=== PATIENT | female | born 1965 | race Caucasian/White ===

== ENCOUNTER 2022-07-17 13:31 | Emergency (ER) | payer MEDICARE, SELFPAY ==
[2022-07-17 13:37] VITALS: BP 158/65; PULSE 98; RESP 16; TEMP 37.2; O2SAT 93
--- NOTE | 2022-07-17 13:48 | ED_ITS ---
HPI - Allergic Reaction General: Chief complaint: Allergic Reaction Stated complaint: pain/reaction to infusion Time Seen by Provider: 07/17/22 13:34 History of Present Illness: HPI narrative: 56-year-old female presents emergency department chief complaint of pain all over located in her lower back her thighs and legs and arms patient reports she just received Reclast for osteoporosis yesterday reports is the first time she has received it she reports that she was on Fosamax before patient reports approximate 3 to 4 hours after she developed significant bone related bone achy pain patient does not report any recent falls or trauma. Patient reports no hives. She reports no difficulty breathing chest pain or palpitations patient presents to the ER for further assessment and management. Associated symptoms: Deny abdominal pain, facial swelling, nausea or vomiting Review of Systems General: Reports: 10 or more systems reviewed and unremarkable except in HPI and below Narrative: Patient reports fatigue and generalized bone aches although nonspecific in nature Const: Denies: fever(s), chills, fatigue or malaise Eyes: Denies: change in vision or blurry vision Card: Denies: chest pain or palpitations Resp: Denies: dyspnea or productive cough GI: Denies: abdominal pain, nausea or vomiting : Denies: flank pain Musc: Denies: extremity pain or extremity swelling Skin/Breast: Denies: rash or pruritus Neuro: Denies: headache(s) Psych: Denies: anxiety or depression Jf/Lymph: Denies: easy bleeding All/Imm: Denies: urticaria, throat swelling or facial swelling Physical Exam Narrative: EXAM NARRATIVE: On exam patient complains of generalized malaise and fatigue no focal neurodeficits or dizziness or developmental delay on her extremities chronic for her. Const: COMMON NORMALS: no acute distress, patient oriented x3 and healthy appearing HENMT: COMMON NORMALS: normocephalic and atraumatic HEAD & SCALP: normocephalic and atraumatic Eye: COMMON NORMALS: Equal, round and reactive pupils present and EOMs intact bilaterally PUPIL: Yes Equal, round and reactive pupils present Neck/C-Spine: COMMON NORMALS: full ROM, supple and no JVD Lymph: LYMPHATIC: no lymphadenopathy noted Chest: COMMONS NORMALS: normal inspection of the chest and normal palpation of entire chest wall Resp: COMMON NORMALS: normal respiratory effort, No retractions and clear to auscultation bilaterally EFFORT & INSPECTION: Yes able to speak in complete sentences and Yes symmetric chest movement AUSCULTATION: clear to auscultation bilaterally Cardio: COMMON NORMALS: no JVD, regular rate and regular rhythm RATE: regular rate RHYTHM: regular rhythm GI: COMMON NORMALS: Normal to inspection, nondistended, normoactive bowel sounds present, Soft to palpation and non-tender INSPECTION: Yes normal to inspection PALPATION: Yes Soft to palpation : COMMON NORMALS: Yes no CVA tenderness BLADDER/KIDNEY EXAM: Yes no CVA tenderness Back/Pelvis: COMMON NORMALS: no CVA tenderness Extremity: COMMON NORMALS: normal to inspection and full ROM Neuro: COMMON NORMALS: patient oriented x3, CN's II-XII intact bilaterally, moves all extremities and no focal motor deficits Psych: COMMON NORMALS: mental status grossly normal, Normal thought process present, cooperative and normal affect THOUGHT PROCESS: Normal thought process present Skin: COMMON NORMALS: no rashes or lesions noted GENERAL SKIN EXAM: no rashes or lesions noted Course Vital Signs: Vital signs: Vital Signs Temperature 98.9 F 07/17/22 13:37 Pulse Rate 93 07/17/22 15:41 Respiratory Rate 18 07/17/22 14:12 Blood Pressure 116/57 07/17/22 15:41 Pulse Oximetry 96 07/17/22 15:41 Oxygen Delivery Me thod Room Air 07/17/22 13:37 MDM - Allergic Reaction Medical Decision Making Due to the patient's symptoms and condition IV established basic lab work and imaging will be obtained medication provided for the patient associated discomfort and symptoms will continue to follow lab work and imaging came back reassuring patient appears to have adverse reaction to the medication provided prior to arrival will be started on additional medication for her bone aches and pains advised further follow-up outpatient primary care in 3 to 5 days which patient was advised return the interim if any of her symptoms persist or worse. Lab Data 07/17/22 14:02 07/17/22 14:02 Laboratory Results WBC 9.7 10^3/uL (4.0-10.0) 07/17/22 14:02 RBC 4.95 10^6/uL (4.1-5.3) 07/17/22 14:02 Hgb 12.3 g/dL (11.5-15.3) 07/17/22 14:02 Hct 40.3 % (37.0-47.0) 07/17/22 14:02 MCV 81.4 fl (81-99) 07/17/22 14:02 MCH 24.8 pg (28.0-34.0) L 07/17/22 14:02 MCHC 30.5 g/dL (30.0-36.0) 07/17/22 14:02 RDW 14.4 % (12.1-15.1) 07/17/22 14:02 Plt Count 219 10^3/cmm (130-400) 07/17/22 14:02 MPV 10.8 fL (7.4-10.4) H 07/17/22 14:02 Neut % (Auto) 92.2 % 07/17/22 14:02 Lymph % (Auto) 3.5 % 07/17/22 14:02 [place] % (Auto) 3.1 % 07/17/22 14:02 Eos % (Auto) 0.2 % 07/17/22 14:02 Baso % (Auto) 0.4 % 07/17/22 14:02 Neut # (Auto) 8.91 10^3/uL (1.8-7.7) H 07/17/22 14:02 Lymph # (Auto) 0.3 10^3/uL (0.8-4.8) L 07/17/22 14:02 [place] # (Auto) 0.3 10^3/uL (0.2-0.9) 07/17/22 14:02 Eos # (Auto) 0.0 10^3/uL (0.0-0.8) 07/17/22 14:02 Baso # (Auto) 0.0 10^3/uL (0.0-0.1) 07/17/22 14:02 Nucleated RBC % (auto) 0 % 07/17/22 14:02 Nucleated RBCs # 0.0 /100WBC 07/17/22 14:02 Sodium 141 mmol/L (136-145) 07/17/22 14:02 Potassium 4.1 mmol/L (3.5-5.1) 07/17/22 14:02 Chloride 102 mmol/L (98-107) 07/17/22 14:02 Carbon Dioxide 27 mmol/L (22-29) 07/17/22 14:02 Anion Gap 16.1 (5-19) 07/17/22 14:02 BUN 19 mg/dL (6-20) 07/17/22 14:02 Creatinine 0.7 mg/dL (0.5-0.9) 07/17/22 14:02 GFR Calculation 86.2 mL/min (90-130) L 07/17/22 14:02 Glucose 66 mg/dL (65-115) 07/17/22 14:02 Calculated Osmolality 292 mOsm/kg (285-295) 07/17/22 14:02 Calcium 8.9 mg/dL (8.5-10.5) 07/17/22 14:02 Phosphorus 3.6 mg/dL (2.5-4.5) 07/17/22 14:02 Magnesium 1.7 mg/dL (1.7-2.3) 07/17/22 14:02 Total Bilirubin 0.7 mg/dL (0.15-1.2) 07/17/22 14:02 AST 13 U/L (0-32) 07/17/22 14:02 ALT 14 U/L (0-33) 07/17/22 14:02 Alkaline Phosphatase 100 U/L (35-105) 07/17/22 14:02 C-Reactive Protein 41.0 mg/L (0.0-4.9) H 07/17/22 14:02 Total Protein 6.9 g/dL (6.6-8.7) 07/17/22 14:02 Albumin 4.0 g/dL (3.5-5.2) 07/17/22 14:02 Globulin 2.9 g/dL (1.3-4.6) 07/17/22 14:02 Urine Color Yellow (Yellow) 07/17/22 15:20 Urine Appearance Clear (CLEAR) 07/17/22 15:20 Urine pH 7 (5-7) 07/17/22 15:20 Ur Specific [place] 1.005 (1.005-1.030) 07/17/22 15:20 Urine Protein Neg (Negative) 07/17/22 15:20 Urine Glucose (UA) Norm (Normal) 07/17/22 15:20 Urine Ketones Negative (Negative) 07/17/22 15:20 Urine Blood Neg (Negative) 07/17/22 15:20 Urine Nitrate Negative (Negative) 07/17/22 15:20 Urine Bilirubin Neg (Negative) 07/17/22 15:20 Urine Urobilinogen 4 mg/dL (Negative) H 07/17/22 15:20 Ur Leukocyte Esterase Trace (Negative) H 07/17/22 15:20 Urine RBC 0-4 /hpf (0-2) H 07/17/22 15:20 Urine WBC 5-10 /hpf (0-5) H 07/17/22 15:20 Ur Squamous Epith Cells 0-4 /hpf (0-5) H 07/17/22 15:20 Amorphous Sediment Not Reportable 07/17/22 15:20 Urine Bacteria Trace /hpf (NONE) 07/17/22 15:20 Discharge Plan Discharge Patient Disposition: Home Clinical Impression: Adverse reaction to drug, Urinary tract infection Condition: Stable Prescriptions: New hydrocodone-acetaminophen 5-325 mg tablet 1 tab PO Q6H PRN (Reason: pain) Qty: 20 0RF doxycycline hyclate 100 mg capsule 100 mg PO BID 14 Days Qty: 28 0RF No Action celecoxib 200 mg capsule 200 mg PO QAM furosemide 40 mg tablet See Rx Instructions .ROUTE .COMPLEX Rx Instructions: 40mg po qam and may take one extra tab if needed [place] 5-325 mg Tablet 0.5 tab PO DAILY PRN (Reason: Pain) potassium chloride 10 mEq tablet extended release 20 meq PO BID Aspir-81 81 mg Tablet,Delayed Release (Dr/Ec) 81 mg PO QAM pravastatin 80 mg tablet 80 mg PO BEDTIME prednisolone acetate 1 % drops,suspension 1 drp ophthalmic (eye) BID Rx Instructions: in right eye pantoprazole 40 mg tablet,delayed release (DR/EC) 40 mg PO BID Nitrostat 0.4 mg Tablet, Sublingual 0.4 mg SUBLINGUAL Q5M PRN (Reason: Chest Pain) Rx Instructions: do not exceed 3 doses per episode Singulair 10 mg Tablet 10 mg PO DAILY PRN (Reason: Allergy Symptoms) metoprolol succinate 25 mg tablet extended release 24 hr 12.5 mg PO BID Humalog KwikPen Insulin 100 unit/mL insulin pen See Rx Instructions .ROUTE .COMPLEX Rx Instructions: 18 units in the am,6 units at lunch and 10 units at supper as needed depending on blood sugar plus sliding scale 90-130=no change 131-180=2 units 181-220=3 units 221-260=4 units 261-300=5 units > 301=6 units Lantus Solostar U-100 Insulin 100 unit/mL (3 mL) insulin pen See Rx Instructions .ROUTE .COMPLEX Rx Instructions: 58 units subcutaneously in the morning and 60 units at bedtime multivitamin Tablet 2 tab PO QAM zinc acetate 50 mg (zinc) Capsule 50 mg PO .ON MON,WED,AND FRI Zyrtec 10 mg Tablet 10 mg PO DAILY PRN (Reason: Allergy Symptoms) Vitamin B-12 1,000 mcg Tablet 1,000 mcg PO QAM Super B Complex Tablet 1 tab PO QAM Calcium 600 + D(3) 600 mg-10 mcg (400 unit) Tablet 1 tab PO QAM Reclast 5 mg/100 mL Piggyback See Rx Instructions .ROUTE .COMPLEX Rx Instructions: intravenously as directed Vitamin D3 125 mcg (5,000 unit) Tablet 125 mcg PO QAM Discharge Orders: Discharge ED (Routine); Ordered 07/17/22 Ordered By: Cornelio Hicks Referrals: Scott Kaur DO [Primary Care Provider] - 4-7 days Discharge Diet: Advance as tolerated Discharge Activity: Increase activity as tolerated Patient Instructions: Adverse Drug Reaction (ED), Opioid Safety, Pain Management, Urinary Tract Infection - Women Activity Restrictions/Additional Instructions: Please further follow-up with primary care doctor in 2 to 3 days, please take medications as prescribed and please return the interim if any of your symptoms persist or worse please drink lots of fluid 1 neck several days this will help improve your arthralgias and bone aches. Coding Level of Care Code ED Principal Network Engineer for Preet Moon
[2022-07-17 14:12] VITALS: RESP 18; O2SAT 96
[2022-07-17] MEDS: sodium chloride 0.9% 1,000 ML 999 ML IV (14:12)
[2022-07-17] MEDS: fentaNYL 50 mcg/mL INJ 2mL IVP (14:12)
[2022-07-17] MEDS: ketorolac 30 mg/mL INJ IVP (14:13)
[2022-07-17 14:16] LABS: Basophils % 0.4 %; Eosinophils % 0.2 %; Hematocrit 40.3 % (37.0-47.0); Hemoglobin 12.3 g/dL (11.5-15.3); Lymphocytes # 0.3 10^3/uL (0.8-4.8); Lymphocytes % 3.5 %; Mean Corpuscular HGB Conc 30.5 g/dL (30.0-36.0); Mean Corpuscular Hemoglobin 24.8 pg (28.0-34.0); Mean Corpuscular Volume 81.4 fl (81-99); Mean Platelet Volume 10.8 fL (7.4-10.4); Monocytes # 0.3 10^3/uL (0.2-0.9); Monocytes % 3.1 %; Neutrophils # 8.91 10^3/uL (1.8-7.7); Neutrophils % 92.2 %; Nucleated Red Blood Cells % 0 %; Platelet Count 219 10^3/cmm (130-400); Red Blood Count 4.95 10^6/uL (4.1-5.3); Red Cell Distribution Width 14.4 % (12.1-15.1); White Blood Count 9.7 10^3/uL (4.0-10.0)
[2022-07-17 14:42] LABS: Alanine Aminotransferase 14 U/L (0-33); Alkaline Phosphatase 100 U/L (35-105); Anion Gap 16.1 (5-19); Aspartate Amino Transferase 13 U/L (0-32); Blood Urea Nitrogen 19 mg/dL (6-20); Calcium 8.9 mg/dL (8.5-10.5); Carbon Dioxide 27 mmol/L (22-29); Chloride 102 mmol/L (98-107); Globulin 2.9 g/dL (1.3-4.6); Glomerular Filtration Rate 86.2 mL/min (90-130); Glucose 66 mg/dL (65-115); Magnesium 1.7 mg/dL (1.7-2.3); Osmolality Calculated 292 mOsm/kg (285-295); Phosphorus 3.6 mg/dL (2.5-4.5); Potassium 4.1 mmol/L (3.5-5.1); Sodium 141 mmol/L (136-145); Total Bilirubin 0.7 mg/dL (0.15-1.2); Total Protein 6.9 g/dL (6.6-8.7)
[2022-07-17 15:39] LABS: Add Urine Microscopic? YES; Bilirubin Urine Neg (Negative); Blood Urine Neg (Negative); Glucose Urine UA Norm (Normal); Ketones Urine Negative (Negative); Leukocyte Esterase Urine Trace (Negative); Nitrate Urine Negative (Negative); Protein Urine Neg (Negative); Specific Gravity, Urine 1.005 (1.005-1.030); Urine Appearance Clear (CLEAR); Urine Color Yellow (Yellow); Urobilinogen Urine 4 mg/dL (Negative); pH Urine 7 (5-7)
[2022-07-17 15:41] VITALS: BP 116/57; PULSE 93; O2SAT 96
[2022-07-17 15:43] LABS: Add Urine Culture? No; Bacteria Urine TRACE /hpf; RBC Urine 0-4 /hpf (0-2); Squamous Epithelial Cell Urine 0-4 /hpf (0-5)
== END 2022-07-17 18:31 | disposition home or self-care (01) ==
PROVIDERS: Emergency Provider Emergency Medicine; PCP Family Medicine
DX: M89.8X0 Other specified disorders of bone, multiple sites (principal); T50.995A Adverse effect of other drugs, medicaments and biological substances, initial encounter; N39.0 Urinary tract infection, site not specified; Z79.82 Long term (current) use of aspirin; Z79.4 Long term (current) use of insulin
CPT/HCPCS: 80053; 81001; 83735; 84100; 85025; 86140; 96374; 96375; 99284; J1885; J3010; J7030

== ENCOUNTER 2024-01-05 00:20 | Emergency (ER) | payer MEDICARE, SELFPAY ==
[2024-01-05 00:21] VITALS: BP 129/70; PULSE 89; RESP 16; TEMP 34.7; O2SAT 99; BMI 45.4
[2024-01-05 00:28] VITALS: BP 119/76; PULSE 88; O2SAT 100
--- NOTE | 2024-01-05 00:28 | ED_ITS ---
HPI - Recheck/Abnormal Lab/Rx 2 General: Chief Complaint: Recheck/Abnormal Lab/Rx Stated Complaint: hypoglycemia Time Seen by Provider: 01/05/24 00:21 History of Present Illness: Patient presented to the ER by EMS with complaints of hypoglycemia and fall. Patient was found unresponsive with hypoglycemia with her sugar in the 50s. She denies sickness overdose of insulin, she was given Dr. [place] pain about crackers and sugar still dropping per EMS. However she is feeling much better. Patient declined IV access on route so there is no IV glucose given blood sugar was 66 in triage. Patient says his blood sugar normally runs in the 120s. Patient lives at home with her father. Patient does take fast acting and long- acting insulin. Related Data Home Medications Medication Instructions Recorded Confirmed aspirin 81 mg tablet,delayed 81 mg PO QAM 07/17/22 07/17/22 release calcium 600 mg (as 1 tab PO QAM 07/17/22 07/17/22 carbonate)-vitamin D3 10 mcg (400 unit) tablet (Calcium 600 + D(3)) celecoxib 200 mg capsule 200 mg PO QAM 07/17/22 07/17/22 cetirizine 10 mg tablet (Zyrtec) 10 mg PO DAILY PRN Allergy Symptoms 07/17/22 07/17/22 cholecalciferol (vitamin D3) 125 125 mcg PO QAM 07/17/22 07/17/22 mcg (5,000 unit) tablet (Vitamin D3) cyanocobalamin (vitamin B-12) 1,000 mcg PO QAM 07/17/22 07/17/22 1,000 mcg tablet (Vitamin B-12) furosemide 40 mg tablet See Rx Instructions .Route .COMPLEX 07/17/22 07/17/22 hydrocodone 5 mg-acetaminophen 325 0.5 tab PO DAILY PRN Pain 07/17/22 07/17/22 mg tablet insulin glargine 100 unit/mL (3 See Rx Instructions .Route .COMPLEX 07/17/22 07/17/22 mL) subcutaneous pen (Lantus Solostar U-100 Insulin) insulin lispro 100 unit/mL See Rx Instructions .Route .COMPLEX 07/17/22 07/17/22 subcutaneous pen (Humalog KwikPen (U-100) Insulin) metoprolol succinate 25 mg 12.5 mg PO BID 07/17/22 07/17/22 tablet,extended release 24 hr montelukast 10 mg tablet 10 mg PO DAILY PRN Allergy Symptoms 07/17/22 07/17/22 (Singulair) multivitamin 2 tab PO QAM 07/17/22 07/17/22 nitroglycerin 0.4 mg sublingual 0.4 mg sublingual Q5M PRN Chest 07/17/22 07/17/22 tablet (Nitrostat) Pain pantoprazole 40 mg tablet,delayed 40 mg PO BID 07/17/22 07/17/22 release potassium chloride 10 mEq 20 meq PO BID 07/17/22 07/17/22 tablet,extended release pravastatin 80 mg tablet 80 mg PO BEDTIME 07/17/22 07/17/22 prednisolone acetate 1 % eye 1 drp ophthalmic (eye) BID 07/17/22 07/17/22 drops,suspension vitamin B complex 1 tab PO QAM 07/17/22 07/17/22 zinc acetate 50 mg (zinc) capsule 50 mg PO .ON MON,WED,AND Wed07/17/22 07/17/22 zoledronic acid 5 mg/100 mL in See Rx Instructions .Route .COMPLEX 07/17/22 07/17/22 mannitol 5 %-water intravenous piggybck (Reclast) Previous Rx's Medication Instructions Recorded hydrocodone 5 mg-acetaminophen 325 1 tab PO Q6H PRN pain #20 tabs 07/17/22 mg tablet Allergies Allergy/AdvReac Type Severity Reaction Status Date / Time LILLIAN Inhibitors Allergy ADR-Cough Verified 01/05/24 00:25 amitriptyline [From Elavil] Allergy ALGY-Anaphy Verified 07/17/22 15:29 laxis candesartan [From Atacand] Allergy ALGY-Anaphy Verified 07/17/22 15:29 laxis carvedilol Allergy ALGY-Anaphy Verified 07/17/22 15:29 laxis cefaclor [From Ceclor] Allergy ALGY-Anaphy Verified 07/17/22 15:29 laxis ciprofloxacin [From Cipro] Allergy ALGY-Anaphy Verified 07/17/22 15:29 laxis Sulfa (Sulfonamide Allergy ALGY-Anaphy Verified 07/17/22 15:29 Antibiotics) laxis Review of Systems 2 General: Reports: 10 or more systems reviewed and unremarkable except in HPI and below Physical Exam 2 Const: COMMON NORMALS: no acute distress, average body habitus, patient oriented x3, no limitations, healthy appearing, alert and well nourished HENMT: COMMON NORMALS: normocephalic, atraumatic, hearing grossly normal bilaterally, external ears normal, Normal external nose present and moist oral mucous membranes HEAD & SCALP: normocephalic and atraumatic NOSE: Normal external nose present EXTERNAL EAR: Yes external ears normal Neck/C-Spine: COMMON NORMALS: no JVD Chest: COMMONS NORMALS: normal inspection of the chest and normal palpation of entire chest wall Resp: COMMON NORMALS: normal respiratory effort, No retractions, No use of accessory muscles and clear to auscultation bilaterally AUSCULTATION: clear to auscultation bilaterally Cardio: COMMON NORMALS: no JVD, regular rate, regular rhythm, S1 normal heart sound present, S2 normal heart sound present, No gallops present (Cardio), No clicks present (Cardio), No murmurs present (Cardio) and No rub (Cardio) R ATE: regular rate RHYTHM: regular rhythm HEART SOUNDS: S1 normal heart sound present and S2 normal heart sound present GI: COMMON NORMALS: Normal to inspection, nondistended, normoactive bowel sounds present, Soft to palpation, non-tender, No hepatosplenomegaly present and no masses PALPATION: Yes Soft to palpation and Yes No hepatosplenomegaly present Neuro: COMMON NORMALS: patient oriented x3 SENSORIUM/ORIENTATION: Yes alert Course 2 Vital Signs: Vital signs: Vital Signs Temperature 94.4 F L 01/05/24 00:21 Pulse Rate 89 01/05/24 00:21 Respiratory Rate 16 01/05/24 00:21 Blood Pressure 129/70 01/05/24 00:21 Pulse Oximetry 99 01/05/24 00:21 Oxygen Delivery Me thod Room Air 01/05/24 00:21 MDM - Recheck/Abnormal Lab/Rx Medical Decision Making Lab work was obtained which showed a sugar 145, patient is given food to eat later sugar was less than 198. Patient was still feeling good. Patient be discharged home. Medical Records I reviewed the patient's medical records. Lab Data I reviewed the patient's lab results. 01/05/24 00:50 01/05/24 00:50 Laboratory Results WBC 9.22 10^3/uL (3.29-11.43) 01/05/24 00:50 RBC 4.52 10^6/uL (3.85-5.65) 01/05/24 00:50 Hgb 11.50 g/dL (11.27-16.99) 01/05/24 00:50 Hct 37.6 % (36-47) 01/05/24 00:50 MCV 83.2 fl (85-98) L 01/05/24 00:50 MCH 25.4 pg (27-33) L 01/05/24 00:50 MCHC 30.6 g/dL (30-55) 01/05/24 00:50 RDW 15.0 % (12.1-15.1) 01/05/24 00:50 Plt Count 241 10^3/cmm (157-399) 01/05/24 00:50 MPV 10.3 fL (7.4-10.4) 01/05/24 00:50 Neut % (Auto) 77.6 % 01/05/24 00:50 Lymph % (Auto) 12.0 % 01/05/24 00:50 [place] % (Auto) 7.7 % 01/05/24 00:50 Eos % (Auto) 1.1 % 01/05/24 00:50 Baso % (Auto) 0.7 % 01/05/24 00:50 Neut # (Auto) 7.16 10^3/uL (1.8-7.7) 01/05/24 00:50 Lymph # (Auto) 1.1 10^3/uL (0.8-4.8) 01/05/24 00:50 [place] # (Auto) 0.7 10^3/uL (0.2-0.9) 01/05/24 00:50 Eos # (Auto) 0.1 10^3/uL (0.0-0.8) 01/05/24 00:50 Baso # (Auto) 0.1 10^3/uL (0.0-0.1) 01/05/24 00:50 Nucleated RBC % (auto) 0 % 01/05/24 00:50 Nucleated RBCs # 0.0 /100WBC 01/05/24 00:50 Sodium 139 mmol/L (136-145) 01/05/24 00:50 Potassium 4.1 mmol/L (3.5-5.1) 01/05/24 00:50 Chloride 104 mmol/L (98-107) 01/05/24 00:50 Carbon Dioxide 24 mmol/L (22-29) 01/05/24 00:50 Anion Gap 15.1 (5-19) 01/05/24 00:50 BUN 18 mg/dL (6-20) 01/05/24 00:50 Creatinine 0.8 mg/dL (0.5-0.9) 01/05/24 00:50 GFR Calculation 73.4 mL/min (90-130) L 01/05/24 00:50 Glucose 145 mg/dL (65-115) H 01/05/24 00:50 POC Glucose 198 mg/dL (70-110) H 01/05/24 01:27 Calculated Osmolality 292 mOsm/kg (285-295) 01/05/24 00:50 Calcium 8.4 mg/dL (8.5-10.5) L 01/05/24 00:50 Total Bilirubin 0.3 mg/dL (0.15-1.2) 01/05/24 00:50 AST 13 U/L (0-32) 01/05/24 00:50 ALT 14 U/L (0-33) 01/05/24 00:50 Alkaline Phosphatase 95 U/L (35-105) 01/05/24 00:50 Total Protein 6.6 g/dL (6.6-8.7) 01/05/24 00:50 Albumin 4.0 g/dL (3.5-5.2) 01/05/24 00:50 Globulin 2.6 g/dL (1.3-4.6) 01/05/24 00:50 No radiology studies performed this visit Discharge Plan Discharge Patient Disposition: Home Clinical Impression: Diabetic hypoglycemia Condition: Stable Prescriptions: No Action celecoxib 200 mg capsule 200 mg PO QAM furosemide 40 mg tablet See Rx Instructions .ROUTE .COMPLEX Rx Instructions: 40mg po qam and may take one extra tab if needed [place] 5-325 mg Tablet 0.5 tab PO DAILY PRN (Reason: Pain) potassium chloride 10 mEq tablet extended release 20 meq PO BID Aspir-81 81 mg Tablet,Delayed Release (Dr/Ec) 81 mg PO QAM pravastatin 80 mg tablet 80 mg PO BEDTIME prednisolone acetate 1 % drops,suspension 1 drp ophthalmic (eye) BID Rx Instructions: in right eye pantoprazole 40 mg tablet,delayed release (DR/EC) 40 mg PO BID Nitrostat 0.4 mg Tablet, Sublingual 0.4 mg SUBLINGUAL Q5M PRN (Reason: Chest Pain) Rx Instructions: do not exceed 3 doses per episode Singulair 10 mg Tablet 10 mg PO DAILY PRN (Reason: Allergy Symptoms) metoprolol succinate 25 mg tablet extended release 24 hr 12.5 mg PO BID Humalog KwikPen Insulin 100 unit/mL insulin pen See Rx Instructions .ROUTE .COMPLEX Rx Instructions: 18 units in the am,6 units at lunch and 10 units at supper as needed depending on blood sugar plus sliding scale 90-130=no change 131-180=2 units 181-220=3 units 221-260=4 units 261-300=5 units > 301=6 units Lantus Solostar U-100 Insulin 100 unit/mL (3 mL) insulin pen See Rx Instructions .ROUTE .COMPLEX Rx Instructions: 58 units subcutaneously in the morning and 60 units at bedtime multivitamin Tablet 2 tab PO QAM zinc acetate 50 mg (zinc) Capsule 50 mg PO .ON MON,WED,AND FRI Zyrtec 10 mg Tablet 10 mg PO DAILY PRN (Reason: Allergy Symptoms) Vitamin B-12 1,000 mcg Tablet 1,000 mcg PO QAM Super B Complex Tablet 1 tab PO QAM Calcium 600 + D(3) 600 mg-10 mcg (400 unit) Tablet 1 tab PO QAM Reclast 5 mg/100 mL Piggyback See Rx Instructions .ROUTE .COMPLEX Rx Instructions: intravenously as directed Vitamin D3 125 mcg (5,000 unit) Tablet 125 mcg PO QAM hydrocodone-acetaminophen 5-325 mg tablet 1 tab PO Q6H PRN (Reason: pain) Qty: 20 0RF Discharge Orders: Discharge ED (Routine); Ordered 01/05/24 Ordered By: Yunior Storey Referrals: Scott Kaur DO [Primary Care Provider] - 1 week Patient Instructions: Hypoglycemia, What to Do if Your Blood Sugar is Low (ED) Activity Restrictions/Additional Instructions: Your blood glucose was up to 198 in the ER. Please remember to eat small frequent meals and have snacks available in between. Please keep an eye on your blood sugar as you are on a short acting and long-acting insulin and may need frequent checks and snacks. Coding Level of Care Code ED Screen Printing Stencil Preparer for Preet Moon
[2024-01-05 00:58] VITALS: BP 120/78; PULSE 86; O2SAT 99
[2024-01-05 01:03] LABS: Basophils # 0.1 10^3/uL (0.0-0.1); Basophils % 0.7 %; Eosinophils # 0.1 10^3/uL (0.0-0.8); Eosinophils % 1.1 %; Hematocrit 37.6 % (36-47); Lymphocytes # 1.1 10^3/uL (0.8-4.8); Mean Corpuscular HGB Conc 30.6 g/dL (30-55); Mean Corpuscular Hemoglobin 25.4 pg (27-33); Mean Corpuscular Volume 83.2 fl (85-98); Mean Platelet Volume 10.3 fL (7.4-10.4); Monocytes # 0.7 10^3/uL (0.2-0.9); Monocytes % 7.7 %; Neutrophils # 7.16 10^3/uL (1.8-7.7); Neutrophils % 77.6 %; Nucleated Red Blood Cells % 0 %; Platelet Count 241 10^3/cmm (157-399); Red Blood Count 4.52 10^6/uL (3.85-5.65); White Blood Count 9.22 10^3/uL (3.29-11.43)
[2024-01-05 01:19] LABS: Alanine Aminotransferase 14 U/L (0-33); Alkaline Phosphatase 95 U/L (35-105); Anion Gap 15.1 (5-19); Aspartate Amino Transferase 13 U/L (0-32); Blood Urea Nitrogen 18 mg/dL (6-20); Calcium 8.4 mg/dL (8.5-10.5); Carbon Dioxide 24 mmol/L (22-29); Chloride 104 mmol/L (98-107); Creatinine Clr Calc Pharmacy 96.7017; Globulin 2.6 g/dL (1.3-4.6); Glomerular Filtration Rate 73.4 mL/min (90-130); Glucose 145 mg/dL (65-115); Osmolality Calculated 292 mOsm/kg (285-295); Potassium 4.1 mmol/L (3.5-5.1); Sodium 139 mmol/L (136-145); Total Bilirubin 0.3 mg/dL (0.15-1.2); Total Protein 6.6 g/dL (6.6-8.7)
[2024-01-05 01:28] VITALS: BP 124/60; PULSE 86; O2SAT 100
[2024-01-05 01:30] VITALS: BP 134/73; PULSE 85; O2SAT 97
[2024-01-05 01:31] LABS: Glucose Point of Care 198 mg/dL (70-110)
[2024-01-05 02:39] VITALS: BP 116/73; PULSE 87; O2SAT 97
== END 2024-01-05 02:23 | disposition home or self-care (01) ==
PROVIDERS: Emergency Provider Emergency Medicine; PCP Family Medicine
DX: E11.649 Type 2 diabetes mellitus with hypoglycemia without coma (principal); Z79.4 Long term (current) use of insulin
CPT/HCPCS: 36416; 80053; 82962; 85025; 96374; 99284; J1642

== ENCOUNTER 2025-02-07 18:45 | Emergency (ER) | payer MEDICARE, SELFPAY ==
--- OUTSIDE RECORDS SUMMARY | 2025-02-06 10:30 | XMS_ITS | Encounter Summary ---
Author Organization [facility] Address [address] [place] [address] Care Team Providers Care Pickling Operator Name Role Phone Gorge Luciano DO Primary Care Provider [phone] Reason for Visit * EMG (Routine) - Closed Specialty Diagnoses / Procedures Referred By Contact Referred To Contact Physical Medicine and Rehabilitation Diagnoses Chronic right shoulder pain Numbness and tingling of right arm Procedures EMG WITH NERVE CONDUCTION MN NERVE CONDUCTION STUDIES 1-2 STUDIES MN NERVE CONDUCTION STUDIES 3-4 STUDIES MN NERVE CONDUCTION STUDIES 5-6 STUDIES MN NERVE CONDUCTION STUDIES 7-8 STUDIES MN NERVE CONDUCTION STUDIES 9-10 STUDIES MN NERVE CONDUCTION STUDIES 11-12 STUDIES MN NERVE CONDUCTION STUDIES 13/> STUDIES MN NEEDLE EMG EA EXTREMTY W/PARASPINL AREA COMPLETE MN NDL EMG 1 XTR W/WO RELATED PARASPINAL AREAS Casie [address], REBEL [address] [place] [address] Phone: tel: fax: [facility] [address] [place] [address] Phone: tel: fax: Referral ID Status Reason Start Date Expiration Date Visits Re quested Visits Authorized [id number] Closed 01/09/2025 02/09/2026 1 1 Encounter Details Date Type Department Care Team (Late st Contact Info) Description 02/06/2025 10:30 AM FARROWING MANAGER Procedure visit [facility] [address] [place] [address] Yosef Hoffman MD [address] [place] [address] Chronic right shoulder pain; Numbness and tingling of right arm Social History Tobacco Use Types Packs/Day Years Used Date Smoking Tobacco: Never Smokeless Tobacco: Never Alcohol Use Standard Drinks/Week Comments No 0 (1 standard drink = 0.6 oz pur e alcohol) Financial Resource Strain Answer Date R ecorded How hard is it for you to pa y for the very basics like food, housing, medical care, and heating? Not hard at all 08/05/2021 Food Insecurity Answer Date Recorded In the past 12 months, have you worried that your food would run out before you had money to buy more? Never true 08/05/2021 In the past 12 months, did y ou run out of food and didn't have money to buy more? Never true 08/05/2021 Transportation Needs Answer Date Record ed In the past 12 months, has l ack of transportation kept you from medical appointments or from getting medications? No 08/05/2021 Lack of Transportation (Non-Medical) Not on file 08/05/2021 Comments No Sex and Gender Information Value Date Recorded Sex Assigned at Female 12/21/2023 9:49 AM CDT Legal Sex Female 12:41 PM FARROWING MANAGER Gender Identity Female 12/21/2023 9:49 AM CDT Sexual Orientation Not on file documented as of this encounter Procedure Notes * Yosef Hoffman MD - 02/06/2025 10:40 AM CSTAssociated Order(s): EMG WITH NERVE CONDUCTION Procedure(s): MN NERVE CONDUCTION STUDIES 3-4 STUDIES; MN NEEDLE EMG EA EXTREMITY W/PARASPINL AREA LIMITED Pre-Procedure Diagnose(s): Chronic right shoulder pain; Numbness and tingling of right arm NCS/EMG performed today in the clinic ( 1 extremity). 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 No evidence of radiculopathy, plexopathy or other mononeuropathy. Results of this test to be uploaded to the media section by medical editor by early next week. Please see media section from this date to review report once uploaded. OWING MANAGER documented in this encounter Miscellaneous Notes * Patient Instructions - Yosef Hoffman MD - 01/26/2025 3:44 PM CST Post-EMG/NCS Instructions for Patients Thank you for completing your Electromyography (EMG) and Nerve Conduction Studies (NCS). These tests help evaluate the health of your nerves and muscles. Below are some instructions and tips to help you recover comfortably after the procedure. What to Expect: Mild soreness or bruising at the electrode or needle sites is normal. You may feel a tingling sensation or muscle twitching for a short time after the test. Most people are able to return to their normal activities right away. Aftercare Instructions: Activity: You may resume all normal activities, including driving, work, and exercise, unless your doctor advises otherwise. Discomfort or Bruising: If you experience soreness or bruising at the needle insertion sites: Apply a cold pack for 10-15 minutes every few hours for the first 24 hours. Owph-ugj-kyktptu pain relievers like acetaminophen (Tylenol) or ibuprofen (Advil) can help with discomfort. Skin Care: If you notice any redness, swelling, or drainage at a needle site that worsens or does not improve within 2-3 days, contact your healthcare provider. Showering/Bathing: You may shower or bathe as normal. No special skin care is needed unless otherwise instructed. When to Call Your Doctor: Signs of infection (increased redness, warmth, swelling, pain, or discharge) Fever over 100.4??F (38??C) Severe or persistent pain Numbness or weakness that worsens after the test Follow-Up: A follow up in this office is not needed. Your test results will be reviewed by your referring physician. Be sure to follow up with the referring provider to discuss the results and next steps in your care. If you have any questions or concerns, don't hesitate to contact our office. OWING MANAGER documented in this encounter Plan of Treatment Upcoming Encounters Date Type Department Care Team (Late st Contact Info) Description 02/14/2025 9:15 AM FARROWING MANAGER Appointment [facility] [place] [address] [place] [phone] PA [address] [place] [address] 02/15/2025 11:40 AM FARROWING MANAGER Office Visit [facility]opedic [facility] [address] [place] [address] Conrado Barraza PA-C [address] [place] [address] 02/28/2025 11:20 AM FARROWING MANAGER Office Visit [facility] Edu[place] [address] [place] [address] Gorge Luciano DO [address] [place] [address] 04/09/2025 12:35 PM FARROWING MANAGER Appointment [facility] [address] [place] [phone] 04/12/2025 8:00 AM FARROWING MANAGER Video Visit [facility] Endocrinology [facility] [address] [place] [address] Lorna Page MD [address] [place] [address] 04/16/2025 1:20 PM FARROWING MANAGER Office Visit [facility] Cancer and Hematology [place] [address] [facility] [address] [place] [phone] Levy Page MD [address] [facility] [address] [place] [address] 06/12/2025 12:40 PM CDT Office Visit [facility] Eduardo [place] [address] [place] [address] Enrrique Scanlon MD [address] [place] [address] 09/03/2025 11:20 AM CDT Office Visit [facility] Eduardo [place] [place] [address] Gorge Luciano DO [address] [place] [address] documented as of this encounter Procedures Procedure Name Priority Date/Time Associated Diagnosis Comments MN NEEDLE EMG EA EXTREMITY W/PARASPINL AREA LIMITED Routine 02/06/2025 10:40 AM FARROWING MANAGER Chronic right shoulder pain Numbness and tingling of right arm MN NERVE CONDUCTION STUDIES 3-4 STUDIES Routine 02/06/2025 10:40 AM FARROWING MANAGER Chronic right shoulder pain Numbness and tingling of right arm documented in this encounter Results * (ABNORMAL) MN NERVE CONDUCTION STUDIES 3-4 STUDIES, MN NEEDLE EMG EA EXTREMITY W/PARASPINL AREA LIMITED (02/06/2025 10:40 AM FARROWING MANAGER) Fabio Delgado - 02/06/2025 10:40 AM FARROWING MANAGER Yosef Hoffman MD 02/06/2025 10:41 AM NCS/EMG performed today in the clinic ( 1 extremity). 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 No evidence of radiculopathy, plexopathy or other mononeuropathy. Results of this test to be uploaded to the media section by medical editor by early next week. Please see media section from this date to review report once uploaded. Procedure Note Yosef Hoffman MD - 02/06/2025 10:40 AM CST NCS/EMG performed today in the clinic ( 1 extremity). Findings of ulnarnerve mononeuropathy of the right upper extremity. No evidence ofradiculopathy, plexopathy or other mononeuropathy. Results of this test to be uploaded to the media section by medicalassistant by early next week. Please see media section from this date toreview report once uploaded. us [facility] ORDERABLES Edited Resu lt - Final documented in this encounter Visit Diagnoses Diagnosis Chronic right shoulder pain Pain in joint, shoulder region Numbness and tingling of right arm Disturbance of skin sensation documented in this encounter Care Teams Pickling Operator Relationship Specialty Start Date End Date Gorge Luciano DO [address] [facility] [address] [place] [address] PCP - General Internal Medicine 07/17/09 documented as of this encounter
--- OUTSIDE RECORDS SUMMARY | 2025-02-07 18:50 | XMS_ITS | Encounter Summary ---
Author Organization [facility] Address [address] [place] [address] Care Team Providers Care Technician Support Engineer Name Role Phone Gorge Luciano DO Primary Care Provider [phone] Encounter Details Date Type Department Care Team (Latest Contact Info) Description 11/04/2006 Outpatient Historical [facility] Gorge Luciano DO [address] [place] [address] DM w/o Complication Type II (CMS/HCC) (Primary Dx) Social History Tobacco Use Types Packs/Day Years Used Date Smoking Tobacco: Never Assessed Comments Unknown Sex and Gender Information Value Date Recorded Sex Assigned at Not on file Legal Sex Female 5:31 AM TIPPLE BOSS Gender Identity Not on file Sexual Orientation Not on file documented as of this encounter Plan of Treatment Not on file documented as of this encounter Visit Diagnoses Diagnosis Type II or unspecified type diabetes mellitus without mention of complication, not stated as uncontrolled- Primary documented in this encounter Care Teams Technician Support Engineer Relationship Specialty Start Date End Date Gorge Luciano DO [address] [place] [address] PCP - General Internal Medicine 07/17/09 documented as of this encounter
--- OUTSIDE RECORDS SUMMARY | 2025-02-07 18:50 | XMS_ITS | Encounter Summary ---
Author Organization [facility] Address [address] [place] [address] Care Team Providers Care Emission Technician Name Role Phone Gorge Luciano DO Primary Care Provider [phone] Encounter Details Date Type Department Care Team (Late st Contact Info) Description 08/27/2006 Outpatient Historical [facility] Social History Tobacco Use Types Packs/Day Years Used Date Smoking Tobacco: Never Assessed Comments Unknown Sex and Gender Information Value Date Recorded Sex Assigned at Not on file Legal Sex Female 5:31 AM EXTENDER Gender Identity Not on file Sexual Orientation Not on file documented as of this encounter Plan of Treatment Not on file documented as of this encounter Visit Diagnoses Not on filedocumented in this encounter Care Teams Emission Technician Relationship Specialty Start Date End Date Gorge Luciano DO [address] [facility] [address] [place] [address] PCP - General Internal Medicine 07/17/09 documented as of this encounter
--- OUTSIDE RECORDS SUMMARY | 2025-02-07 18:50 | XMS_ITS | Encounter Summary ---
Author Organization [facility] Address [address] [place] [address] Care Team Providers Care Refinery Pipeline Operator Name Role Phone Gorge Luciano DO Primary Care Provider [phone] Encounter Details Date Type Department Care Team (Latest Contact Info) Description 01/22/[address] [facility] Imaging Services-More Eduardo Norris [address] [place] [address] Gorge Luciano DO [address] [place] [address] Calcaneal Spur (Primary Dx); Pain in Limb Social History Tobacco Use Types Packs/Day Years Used Date Smoking Tobacco: Never Assessed Comments Unknown Sex and Gender Information Value Date Recorded Sex Assigned at Not on file Legal Sex Female 5:31 AM CITY JAILER Gender Identity Not on file Sexual Orientation Not on file documented as of this encounter Plan of Treatment Not on file documented as of this encounter Visit Diagnoses Diagnosis Calcaneal spur- Primary Pain in limb Pain in soft tissues of limb documented in this encounter Care Teams Refinery Pipeline Operator Relationship Specialty Start Date End Date Gorge Luciano DO [address] [place] [address] PCP - General Internal Medicine 07/17/09 documented as of this encounter
--- OUTSIDE RECORDS SUMMARY | 2025-02-07 18:50 | XMS_ITS | Encounter Summary ---
Author Organization [facility] Address [address] [place] [address] Care Team Providers Care Rail Car Welder Name Role Phone Gorge Luciano DO Primary Care Provider [phone] Encounter Details Date Type Department Care Team (Latest Contact Info) Description 01/22/2006 Outpatient Historical [facility] [address] [place] [address] Gorge Luciano DO [address] [place] [address] Pain in Limb (Primary Dx) Social History Tobacco Use Types Packs/Day Years Used Date Smoking Tobacco: Never Assessed Comments Unknown Sex and Gender Information Value Date Recorded Sex Assigned at Not on file Legal Sex Female 5:31 AM REED MAN Gender Identity Not on file Sexual Orientation Not on file documented as of this encounter Plan of Treatment Not on file documented as of this encounter Visit Diagnoses Diagnosis Pain in limb- Primary Pain in soft tissues of limb documented in this encounter Care Teams Rail Car Welder Relationship Specialty Start Date End Date Gorge Luciano DO [address] [place] [address] PCP - General Internal Medicine 07/17/09 documented as of this encounter
--- OUTSIDE RECORDS SUMMARY | 2025-02-07 18:50 | XMS_ITS | Encounter Summary ---
Author Organization [facility] Address [address] [place] [address] Care Team Providers Care Home Service Director Name Role Phone Gorge Luciano DO Primary Care Provider Encounter Details Date Type Department Care Team (Latest Contact Info) Description 02/11/2006 Outpatient Historical [facility] Cardiovascular Services [address] [place] [address] Too Brandon MD NO ADDRESS ON FILE Palpitations (Primary Dx) Social History Tobacco Use Types Packs/Day Years Used Date Smoking Tobacco: Never Assessed Comments Unknown Sex and Gender Information Value Date Recorded Sex Assigned at Not on file Legal Sex Female 5:31 AM KEEPER HELPER Gender Identity Not on file Sexual Orientation Not on file documented as of this encounter Plan of Treatment Not on file documented as of this encounter Visit Diagnoses Diagnosis Palpitations- Primary documented in this encounter Care Teams Home Service Director Relationship Specialty Start Date End Date Gorge Luciano DO [address] [place] [address] PCP - General Internal Medicine 07/17/09 documented as of this encounter
--- OUTSIDE RECORDS SUMMARY | 2025-02-07 18:50 | XMS_ITS | Encounter Summary ---
Author Organization [facility] Address [address] [place] [address] Care Team Providers Care Promotions Assistant Name Role Phone Gorge Luciano Joelle CALDWELL Primary Care Provider [phone] Encounter Details Date Type Department Care Team (Latest Contact Info) Description 02/24/2006 Outpatient Historical [facility] Nuclear Medicine[address] [address] Too Brandon MD NO ADDRESS ON FILE Coronary Atherosclerosis of [place] Coronary Artery (Primary Dx) Social History Tobacco Use Types Packs/Day Years Used Date Smoking Tobacco: Never Assessed Comments Unknown Sex and Gender Information Value Date Recorded Sex Assigned at Not on file Legal Sex Female 5:31 AM OPERATIONS ADVISOR Gender Identity Not on file Sexual Orientation Not on file documented as of this encounter Plan of Treatment Not on file documented as of this encounter Procedures Procedure Name Priority Date/Time Associated Diagnosis Comments STRESS TEST EXERCISE NUCLEAR MED Routine 02/24/2006 12:01 AM OPERATIONS ADVISOR NM MYOCARD PERF IMAG SPECT MULT Routine 02/24/2006 12:01 AM OPERATIONS ADVISOR documented in this encounter Results * NM MYOCARD PERF IMAG SPECT MULT (02/24/2006 12:01 AM OPERATIONS ADVISOR) 02/24/2006 12:0 1 AM OPERATIONS ADVISOR Narrative INTERFACE SYSTEM - 02/24/2006 12:01 AM OPERATIONS ADVISOR Radionuclide Myocardial Perfusion SPECT Rest/Adenosine Stress Wall Motion and Ejection FractionEvaluation: Radiopharmaceutical: Tc-99m (technetium-99m) tetrofosminDose: 12.7 mCi (rest) / 38.7 mCi (stress)Reason for Consultation: Chest discomfort, atherosclerotic heart disease status post in the high andstent placement. Rotating planar and tomographic slices demonstrate the left ventricular chamber to be within normallimits in size without transient dilation, pulmonary accumulation, or important motion. Tomographic slices demonstrate mild reversible changes in both anterior and lateral rasmussen. Gated tomographic imaging at rest following stress injection of tracer demonstrates physiologicthickening and excursion of all segments. Left ventricular end diastolic volume is 81 mL. Leftventricular ejection fraction is 71 %. Transient ischemic dilation index is normal at 1.06. Impression: 1. Reversible/ischemic changes are present in the anterior and lateral rasmussen of concern for criticallyobstructed coronary disease in both LAD and left circumflex distributions. 2. Normal regional and global left ventricular systolic function with viable myocardium throughout theleft ventricle. 3. Negative electrocardiographic response to pharmacologic intervention. - Dictated By: Sky Robles M.D. Electronically Signed By: Sky Robles M.D. Date Signed: 02/24/06 Procedure Note Provider, Historical - 01/31/2009 Radionuclide Myocardial Perfusion SPECT Rest/Adenosine Stress Wall Motionand Ejection FractionEvaluation: Radiopharmaceutical: Tc-99m (technetium-99m) tetrofosminDose: 12.7 mCi (rest) / 38.7 mCi (stress)Reason for Consultation: Chest discomfort, atherosclerotic heart disease status post in the highandstent placement. Rotating planar and tomographic slices demonstrate the left ventricularchamber to be within normallimits in size without transient dilation, pulmonary accumulation, or importantmotion. Tomographic slices demonstrate mild reversible changes in both anteriorand lateral rasmussen. Gated tomographic imaging at rest following stress injection of tracerdemonstrates physiologicthickening and excursion of all segments. Left ventricular end diastolic volume is81 mL. Leftventricular ejection fraction is 71 %. Transient ischemic dilation index is normalat 1.06. Impression: 1. Reversible/ischemic changes are present in the anterior and lateralwalls of concern for criticallyobstructed coronary disease in both LAD and left circumflexdistributions. 2. Normal regional and global left ventricular systolic function withviable myocardium throughout theleft ventricle. 3. Negative electrocardiographic response to pharmacologic intervention. - Dictated By: Sky Robles M.D. Electronically Signed By: Sky Robles M.D. Date Signed: 02/24/06 us Historical Provider NM ORDERABLES Final Result INTERFACE SYSTEM Refer to clinic/hospital department * STRESS TEST,EXERCISE, NUCLEAR MED (02/24/2006 12:01 AM OPERATIONS ADVISOR) 02/24/2006 12:0 1 AM OPERATIONS ADVISOR Narrative INTERFACE SYSTEM - 02/24/2006 12:01 AM OPERATIONS ADVISOR Cardiac Stress Test with Adenosine Provocation, Monitoring, and Interpretation: Reason for Consultation: Chest discomfort, atherosclerotic heart disease status post stent. Dr. Robles monitored the intervention and administered the pharmacologic agents. Pharmacologicintervention was ordered due to the patient's inability to perform treadmill exercise. Following the intravenous infusion of 60 mg of adenosine over four minutes, the radiopharmaceuticalagent was injected at maximum effect at two minutes. Resting heart rate of 92 increased to 112,and blood pressure of 104 over palpable was measured at 92 over palpable at maximum effect. Thepatient experienced transient chest fullness flushing and dyspnea. Electrocardiographic monitoringdemonstrated no changes diagnostic of ischemia nor dysrhythmia. The patient was asymptomatic andstable when discharged from the stress area. IMPRESSION: Satisfactory pharmacologic stress in preparation for myocardial perfusion imaging. There was noelectrocardiographic evidence of ischemia. Myocardial perfusion imaging report to follow. - Dictated By: Sky Robles M.D. Electronically Signed By: Sky Robles M.D. Date Signed: 02/24/06 Procedure Note Provider, Historical - 01/31/2009 Cardiac Stress Test with Adenosine Provocation, Monitoring, andInterpretation: Reason for Consultation: Chest discomfort, atherosclerotic heart disease status post stent. Dr. Robles monitored the intervention and administered thepharmacologic agents. Pharmacologicintervention was ordered due to the patient's inability toperform treadmill exercise. Following the intravenous infusion of 60 mg of adenosine over fourminutes, the radiopharmaceuticalagent was injected at maximum effect at two minutes. Resting heart rate of 92increased to 112,and blood pressure of 104 over palpable was measured at 92 over palpable at maximumeffect. Thepatient experienced transient chest fullness flushing and dyspnea. Electrocardiographicmonitoringdemonstrated no changes diagnostic of ischemia nor dysrhythmia. The patient was asymptomaticandstable when discharged from the stress area. IMPRESSION: Satisfactory pharmacologic stress in preparation for myocardial perfusionimaging. There was noelectrocardiographic evidence of ischemia. Myocardial perfusion imaging report to follow. - Dictated By: Sky Robles M.D. Electronically Signed By: Sky Robles M.D. Date Signed: 02/24/06 us Historical Provider NM ORDERABLES Final Result INTERFACE SYSTEM Refer to clinic/hospital department documented in this encounter Visit Diagnoses Diagnosis Coronary atherosclerosis of [place] coronary artery- Primary documented in this encounter Care Teams Promotions Assistant Relationship Specialty Start Date End Date Gorge Luciano DO [address] [facility] [address] [place] [address] PCP - General Internal Medicine 07/17/09 documented as of this encounter
--- OUTSIDE RECORDS SUMMARY | 2025-02-07 18:50 | XMS_ITS | Encounter Summary ---
Author Organization [facility] Address [address] [place] [address] Care Team Providers Care Lathing Supervisor Name Role Phone Gorge Luciano DO Primary Care Provider Encounter Details Date Type Department Care Team (Latest Contact Info) Description 04/16/2006 Outpatient Historical [facility] Eduardo Madison [address] [place] [address] Gorge Luciano DO [address] [place] [id number] Other Screening Mammogram (Primary Dx) Social History Tobacco Use Types Packs/Day Years Used Date Smoking Tobacco: Never Assessed Comments Unknown Sex and Gender Information Value Date Recorded Sex Assigned at Not on file Legal Sex Female 5:[address] Gender Identity Not on file Sexual Orientation Not on file documented as of this encounter Plan of Treatment Not on file documented as of this encounter Visit Diagnoses Diagnosis Other screening mammogram- Primary documented in this encounter Care Teams Lathing Supervisor Relationship Specialty Start Date End Date Gorge Luciano DO [address] [place] [address] PCP - General Internal Medicine 07/17/09 documented as of this encounter
--- OUTSIDE RECORDS SUMMARY | 2025-02-07 18:50 | XMS_ITS | Encounter Summary ---
Author Organization [facility] Address [address] [place] [address] Care Team Providers Care Inside Solar Sales Consultant Name Role Phone Gorge Luciano DO Primary Care Provider [phone] Encounter Details Date Type Department Care Team (Latest Contact Info) Description 08/27/2006 Outpatient Historical [facility] Gorge Luciano DO [address] [place] [address] DM w/o Complication Type II (CMS/HCC) (Primary Dx) Social History Tobacco Use Types Packs/Day Years Used Date Smoking Tobacco: Never Assessed Comments Unknown Sex and Gender Information Value Date Recorded Sex Assigned at Not on file Legal Sex Female 5:31 AM NAIL MAKER Gender Identity Not on file Sexual Orientation Not on file documented as of this encounter Plan of Treatment Not on file documented as of this encounter Visit Diagnoses Diagnosis Type II or unspecified type diabetes mellitus without mention of complication, not stated as uncontrolled- Primary documented in this encounter Care Teams Inside Solar Sales Consultant Relationship Specialty Start Date End Date Gorge Luciano DO [address] [place] [phone] PCP - General Internal Medicine 07/17/09 documented as of this encounter
--- OUTSIDE RECORDS SUMMARY | 2025-02-07 18:50 | XMS_ITS | Encounter Summary ---
Author Organization [facility] Address [address] [place] [address] Care Team Providers Care Consulting Project Director Name Role Phone Gorge Luciano DO Primary Care Provider Encounter Details Date Type Department Care Team (Late st Contact Info) Description 11/04/2006 Outpatient Historical [facility] Social History Tobacco Use Types Packs/Day Years Used Date Smoking Tobacco: Never Assessed Comments Unknown Sex and Gender Information Value Date Recorded Sex Assigned at Not on file Legal Sex Female 5:31 AM CREDIT COLLECTIONS MANAGER Gender Identity Not on file Sexual Orientation Not on file documented as of this encounter Plan of Treatment Not on file documented as of this encounter Visit Diagnoses Not on filedocumented in this encounter Care Teams Consulting Project Director Relationship Specialty Start Date End Date Gorge Luciano DO [address] [facility] [address] [place] [address] PCP - General Internal Medicine 07/17/09 documented as of this encounter
--- OUTSIDE RECORDS SUMMARY | 2025-02-07 18:50 | XMS_ITS | Encounter Summary ---
Author Organization [facility] Address [address] [place] [address] Care Team Providers Care Aix Administrator Name Role Phone Gorge Luciano DO Primary Care Provider [phone] Encounter Details Date Type Department Care Team (Latest Contact Info) Description 07/02/2006 Outpatient Historical [facility] Gorge Luciano DO [address] [place] [address] DM w/o Complication Type II (CMS/HCC) (Primary Dx) Social History Tobacco Use Types Packs/Day Years Used Date Smoking Tobacco: Never Assessed Comments Unknown Sex and Gender Information Value Date Recorded Sex Assigned at Not on file Legal Sex Female 5:31 AM CRM COORDINATOR Gender Identity Not on file Sexual Orientation Not on file documented as of this encounter Plan of Treatment Not on file documented as of this encounter Visit Diagnoses Diagnosis Type II or unspecified type diabetes mellitus without mention of complication, not stated as uncontrolled- Primary documented in this encounter Care Teams Aix Administrator Relationship Specialty Start Date End Date Gorge Luciano DO [address] [place] [phone] PCP - General Internal Medicine 07/17/09 documented as of this encounter
--- OUTSIDE RECORDS SUMMARY | 2025-02-07 18:50 | XMS_ITS | Encounter Summary ---
Author Organization [facility] Address [address] [place] [address] Care Team Providers Care Rivet Tapping Machine Operator Name Role Phone Gorge Luciano DO Primary Care Provider [phone] Encounter Details Date Type Department Care Team (Latest Contact Info) Description 06/21/2006 Outpatient Historical [facility] [place] [address] [place] [address] Enrrique Avila, FREDDY [address] [place] [address] Allergic Rhinitis, Cause Unspecified (Primary Dx); DM w/o Complication Type I (CMS/HCC); Cough; Acute Bronchitis Social History Tobacco Use Types Packs/Day Years Used Date Smoking Tobacco: Never Assessed Comments Unknown Sex and Gender Information Value Date Recorded Sex Assigned at Not on file Legal Sex Female 5:31 AM PRODUCTION SCHEDULER Gender Identity Not on file Sexual Orientation Not on file documented as of this encounter Plan of Treatment Not on file documented as of this encounter Visit Diagnoses Diagnosis Allergic rhinitis, cause unspecified- Primary Type I (juvenile type) diabetes mellitus without mention of complication, not stated as uncontrolled Cough Acute bronchitis documented in this encounter Care Teams Rivet Tapping Machine Operator Relationship Specialty Start Date End Date Gorge Luciano DO [address] [place] [address] PCP - General Internal Medicine 07/17/09 documented as of this encounter
--- OUTSIDE RECORDS SUMMARY | 2025-02-07 18:50 | XMS_ITS | Encounter Summary ---
Author Organization [facility] Address [address] [place] [address] Care Team Providers Care Regional Account Manager Name Role Phone Gorge Luciano DO Primary Care Provider [phone] Encounter Details Date Type Department Care Team (Late st Contact Info) Description 12/31/2006 Outpatient Historical [facility] [address] [place] [phone] Social History Tobacco Use Types Packs/Day Years Used Date Smoking Tobacco: Never Assessed Comments No Sex and Gender Information Value Date Recorded Sex Assigned at Not on file Legal Sex Female 5:31 AM DIRECT MAIL MANAGER Gender Identity Not on file Sexual Orientation Not on file documented as of this encounter Plan of Treatment Not on file documented as of this encounter Visit Diagnoses Not on filedocumented in this encounter Care Teams Regional Account Manager Relationship Specialty Start Date End Date Gorge Luciano DO [address] [place] [address] PCP - General Internal Medicine 07/17/09 documented as of this encounter
--- OUTSIDE RECORDS SUMMARY | 2025-02-07 18:50 | XMS_ITS | Encounter Summary ---
Author Organization [facility] Address [address] [place] [address] Care Team Providers Care Licensed Investment Sales Assistant Name Role Phone Gorge Luciano DO Primary Care Provider [phone] Encounter Details Date Type Department Care Team (Latest Contact Info) Description 07/02/2006 Outpatient Historical [facility] Int [facility] [address] [place] [address] Gorge Luciano DO [address] [place] [address] DM w/o Complication Type I (CMS/HCC) (Primary Dx); Allergic Rhinitis, Cause Unspecified Social History Tobacco Use Types Packs/Day Years Used Date Smoking Tobacco: Never Assessed Comments Unknown Sex and Gender Information Value Date Recorded Sex Assigned at Not on file Legal Sex Female 5:31 AM PSYCHIATRIC SECURITY NURSE Gender Identity Not on file Sexual Orientation Not on file documented as of this encounter Plan of Treatment Not on file documented as of this encounter Visit Diagnoses Diagnosis Type I (juvenile type) diabetes mellitus without mention of complication, not stated as uncontrolled- Primary Allergic rhinitis, cause unspecified documented in this encounter Care Teams Licensed Investment Sales Assistant Relationship Specialty Start Date End Date Gorge Luciano DO [address] [place] [address] PCP - General Internal Medicine 07/17/09 documented as of this encounter
--- OUTSIDE RECORDS SUMMARY | 2025-02-07 18:50 | XMS_ITS | Encounter Summary ---
Author Organization [facility] Address [address] [place] [address] Care Team Providers Care Metallurgical Engineering Technician Name Role Phone Gorge Luciano DO Primary Care Provider [phone] Encounter Details Date Type Department Care Team (Latest Contact Info) Description 03/01/2006 Outpatient Historical [facility] [address] [place] [address] Gorge Luciano DO [address] [place] [address] Cor Athrscl-Uns Vessel (Primary Dx); Other and Unspecified Hyperlipidemia; Reflux Esophagitis; DM w/o Complication Type I (CMS/HCC) Social History Tobacco Use Types Packs/Day Years Used Date Smoking Tobacco: Never Assessed Comments Unknown Sex and Gender Information Value Date Recorded Sex Assigned at Not on file Legal Sex Female 5:31 AM GASTROENTEROLOGY NURSE Gender Identity Not on file Sexual Orientation Not on file documented as of this encounter Plan of Treatment Not on file documented as of this encounter Visit Diagnoses Diagnosis Coronary atherosclerosis of unspecified type of vessel, lovelock or graft- Primary Other and unspecified hyperlipidemia Reflux esophagitis Type I (juvenile type) diabetes mellitus without mention of complication, not stated as uncontrolled documented in this encounter Care Teams Metallurgical Engineering Technician Relationship Specialty Start Date End Date Gorge Luciano DO [address] [place] [address] PCP - General Internal Medicine 07/17/09 documented as of this encounter
--- OUTSIDE RECORDS SUMMARY | 2025-02-07 18:50 | XMS_ITS | Encounter Summary ---
Author Organization [facility] Address [address] [place] [address] Care Team Providers Care Mountain Bike Guide Name Role Phone Gorge Luciano DO Primary Care Provider [phone] Encounter Details Date Type Department Care Team (Late st Contact Info) Description 02/18/2006 Outpatient Historical [facility] Too Brandon MD NO ADDRESS ON FILE Social History Tobacco Use Types Packs/Day Years Used Date Smoking Tobacco: Never Assessed Comments Unknown Sex and Gender Information Value Date Recorded Sex Assigned at Not on file Legal Sex Female 5:31 AM CRYOGENICS ENGINEER Gender Identity Not on file Sexual Orientation Not on file documented as of this encounter Plan of Treatment Not on file documented as of this encounter Visit Diagnoses Not on filedocumented in this encounter Care Teams Mountain Bike Guide Relationship Specialty Start Date End Date Gorge Luciano DO [address] [place] [phone] PCP - General Internal Medicine 07/17/09 documented as of this encounter
--- OUTSIDE RECORDS SUMMARY | 2025-02-07 18:50 | XMS_ITS | Encounter Summary ---
Author Organization [facility] Address [address] [place] [address] Care Team Providers Care Rn Diabetes Educator Name Role Phone Gorge Luciano DO Primary Care Provider [phone] Encounter Details Date Type Department Care Team (Late st Contact Info) Description 12/18/2005 Outpatient Historical [facility] Occupational [facility] [place] [address] [place] [address] Tunde Hamilton MD [address] [place] [address] Sprain and Strain of Unspecified Site of Knee and Leg (Primary Dx) Social History Tobacco Use Types Packs/Day Years Used Date Smoking Tobacco: Never Assessed Comments Unknown Sex and Gender Information Value Date Recorded Sex Assigned at Not on file Legal Sex Female 5:31 AM MEDICAL MASSAGE THERAPIST Gender Identity Not on file Sexual Orientation Not on file documented as of this encounter Plan of Treatment Not on file documented as of this encounter Visit Diagnoses Diagnosis Sprain and strain of unspecified site of knee and leg- Primary documented in this encounter Care Teams Rn Diabetes Educator Relationship Specialty Start Date End Date Gorge Luciano DO [address] [place] [address] PCP - General Internal Medicine 07/17/09 documented as of this encounter
--- OUTSIDE RECORDS SUMMARY | 2025-02-07 18:50 | XMS_ITS | Encounter Summary ---
Author Organization [facility] Address [address] [place] [address] Care Team Providers Care Biomedical Engineering Professor Name Role Phone Gorge Luciano DO Primary Care Provider [phone] Encounter Details Date Type Department Care Team (Late st Contact Info) Description 02/25/2007 Outpatient Historical [facility] Social History Tobacco Use Types Packs/Day Years Used Date Smoking Tobacco: Never Assessed Comments No Sex and Gender Information Value Date Recorded Sex Assigned at Not on file Legal Sex Female 5:31 AM DEVELOPMENTAL MATHEMATICS INSTRUCTOR Gender Identity Not on file Sexual Orientation Not on file documented as of this encounter Plan of Treatment Not on file documented as of this encounter Visit Diagnoses Not on filedocumented in this encounter Care Teams Biomedical Engineering Professor Relationship Specialty Start Date End Date Gorge Luciano DO [address] [facility] [address] [place] [address] PCP - General Internal Medicine 07/17/09 documented as of this encounter
--- OUTSIDE RECORDS SUMMARY | 2025-02-07 18:50 | XMS_ITS | Encounter Summary ---
Author Organization [facility] Address [address] [place] [address] Care Team Providers Care Credit Rating Inspector Name Role Phone Gorge Luciano DO Primary Care Provider [phone] Encounter Details Date Type Department Care Team (Late st Contact Info) Description 06/21/[address] [facility] Imaging Services-[facility] [place] [address] [place] [address] Enrrique Avila, DIE CLEANER [address] [place] [address] Cough (Primary Dx) Social History Tobacco Use Types Packs/Day Years Used Date Smoking Tobacco: Never Assessed Comments Unknown Sex and Gender Information Value Date Recorded Sex Assigned at Not on file Legal Sex Female 5:31 AM V GROOVE CUTTER Gender Identity Not on file Sexual Orientation Not on file documented as of this encounter Plan of Treatment Not on file documented as of this encounter Visit Diagnoses Diagnosis Cough- Primary documented in this encounter Care Teams Credit Rating Inspector Relationship Specialty Start Date End Date Gorge Luciano DO [address] [place] [address] PCP - General Internal Medicine 07/17/09 documented as of this encounter
--- OUTSIDE RECORDS SUMMARY | 2025-02-07 18:50 | XMS_ITS | Encounter Summary ---
Author Organization [facility] Address [address] [place] [address] Care Team Providers Care Chemist Steroids Name Role Phone Gorge Luciano DO Primary Care Provider [phone] Encounter Details Date Type Department Care Team (Latest Contact Info) Description 02/01/2006 Outpatient Historical [facility] Podiatry-[facility] [place] [address] [place] [address] Adán Melendrez, DPM NO ADDRESS ON FILE Calcaneal Spur (Primary Dx); Edema; Enthesopathy of Unspecified Site; Pain in Limb Social History Tobacco Use Types Packs/Day Years Used Date Smoking Tobacco: Never Assessed Comments Unknown Sex and Gender Information Value Date Recorded Sex Assigned at Not on file Legal Sex Female 5:31 AM HELPER COORDINATOR Gender Identity Not on file Sexual Orientation Not on file documented as of this encounter Plan of Treatment Not on file documented as of this encounter Visit Diagnoses Diagnosis Calcaneal spur- Primary Edema Enthesopathy of unspecified site Pain in limb Pain in soft tissues of limb documented in this encounter Care Teams Chemist Steroids Relationship Specialty Start Date End Date Gorge Luciano DO [address] [place] [address] PCP - General Internal Medicine 07/17/09 documented as of this encounter
--- OUTSIDE RECORDS SUMMARY | 2025-02-07 18:50 | XMS_ITS | Encounter Summary ---
Author Organization [facility] Address [address] [place] [address] Care Team Providers Care Parts Administrator Name Role Phone Gorge Luciano DO Primary Care Provider [phone] Encounter Details Date Type Department Care Team (Latest Contact Info) Description 05/11/2006 Outpatient Historical [facility] Cardiology- [place] [address] [place] [address] Omayra Cooper, AIR BRAKE RIGGER NO ADDRESS ON FILE Cor Athrscl-Uns Vessel (Primary Dx); Other and Unspecified Angina Pectoris; DM w/o Complication Type II (CMS/HCC); Pure Hypercholesterolem Social History Tobacco Use Types Packs/Day Years Used Date Smoking Tobacco: Never Assessed Comments Unknown Sex and Gender Information Value Date Recorded Sex Assigned at Not on file Legal Sex Female 5:31 AM RENAL TECHNICIAN Gender Identity Not on file Sexual Orientation Not on file documented as of this encounter Plan of Treatment Not on file documented as of this encounter Visit Diagnoses Diagnosis Coronary atherosclerosis of unspecified type of vessel, [place] or graft- Primary Other and unspecified angina pectoris Type II or unspecified type diabetes mellitus without mention of complication, not stated as uncontrolled Pure hypercholesterolem Pure hypercholesterolemia documented in this encounter Care Teams Parts Administrator Relationship Specialty Start Date End Date Gorge Luciano DO [address] [place] [address] PCP - General Internal Medicine 07/17/09 documented as of this encounter
--- OUTSIDE RECORDS SUMMARY | 2025-02-07 18:50 | XMS_ITS | Encounter Summary ---
Author Organization [facility] Address [address] [place] [address] Care Team Providers Care Lean Coach Name Role Phone Gorge Luciano DO Primary Care Provider [phone] Encounter Details Date Type Department Care Team (Late st Contact Info) Description 02/23/2006 Outpatient Historical [facility] Occupational Medicine-[facility] [place] [address] [place] [address] Tunde Hamilton MD [address] [place] [address] Sprain and Strain of Unspecified Site of Knee and Leg (Primary Dx) Social History Tobacco Use Types Packs/Day Years Used Date Smoking Tobacco: Never Assessed Comments Unknown Sex and Gender Information Value Date Recorded Sex Assigned at Not on file Legal Sex Female 5:31 AM ASSISTANT BUYER Gender Identity Not on file Sexual Orientation Not on file documented as of this encounter Plan of Treatment Not on file documented as of this encounter Visit Diagnoses Diagnosis Sprain and strain of unspecified site of knee and leg- Primary documented in this encounter Care Teams Lean Coach Relationship Specialty Start Date End Date Gorge Luciano DO [address] [place] [address] PCP - General Internal Medicine 07/17/09 documented as of this encounter
--- OUTSIDE RECORDS SUMMARY | 2025-02-07 18:50 | XMS_ITS | Encounter Summary ---
Author Organization [facility] Address [address] [place] [address] Care Team Providers Care Machine Icer Name Role Phone Gorge Luciano DO Primary Care Provider [phone] Encounter Details Date Type Department Care Team (Latest Contact Info) Description 03/12/2006 Outpatient Historical [facility] Gorge Luciano DO [address] [place] [address] DM w/o Complication Type II (CMS/HCC) (Primary Dx) Social History Tobacco Use Types Packs/Day Years Used Date Smoking Tobacco: Never Assessed Comments Unknown Sex and Gender Information Value Date Recorded Sex Assigned at Not on file Legal Sex Female 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
--- OUTSIDE RECORDS SUMMARY | 2025-02-07 18:50 | XMS_ITS | Encounter Summary ---
Author Organization [facility] Address [address] [place] [address] Care Team Providers Care Plating Technician Name Role Phone Gorge Luciano DO Primary Care Provider [phone] Encounter Details Date Type Department Care Team (Late st Contact Info) Description 05/11/2006 Outpatient Historical [facility] Social History Tobacco Use Types Packs/Day Years Used Date Smoking Tobacco: Never Assessed Comments Unknown Sex and Gender Information Value Date Recorded Sex Assigned at Not on file Legal Sex Female 5:31 AM PHARMACY INTAKE TECHNICIAN Gender Identity Not on file Sexual Orientation Not on file documented as of this encounter Plan of Treatment Not on file documented as of this encounter Visit Diagnoses Not on filedocumented in this encounter Care Teams Plating Technician Relationship Specialty Start Date End Date Gorge Luciano DO [address] [facility] [address] [place] [address] PCP - General Internal Medicine 07/17/09 documented as of this encounter
--- OUTSIDE RECORDS SUMMARY | 2025-02-07 18:50 | XMS_ITS | Encounter Summary ---
Author Organization [facility] Address [address] [place] [address] Care Team Providers Care Manager Of Procurement Name Role Phone Gorge Luciano DO Primary Care Provider [phone] Encounter Details Date Type Department Care Team (Latest Contact Info) Description 02/18/2006 Outpatient Historical [facility] Podiatry-[facility] [place] [address] [place] [address] Adán Melendrez, DPM NO ADDRESS ON FILE Pain in Limb (Primary Dx); Unspecified Local Infection of Skin and Subcutaneous Tissue; Enthesopathy of Unspecified Site; Calcaneal Spur Social History Tobacco Use Types Packs/Day Years Used Date Smoking Tobacco: Never Assessed Comments Unknown Sex and Gender Information Value Date Recorded Sex Assigned at Not on file Legal Sex Female 5:31 AM PRINTING ASSISTANT Gender Identity Not on file Sexual Orientation Not on file documented as of this encounter Plan of Treatment Not on file documented as of this encounter Visit Diagnoses Diagnosis Pain in limb- Primary Pain in soft tissues of limb Unspecified local infection of skin and subcutaneous tissue Enthesopathy of unspecified site Calcaneal spur documented in this encounter Care Teams Manager Of Procurement Relationship Specialty Start Date End Date Gorge Luciano DO [address] [place] [address] PCP - General Internal Medicine 07/17/09 documented as of this encounter
--- OUTSIDE RECORDS SUMMARY | 2025-02-07 18:50 | XMS_ITS | Encounter Summary ---
Author Organization [facility] Address [address] [place] [address] Care Team Providers Care Account Support Manager Name Role Phone Gorge Luciano DO Primary Care Provider [phone] Encounter Details Date Type Department Care Team (Latest Contact Info) Description 01/22/2006 Outpatient Historical [facility] [place] [address] [place] [address] Gorge Luciano DO [address] [place] [address] Swelling of Limb (Primary Dx); Pain in Limb Social History Tobacco Use Types Packs/Day Years Used Date Smoking Tobacco: Never Assessed Comments Unknown Sex and Gender Information Value Date Recorded Sex Assigned at Not on file Legal Sex Female 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
--- OUTSIDE RECORDS SUMMARY | 2025-02-07 18:50 | XMS_ITS | Encounter Summary ---
Author Organization [facility] Address [address] [place] [address] Care Team Providers Care Patent Leather Sorter Name Role Phone Gorge Luciano DO Primary Care Provider [phone] Encounter Details Date Type Department Care Team (Late st Contact Info) Description 02/17/2007 Inpatient Historical [facility] Gorge Luciano DO [address] [place] [address] Social History Tobacco Use Types Packs/Day Years Used Date Smoking Tobacco: Never Assessed Comments No Sex and Gender Information Value Date Recorded Sex Assigned at Not on file Legal Sex Female 5:31 AM SPEECH WRITER Gender Identity Not on file Sexual Orientation Not on file documented as of this encounter Plan of Treatment Not on file documented as of this encounter Visit Diagnoses Not on filedocumented in this encounter Care Teams Patent Leather Sorter Relationship Specialty Start Date End Date Gorge Luciano DO [address] [place] [address] PCP - General Internal Medicine 07/17/09 documented as of this encounter
--- OUTSIDE RECORDS SUMMARY | 2025-02-07 18:50 | XMS_ITS | Encounter Summary ---
Author Organization [facility] Address [address] [place] [address] Care Team Providers Care Chief Investigator Name Role Phone Gorge Luciano DO Primary Care Provider [phone] Encounter Details Date Type Department Care Team (Late st Contact Info) Description 03/04/2006 Inpatient Historical [facility] Too Brandon MD NO ADDRESS ON FILE Other Complications due to Other Cardiac Device, Implant, and Graft (Primary Dx) Social History Tobacco Use Types Packs/Day Years Used Date Smoking Tobacco: Never Assessed Comments Unknown Sex and Gender Information Value Date Recorded Sex Assigned at Not on file Legal Sex Female 5:31 AM INDIVIDUAL PENSION CONSULTANT Gender Identity Not on file Sexual Orientation Not on file documented as of this encounter Plan of Treatment Not on file documented as of this encounter Procedures Procedure Name Priority Date/Time Associated Diagnosis Comments POC GLUCOSE Routine 03/05/2006 5:29 AM INDIVIDUAL PENSION CONSULTANT POC GLUCOSE Routine 03/04/2006 8:57 PM INDIVIDUAL PENSION CONSULTANT POC GLUCOSE Routine 03/04/2006 5:26 PM INDIVIDUAL PENSION CONSULTANT POC GLUCOSE Routine 03/04/2006 9:29 AM INDIVIDUAL PENSION CONSULTANT PT AND APTT Routine 03/04/2006 7:26 AM INDIVIDUAL PENSION CONSULTANT CBC WITHOUT DIFFERENTIAL Routine 03/04/2006 7:26 AM INDIVIDUAL PENSION CONSULTANT C-REACTIVE PROTEIN Routine 03/04/2006 7: 26 AM INDIVIDUAL PENSION CONSULTANT BASIC METABOLIC PANEL Routine 03/04/2006 7:26 AM INDIVIDUAL PENSION CONSULTANT documented in this encounter Results * (ABNORMAL) POC GLUCOSE (03/05/2006 5:29 AM INDIVIDUAL PENSION CONSULTANT) GLUCOSE POC 222(H) 60 - 100 mg/dL INTERFACE SYSTEM 03/05/2006 5:29 AM INDIVIDUAL PENSION CONSULTANT Result Abdulaziz Brandon MD POINT OF CARE TESTING Final Result Performing Organization Address [facility] Phone Number INTERFACE SYSTEM Refer to clinic/hospital department * (ABNORMAL) POC GLUCOSE (03/04/2006 8:57 PM INDIVIDUAL PENSION CONSULTANT) GLUCOSE POC 149(H) 60 - 100 mg/dL INTERFACE SYSTEM 03/04/2006 8:57 PM INDIVIDUAL PENSION CONSULTANT Result Abdulaziz Brandon MD POINT OF CARE TESTING Final Result Performing Organization Address [facility] Phone Number INTERFACE SYSTEM Refer to clinic/hospital department * (ABNORMAL) POC GLUCOSE (03/04/2006 5:26 PM INDIVIDUAL PENSION CONSULTANT) GLUCOSE POC 256(H) 60 - 100 mg/dL INTERFACE SYSTEM 03/04/2006 5:26 PM INDIVIDUAL PENSION CONSULTANT Result Abdulaziz Brandon MD POINT OF CARE TESTING Final Result Performing Organization Address [facility] Phone Number INTERFACE SYSTEM Refer to clinic/hospital department * (ABNORMAL) POC GLUCOSE (03/04/2006 9:29 AM INDIVIDUAL PENSION CONSULTANT) GLUCOSE POC 145(H) 60 - 100 mg/dL INTERFACE SYSTEM 03/04/2006 9:29 AM INDIVIDUAL PENSION CONSULTANT Result Abdulaziz Brandon MD POINT OF CARE TESTING Final Result Performing Organization Address [facility] Phone Number INTERFACE SYSTEM Refer to clinic/hospital department * (ABNORMAL) CBC WITHOUT DIFFERENTIAL (03/04/2006 7:26 AM INDIVIDUAL PENSION CONSULTANT) WBC 6.4 4.5 - 11.0 K/ul INTERFACE SYSTEM RBC 5.52(H) 4.20 - 5.40 Mil/ul INTERFACE SYSTEM HEMOGLOBIN 12.7 12.0 - 16.0 g/dL INTERFACE SYSTEM HEMATOCRIT 40.0 36.0 - 46.0 % INTERFACE SYSTEM MCV 72.5(L) 84.0 - 103.0 Fl INTERFACE SYSTEM MCH 23.0(L) 27.0 - 34.0 pg INTERFACE SYSTEM MCHC 31.8 30.0 - 35.0 g/dL INTERFACE SYSTEM RDW 15.6(H) 11.0 - 14.5 % INTERFACE SYSTEM PLATELETS 286 140 - 440 K/ul INTERFACE SYSTEM MPV 10.8 8.9 - 12.8 Fl INTERFACE SYSTEM NEUTROPHILS 69.6 42.2 - 75.2 % INTERFACE SYSTEM LYMPHOCYTES 19.8(L) 24.0 - 44.0 % INTERFACE SYSTEM MONOCYTES 8.8 2.0 - 10.0 % INTERFACE SYSTEM EOSINOPHILS 1.3 0.0 - 7.0 % INTERFACE SYSTEM BASOPHILS 0.5 0.0 - 1.0 % INTERFACE SYSTEM NEUTROPHIL ABSOLUTE 4.5 2.0 - 8.0 K/uL INTERFACE SYSTEM LYMPHOCYTE ABSOLUTE 1.3 1.2 - 4.0 K/ul INTERFACE SYSTEM MONOCYTE ABSOLUTE 0.6 0.1 - 0.6 K/ul INTERFACE SYSTEM EOSINOPHIL ABSOLUTE 0.1 0.0 - 0.7 K/ul INTERFACE SYSTEM BASOPHILS ABSOLUTE 0.0 0.0 - 0.2 K/ul INTERFACE SYSTEM 03/04/2006 7:26 AM INDIVIDUAL PENSION CONSULTANT Too Brandon MD HEMATOLOGY ORDERABLES Final Result INTERFACE SYSTEM Refer to clinic/hospital department * PT AND APTT (03/04/2006 7:26 AM INDIVIDUAL PENSION CONSULTANT) Pathologist [facility] PROTIME 14.7 13.0 - 15.7 Secs INTERFACE SYSTEM Comment: As of 06 note change in normal range. INR 1.0 INTERFACE SYSTEM Comment: Expected Values for INR: DVT/PE Goal INR 2.5; range 2.0 - 3.0 Valve Replacement Tissue Goal INR 2.5; range 2.0 - 3.0 Mechanical Goal INR 3.0; range 2.5 - 3.5 POST-OH Goal INR 2.5; range 2.0 - 3.0 or Goal 3.0; range 2.5 - 3.5 Atrial Fibrillation Goal INR 2.5; range 2.0 - 3.0 Ischemic Stroke Goal INR 2.5; range 2.0 - 3.0 For additional information see Guidelines for Anticoagulation available from the pharmacy Roberto Noe PTT 29.8 21.6 - 35.6 Secs INTERFACE SYSTEM Comment: Therapeutic Range: Hi-level PE/DVT heparin protocol 80.1 -95.0 sec Lo-level PE/DVT heparin protocol 67.1 - 80.0 sec Cardiac Heparin Protocol 67.1 - 85.0 sec Neuro Heparin Protocol 67.1 - 80.0 sec As of 02/18/2006 note change in APTT Normal Range. 03/04/2006 7:26 AM INDIVIDUAL PENSION CONSULTANT Too Brandon MD HEMATOLOGY ORDERABLES Final Result Performing Organization Address [facility] Phone Number INTERFACE SYSTEM Refer to clinic/hospital department * (ABNORMAL) C-REACTIVE PROTEIN (03/04/2006 7:26 AM INDIVIDUAL PENSION CONSULTANT) CRP 2.45(H) 0.00 - 1.00 mg/dL INTERFACE SYSTEM 03/04/2006 7:26 AM INDIVIDUAL PENSION CONSULTANT us Too Brandon MD CHEMISTRY ORDERABLES Final Result Performing Organization Address [facility] Phone Number INTERFACE SYSTEM Refer to clinic/hospital department * (ABNORMAL) BASIC METABOLIC PANEL (03/04/2006 7:26 AM INDIVIDUAL PENSION CONSULTANT) GLUCOSE 202(H) 70 - 110 mg/dL INTERFACE SYSTEM BUN 10 7 - 17 mg/dL INTERFACE SYSTEM CREATININE 0.7 0.7 - 1.2 mg/dL INTERFACE SYSTEM SODIUM 139 136 - 145 mEq/L INTERFACE SYSTEM POTASSIUM 4.2 3.5 - 5.0 mEq/L INTERFACE SYSTEM CHLORIDE 105 95 - 110 mEq/L INTERFACE SYSTEM CO2 22 22 - 32 mmol/l INTERFACE SYSTEM CALCIUM 9.1 8.4 - 10.5 mg/dL INTERFACE SYSTEM ANION GAP 16 9 - 20 mEq/L INTERFACE SYSTEM OSMOLALITY, CALCULATED 291 275 - 295 mOsm/Kg INTERFACE SYSTEM 03/04/2006 7:26 AM INDIVIDUAL PENSION CONSULTANT us Too Brandon MD CHEMISTRY ORDERABLES Final Result INTERFACE SYSTEM Refer to clinic/hospital department documented in this encounter Visit Diagnoses Diagnosis Other complications due to other cardiac device, implant, and graft- Primary documented in this encounter Care Teams Chief Investigator Relationship Specialty Start Date End Date Gorge Luciano DO [address] [address] PCP - General Internal Medicine 07/17/09 documented as of this encounter
--- OUTSIDE RECORDS SUMMARY | 2025-02-07 18:50 | XMS_ITS | Encounter Summary ---
Author Organization [facility] Address [address] [place] [address] Care Team Providers Care Gas Systems Worker Name Role Phone Gorge Luciano DO Primary Care Provider [phone] Encounter Details Date Type Department Care Team (Late st Contact Info) Description 03/12/2006 Outpatient Historical [facility] Social History Tobacco Use Types Packs/Day Years Used Date Smoking Tobacco: Never Assessed Comments Unknown Sex and Gender Information Value Date Recorded Sex Assigned at Not on file Legal Sex Female 5:31 AM CAREER CENTER ADVISOR Gender Identity Not on file Sexual Orientation Not on file documented as of this encounter Plan of Treatment Not on file documented as of this encounter Visit Diagnoses Not on filedocumented in this encounter Care Teams Gas Systems Worker Relationship Specialty Start Date End Date Gorge Luciano DO [address] [facility] [address] [place] [address] PCP - General Internal Medicine 07/17/09 documented as of this encounter
--- OUTSIDE RECORDS SUMMARY | 2025-02-07 18:50 | XMS_ITS | Encounter Summary ---
Author Organization [facility] Address [address] [place] [address] Care Team Providers Care Printer Small Print Shop Name Role Phone Gorge Luciano DO Primary Care Provider [phone] Encounter Details Date Type Department Care Team (Late st Contact Info) Description 02/17/2006 Outpatient Historical [facility] Cardiology Anc[facility] [address] [place] [address] Social History Tobacco Use Types Packs/Day Years Used Date Smoking Tobacco: Never Assessed Comments Unknown Sex and Gender Information Value Date Recorded Sex Assigned at Not on file Legal Sex Female 5:31 AM DIATHERMY EQUIPMENT REPAIRER Gender Identity Not on file Sexual Orientation Not on file documented as of this encounter Plan of Treatment Not on file documented as of this encounter Visit Diagnoses Not on filedocumented in this encounter Care Teams Printer Small Print Shop Relationship Specialty Start Date End Date Gorge Luciano DO [address] [place] [address] PCP - General Internal Medicine 07/17/09 documented as of this encounter
--- OUTSIDE RECORDS SUMMARY | 2025-02-07 18:50 | XMS_ITS | Encounter Summary ---
Author Organization [facility] Address [address] [place] [address] Care Team Providers Care Home Health Rn Name Role Phone Gorge Luciano DO Primary Care Provider [phone] Encounter Details Date Type Department Care Team (Latest Contact Info) Description 10/01/2006 Outpatient Historical [facility] [address] [place] [address] Gorge Luciano DO [address] [place] [address] DM w/o Complication Type I (CMS/HCC) (Primary Dx) Social History Tobacco Use Types Packs/Day Years Used Date Smoking Tobacco: Never Assessed Comments Unknown Sex and Gender Information Value Date Recorded Sex Assigned at Not on file Legal Sex Female 5:31 AM MINISTER OF RELIGION Gender Identity Not on file Sexual Orientation Not on file documented as of this encounter Plan of Treatment Not on file documented as of this encounter Visit Diagnoses Diagnosis 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
--- OUTSIDE RECORDS SUMMARY | 2025-02-07 18:50 | XMS_ITS | Encounter Summary ---
Author Organization [facility] Address [address] [place] [address] Care Team Providers Care Public Relations Studies Director Name Role Phone Gorge Luciano DO Primary Care Provider [phone] Encounter Details Date Type Department Care Team (Late st Contact Info) Description 07/02/2006 Outpatient Historical [facility] Social History Tobacco Use Types Packs/Day Years Used Date Smoking Tobacco: Never Assessed Comments Unknown Sex and Gender Information Value Date Recorded Sex Assigned at Not on file Legal Sex Female 5:31 AM CHIPPER Gender Identity Not on file Sexual Orientation Not on file documented as of this encounter Plan of Treatment Not on file documented as of this encounter Visit Diagnoses Not on filedocumented in this encounter Care Teams Public Relations Studies Director Relationship Specialty Start Date End Date Gorge Luciano DO [address] [facility] [address] [place] [address] PCP - General Internal Medicine 07/17/09 documented as of this encounter
--- OUTSIDE RECORDS SUMMARY | 2025-02-07 18:50 | XMS_ITS | Encounter Summary ---
Author Organization [facility] Address [address] [place] [address] Care Team Providers Care Bias Cutting Machine Operator Vertical Name Role Phone Gorge Luciano DO Primary Care Provider [phone] Encounter Details Date Type Department Care Team (Latest Contact Info) Description 11/04/2006 Outpatient Historical [facility] Optometry [address] [place] [address] Sawyer Tang, OD [address] [place] [address] DM w/o Complication Type I (CMS/HCC) (Primary Dx); Unspecified Lagophthalmos Social History Tobacco Use Types Packs/Day Years Used Date Smoking Tobacco: Never Assessed Comments Unknown Sex and Gender Information Value Date Recorded Sex Assigned at Not on file Legal Sex Female 5:31 AM E COMMERCE MARKETING ANALYST Gender Identity Not on file Sexual Orientation Not on file documented as of this encounter Plan of Treatment Not on file documented as of this encounter Visit Diagnoses Diagnosis Type I (juvenile type) diabetes mellitus without mention of complication, not stated as uncontrolled- Primary Lagophthalmos, unspecified documented in this encounter Care Teams Bias Cutting Machine Operator Vertical Relationship Specialty Start Date End Date Gorge Luciano DO [address] [place] [phone] PCP - General Internal Medicine 07/17/09 documented as of this encounter
--- OUTSIDE RECORDS SUMMARY | 2025-02-07 18:50 | XMS_ITS | Encounter Summary ---
Author Organization [facility] Address [address] [place] [address] Care Team Providers Care Global Marketing Operations Manager Name Role Phone Gorge Luciano DO Primary Care Provider [phone] Encounter Details Date Type Department Care Team (Late st Contact Info) Description 04/16/2006 Outpatient Historical [facility] Eduardo Samira [address] [place] [address] Kathy Cuellar MD NO ADDRESS ON FILE Other Screening Mammogram (Primary Dx) Social History Tobacco Use Types Packs/Day Years Used Date Smoking Tobacco: Never Assessed Comments Unknown Sex and Gender Information Value Date Recorded Sex Assigned at Not on file Legal Sex Female 5:31 AM EMERGENCY MANAGEMENT SYSTEM DIRECTOR Gender Identity Not on file Sexual Orientation Not on file documented as of this encounter Plan of Treatment Not on file documented as of this encounter Visit Diagnoses Diagnosis Other screening mammogram- Primary documented in this encounter Care Teams Global Marketing Operations Manager Relationship Specialty Start Date End Date Gorge Luciano DO [address] [phone] PCP - General Internal Medicine 07/17/09 documented as of this encounter
--- OUTSIDE RECORDS SUMMARY | 2025-02-07 18:50 | XMS_ITS | Encounter Summary ---
Author Organization [facility] Address [address] [place] [address] Care Team Providers Care Manager Web Name Role Phone Gorge Luciano DO Primary Care Provider [phone] Encounter Details Date Type Department Care Team (Latest Contact Info) Description 05/11/2006 Outpatient Historical [facility] Gorge Luciano DO [address] [place] [address] DM w/o Complication Type II (CMS/HCC) (Primary Dx) Social History Tobacco Use Types Packs/Day Years Used Date Smoking Tobacco: Never Assessed Comments Unknown Sex and Gender Information Value Date Recorded Sex Assigned at Not on file Legal Sex Female 5:31 AM EXTRUSION DIE CORRECTOR Gender Identity Not on file Sexual Orientation Not on file documented as of this encounter Plan of Treatment Not on file documented as of this encounter Visit Diagnoses Diagnosis Type II or unspecified type diabetes mellitus without mention of complication, not stated as uncontrolled- Primary documented in this encounter Care Teams Manager Web Relationship Specialty Start Date End Date Gorge Luciano DO [address] [place] [phone] PCP - General Internal Medicine 07/17/09 documented as of this encounter
--- OUTSIDE RECORDS SUMMARY | 2025-02-07 18:50 | XMS_ITS | Encounter Summary ---
Author Organization [facility] Address [address] [place] [address] Care Team Providers Care Sales Professional Name Role Phone Gorge Luciano DO Primary Care Provider [phone] Encounter Details Date Type Department Care Team (Late st Contact Info) Description 01/08/2006 Outpatient Historical [facility] Samira [address] [place] [address] Tunde Hamilton MD 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
--- OUTSIDE RECORDS SUMMARY | 2025-02-07 18:50 | XMS_ITS | Encounter Summary ---
Author Organization [facility] Address [address] [place] [address] Care Team Providers Care Massage Operator Name Role Phone Gorge Luciano DO Primary Care Provider [phone] Encounter Details Date Type Department Care Team (Latest Contact Info) Description 02/11/2006 Outpatient Historical [facility] Cardiology- [place] [address] [place] [address] Omayra Cooper, PRODUCT MERCHANDISER NO ADDRESS ON FILE Cor Athrscl-Uns Vessel (Primary Dx); Other and Unspecified Angina Pectoris; Palpitations; Shortness of Breath Social History Tobacco Use Types Packs/Day Years Used Date Smoking Tobacco: Never Assessed Comments Unknown Sex and Gender Information Value Date Recorded Sex Assigned at Not on file 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
--- OUTSIDE RECORDS SUMMARY | 2025-02-07 18:50 | XMS_ITS | Encounter Summary ---
Author Organization [facility] Address [address] [place] [address] Care Team Providers Care School Bus Driver/Custodian Name Role Phone Gorge Luciano DO Primary Care Provider Encounter Details Date Type Department Care Team (Latest Contact Info) Description 11/08/2006 Outpatient Historical [facility] Orthopedics- 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
--- OUTSIDE RECORDS SUMMARY | 2025-02-07 18:51 | XMS_ITS | Encounter Summary ---
Author Organization [facility] Address [address] [place] [address] Care Team Providers Care Jackspooler Name Role Phone Gorge Luciano DO Primary Care Provider [phone] Encounter Details Date Type Department Care Team (Late st Contact Info) Description 05/18/2005 Outpatient Historical [facility] Orthopedics- 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
--- OUTSIDE RECORDS SUMMARY | 2025-02-07 18:51 | XMS_ITS | Encounter Summary ---
Author Organization [facility] Address [address] [place] [address] Care Team Providers Care Jewelry Sales Name Role Phone Gorge Luciano DO Primary Care Provider [phone] Encounter Details Date Type Department Care Team (Latest Contact Info) Description 06/26/2003 Outpatient Historical [facility] Eduardo Samira [address] [place] [address] Too Brandon MD NO ADDRESS ON FILE CHEST PAIN NEC (Primary Dx); SHORTNESS OF BREATH Social History Tobacco Use Types Packs/Day Years Used Date Smoking Tobacco: Never Assessed Comments Unknown Sex and Gender Information Value Date Recorded Sex Assigned at Not on file 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
--- OUTSIDE RECORDS SUMMARY | 2025-02-07 18:51 | XMS_ITS | Encounter Summary ---
Author Organization [facility] Address [address] [place] [address] Care Team Providers Care Full Stack Web Developer Name Role Phone Gorge Luciano DO Primary Care Provider [phone] Encounter Details Date Type Department Care Team (Late st Contact Info) Description 02/12/2004 Emergency [facility] Emergency Department [address] 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
--- OUTSIDE RECORDS SUMMARY | 2025-02-07 18:51 | XMS_ITS | Clinical Summary ---
Author Organization [facility] Address [address] [place] [address] Care Team Providers Care Evaporator Helper Name Role Phone MustaphaGorge Joelle CALDWELL Primary Care Provider [phone] Allergies Active Allergy Reactions Criticality Noted Date Comments Andrea Inhibitors Cough,Unknown Low 10/17/2024 Adhesive Rash Low 01/26/2012 Adhesive Tape-Silicones Rash Medium 04/24/2021 Alendronate Diarrhea Low 08/27/2022 Arb-Angiotensin Receptor Antagonist Unknown 06/23/2007 Bacitracin Zinc-Polymyxin B Other (See Comments) 10/17/2024 Oozy and redness Candesartan Cough,Unknown Low 07/17/2009 Carvedilol Hypotension,Unknown Medium 07/12/2009 Cefaclor Other (See Comments),Unknown 10/17/2024 Mouth breaks out. Mouth breaks out.Mouth breaks out. Ciprofloxacin Unknown 10/17/2024 Mouth sores Mouth soresMouth sores Elavil Unknown 07/17/2009 Excessive drowsiness Sulfa (Sulfonamide Antibiotics) Other (See Comments),Unknown 10/17/2024 Mouth sores Mouth soresMouth sores Sulfur Unknown 10/17/2024 Topiramate Unknown 11/12/2014 Made too many side effects Made too many side effectsMade too many side effects Triple Antibiotic (Colistimth) Rash Medium 04/24/2021 Zoledronic Yqzi-Nffxjgyp-Zicyb Muscle Pain Low 08/27/2022 Medications zinc 50 mg Tablet Take 50 mg by mouth daily. Active oxygen home delivery Administer 2 L in each nostril daily at bedtime. Active insulin glargine (Lantus Solostar U-100 Insulin) 100 unit/mL pen syringeIndicatio ns:Uncontrolled type 1 diabetes mellitus with hyperglycemia (CMS/HCC) 54 units BID 45 mL 3 03/18/19 24 Active furosemide (LASIX) 40 mg tablet take one tablet by mouth twice daily 200 Tablet 3 03/29/19 24 Active potassium chloride (KLOR-CON M10) 10 mEq Extended Release tablet TAKE 2 TABLETS BY MOUTH 3 TIMES DAILY 270 Tablet 3 05/03/19 24 Active Insulin Soso, Disposable, (Adelaida Pen Needle) 32 gauge x 5/32 Needle USE 1 NEEDLE TO INJECT INSULIN SUBCUTANEOUSLY 5 TIMES DAILY 450 Each 11 05/24/19 24 Active metoprolol succinate (TOPROL XL) 25 mg Extended Release 24 hour tablet Take 0.5 Tablets (12.5 mg) by mouth 2 times daily. Take 1/2 (one-half) tablet by mouth twice daily Strength: 25 mg 100 Tablet 1 06/28/19 24 Active celecoxib (CeleBREX) 200 mg capsuleIndicatio ns:Chronic pain of right knee,Right hip pain,Generalized osteoarthrosis, involving multiple sites Take 1 Capsule (200 mg) by mouth 2 times daily. 60 Capsule 6 09/01/19 24 Active pantoprazole (PROTONIX) 40 mg Tablet, Delayed Release (E.C.) TAKE ONE TABLET BY MOUTH TWICE DAILY before meals 180 Tablet 2 12/15/19 24 Active Blood-Glucose Transmitter (Dexcom G6 Transmitter) DeviceIndication s:Uncontrolled type 1 diabetes mellitus with hyperglycemia (CMS/HCC) Fasten on top of the sensor to wirelessly send data to the concrete laborer. Must be changed every 3 months. 1 Each 3 03/28/19 25 Active pravastatin (PRAVACHOL) 80 mg tablet TAKE 1 TABLET BY MOUTH EVERY DAY 100 Tablet 03/28/19 25 Active nitroglycerin (Nitrostat) 0.4 mg Tablet, Sublingual Place 1 Tablet (0.4 mg) under tongue every 5 minutes as needed for Chest Pain. 25 Tablet 6 09/02/19 25 Active Blood-Glucose Sensor (Dexcom G6 Sensor) DeviceIndication s:Uncontrolled type 1 diabetes mellitus with hyperglycemia (CMS/HCC) DISCREETLY WORN UNDER CLOTHING TO MEASURE GLUCOSE LEVELS JUST UNDERNEATH THE SKIN. MUST CHANGE SENSOR EVERY 10 DAYS 9 Each 3 09/08/19 25 Active tirzepatide (Mounjaro) 10 mg/0.5 mL Pen Injector Inject 0.5 mL (10 mg) by subcutaneous injection every 7 days. 2 mL 6 10/07/19 25 Active wheelchairIndica tions:Chronic diastolic congestive heart failure (CMS/HCC),Debili ty Wheelchair type: power Face to Face completed within 6 months: yes Date face to face process complete: 12/18/24 Length of Need: 99 months Weight: 111.6 kg (246 lb) (12/18/24 0752) General use cushion: Elevating foot rests Details: Needs new power wheel chair, Peromobile, power steering must be on the right side. Needs reclining back and elevating foot rests. General substitution permitted 1 Each 12/19/19 Active aspirin (ECOTRIN EC) 81 mg Tablet, Delayed Release (E.C.) Take 81 mg by mouth daily. Active calcium carbonate-vitami n D3 600 mg-12.5 mcg (500 unit) Capsule 2 times daily. Activ e cholecalciferol, vitamin D3, 5,000 unit Take 5,000 Units by mouth daily. Active clobetasoL (TEMOVATE) 0.05 % Cream apply TO SKIN TWICE DAILY TO affected areas of lower leg NEEDED. no more THAN TWO weeks of THE MONTH. DO not USE ON face, groin or SKIN folds 12/15/19 25 Active zinc GLUCONATE 50 mg Tablet Take 50 mg by mouth daily. Active insulin lispro (HumaLOG,ADMELOG ) 100 unit/mL pen syringe INJECT 24 UNITS THREE TIMES A DAY AND SSI. MAX DAILY DOSE OF 80 UNITS for BG > 120 60 mL 4 01/31/20 25 Active traMADol (ULTRAM) 50 mg tabletIndication s:Primary osteoarthritis, unspecified site Take 1 Tablet (50 mg) by mouth 2 times daily as needed for Pain. 60 Tablet 3 02/06/20 25 Active insulin lispro (HumaLOG) 100 unit/mL pen syringe INJECT 24 UNITS THREE TIMES A DAY AND SSI. MAX DAILY DOSE OF 80 UNITS for BG > 120 60 mL 4 03/18/19 24 025 Discontin ued(Reord er) traMADol (ULTRAM) 50 mg tabletIndication s:Primary osteoarthritis, unspecified site TAKE 1 TABLET BY MOUTH TWICE DAILY NEEDED FOR PAIN 60 Tablet 1 11/29/19 25 025 Discontin ued(Reord er) Active Problems Problem Noted Date Diagnosed Date Encounter for care related to vascular access po rt 08/28/2024 Refused influenza vaccine 08/11/2024 Diabetic gastroparesis 08/31/2023 Overview (08/31/2023): noted on gastric emptying 2009; not on Reglan Chronic pain of right knee 08/05/2021 Overview (08/05/2021): repeat xray and refer back to ortho 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 08/04/2021 Mild nonproliferative diabet ic retinopathy of both eyes without macular edema associated with type 1 diabetes mellitus 08/04/2021 Overview (08/04/2021): mgmt per specialists Venous insufficiency of both lower extremities 0 08/02/2020 Overview (02/21/2021): [place] and told these needed fixing by Dr Velasquez at [facility]; may have to do this up here [place] and told these needed fixing by Dr Velasquez at [facility]; may have to do this up here Hypovitaminosis D 07/31/2020 Chronic allergic rhinitis 07/31/2020 Chronic GERD 07/24/2019 Central line complication 06/24/2018 Debility 12/29/2016 Arthritis of shoulder region, right 07/17/2016 Localized osteoporosis witho ut current pathological fracture 07/06/2016 Chronic midline low back pain without sciatica 0 07/06/2016 Family history of breast cancer in first degree relative 05/21/2016 History of iron deficiency 10/01/2015 Arthritis of knee, right 09/02/2015 Hyperlipidemia LDL goal <100 06/26/2015 Overview (07/11/2020): continue with pravachol and to goal Generalized edema 06/26/2015 Essential hypertension 06/26/2015 Overview (07/11/2020): failed acei, arb; continue toprol xl and controlled Chronic diastolic congestive heart failure 04/12 Morbid obesity with BMI of 40.0-44.9, adult 09/2014 DUARTE (obstructive sleep apnea) 06/15/2014 Overview (07/11/2020): compliant with cpap machine and uses oxygen at night for this 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 Overview (02/21/2021): creates upper extremitiy problems but has compensated well with walker at home and power wheelchair for ambulation creates upper extremitiy problems but has compensated well with walker at home and power wheelchair for ambulation Goiter, nontoxic, multinodular 04/25/2013 Routine general medical exam ination at a health care facility 05/15/2011 Palpitations 05/27/2010 Restrictive lung disease 03/19/2008 ASHD (arteriosclerotic heart disease) 01/20/2008 Resolved Problems Problem Noted Date Diagnosed Date Resolved Date Atherosclerosis of coronary artery bypass graft(s), unspecified, with other forms of angina pectoris 06/19/2019 07/24/2019 Acute diarrhea 03/14/2018 07/14/2018 Dehydration, moderate 03/09/20182018 Viral gastroenteritis 03/09/20182018 Uncontrolled type 1 diabetes mellitus with hyperglycemia 07/23/2017 08/04/2021 Type 1 diabetes mellitus with retinopathy 07/23/2017 08/04/2021 Gastroesophageal reflux dise ase without esophagitis 07/06/2016 07/24/2019 Iron deficiency anemia secon brenda to inadequate dietary iron intake 07/06/2016 8 Cervical high risk HPV (apurva n papillomavirus) test positive 06/01/2016 07/06/2016 LGSIL of cervix of undetermined significance 7 07/06/2016 S/P decompression of ulnar nerve at elbow 03/11/2016 07/06/2016 Right carpal tunnel syndrome 03/11/2016 07/06/2016 Cubital tunnel syndrome 11/13/201506/14 Encounter for long-term (cur rent) use of high-risk medication 10/29/2015 07/06/2016 Chest pain 09/23/2015 06/01/2016 LGSIL Pap smear of vagina 07/01/2015 Gastroesophageal reflux disease 06/26/2015 07/06/2016 Need for prophylactic vaccin ation against Streptococcus pneumoniae (pneumococcus) 06/26/2015 07/06/2016 Overview (07/10/2020): prevnair done today Encounter for long-term (cur rent) use of medications 04/15/2015 07/06/2016 Diabetes mellitus with perip heral autonomic neuropathy 02/21/2015 06/26/2015 Knee pain, acute 02/13/2015 06/26/2015 Protruded lumbar disc 12/19/20142015 Lumbar radicular pain 12/19/20142015 Chronic low back pain 12/19/20142016 Stenosis of lateral recess of lumbar spine 12/19/2014 06/26/2015 Shoulder pain, left 12/18/2014 06/26/19 16 Chronic blood loss anemia 08/17/2014 Diabetes mellitus type 1, co ntrolled, with complications 06/15/2014 07/14/2018 Anemia 12/18/2013 06/15/2014 DM retinopathy 11/22/2012 06/09/2013 Crescendo angina 09/17/2012 10/10/2012 Ankle sprain and strain 02/28/201205/14 Overview (07/10/2020): Left Osteoporosis 02/28/2012 07/06/2016 Foot sprain 02/28/2012 06/09/2013 Overview (07/10/2020): Left CAD (coronary artery disease) 09/10/2010 11/11/2010 Diabetes mellitus 09/10/2010 11/11/2010 Iron deficiency anemia, unspecified 07/25/2010 06/09/2013 Overview (07/10/2020): Anemia with decreased MCV and Ferritin 10 Liver lesion 07/18/2010 11/11/2010 LBP (low back pain) 01/21/2010 11/12/19 11 Disorders of sacrum 01/21/2010 11/12/19 11 Facet syndrome 01/21/2010 11/11/2010 Lumbosacral spondylosis without myelopathy 01/21/2010 06/26/2015 Loose stools 08/15/2009 08/21/2009 Encounter for long-term (cur rent) use of other medications 08/15/2009 06/15/2014 Angina 07/12/2009 08/21/2009 Other chest pain 07/08/2009 08/21/2009 Peripheral neuropathy 01/20/20082012 Hyperlipidemia 01/20/2008 06/26/2015 Hypertension 01/20/2008 06/26/2015 Type I (juvenile type) diabe luís mellitus without mention of complication, not stated as uncontrolled 06/23/2007 06/09/2013 Obesity 06/23/2007 06/26/2015 CHF (congestive heart failure) 06/23/2007 04/12/2015 Esophageal reflux 06/26/2015 Gastroparesis 06/09/2013 Essential hypertension, benign 01/20/2008 Other and unspecified hyperlipidemia 01/20/2008 Type I (juvenile type) diabe luís mellitus without mention of complication, not stated as uncontrolled 06/23/2007 Coronary atherosclerosis of [place] coronary artery 01/20/2008 Unspecified hereditary and i diopathic peripheral neuropathy 01/20/2008 Encounters Date Type Department Care Team Description 02/06/2025 10:30 AM RN NEUROSURGICAL Procedure visit [facility] Physical Med and Rehab [facility] [address] [place] [address] Yosef Hoffman MD Chronic right shoulder pain; Numbness and tingling of right arm 02/04/2025 Refill [facility] Rheumatology- [place] [address] [place] [address] Enrrique Scanlon MD Primary osteoarthritis, unspecified site 02/01/2025 Telephone [facility] Int Med-[facility] [place] [place] [address] Gorge Luciano DO Patient Communication 01/30/2025 Refill [facility] Endocrinology [facility] [address] [place] [address] Lorna Page MD 01/28/2025 Refill [facility] Endocrinology [facility] [address] [place] [phone] Lorna Page MD 01/09/2025 9:45 AM CDT Office Visit [facility] Orthopedics - Orthopedic [facility] [address] [place] [phone] PA Chronic right shoulder pain (Primary Dx); Numbness and tingling of right arm 01/01/2025 Results Follow-Up [facility] Int Med-[facility] [place] [place] [phone] Priyanka Fong PA MAMMO 3D ALEYDA SCREEN BILAT W OR WO CAD 12/29/2024 9:38 AM CDT - 12/29/2024 11:59 PM CDT Hospital Encounter [facility] Mammography [facility] [address] [place] [phone] Priyanka Fong PA Discharge Disposition: Home or Self Care 12/26/2024 External Device Data STL ABSTRACTION Provider, Abstract 12/18/2024 8:30 AM CDT Office Visit [facility] Int Med-[facility] [place] [place] [phone] Priyanka Fong PA Chronic diastolic congestive heart failure (CMS/HCC) (Primary Dx); Morbid obesity with BMI of 40.0-44.9, adult; 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 (CMS/HCC); Arthralgia of right temporomandibular joint; Debility; Essential hypertension; Generalized edema; Screening mammogram, encounter for 12/12/2024 12:20 PM CDT Office Visit [facility] Rheumatology- [place] [address] [place] [address] nErrique Scanlon MD Primary osteoarthritis, unspecified site (Primary Dx); NSAID long-term use; Polyarthralgia 12/11/2024 Telephone [facility] Int Med-[facility] [place] [place] [phone] Gorge Luciano DO Order for a wheelchair 12/07/2024 10:09 AM CDT - 12/07/2024 11:59 PM CDT Hospital Encounter [facility] Outpatient Laboratory Services [facility] [address] [place] [phone] Edward Avila NP Discharge Disposition: Home or Self Care 12/07/2024 10:07 AM CDT - 12/07/2024 11:59 PM CDT Hospital Encounter [facility] Outpatient Services [facility] [address] [place] [phone] Levy Page MD Discharge Disposition: Home or Self Care 11/28/2024 Refill [facility] [address] [place] [phone] Enrrique Scanlon MD Primary osteoarthritis, unspecified site 11/23/2024 Orders Only [facility] Cancer and Hematology [place] [address] [facility] [address] [place] [phone] Edward Avila NP Iron deficiency anemia due to dietary causes (Primary Dx); Family history of breast cancer in first degree relative 11/21/2024 External Device Data STL ABSTRACTION Provider, Abstract from Last 3 Months Immunizations Immunization Administration Dates Next Due (PNEUMOVAX 23)(50 YRS UP) PN EUMOCOCCAL POLYSACCHARIDE (PPV23) 0.5 ML, IM 03/23/2006,03/05/2006,02/26/2005 (PREVNAR 13)(6 WKS UP) PNEUM OCOCCAL CONJUGATE (PCV13) 0.5 ML, IM 06/26/2015 INFLUENZA VACCINE QUADRIVALE NT 6 MOS UP PF IM 12/22/2019,12/21/2018,12/14/2016 Influenza A (H1N1) Vaccine PF IM 03/24/2008 Influenza Seasonal Unspecifi ed Formulation IM 12/19/2021,01/21/2021,12/17/2017,12/14,02/18/2015,12/27/2013,02/13/2013 ,03/23/2006 Influenza, Unspecified Formulation 12/14/2011 Family History Medical History Relation Name Comments Anemia Father Shahid العلي Redanette Arthritis Father Shahid العلي [place] Cancer Father Shahid Sotomayor Cancer lip area. Cancer - Other Father Shahid العلي [place] Gout Father Shahid Sotomayor Heart Disease Father Shahid العلي Redan[place] Hemophilia Father Shahid Sotomayor High Cholesterol Father Shahid Sotomayor Hypertension Father Shahid العلي [place] Kidney Disease Father Shahid العلي Redanette Other Father Shahid العلي Redanette Breast Cancer Maternal Cousin 1 under 50 Ovarian Cancer Maternal Cousin 1 under ag e 50 Brain Cancer Maternal Cousin 2 Heart Disease Maternal Grandfather Manish Richarde r Hypertension Maternal Grandfather Manish Hernández Lung Cancer Maternal Uncle Anemia Mother Graciela Gaona [place] Anesthesia Problems Mother Graciela Gaona [place] Arthritis-osteo Mother Graciela Gaona [place] Breast Cancer Mother Graciela Gaona [place] posit zhnae responses - see media tab Cancer Mother Graciela Gaona [place] Cataract Mother Graciela Gaona [place] Depression Mother Graciela Gaona [place] Detachment/Tears Mother Graciela Gaona [place] Goiter Mother Graciela Gaona [place] High Cholesterol Mother Graciela Gaona [place]burn Hypertension Mother Graciela Gaona [place] Osteoporosis Mother Graciela Gaona Redanette Other Mother Graciela Gaona [place] Thyroid Disease Mother Graciela Gaona [place] Diabetes Other Elevated Lipids Other Heart Disease Other Hypertension Other Cataract Paternal Grandmother Jessica Lock [place] Hypertension Paternal Grandmother Jessica Lock [place] Amblyopia Neg Hx Blindness Neg Hx Colon Cancer Neg Hx Glaucoma Neg Hx Macular Degen Neg Hx Strabismus Neg Hx Relation Name Status Comments Father Shahid Sotomayor Alive Maternal Cousin 1 Maternal Cousin 2 Maternal Grandfather Manish Hernández Maternal Uncle Mother Graciela Gaona [place] Other Paternal Grandmother Jessica Lock [place] Social History Tobacco Use Types Packs/Day Years Used Date Smoking Tobacco: Never Smokeless Tobacco: Never Tobacco Cessation:Counseling Given: Not Answered Alcohol Use Standard Drinks/Week Comments No 0 [...] AM CDT Legal Sex Female 12:41 PM RN NEUROSURGICAL Gender Identity Female 12/21/2023 9:49 AM CDT Sexual Orientation Not on file Last Filed Vital Signs Vital Sign Reading Time Taken Comments Blood Pressure 122/76 01/09/2025 9:39 AM CDT Pulse 85 12/18/2024 7:52 AM CDT Temperature 36.4 C (97.6 F) 12/07/2024 10:16 AM CDT Respiratory Rate 18 12/07/2024 10:16 AM CDT Oxygen Saturation 98% 12/18/2024 7:52 AM CDT Inhaled Oxygen Concentration - - Weight 110.2 kg (243 lb) 01/09/2025 9:39 AM CDT Height 162.6 cm (5' 4 ) 01/09/2025 9:39 AM CDT Body Mass Index 41.71 01/09/2025 9:39 AM CDT Plan of Treatment Upcoming Encounters Date Type Department Care Team (Late st Contact Info) Description 02/14/2025 9:15 AM RN NEUROSURGICAL Appointment [facility] [address] [place] [address] PA [address] [address] 02/15/2025 11:40 AM RN NEUROSURGICAL Office Visit [facility] Orthopedics - Orthopedic [facility] [address] [address] Conrado Barraza PA-C [address] [place] [address] 02/28/2025 11:20 AM RN NEUROSURGICAL Office Visit [facility] Int Med-[facility] [place] [place] [address] Gorge Luciano DO [address] [place] [address] 04/09/2025 12:35 PM RN NEUROSURGICAL Appointment [facility] Laboratory Services [address] [facility] [address] [place] [address] 04/12/2025 8:00 AM RN NEUROSURGICAL Video Visit [facility] Endocrinology [facility] [address] [place] [address] Lorna Page MD [address] [facility] [address] [place] [address] 04/16/2025 1:20 PM RN NEUROSURGICAL Office Visit [facility] Cancer and Hematology [place] [address] [facility] [address] [facility] [address] [place] [address] Levy Page MD [address] [place] [address] 06/12/2025 12:40 PM CDT Office Visit [facility] Rheumatology- [place] [address] [place] [address] Enrrique Scanlon MD [address] [place] [address] 09/03/2025 11:20 AM CDT Office Visit [facility] Int Med-[facility] [place] [place] [address] Cira Lucianoh DO [place] [address] [place] [phone] Health Maintenance Due Date Last Done Comments DTAP/TDAP/TD VACCINES (1 - Tdap) 09/23/1983 FIT/FOBT Q 1 year 2009 Flex Sig/CT Colonography Q 5 years 2009 RSV VACCINE (60+ or ) (1 - Risk 50-74 years 1-dose series) 2014 ZOSTER VACCINE (1 of 2) 2014 COLORECTAL SCREENING 12/27/2019 12/26/2009 PAP SMEAR 09/11/2022 09/12/2019, 08/15, 09/12/2019, Additional history exists DIABETES ANNUAL RETINAL EXAM 11/11/2022 11/11/2021, 04/14/2021, 04/14/2021, Additional history exists CERVICAL CANCER SCREENING 09/11/2024 HPV/Cotest (21-29) 09/11/2024 09/12/2019, 0 09/12/2019, 06/07/2018, Additional history exists HPV/Cotest (30-65) 09/11/2024 09/12/2019, 0 09/12/2019, 06/07/2018, Additional history exists INFLUENZA VACCINE (#1) 2024 , 11/04/2022, 08/27/2022, Additional history exists COVID-19 Vaccine (2 - 2024- season) 2024 10/09/2020 DIABETES HBA1C Q 6 MONTHS 04/01/20252024, 08/29/2024, 06/01/2024, Additional history exists DIABETES MICROALBUMIN ANNUAL SCREEN 08/29/2025 08/29/2024, 08/24/2023, 08/03/2022, Additional history exists DIABETES ANNUAL FOOT EXAM 09/01/20252024, 09/01/2023, 08/27/2022, Additional history exists Colorectal Cancer Screening 09/11/2025 FIT-DNA Q 3 years 09/11/2025 09/11/2022, 08/01/2019 DIABETES: A1C (Auto Order) 09/29/202509/29, 08/29/2024, 06/01/2024, Additional history exists LDL CHOLESTEROL ANNUAL 09/29/2025 , 08/29/2024, 08/24/2023, Additional history exists BREAST CANCER SCREENING 12/29/2025 12/30/19, 01/12/2023, 01/12/2023, Additional history exists KHE uACR (Auto Order) Completed 08/29/2024 , 08/24/2023, 08/03/2022, Additional history exists Medicare Advantage ([place]) Preventative Visit/Annual Wellness Visit Completed 09/01/2024, 09/01/2024, 09/01/2023, Additional history exists KHE eGFR (Auto Order) Completed 12/07/2024 , 09/29/2024, 08/29/2024, Additional history exists HEPATITIS B VACCINES Aged Out No long er eligible based on patient's age to complete this topic Medical Devices Implanted Type Area Commercial Door Installer Device Identifier Shelf Expiration Date Model / Serial / Lot Log [id number] - [employer] Patches, Pledgets, [employer], [employer] - 1 - [place] Ptfe Thck 1.6mmx2.5x2.5c m [id number] Implanted:Qty: 1 on 09/09/2010 Graft N/A: Heart CR BARD- [employer] 05/14/2015 [id number] / / [id number] Port Smart 8.0fr [id number] Implanted:05/13 by Mialn Malik MD (Quantity not on file) Port Left: Chest Wall [employer] 03/13/2017 / / [id number] Procedures Procedure Name Priority Date/Time Associated Diagnosis Comments MI NEEDLE EMG EA EXTREMITY W/PARASPINL AREA LIMITED Routine 02/06/2025 10:40 AM RN NEUROSURGICAL Chronic right shoulder pain Numbness and tingling of right arm MI NERVE CONDUCTION STUDIES 3-4 STUDIES Routine 02/06/2025 10:40 AM RN NEUROSURGICAL Chronic right shoulder pain Numbness and tingling of right arm MAMMO 3D ALEYDA SCREEN BILAT W OR WO CAD Routine 12/29/2024 10:02 AM CDT Screening mammogram, encounter for VITAMIN B12 AND FOLATE Routine 12/07/2024 10:28 AM CDT Iron deficiency anemia due to dietary causes Family history of breast cancer in first degree relative IRON, TIBC, AND PERCENT SATURATION Routine 12/07/2024 10:28 AM CDT Iron deficiency anemia due to dietary causes Family history of breast cancer in first degree relative FERRITIN Routine 12/07/2024 10:28 AM CDT Iron deficiency anemia due to dietary causes Family history of breast cancer in first degree relative COMPREHENSIVE METABOLIC PANEL Routine 12/07/2024 10:28 AM CDT Iron deficiency anemia due to dietary causes Family history of breast cancer in first degree relative CBC WITH DIFFERENTIAL Routine 12/07/2024 10:28 AM CDT Iron deficiency anemia due to dietary causes Family history of breast cancer in first degree relative REFERENCE LAB PROCESSING FEE Routine 12/07/2024 10:28 AM CDT Iron deficiency anemia secondary to inadequate dietary iron intake LIPID PANEL Routine 09/29/2024 11:15 AM CDT Uncontrolled type 1 diabetes mellitus with hyperglycemia (CMS/HCC) Hyperlipidemia LDL goal <100 Goiter, nontoxic, multinodular Primary osteoarthritis of both knees Localized osteoporosis without current pathological fracture Type 1 DM with polyneuropathy (CMS/HCC) Type 1 diabetes mellitus with hyperglycemia (CMS/HCC) HEMOGLOBIN A1C Routine 09/29/2024 11:15 AM CDT Uncontrolled type 1 diabetes mellitus with hyperglycemia (CMS/HCC) Hyperlipidemia LDL goal <100 Goiter, nontoxic, multinodular Primary osteoarthritis of both knees Localized osteoporosis without current pathological fracture Type 1 DM with polyneuropathy (CMS/HCC) Type 1 diabetes mellitus with hyperglycemia (CMS/HCC) MICROALBUMIN/CREATIN INE RATIO, RANDOM UR Routine 08/29/2024 8:15 AM CDT 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 (CMS/HCC) Morbid obesity with BMI of 40.0-44.9, adult (CMS/HCC) Diabetic gastroparesis (CMS/HCC) Hyperlipidemia LDL goal <100 Routine general medical examination at a health care facility COLON CANCER SCREEN, STOOL DNA Routine 09/11/2022 6:15 PM CDT Screening for colon cancer CERV/VAG CYTO SCREEN PAP W/HPV Routine 09/12/2019 3:45 PM CDT HM DIABETES FOOT EXAM 04/26/2018 12:00 AM RN NEUROSURGICAL from Last 3 Months or Most Recently Relevant to Health Maintenance Results * (ABNORMAL) MI NERVE CONDUCTION STUDIES 3-4 STUDIES, MI NEEDLE EMG EA EXTREMITY W/PARASPINL AREA LIMITED (02/06/2025 10:40 AM RN NEUROSURGICAL) Narrative Fabio Boyer - 02/06/2025 10:40 AM RN NEUROSURGICAL Yosef Hoffman MD 02/06/2025 10:41 AM NCS/EMG performed today in the clinic ( 1 extremity). 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 No evidence of radiculopathy, plexopathy or other mononeuropathy. Results of this test to be uploaded to the media section by chief medical physicist by early next week. Please see media [...] from this date toreview report once uploaded. Casie LUQUE NEUROLOGY ORDERABLES Edited Resu lt - Final * MAMMO 3D ALEYDA SCREEN BILAT W OR WO CAD (12/29/2024 10:02 AM CDT) Anatomical Region Laterality Modality Breast Bilateral Mammography, Dig ital Radiography Impressions 12/31/2024 9:50 AM CDT : No mammographic evidence of malignancy. BI-RADS ASSESSMENT: 1 - Negative RECOMMENDATION: Routine annual screening mammography. Narrative 12/31/2024 9:50 AM CDT EXAM: MAMMO SCRN BILAT 3D ALEYDA W OR WO CAD INDICATION: Screening COMPARISON: 01/12/2023 MAMMO SCRN BILAT 3D ALEYDA W OR WO CAD, 10/23/2021 MAMMO SCRN BILAT 3D ALEYDA W OR WO CAD, 01/17/2020 MAMMO SCREEN BILAT W OR WO CAD, 01/19/2019 MAMMO SCREEN BILAT W OR WO CAD, and 06/26/2016 MAMMO SCREEN BILAT W OR WO CAD BREAST COMPOSITION: There are scattered areas of fibroglandular density. FINDINGS: RIGHT BREAST: There are no suspicious masses, calcifications, or areas of architectural distortion. LEFT BREAST: There are no suspicious masses, calcifications, or areas of architectural distortion. Priyanka LUQUE MAMMO ORDERABLES Final Result * REFERENCE LAB PROCESSING FEE (12/07/2024 10:28 AM CDT) Pathologist [facility] REFERENCE LAB SENDOUT Sent to Ref Lab 12/10/2024 7:48 AM CDT [facility] Other, specify BLOOD SPECIMEN / Unknown Collection / Unknown 12/07/2024 10:28 AM CDT 12/10/2024 7:47 AM CDT Edward Avila NP CHEMISTRY ORDERABLES Final R esult [facility] CLIA # [id number] [address] [place] [address] * VITAMIN B12 AND FOLATE (12/07/2024 10:28 AM CDT) VITAMIN B12 550 200 - 1100 pg/mL [facility] FOLATE, SERUM 7.6 ng/mL [facility] Comment: Reference Range Low: <3.4 Borderline: 3.4-5.4 Normal: >5.4 Test Performed at: [facility] [address] [place] [phone] Toro Merchant MD Blood 12/07/2024 10:2 8 AM CDT 12/08/2024 4:13 AM CDT Edward Avila LOCKET MAKER CHEMISTRY ORDERABLES Final R critical access hospital Performing Organization Address [facility] Co de Phone Number [facility] [phone] [facility] [address] [place] [phone] * IRON, TIBC, AND PERCENT SATURATION (12/07/2024 10:28 AM CDT) Pathologist [facility] IRON 51 45 - 160 mcg/dL [facility] TIBC 266 250 - 450 mcg/dL (calc) [facility] IRON % SATURATION 19 16 - 45 % (calc) [facility] Comment: Test Performed at: [facility] [address] Toro Merchant MD Blood 12/07/2024 10:2 8 AM CDT 12/08/2024 4:13 AM CDT Edward Avila NP CHEMISTRY ORDERABLES Final R critical access hospital Performing Organization Address [facility] Co de Phone Number [facility] [phone] [facility] [address] [place] [phone] * (ABNORMAL) CBC WITH DIFFERENTIAL (12/07/2024 10:28 AM CDT) Pathologist [facility] WBC 6.6 3.8 - 10.8 Thousand/u L [facility] RBC 4.36 3.80 - 5.10 Million/uL [facility] HEMOGLOBIN 11.4(L) 11.7 - 15.5 g/dL [facility] HEMATOCRIT 36.7 35.0 - 45.0 % [facility] MCV 84.2 80.0 - 100.0 fL [facility] MCH 26.1(L) 27.0 - 33.0 pg [facility] MCHC 31.1(L) 32.0 - 36.0 g/dL [facility] Comment: For adults, a slight decrease in the calculated MCHC value (in the range of 30 to 32 g/dL) is most likely not clinically significant; however, it should be interpreted with caution in correlation with other red cell parameters and the patient's clinical condition. RDW 13.9 11.0 - 15.0 % [facility] PLATELETS 263 140 - 400 Thousand/u L [facility] MPV 11.2 7.5 - 12.5 fL [facility] NEUTROPHIL ABSOLUTE 4,970 1,500 - 7,800 cells/uL [facility] LYMPHOCYTE ABSOLUTE 1,030 850 - 3,900 cells/uL [facility] MONOCYTE ABSOLUTE 449 200 - 950 cells/uL [facility] EOSINOPHIL ABSOLUTE 92 15 - 500 cells/uL [facility] BASOPHILS ABSOLUTE 59 0 - 200 cells/uL [facility] NEUTROPHIL 75.3 % [facility] LYMPHOCYTES 15.6 % [facility] MONOCYTE 6.8 % [facility] EOSINOPHILS 1.4 % [facility] BASOPHILS 0.9 % [facility] Comment: Test Performed at: [facility] [address] [address] Toro Merchant MD Blood 12/07/2024 10:2 8 AM CDT 12/08/2024 4:13 AM CDT us Edward Avila NP HEMATOLOGY ORDERABLES Final Result [facility] [phone] [facility] [address] [phone] * FERRITIN (12/07/2024 10:28 AM CDT) FERRITIN 199 16 - 232 ng/mL [facility] Comment: Test Performed at: [facility] [address] [phone] Toro Merchant MD Blood 12/07/2024 10:2 8 AM CDT 12/08/2024 4:13 AM CDT Edwrad Avila NP CHEMISTRY ORDERABLES Final R esult [facility] [phone] [facility] [address] [phone] * (ABNORMAL) COMPREHENSIVE METABOLIC PANEL (12/07/2024 10:28 AM CDT) Pathologist [facility] GLUCOSE 161(H) 65 - 99 mg/dL [facility] Comment: Fasting reference interval For someone without known diabetes, a glucose value >125 mg/dL indicates that they may have diabetes and this should be confirmed with a follow-up test. BUN 17 7 - 25 mg/dL [facility] CREATININE 0.52 0.50 - 1.05 mg/dL [facility] GFR 106 > OR = 60 mL/min/1. 73m2 [facility] BUN/CREAT RATIO SEE NOTE: 6 - 22 (calc) [facility] Comment: Not Reported: BUN and Creatinine are within reference range. SODIUM 141 135 - 146 mmol/L [facility] POTASSIUM 4.6 3.5 - 5.3 mmol/L [facility] CHLORIDE 104 98 - 110 mmol/L [facility] CO2 26 20 - 32 mmol/L [facility] CALCIUM 8.6 8.6 - 10.4 mg/dL [facility] TOTAL PROTEIN 6.2 6.1 - 8.1 g/dL [facility] ALBUMIN 3.9 3.6 - 5.1 g/dL [facility] GLOBULIN 2.3 1.9 - 3.7 g/dL (calc) [facility] ALBUMIN/GLOBULIN RATIO 1.7 1.0 - 2.5 (calc) [facility] BILIRUBIN TOTAL 0.4 0.2 - 1.2 mg/dL [facility] ALKALINE PHOSPHATASE 80 37 - 153 U/L [facility] AST 15 10 - 35 U/L [facility] ALT 14 6 - 29 U/L [facility] Comment: Test Performed at: [facility] [address] [place] [address] Toro Merchant MD Blood 12/07/2024 10:2 8 AM CDT 12/08/2024 4:13 AM CDT us Edward Avila LOCKET MAKER CHEMISTRY ORDERABLES Final R esult [facility] [phone] [facility] [address] [place] [phone] * (ABNORMAL) HEMOGLOBIN A1C (09/29/2024 11:15 AM CDT) HEMOGLOBIN A1C 6.1(H) <5.7 % [facility] Comment: For someone without known diabetes, a hemoglobin A1c value between 5.7% and 6.4% is consistent with prediabetes and should be confirmed with a follow-up test. For someone with known diabetes, a value <7% indicates that their diabetes is well controlled. A1c targets should be individualized based on duration of diabetes, age, comorbid conditions, and other considerations. This assay result is consistent with an increased risk of diabetes. Currently, no consensus exists regarding use of hemoglobin A1c for diagnosis of diabetes for children. ESTIMATED AVERAGE GLUCOSE (MG/DL) 128 mg/dL [facility] ESTIMATED AVERAGE GLUCOSE (MMOL/L) 7.1 mmol/L [facility] Comment: Test Performed at: [facility] [address] [facility] [address] Toro Merchant MD Blood 09/29/2024 11:1 5 AM CDT 09/30/2024 3:07 AM CDT us Lorna Page MD CHEMISTRY ORDERABLES Final Resul t Performing Organization Address City/[facility]/ZIP Co de Phone Number [facility] [phone] [facility] [address] [phone] * LIPID PANEL (09/29/2024 11:15 AM CDT) CHOLESTEROL 122 <200 mg/dL [facility] HDL 54 > OR = 50 mg/dL [facility] TRIGLYCERIDE 118 <150 mg/dL [facility] LDL CALCULATED 48 mg/dL (calc) [facility] Comment: Reference range: <100 Desirable range <100 mg/dL for primary prevention; <70 mg/dL for patients with CHD or diabetic patients with > or = 2 CHD risk factors. LDL-C is now calculated using the Nick-Jerrell calculation, which is a validated novel method providing better accuracy than the Friedewald equation in the estimation of LDL-C. Nick SS et al. ARCHIE. 2013;310(19): 7709-2650 (http://education.Curiyo/faq/KSQ994) CHOL/HDL RATIO 2.3 <5.0 (calc) [facility] NON-HDL CHOLESTEROL 68 <130 mg/dL (calc) [facility] Comment: For patients with diabetes plus 1 major ASCVD risk factor, treating to a non-HDL-C goal of <100 mg/dL (LDL-C of <70 mg/dL) is considered a therapeutic option. Test Performed at: [facility] [address] [facility] [place] [address] Toro Merchant MD Blood 09/29/2024 11:1 5 AM CDT 09/30/2024 3:07 AM CDT us Lorna Page MD CHEMISTRY ORDERABLES Final Resul t [facility] [phone] [address] * MICROALBUMIN/CREATININE RATIO, RANDOM UR (08/29/2024 8:15 AM CDT) Pathologist [facility] CREATININE, URINE 88 20 - 275 mg/dL [facility] ALBUMIN, URINE 0.5 See Note: mg/dL [facility] Comment: Reference Range: Reference Range Not established ALB/CREAT RATIO, URINE 6 <30 mg/g creat [facility] Comment: The ADA defines abnormalities in albumin excretion as follows: Albuminuria Category Result (mg/g creatinine) Normal to Mildly increased <30 Moderately increased 30-299 Severely increased > OR = 300 The ADA recommends that at least two of three specimens collected within a 3-6 month period be abnormal before considering a patient to be within a diagnostic category. Test Performed at: [facility] [address] Toro Merchant MD Urine URINE SPECIMEN OBTAINED BY CLEAN CATCH PROCEDURE / Unknown 08/29/2024 8:15 AM CDT 08/30/2024 4:51 AM CDT Gorge Luciano DO URINE ORDERABLES Final Result [facility] [phone] [facility] [employer] [address] * COLON CANCER SCREEN, STOOL DNA (09/11/2022 6:15 PM CDT) [facility] COLOGUARD RESULT Negative Negative [facility] Comment: NEGATIVE TEST RESULT. A negative Cologuard result indicates a low likelihood that a colorectal cancer (CRC) or advanced adenoma (adenomatous polyps with more advanced pre-malignant features) is present. The chance that a person with a negative Cologuard test has a colorectal cancer is less than 1 in 1500 (negative predictive value >99.9%) or has an advanced adenoma is less than 5.3% (negative predictive value 94.7%). These data are based on a prospective cross-sectional study of 10,000 individuals at average risk for colorectal cancer who were screened with both Cologuard and colonoscopy. (Joselin Forte al, N Engl J Med 2014;370(14):6847-4270) The normal value (reference range) for this assay is negative. COLOGUARD RE-SCREENING RECOMMENDATION: Periodic colorectal cancer screening is an important part of preventive healthcare for asymptomatic individuals at average risk for colorectal cancer. Following a negative Cologuard result, the [place] Cancer Society and U.S. Multi-Society Task Force screening guidelines recommend a Cologuard re-screening interval of 3 years. References: [place] [employer] Guideline for Colorectal Cancer Screening: https://www.cancer.org/cancer/kqlew-atzose-dtwjge/tidgxbhxf-szijvtlau-pfupnit/ac s-rec ommendations.html.; Ashu DK, Jessica GOMEZ, Mildred PRIETO, Colorectal Cancer Screening: Recommendations for Physicians and Patients from the U.S. Multi-Society Task Force on Colorectal Cancer Screening , Am J Gastroenterology 2017; 112:6628-3230. TEST DESCRIPTION: Composite algorithmic analysis of stool DNA-biomarkers with hemoglobin immunoassay. Quantitative values of individual biomarkers are not reportable and are not associated with individual biomarker result reference ranges. Cologuard is intended for colorectal cancer screening of adults of either sex, 45 years or older, who are at average-risk for colorectal cancer (CRC). Cologuard has been approved for use by the U.S. FDA. The performance of Cologuard was established in a cross sectional study of average-risk adults aged 50-84. Cologuard performance in patients ages 45 to 49 years was estimated by sub-group analysis of near-age groups. Colonoscopies performed for a positive result may find as the most clinically significant lesion: colorectal cancer [4.0%], advanced adenoma (including sessile serrated polyps greater than or equal to 1cm diameter) [20%] or non- advanced adenoma [31%]; or no colorectal neoplasia [45%]. These estimates are derived from a prospective cross-sectional screening study of 10,000 individuals at average risk for colorectal cancer who were screened with both Cologuard and colonoscopy. (Joselin Forte al, N Engl J Med 2014;370(14):3595-5668.) Cologuard may produce a false negative or false positive result (no colorectal cancer or precancerous polyp present at colonoscopy follow up). A negative Cologuard test result does not guarantee the absence of CRC or advanced adenoma (pre-cancer). The current Cologuard screening interval is every 3 years. ([place] Cancer Society and U.S. Multi-Society Task Force). Cologuard performance data in a 10,000 patient pivotal study using colonoscopy as the reference method can be accessed at the following location: www.Cancer Genetics/results. Additional description of the Cologuard test process, warnings and precautions can be found at www.cologuard.com. Stool STOOL SPECIMEN / Unknown 09/11/2022 6:15 PM CDT 09/13/2022 12:31 AM CDT us Gorge Luciano DO BODY FLUIDS AND STOOLS Final R esult Performing Organization Address City/[facility]/ZIP Co de Phone Number [facility] [employer] CLIA # [id number] [address] , [address] [place] [address] * CERV/VAG CYTO SCREEN PAP W/HPV (09/12/2019 3:45 PM CDT) PAP INTERP See Separate Results 09/19/2019 1:47 PM CDT [facility] [employer] [facility] Genital SWAB OF ENDOCERVIX / Unknown Collection / Unknown 09/12/2019 3:45 PM CDT 09/13/2019 12:13 PM CDT Yesenia Ortega MD PATHOLOGY/CYTOLOGY ORDERABLES F inal Result Performing Organization Address [facility] Co de Phone Number [facility] [address] [place] [address] [facility] [employer] [facility] CLIA# [id number] [address] [place] [address] * HM DIABETES FOOT EXAM (04/26/2018 12:00 AM RN NEUROSURGICAL) [facility] HEALTH MAINTENANCE Final Result from Last 3 Months or Most Recently Relevant to Health Maintenance Insurance [facility] [id number] * Guarantor: ELAYNEBERYL L Account Type Relation to Patient Date of Phone Billing Address Personal/Family [address] [place] [phone] RX MEDIM[employer] Member Subscriber Plan / Payer (Ef fective 2014-Present) Name:Beryl Sotomayor Relation to Subscriber:Self Name:Beryl Sotomayor Payer ID:Not on file Group ID:[id number] Type:RX Medicare Part D Address: [address] Care Teams Evaporator Helper Relationship Specialty Start Date End Date Gorge Luciano DO [address] [place] [address] PCP - General Internal Medicine 07/17/09
--- OUTSIDE RECORDS SUMMARY | 2025-02-07 18:51 | XMS_ITS | Encounter Summary ---
Author Organization [facility] Address [address] [place] [address] Care Team Providers Care Manager Chemical Name Role Phone Gorge Luciano DO Primary Care Provider [phone] Encounter Details Date Type Department Care Team (Latest Contact Info) Description 01/01/2005 Outpatient Historical [facility]- [place] [address] [place] [address] Omayra Cooper, HOP WEIGHER NO ADDRESS ON FILE CORON ATHEROSCL [place] CORON VESSEL (Primary Dx); Pure hypercholesterolem; DIABETES MELLITUS TYPE II-UNCOMPL (CMS/[facility]) Social History Tobacco Use Types Packs/Day Years Used Date Smoking Tobacco: Never Assessed Comments Unknown Sex and Gender Information Value Date Recorded Sex Assigned at Not on file Legal Sex Female 5:31 AM CREATIVE DESIGNER Gender Identity Not on file Sexual Orientation Not on file documented as of this encounter Plan of Treatment Not on file documented as of this encounter Visit Diagnoses Diagnosis Coronary atherosclerosis of [place] coronary artery- Primary Pure hypercholesterolem Pure hypercholesterolemia Type II or unspecified type diabetes mellitus without mention of complication, not stated as uncontrolled documented in this encounter Care Teams Manager Chemical Relationship Specialty Start Date End Date Gorge Luciano DO [address] [place] [address] PCP - General Internal Medicine 07/17/09 documented as of this encounter
--- OUTSIDE RECORDS SUMMARY | 2025-02-07 18:51 | XMS_ITS | Encounter Summary ---
Author Organization [facility] Address [address] [place] [address] Care Team Providers Care Security Operations Engineer Name Role Phone Gorge Luciano Joelle CALDWELL Primary Care Provider [phone] Encounter Details Date Type Department Care Team (Latest Contact Info) Description 04/17/[address] Outpatient Historical [facility] [address] [place] [address] Oren Mckinnon MD [address] [place] [address] PREOP EXAM OTHER SPECIFIED (Primary Dx) Social History Tobacco Use Types Packs/Day Years Used Date Smoking Tobacco: Never Assessed Comments Unknown Sex and Gender Information Value Date Recorded Sex Assigned at Not on file Legal Sex Female 5:31 AM PRIMER INSERTING MACHINE ADJUSTER Gender Identity Not on file Sexual Orientation Not on file documented as of this encounter Plan of Treatment Not on file documented as of this encounter Procedures Procedure Name Priority Date/Time Associated Diagnosis Comments HCG QUANTITATIVE, BLOOD Routine 04/17/2005 11:55 AM PRIMER INSERTING MACHINE ADJUSTER BASIC METABOLIC PANEL Routine 04/17/2005 11:55 AM PRIMER INSERTING MACHINE ADJUSTER documented in this encounter Results * HCG QUANTITATIVE, BLOOD (04/17/2005 11:55 AM PRIMER INSERTING MACHINE ADJUSTER) CHORIONIC GONADOTROPIN, TOTAL <2.0 0.0 - 10.0 mlU/ML INTERFACE SYSTEM Comment: As of 04 at 12:00 p.m. [facility] has changed the methodology for ThCG, and with this change the reference range has changed from 0-5.0 mIU/ml to 0-10.0 mIU/ml. ----- ----- Total HCG levels between 10 mIU/mL and 25 mIU/mL may be indicative of early but need to be correlated with other clinical findings. HCG ranges during normal , as reported by the tool keeper, are summarized as follows: Gestational Age Expected hCG Values(mIU/ml) 0.2-1 Weeks 5 - 50 1-2 Weeks 50 - 500 2-3 Weeks 100 - 5,000 3-4 Weeks 1,000 - 50,000 5-6 Weeks 10,000 - 100,000 6-8 Weeks 15,000 - 200,000 2-3 Months 10,000 - 100,000 04/17/2005 11:5 5 AM PRIMER INSERTING MACHINE ADJUSTER us Historical Provider CHEMISTRY ORDERABLES Final R esult INTERFACE SYSTEM Refer to clinic/hospital department * (ABNORMAL) BASIC METABOLIC PANEL (04/17/2005 11:55 AM PRIMER INSERTING MACHINE ADJUSTER) GLUCOSE 142(H) 70 - 110 mg/dL INTERFACE SYSTEM BUN 12 7 - 17 mg/dL INTERFACE SYSTEM CREATININE 0.6(L) 0.7 - 1.2 mg/dL INTERFACE SYSTEM SODIUM 142 136 - 145 mEq/L INTERFACE SYSTEM POTASSIUM 4.3 3.5 - 5.0 mEq/L INTERFACE SYSTEM CHLORIDE 109 95 - 110 mEq/L INTERFACE SYSTEM CO2 24 22 - 32 mmol/l INTERFACE SYSTEM ANION GAP 13 9 - 20 mEq/L INTERFACE SYSTEM OSMOLALITY, CALCULATED 294 275 - 295 mOsm/Kg INTERFACE SYSTEM CALCIUM 9.3 8.4 - 10.5 mg/dL INTERFACE SYSTEM 04/17/2005 11:5 5 AM PRIMER INSERTING MACHINE ADJUSTER us Historical Provider CHEMISTRY ORDERABLES Final R esult INTERFACE SYSTEM Refer to clinic/hospital department documented in this encounter Visit Diagnoses Diagnosis Other specified pre-operative examination- Primary documented in this encounter Care Teams Security Operations Engineer Relationship Specialty Start Date End Date Gorge Luciano DO [address] [facility] [address] [place] [address] PCP - General Internal Medicine 07/17/09 documented as of this encounter
--- OUTSIDE RECORDS SUMMARY | 2025-02-07 18:51 | XMS_ITS | Encounter Summary ---
Author Organization [facility] Address [address] [place] [address] Care Team Providers Care Intelligence Senior Sergeant Name Role Phone Gorge Luciano DO Primary Care Provider [phone] Encounter Details Date Type Department Care Team (Late st Contact Info) Description 11/24/2005 Outpatient Historical [facility] Occupational Medicine-[facility] [address] [place] [address] Tunde Hamilton MD [address] [place] [address] Sprain and Strain of Unspecified Site of Knee and Leg (Primary Dx) Social History Tobacco Use Types Packs/Day Years Used Date Smoking Tobacco: Never Assessed Comments Unknown Sex and Gender Information Value Date Recorded Sex Assigned at Not on file Legal Sex Female 5:31 AM PATROL SERGEANT SHERIFF'S OFFICE Gender Identity Not on file Sexual Orientation Not on file documented as of this encounter Plan of Treatment Not on file documented as of this encounter Visit Diagnoses Diagnosis Sprain and strain of unspecified site of knee and leg- Primary documented in this encounter Care Teams Intelligence Senior Sergeant Relationship Specialty Start Date End Date Gorge Luciano DO [address] [place] [address] PCP - General Internal Medicine 07/17/09 documented as of this encounter
--- OUTSIDE RECORDS SUMMARY | 2025-02-07 18:51 | XMS_ITS | Encounter Summary ---
Author Organization [facility] Address [address] [place] [address] Care Team Providers Care Egyptologist Name Role Phone Gorge Luciano DO Primary Care Provider [phone] Encounter Details Date Type Department Care Team (Latest Contact Info) Description 10/30/2005 Outpatient Historical [facility] [place] [address] [facility] [address] [place] [address] Catracho Dueñas MD [address] [place] [id number] Lumbago (Primary Dx) Social History Tobacco Use Types Packs/Day Years Used Date Smoking Tobacco: Never Assessed Comments Unknown Sex and Gender Information Value Date Recorded Sex Assigned at Not on file Legal Sex Female 5:31 AM FUR COAT SEWER Gender Identity Not on file Sexual Orientation Not on file documented as of this encounter Plan of Treatment Not on file documented as of this encounter Visit Diagnoses Diagnosis Lumbago- Primary documented in this encounter Care Teams Egyptologist Relationship Specialty Start Date End Date Gorge Luciano DO [address] [place] [address] PCP - General Internal Medicine 07/17/09 documented as of this encounter
--- OUTSIDE RECORDS SUMMARY | 2025-02-07 18:51 | XMS_ITS | Encounter Summary ---
Author Organization [facility] Address [address] [place] [address] Care Team Providers Care Ballistic Expert Name Role Phone Gorge Luciano DO Primary Care Provider [phone] Encounter Details Date Type Department Care Team (Latest Contact Info) Description 11/20/2005 Outpatient Historical [facility] [address] [place] [address] Catracho Dueñas MD [address] [facility] [address] [place] [address] Lumbago (Primary Dx); DM w/o Complication Type II (CMS/HCC); Other, Multiple and Ill-Defined Closed Fractures of Lower Limb Social History Tobacco Use Types Packs/Day Years Used Date Smoking Tobacco: Never Assessed Comments Unknown Sex and Gender Information Value Date Recorded Sex Assigned at Not on file Legal Sex Female 5:31 AM APRICOT WASHER Gender Identity Not on file Sexual Orientation Not on file documented as of this encounter Plan of Treatment Not on file documented as of this encounter Visit Diagnoses Diagnosis Lumbago- Primary Type II or unspecified type diabetes mellitus without mention of complication, not stated as uncontrolled Other, multiple and ill-defined closed fractures of lower limb documented in this encounter Care Teams Ballistic Expert Relationship Specialty Start Date End Date Gorge Luciano DO [address] [place] [address] PCP - General Internal Medicine 07/17/09 documented as of this encounter
--- OUTSIDE RECORDS SUMMARY | 2025-02-07 18:51 | XMS_ITS | Encounter Summary ---
Author Organization [facility] Address [address] [place] [address] Care Team Providers Care Torch Brazer Name Role Phone Gorge Luciano DO Primary Care Provider [phone] Encounter Details Date Type Department Care Team (Latest Contact Info) Description 02/15/2004 Outpatient Historical [facility] [address] [place] [address] Gorge Luciano DO [address] [place] [address] UNSPEC CONSTIPATION (Primary Dx); GASTROPARESIS; REFLUX ESOPHAGITIS Social History Tobacco Use Types Packs/Day Years Used Date Smoking Tobacco: Never Assessed Comments Unknown Sex and Gender Information Value Date Recorded Sex Assigned at Not on file Legal Sex Female 5:31 AM HSE MANAGER Gender Identity Not on file Sexual Orientation Not on file documented as of this encounter Plan of Treatment Not on file documented as of this encounter Visit Diagnoses Diagnosis Unspecified constipation- Primary Gastroparesis Reflux esophagitis documented in this encounter Care Teams Torch Brazer Relationship Specialty Start Date End Date Gorge Luciano DO [address] [place] [address] PCP - General Internal Medicine 07/17/09 documented as of this encounter
--- OUTSIDE RECORDS SUMMARY | 2025-02-07 18:51 | XMS_ITS | Encounter Summary ---
Author Organization [facility] Address [address] [place] [address] Care Team Providers Care Exhaust Emissions Automotive Technician Name Role Phone Gorge Luciano DO Primary Care Provider Encounter Details Date Type Department Care Team (Late st Contact Info) Description 08/29/2010 Ancillary Orders [facility] Cardiac Hand Gluer And Slicer [address] [place] [address] Salinas Cutler MD [address] [address] Chest pain; Cor athrscl-uns vessel Social History Tobacco Use Types Packs/Day Years Used Date Smoking Tobacco: Never Smokeless Tobacco: Never Alcohol Use Standard Drinks/Week Comments No 0 (1 standard drink = 0.6 oz pur e alcohol) Comments No Sex and Gender Information Value Date Recorded Sex Assigned at Not on file Legal Sex Female 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 09/03/2010 Primary care physician: Gorge Luciano DO Indication: angina Procedure: Procedures performed: Selective coronary angiography, retrograde left heart catheterization, left ventriculogram angioseal to right common femoral artery Access site(s): Right femoral artery Complications: none Findings: LM: Minor plaquing LAD: Proximal applecore 80% stenosis LCX: OM1 100% in stent restenosis. OM2 100% instent restenosis RCA: Minor plaquing LVEF; 55% LV: 120/20, 22 AO: 120/70 Procedure Note After the patient was brought into the cardiac catherization laboratory, right groin was prepped and draped in a usual sterile manner. 5 F sheath was inserted into the right common femoral artery via modified seldinger technique. JL-4 catheter was used to engage the left main artery disclosing 100% instent restenosis of the OM1 and OM2 along with severe LAD disease. JL-4 was exchanged for a JR-4 diagnostic catheter. JR-4 was used to engage the right coronary artery disclosing minor plaquing. JR-4 was exchanged for a pigtail which was used to cross the aortic valve without problems. LV angiogram was performed with 36 cc contrast disclosing EF 55%. Pull back into the ascending aorta did not reveal a significant gradient. Right common femoral artery insertion site was confirmed by angiogram and the arterial puncture site was sealed with an angioseal. Diagnosis: 1. 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 Severe proximal left anterior descending coronary artery disease 3. Severe gastroparesis 4. diabetes mellitus 5. dyslipidemia. Plan: 1. She will be referred to CT surgery for surgical revascularization. She has a severe form of gastroparesis. She has been observing intact pills including aspirin that is passed with bowel movement. She is at very high risk for subacute thrombosis as well as recurrent restenosis due to lack of/poor absorption of her medications. She has already demonstrated recurrent restenosis of the OM stents. 2. Switch over zocor 80 mg nightly to lipitor 80 mg nightly 3. Hold effient. Will have the CT surgeon evaluate the patient today and hopefully have the patient return next week for CABG. Salinas Cutler MD, [facility] Cardiovascular Medicine [phone] (office) 09/03/2010 10:25 AM Procedure Note Salinas Cutelr MD - 09/03/2010 Cardiac Catheterization Report Beryl Sotomayor [id number] 44 y.o. 09/03/2010 Primary care physician: Gorge Luciano DO Indication: angina Procedure: Procedures performed: Selective coronary angiography, retrograde left heart catheterization,left ventriculogram angioseal to right common femoral artery Access site(s): Right femoral artery Complications: none Findings: LM: Minor plaquing LAD: Proximal applecore 80% stenosis LCX: OM1 100% in stent restenosis. OM2 100% instent restenosis RCA: Minor plaquing LVEF; 55% LV: 120/20, 22 AO: 120/70 Procedure Note After the patient was brought into the cardiac catherization laboratory,right groin was prepped and draped in a usual sterile manner. 5 F sheathwas inserted into the right common femoral artery via modified seldingertechnique. JL-4 catheter was used to engage the left main arterydisclosing 100% instent restenosis of the OM1 and OM2 along with severeLAD disease. JL-4 was exchanged for a JR-4 diagnostic catheter. JR-4was used to engage the right coronary artery disclosing minor plaquing.JR-4 was exchanged for a pigtail which was used to cross the aortic valvewithout problems. LV angiogram was performed with 36 cc contrastdisclosing EF 55%. Pull back into the ascending aorta did not reveal asignificant gradient. Right common femoral artery insertion site was confirmed by angiogram andthe arterial puncture site was sealed with an angioseal. Diagnosis: 1. 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 Severe proximal left anterior descending coronary artery disease 3. Severe gastroparesis 4. diabetes mellitus 5. dyslipidemia. Plan: 1. She will be referred to CT surgery for surgical revascularization.She has a severe form of gastroparesis. She has been observing intactpills including aspirin that is passed with bowel movement. She is atvery high risk for subacute thrombosis as well as recurrent restenosis dueto lack of/poor absorption of her medications. She has alreadydemonstrated recurrent restenosis of the OM stents. 2. Switch over zocor 80 mg nightly to lipitor 80 mg nightly 3. Hold effient. Will have the CT surgeon evaluate the patient today andhopefully have the patient return next week for CABG. Salinas Cutler MD, [facility] Cardiovascular Medicine [phone] (office) 09/03/2010 10:25 AM us Salinas Cutler MD FLUOROSCOPY ORDERABLES Final Res ult [facility] documented in this encounter Visit Diagnoses Diagnosis Chest pain Chest pain, unspecified Coronary atherosclerosis of unspecified type of vessel, [place] or graft Chest pain Chest pain, unspecified Coronary atherosclerosis of unspecified type of vessel, [place] creek or graft Chest pain, unspecified documented in this encounter Care Teams Exhaust Emissions Automotive Technician Relationship Specialty Start Date End Date Gorge Luciano DO [address] [id number] PCP - General Internal Medicine 07/17/09 documented as of this encounter
--- OUTSIDE RECORDS SUMMARY | 2025-02-07 18:51 | XMS_ITS | Encounter Summary ---
Author Organization [facility] Address [address] [place] [address] Care Team Providers Care General Maintenance Mechanic Name Role Phone Gorge Luciano DO Primary Care Provider [phone] Encounter Details Date Type Department Care Team (Latest Contact Info) Description 02/13/2005 Outpatient [facility] Breast Center [facility] [address] [place] [address] Zachery Barroso MD NO ADDRESS ON FILE SCREENING MAMM-MAILG NEOPL NEC (Primary Dx) Social History Tobacco Use Types Packs/Day Years Used Date Smoking Tobacco: Never Assessed Comments Unknown Sex and Gender Information Value Date Recorded Sex Assigned at Not on file Legal 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
--- OUTSIDE RECORDS SUMMARY | 2025-02-07 18:51 | XMS_ITS | Encounter Summary ---
Author Organization [facility] Address [address] [place] [address] Care Team Providers Care Harness Mender Name Role Phone Gorge Luciano DO Primary Care Provider [phone] Encounter Details Date Type Department Care Team (Latest Contact Info) Description 11/09/2005 Outpatient Historical [facility] Imaging Services-[facility] [place] [address] [place] [address] Catracho Dueñas MD [address] [place] [address] Intervertebral Lumbar Disc Disorder with Myelopathy, Lumbar Region (Primary Dx) Social History Tobacco Use Types Packs/Day Years Used Date Smoking Tobacco: Never Assessed Comments Unknown Sex and Gender Information Value Date Recorded Sex Assigned at Not on file Legal Sex Female 5:31 AM COD CLERK Gender Identity Not on file Sexual Orientation Not on file documented as of this encounter Plan of Treatment Not on file documented as of this encounter Visit Diagnoses Diagnosis Intervertebral lumbar disc disorder with myelopathy, lumbar region- Primary documented in this encounter Care Teams Harness Mender Relationship Specialty Start Date End Date Gorge Luciano DO [address] [place] [address] PCP - General Internal Medicine 07/17/09 documented as of this encounter
--- OUTSIDE RECORDS SUMMARY | 2025-02-07 18:51 | XMS_ITS | Encounter Summary ---
Author Organization [facility] Address [address] [place] [address] Care Team Providers Care Biology Faculty Member Name Role Phone Gorge Luciano DO Primary Care Provider [phone] Encounter Details Date Type Department Care Team (Latest Contact Info) Description 02/26/2005 Outpatient Historical [facility] [place] [place] [address] Gorge Luciano DO [address] [place] [address] DIABETES MELLITUS TYPE I UNCONTR UNCOMPL (Primary Dx); CORONARY ATHEROSCLER UNSPEC VESSEL; CONGESTIVE HEART FAILURE NOS (CMS/HCC); VACCINE FOR STREP PNEUMONIAE Social History Tobacco Use Types Packs/Day Years Used Date Smoking Tobacco: Never Assessed Comments Unknown Sex and Gender Information Value Date Recorded Sex Assigned at Not on file Legal Sex Female 5:31 AM DEPENDENCY COUNSELOR Gender Identity Not on file Sexual Orientation Not on file documented as of this encounter Plan of Treatment Not on file documented as of this encounter Visit Diagnoses Diagnosis Type I (juvenile type) diabetes mellitus without mention of complication, uncontrolled- Primary Coronary atherosclerosis of unspecified type of vessel, chinik or graft Congestive heart failure, unspecified Need for prophylactic vaccination against Streptococcus pneumoniae (pneumococcus) Need for prophylactic vaccination against streptococcus pneumoniae (pneumococcus) documented in this encounter Care Teams Biology Faculty Member Relationship Specialty Start Date End Date Gorge Luciano DO [address] [place] [address] PCP - General Internal Medicine 07/17/09 documented as of this encounter
--- OUTSIDE RECORDS SUMMARY | 2025-02-07 18:51 | XMS_ITS | Encounter Summary ---
Author Organization [facility] Address [address] [place] [address] Care Team Providers Care Dry Chain Worker Name Role Phone MustaphaGorge Joelle CALDWELL Primary Care Provider [phone] Encounter Details Date Type Department Care Team (Late st Contact Info) Description 07/17/2004 Inpatient Historical [facility] In[facility], Oren Chavez MD [address] 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 Gender Identity Not on file Sexual Orientation Not on file documented as of this encounter Plan of Treatment Not on file documented as of this encounter Procedures Procedure Name Priority Date/Time Associated Diagnosis Comments POC GLUCOSE Routine 07/18/2004 6:31 AM CDT POC GLUCOSE Routine 07/18/2004 1:39 AM CDT GLUCOSE URINALYSIS, QUALITATIVE Routine 07/17/2004 4:16 PM CDT KETONE, QUALITATIVE, URINE Routine 07/17/2004 4:16 PM CDT URINALYSIS W/REFLEX MICROSCOPIC Routine 07/17/2004 4:16 PM CDT PT AND APTT Routine 07/17/2004 10:12 AM CDT CBC WITH DIFFERENTIAL Routine 07/17/2004 10:12 AM CDT COMPREHENSIVE METABOLIC PANEL Routine 07/17/2004 10:12 AM CDT POC GLUCOSE Routine 07/17/2004 6:24 AM CDT POC GLUCOSE Routine 07/17/2004 3:00 AM CDT POC GLUCOSE Routine 07/16/2004 11:15 PM CDT documented in this encounter Results * (ABNORMAL) POC GLUCOSE (07/18/2004 6:31 AM CDT) GLUCOSE POC 232(H) 60 - 100 mg/dL INTERFACE SYSTEM 07/18/2004 6:31 AM CDT Oren Mckinnon MD POINT OF CARE TESTING F inal Result Performing Organization Address [facility] de Phone Number INTERFACE SYSTEM Refer to clinic/hospital department * (ABNORMAL) POC GLUCOSE (07/18/2004 1:39 AM CDT) GLUCOSE POC 299(H) 60 - 100 mg/dL INTERFACE SYSTEM 07/18/2004 1:39 AM CDT Oren Mckinnon MD POINT OF CARE TESTING F inal Result Performing Organization Address [facility] de Phone Number INTERFACE SYSTEM Refer to clinic/hospital department * URINALYSIS (07/17/2004 4:16 PM CDT) COLOR UA Yellow Straw INTERFACE SYSTEM CLARITY UA Clear Clear INTERFACE SYSTEM LEUKOCYTE ESTERASE UA NEGATIVE NEGATIVE INTERFACE SYSTEM NITRITE UA NEGATIVE NEGATIVE INTERFACE SYSTEM PH UA 5.5 5.0 - 9.0 INTERFACE SYSTEM PROTEIN UA NEGATIVE NEGATIVE INTERFACE SYSTEM UROBILINOGEN UA 0.2 INTE RFACE SYSTEM BILIRUBIN UA NEGATIVE NEGATIVE INTERFA CE SYSTEM BLOOD UA NEGATIVE NEGATIVE INTERFACE SYSTEM SPECIFIC GRAVITY UA 1.020 1.005 - 1.030 INTERFACE SYSTEM MICRO EXAM No No INTERFACE SYSTEM 07/17/2004 4:16 PM CDT Oren Mckinnon MD URINE ORDERABLES Final Result Performing Organization Address [facility] Phone Number INTERFACE SYSTEM Refer to clinic/hospital department * (ABNORMAL) ACETONE QUALITATIVE, URINE (07/17/2004 4:16 PM CDT) KETONES UA Large(A) Negative INTERFACE SYSTEM 07/17/2004 4:16 PM CDT Oren Mckinnon MD URINE ORDERABLES Final Result Performing Organization Address [facility] Phone Number INTERFACE SYSTEM Refer to clinic/hospital department * (ABNORMAL) GLUCOSE URINALYSIS, QUALITATIVE (07/17/2004 4:16 PM CDT) GLUCOSE, URINE 5000(AA) Negative INTER FACE SYSTEM Comment: Potentially critical/toxic URINE GLUCOSE called by DG to ERIKA ORELLANA, with verbal repeat, at 07/17/2004 7:31 PM. 07/17/2004 4:16 PM CDT Result [facility] Oren Mckinnon MD URINE ORDERABLES Final Result Performing Organization Address [facility] Phone Number INTERFACE SYSTEM Refer to clinic/hospital department * PT AND APTT (07/17/2004 10:12 AM CDT) PROTIME 14.7 12.4 - 14.9 Secs INTERFACE SYSTEM Comment: As of 03 note change in normal range. INR 1.1 INTERFACE SYSTEM Comment: Expected Values for INR: DVT/PE Goal INR 2.5; range 2.0 - 3.0 Valve Replacement Tissue Goal INR 2.5; range 2.0 - 3.0 Mechanical Goal INR 3.0; range 2.5 - 3.5 POST-FL Goal INR 2.5; range 2.0 - 3.0 or Goal 3.0; range 2.5 - 3.5 Atrial Fibrillation Goal INR 2.5; range 2.0 - 3.0 Ischemic Stroke Goal INR 2.5; range 2.0 - 3.0 For additional information see Guidelines for Anticoagulation available from the pharmacy Roberto Noe PTT 33.5 24.3 - 37.5 Secs INTERFACE SYSTEM Comment:Therapeutic Range: 07/17/2004 10:1 2 AM CDT Oren Mckinnon MD HEMATOLOGY ORDERABLES F inal Result Performing Organization Address [facility] Phone Number INTERFACE SYSTEM Refer to clinic/hospital department * (ABNORMAL) COMPREHENSIVE METABOLIC PANEL (07/17/2004 10:12 AM CDT) GLUCOSE 382(H) 70 - 110 mg/dL INTERFACE SYSTEM BUN 16 7 - 17 mg/dL INTERFACE SYSTEM CREATININE 0.8 0.7 - 1.2 mg/dL INTERFACE SYSTEM SODIUM 137 136 - 145 mEq/L INTERFACE SYSTEM POTASSIUM 4.8 3.5 - 5.0 mEq/L INTERFACE SYSTEM CO2 18(L) 22 - 32 mmol/l INTERFACE SYSTEM CHLORIDE 103 95 - 110 mEq/L INTERFACE SYSTEM CALCIUM 8.7 8.4 - 10.5 mg/dL INTERFACE SYSTEM ALKALINE PHOSPHATASE 123 38 - 126 IU/L INTERFACE SYSTEM TOTAL PROTEIN 7.2 6.3 - 8.2 g/dL INTERFACE SYSTEM ALBUMIN 4.0 3.5 - 5.0 g/dL INTERFACE SYSTEM AST 18 14 - 36 IU/L INTERFACE SYSTEM ALT 7(L) 9 - 52 IU/L INTERFACE SYSTEM BILIRUBIN TOTAL 0.6 0.2 - 1.4 mg/dL INTERFACE SYSTEM GLOBULIN (CALC) 3.2 2.4 - 3.9 g/dL INTERFACE SYSTEM ANION GAP 21(H) 9 - 20 mEq/L INTERFACE SYSTEM ALBUMIN/GLOBULIN RATIO 1.3 1.0 - 2.3 INTERFACE SYSTEM OSMOLALITY, CALCULATED 301(H) 275 - 295 mOsm/Kg INTERFACE SYSTEM 07/17/2004 10:1 2 AM CDT Oren Mckinnon MD CHEMISTRY ORDERABLES Fi nal Result Performing Organization Address [facility] Phone Number INTERFACE SYSTEM Refer to clinic/hospital department * (ABNORMAL) CBC WITH DIFFERENTIAL (07/17/2004 10:12 AM CDT) WBC 10.1 4.5 - 11.0 K/ul INTERFACE SYSTEM RBC 4.96 4.20 - 5.40 Mil/ul INTERFACE SYSTEM HEMOGLOBIN 12.7 12.0 - 16.0 g/dL INTERFACE SYSTEM HEMATOCRIT 40.4 36.0 - 46.0 % INTERFACE SYSTEM MCV 81.5(L) 84.0 - 103.0 Fl INTERFACE SYSTEM MCH 25.6(L) 27.0 - 34.0 pg INTERFACE SYSTEM MCHC 31.4 30.0 - 35.0 g/dL INTERFACE SYSTEM RDW 14.5 11.0 - 14.5 percent(in active) INTERFACE SYSTEM PLATELETS 270 140 - 440 K/ul INTERFACE SYSTEM MPV 11.0 8.9 - 12.8 Fl INTERFACE SYSTEM NEUTROPHILS 82.8(H) 42.2 - 75.2 percent(in active) INTERFACE SYSTEM LYMPHOCYTES 10.3(L) 24.0 - 44.0 percent(in active) INTERFACE SYSTEM MONOCYTES 6.3 2.0 - 10.0 percent(in active) INTERFACE SYSTEM EOSINOPHILS 0.1 0.0 - 7.0 % INTERFACE SYSTEM BASOPHILS 0.5 0.0 - 1.0 percent(in active) INTERFACE SYSTEM NEUTROPHIL ABSOLUTE 8.3(H) 2.0 - 8.0 K/uL INTERFACE SYSTEM LYMPHOCYTE ABSOLUTE 1.0(L) 1.2 - 4.0 K/ul INTERFACE SYSTEM MONOCYTE ABSOLUTE 0.6 0.1 - 0.6 K/ul INTERFACE SYSTEM EOSINOPHIL ABSOLUTE 0.0 0.0 - 0.7 K/ul INTERFACE SYSTEM BASOPHILS ABSOLUTE 0.1 0.0 - 0.2 K/ul INTERFACE SYSTEM 07/17/2004 10:1 2 AM CDT us Oren Mckinnon MD HEMATOLOGY ORDERABLES F inal Result INTERFACE SYSTEM Refer to clinic/hospital department * (ABNORMAL) POC GLUCOSE (07/17/2004 6:24 AM CDT) GLUCOSE POC 426(H) 60 - 100 mg/dL INTERFACE SYSTEM 07/17/2004 6:24 AM CDT us Oren Mckinnon MD POINT OF CARE TESTING F inal Result INTERFACE SYSTEM Refer to clinic/hospital department * (ABNORMAL) POC GLUCOSE (07/17/2004 3:00 AM CDT) GLUCOSE POC 371(H) 60 - 100 mg/dL INTERFACE SYSTEM 07/17/2004 3:00 AM CDT Oren Mckinnon MD POINT OF CARE TESTING F inal Result Performing Organization Address [facility] Co de Phone Number INTERFACE SYSTEM Refer to clinic/hospital department * (ABNORMAL) POC GLUCOSE (07/16/2004 11:15 PM CDT) GLUCOSE POC 329(H) 60 - 100 mg/dL INTERFACE SYSTEM 07/16/2004 11:1 5 PM CDT Brijesh Amado MD POINT OF CARE TESTING Final Result Performing Organization Address [facility] Co de Phone Number INTERFACE SYSTEM Refer to clinic/hospital department documented in this encounter Visit Diagnoses Diagnosis Closed fracture of upper end of tibia- Primary documented in this encounter Care Teams Dry Chain Worker Relationship Specialty Start Date End Date Gorge Luciano DO [address] [facility] [address] [place] [address] PCP - General Internal Medicine 07/17/09 documented as of this encounter
--- OUTSIDE RECORDS SUMMARY | 2025-02-07 18:51 | XMS_ITS | Encounter Summary ---
Author Organization [facility] Address [address] [place] [address] Care Team Providers Care Network Architect Name Role Phone Gorge Luciano DO Primary Care Provider [phone] Reason for Visit * Reason Comments Patient Communication Encounter Details Date Type Department Care Team (Late st Contact Info) Description 02/01/2025 Telephone [facility] Chad [address] [place] [place] [address] Gorge Luciano DO [address] [place] [address] Patient Communication Social History Tobacco Use Types Packs/Day Years [...] AM CDT Legal Sex Female 12:41 PM SPEECH THERAPIST Gender Identity Female 12/21/2023 9:49 AM CDT Sexual Orientation Not on file documented as of this encounter Miscellaneous Notes * Telephone Encounter - Josh Corrales RN - 02/05/2025 11:56 AM SPEECH THERAPIST Noted. CH THERAPIST * Telephone Encounter - Josh Corrales RN - 02/01/2025 2:29 PM SPEECH THERAPIST 02/01/2025 2:29 PM Radha brady [facility] Medical: stating they received an WOPD from Dr Luciano, but does not have the necessarydocumentation. .Stating page one was the example needed for documentation.Radha stressed the importance of following the example in order for insurance to cover. Reports they received only one page of the packet that is needed for patient to receive her powered wheelchair. States they have refaxed the packet that will need completed /singed and faxed back. CH THERAPIST * Telephone Encounter - Beth Torres PCA - 02/01/2025 8:37 AM SPEECH THERAPIST Copied from [facility] #[id number]. Topic: CPA Information Request >> Feb 01, 2025 8:36 AM Beth Hernandez wrote: Caller is returning phone call from clinic. [facility] Callback Number: [phone] Patient Has Additional Questions Are the credentials of the caregiver who talked to the patient head of science? No Call Notes: Asking to speak with nurse about the WOPD form? It was filled out incorrect CH THERAPIST documented in this encounter Plan of Treatment Upcoming Encounters Date Type Department Care Team (Late st Contact Info) Description 02/14/2025 9:15 AM SPEECH THERAPIST Appointment [facility] MRI [place] [address] [place] [id number] PA [address] [place] [address] 02/15/2025 11:40 AM SPEECH THERAPIST Office Visit [facility] Orthopedics - Orthopedic [facility] [address] [place] [address] Conrado Barraza PA-C [address] [place] [address] 02/28/2025 11:20 AM SPEECH THERAPIST Office Visit [facility] Int [place]-Derik [address] [place] [place] [address] Gorge Luciano DO [address] [place] [address] 04/09/2025 12:35 PM SPEECH THERAPIST Appointment [facility] [address] [place] [address] 04/12/2025 8:00 AM SPEECH THERAPIST Video Visit [facility] Endocrinology [place] [address] [place] [address] Lorna Page MD [address] [place] [address] 04/16/2025 1:20 PM SPEECH THERAPIST Office Visit [facility] Cancer and Hematology [facility] [address] [place] [address] Levy Page MD [address] [facility] [address] [place] [address] 06/12/2025 12:40 PM CDT Office Visit [facility] Rheumatology- More Eduardo Hogan [address] [place] [address] Enrrique Scanlon MD [address] [place] [address] 09/03/2025 11:20 AM CDT Office Visit [facility] Int Med-Derik [address] [place] [address] Gorge Luciano DO [address] [place] [address] documented as of this encounter Visit Diagnoses Not on filedocumented in this encounter Care Teams Network Architect Relationship Specialty Start Date End Date Gorge Luciano DO [address] [place] [address] PCP - General Internal Medicine 07/17/09 documented as of this encounter
--- OUTSIDE RECORDS SUMMARY | 2025-02-07 18:51 | XMS_ITS | Encounter Summary ---
Author Organization [facility] Address [address] [place] [address] Care Team Providers Care Cmo & President Name Role Phone Gorge Luciano DO Primary Care Provider [phone] Encounter Details Date Type Department Care Team (Late st Contact Info) Description 06/04/2004 Outpatient Historical [facility] Social History Tobacco Use Types Packs/Day Years Used Date Smoking Tobacco: Never Assessed Comments Unknown Sex and Gender Information Value Date Recorded Sex Assigned at Not on file Legal Sex Female 5:31 AM SUPERVISOR RECORDS CHANGE Gender Identity Not on file Sexual Orientation Not on file documented as of this encounter Plan of Treatment Not on file documented as of this encounter Visit Diagnoses Not on filedocumented in this encounter Care Teams Cmo & President Relationship Specialty Start Date End Date Gorge Luciano DO [address] [facility] [address] [place] [address] PCP - General Internal Medicine 07/17/09 documented as of this encounter
--- OUTSIDE RECORDS SUMMARY | 2025-02-07 18:51 | XMS_ITS | Encounter Summary ---
Author Organization [facility] Address [address] [place] [address] Care Team Providers Care Placement Interviewer Name Role Phone Gorge Luciano DO Primary Care Provider [phone] Encounter Details Date Type Department Care Team (Late st Contact Info) Description 06/24/2005 Outpatient Historical [facility] Orthopedics- 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
--- OUTSIDE RECORDS SUMMARY | 2025-02-07 18:51 | XMS_ITS | Encounter Summary ---
Author Organization [facility] Address [address] [place] [address] Care Team Providers Care Child Care Specialist Name Role Phone Gorge Luciano DO Primary Care Provider [phone] Encounter Details Date Type Department Care Team (Late st Contact Info) Description 08/14/2004 Outpatient Historical [facility]oped[facility]- [address] [place] [address] Oren Mckinnon MD [address] [place] [address] FX UPPER END TIBIA-CLOSE (Primary Dx); FX SHAFT FIBULA-CLOSED Social History Tobacco Use Types Packs/Day Years Used Date Smoking Tobacco: Never Assessed Comments Unknown Sex and Gender Information Value Date Recorded Sex Assigned at Not on file Legal Sex Female 5:31 AM PRE CERTIFICATION SPECIALIST Gender Identity Not on file Sexual Orientation Not on file documented as of this encounter Plan of Treatment Not on file documented as of this encounter Visit Diagnoses Diagnosis Closed fracture of upper end of tibia- Primary Closed fracture of shaft of fibula documented in this encounter Care Teams Child Care Specialist Relationship Specialty Start Date End Date Gorge Luciano DO [address] [place] [address] PCP - General Internal Medicine 07/17/09 documented as of this encounter
--- OUTSIDE RECORDS SUMMARY | 2025-02-07 18:51 | XMS_ITS | Encounter Summary ---
Author Organization [facility] Address [address] [place] [address] Care Team Providers Care Chest Painting Leader Name Role Phone Gorge Luciano DO Primary Care Provider [phone] Encounter Details Date Type Department Care Team (Latest Contact Info) Description 04/17/2002 Outpatient Historical [facility] Sky Torres MD [address] [place] [address] SHOULDER REGION DIS NEC (Primary Dx); Trigger finger Social History Tobacco Use Types Packs/Day Years Used Date Smoking Tobacco: Never Assessed Comments Unknown Sex and Gender Information Value Date Recorded Sex Assigned at Not on file Legal Sex Female 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
--- OUTSIDE RECORDS SUMMARY | 2025-02-07 18:51 | XMS_ITS | Encounter Summary ---
Author Organization [facility] Address [address] [place] [address] Care Team Providers Care Vp Treasurer Name Role Phone Gorge Luciano DO Primary Care Provider [phone] Encounter Details Date Type Department Care Team (Latest Contact Info) Description 12/08/2004 Outpatient Historical [facility] Cardiovascular Services [address] 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
--- OUTSIDE RECORDS SUMMARY | 2025-02-07 18:51 | XMS_ITS | Encounter Summary ---
Author Organization [facility] Address [address] [place] [address] Care Team Providers Care Teacher Education Instructor Name Role Phone Gorge Luciano DO Primary Care Provider [phone] Encounter Details Date Type Department Care Team (Late st Contact Info) Description 07/21/2004 Outpatient Historical [facility] Orthopedics- [address] 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
--- OUTSIDE RECORDS SUMMARY | 2025-02-07 18:51 | XMS_ITS | Encounter Summary ---
Author Organization [facility] Address [address] [place] [address] Care Team Providers Care Zinc Furnace Charger Name Role Phone Gorge Luciano DO Primary Care Provider [phone] Encounter Details Date Type Department Care Team (Latest Contact Info) Description 11/04/2005 Outpatient Historical [facility] Optometry 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
--- OUTSIDE RECORDS SUMMARY | 2025-02-07 18:51 | XMS_ITS | Encounter Summary ---
Author Organization [facility] Address [address] [place] [address] Care Team Providers Care Leave Coordinator Name Role Phone Gorge Luciano DO Primary Care Provider [phone] Encounter Details Date Type Department Care Team (Latest Contact Info) Description 11/20/2005 Outpatient Historical [facility] [address] [facility] [address] [place] [address] Catracho Dueñas MD [address] [place] [address] Unspecified Backache (Primary Dx) Social History Tobacco Use Types Packs/Day Years Used Date Smoking Tobacco: Never Assessed Comments Unknown Sex and Gender Information Value Date Recorded Sex Assigned at Not on file Legal Sex Female 5:31 AM 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
--- OUTSIDE RECORDS SUMMARY | 2025-02-07 18:51 | XMS_ITS | Encounter Summary ---
Author Organization [facility] Address [address] [place] [address] Care Team Providers Care Photography Professor Name Role Phone Gorge Luciano DO Primary Care Provider [phone] Encounter Details Date Type Department Care Team (Latest Contact Info) Description 08/21/2003 Outpatient Historical [facility] Cardiology- [place] [address] [place] [address] Too Brandon MD NO ADDRESS ON FILE ANGINA PECTORIS NEC/NOS (Primary Dx); CORON ATHEROSCL [place] CORON VESSEL Social History Tobacco Use Types Packs/Day Years Used Date Smoking Tobacco: Never Assessed Comments Unknown Sex and Gender Information Value Date Recorded Sex Assigned at Not on file Legal Sex Female 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
--- OUTSIDE RECORDS SUMMARY | 2025-02-07 18:51 | XMS_ITS | Encounter Summary ---
Author Organization [facility] Address [address] [place] [address] Care Team Providers Care Machine Welder Name Role Phone Gorge Luciano DO Primary Care Provider [phone] Encounter Details Date Type Department Care Team (Late st Contact Info) Description 06/04/2004 Outpatient Historical [facility] Social History Tobacco Use Types Packs/Day Years Used Date Smoking Tobacco: Never Assessed Comments Unknown Sex and Gender Information Value Date Recorded Sex Assigned at Not on file Legal Sex Female 5:31 AM GAS FLOW REGULATOR Gender Identity Not on file Sexual Orientation Not on file documented as of this encounter Plan of Treatment Not on file documented as of this encounter Visit Diagnoses Not on filedocumented in this encounter Care Teams Machine Welder Relationship Specialty Start Date End Date Gorge Luciano DO [address] [facility] [address] [place] [address] PCP - General Internal Medicine 07/17/09 documented as of this encounter
--- OUTSIDE RECORDS SUMMARY | 2025-02-07 18:51 | XMS_ITS | Encounter Summary ---
Author Organization [facility] Address [address] [place] [address] Care Team Providers Care Railway Signal Technician Name Role Phone Gorge Luciano DO Primary Care Provider [phone] Encounter Details Date Type Department Care Team (Latest Contact Info) Description 03/22/2003 Outpatient Historical [facility] Imaging Services-[place] [address] [place] [address] Ling Snow MD [address] [id number] HEADACHE (Primary Dx) Social History Tobacco Use Types Packs/Day Years Used Date Smoking Tobacco: Never Assessed Comments Unknown Sex and Gender Information Value Date Recorded Sex Assigned at Not on file Legal Sex Female 5:31 AM SKEIN 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
--- OUTSIDE RECORDS SUMMARY | 2025-02-07 18:51 | XMS_ITS | Encounter Summary ---
Author Organization [facility] Address [address] [place] [address] Care Team Providers Care Produce Buyer Name Role Phone Gorge Luciano DO Primary Care Provider [phone] Reason for Referral * Outpatient Services (Routine) - Closed Specialty Diagnoses / Procedures Referred By Contac t Referred To Contact Diagnoses Chest pain SOB (shortness of breath) Coronary atherosclerosis of unspecified type of vessel, skagway or graft Procedures CL LT HEART CATHETERIZATION Salinas Cutler MD [address] [facility] [address] [place] [address] Phone: tel: fax: Referral ID Status Reason Start Date Expiration Date Visits Re quested Visits Authorized [id number] Closed 09/27/2012 10/28/2013 1 1 Encounter Details Date Type Department Care Team (Latest Contact Info) Description 09/27/2012 Ancillary Orders [facility] Cardiac Axle Inspector [address] [place] [address] Salinas Cutler MD [address] [facility] [address] [place] [address] Chest pain (Primary Dx); SOB (shortness of breath); Coronary atherosclerosis of unspecified type of vessel, skagway or graft Social History Tobacco Use Types Packs/Day Years Used Date Smoking Tobacco: Never Smokeless Tobacco: Never Alcohol Use Standard Drinks/Week Comments No 0 (1 standard drink = 0.6 oz pur e alcohol) Comments No Sex and Gender Information Value Date Recorded Sex Assigned at Not on file Legal Sex Female 5:31 AM POLICE INSPECTOR Gender Identity Not on file Sexual Orientation Not on file Occupation Industry Job Start Date Job End Date Not on file Not on file Not on file Not on file documented as of this encounter Plan of Treatment Not on file documented as of this encounter Goals Goal Patient Goal Type Associated Problems Recent Progress Patient-Stated? Author HEMOGLOBIN A1C < 7.0 Result Component 6.8(07/29/2020 11:23 AM CDT) No Lorna Page MD HEMOGLOBIN A1C < 7.0 Result Component 6.8(07/29/2020 11:23 AM CDT) No Lorna Page MD documented as of this encounter Results * CL LT HEART CATHETERIZATION (10/05/2012 9:10 AM CDT) Narrative [facility] - 10/05/2012 9:24 AM CDT Cardiac Catheterization Report Beryl Sotomayor [id number] 47 y.o. 10/05/2012 Primary care physician: Gorge Luciano DO Procedure: Procedures performed: Selective coronary angiography, bypass graft angiography including the left internal mammary graft, retrograde left heart catheterization, left ventriculogram Mynx to right common femoral artery Access site(s): Right femoral artery Complications: none Findings: Left Main: Minor plaquing Left anterior descending coronary artery: Proximal applecore 80% stenosis, distal Left circumflex coronary artery: OM1 100% in stent restenosis. OM2 100% instent restenosis with distal filling via faint collaterals to OM1 and OM2 Right coronary artery : Minor plaquing DAWSON to LAD: Patent without significant stenosis Left ventricular function: LVEF: 55 % Wall motion: normal Other findings: Left Ventricular Pressure: 120/6, 22 Ascending aortic Pressure: 120/60 Procedure Note After the patient was brought into the cardiac catherization laboratory, right groin was prepped and draped in a usual sterile manner. 5 F sheath was inserted into the right common femoral artery via modified seldinger technique. JL-4 catheter was used to engage the left main artery disclosing 100% instent restenosis of the OM1 and OM2. JL-4 was exchanged for a JR-4 diagnostic catheter. JR-4 was used to engage the right coronary artery disclosing minor plaques. JR-4 was used to engage the DAWSON which was patent. JR-4 was exchanged for a pigtail which was used to cross the aortic valve without problems. LV angiogram was performed with 36 cc contrast disclosing EF 55%. Pull back into the ascending aorta did not reveal a significant gradient. Right common femoral artery hemostasis was achieved with Mynx. Diagnosis: 1. Widely patent Left internal mammary artery graft to the left anterior descendin. Chronically occluded OM1 and OM2 3. Normal LV systolic function Plan: 1. Medical therapy Salinas Cutler MD, [facility], [facility] Cardiovascular Medicine [phone] (office) 10/05/2012 9:17 AM Procedure Note Slainas Cutler MD - 10/05/2012 Cardiac Catheterization Report Beryl Sotomayor [id number] 47 y.o. 10/05/2012 Primary care physician: Gorge Luciano DO Procedure: Procedures performed: Selective coronary angiography, bypass graft angiography including theleft internal mammary graft, retrograde left heart catheterization, leftventriculogram Mynx to right common femoral artery Access site(s): Right femoral artery Complications: none Findings: Left Main: Minor plaquing Left anterior descending coronary artery: Proximal applecore 80% stenosis,distal Left circumflex coronary artery: OM1 100% in stent restenosis. OM2 100%instent restenosis with distal filling via faint collaterals to OM1 andOM2 Right coronary artery : Minor plaquing DAWSON to LAD: Patent without significant stenosis Left ventricular function: LVEF: 55 % Wall motion: normal Other findings: Left Ventricular Pressure: 120/6, 22 Ascending aortic Pressure: 120/60 Procedure Note After the patient was brought into the cardiac catherization laboratory,right groin was prepped and draped in a usual sterile manner. 5 F sheathwas inserted into the right common femoral artery via modified seldingertechnique. JL-4 catheter was used to engage the left main arterydisclosing 100% instent restenosis of the OM1 and OM2. JL-4 was exchangedfor a JR-4 diagnostic catheter. JR-4 was used to engage the rightcoronary artery disclosing minor plaques. JR-4 was used to engage the LIMAwhich was patent. JR-4 was exchanged for a pigtail which was used to crossthe aortic valve without problems. LV angiogram was performed with 36 cccontrast disclosing EF 55%. Pull back into the ascending aorta did notreveal a significant gradient. Right common femoral artery hemostasis was achieved with Mynx. Diagnosis: 1. Widely patent Left internal mammary artery graft to the left anteriordescendin. Chronically occluded OM1 and OM2 3. Normal LV systolic function Plan: 1. Medical therapy Salinas Cutler MD, [facility], [facility] Cardiovascular Medicine [phone] (office) 10/05/2012 9:17 AM us Salinas Cutler MD FLUOROSCOPY ORDERABLES Final Res ult [facility] documented in this encounter Visit Diagnoses Diagnosis Chest pain- Primary Chest pain, unspecified SOB (shortness of breath) Shortness of breath Coronary atherosclerosis of unspecified type of vessel, skagway or graft Chest pain, unspecified- Primary Chest pain Chest pain, unspecified SOB (shortness of breath) Shortness of breath Coronary atherosclerosis of unspecified type of vessel, skagway or graft documented in this encounter Care Teams Produce Buyer Relationship Specialty Start Date End Date Gorge Luciano DO [address] [phone] PCP - General Internal Medicine 07/17/09 documented as of this encounter
--- OUTSIDE RECORDS SUMMARY | 2025-02-07 18:51 | XMS_ITS | Encounter Summary ---
Author Organization [facility] Address [address] [place] [address] Care Team Providers Care Concrete Vault Maker Name Role Phone Gorge Luciano DO Primary Care Provider [phone] Encounter Details Date Type Department Care Team (Late st Contact Info) Description 08/26/2005 Outpatient Historical [facility] Orthopedics- 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
--- OUTSIDE RECORDS SUMMARY | 2025-02-07 18:51 | XMS_ITS | Encounter Summary ---
Author Organization [facility] Address [address] [place] [address] Care Team Providers Care Needle Loom Weaver Name Role Phone Gorge Luciano DO Primary Care Provider [phone] Encounter Details Date Type Department Care Team (Latest Contact Info) Description 07/05/2004 Outpatient Historical [facility] [address] [place] [address] Brijesh Ybarra MD NO ADDRESS ON FILE DIABETES MELLITUS TYPE II UNCONTR UNCOMPL (Primary Dx) Social History Tobacco Use Types Packs/Day Years Used Date Smoking Tobacco: Never Assessed Comments Unknown Sex and Gender Information Value Date Recorded Sex Assigned at Not on file Legal Sex Female 5:31 AM CRISIS WORKER Gender Identity Not on file Sexual Orientation Not on file documented as of this encounter Plan of Treatment Not on file documented as of this encounter Visit Diagnoses Diagnosis Type II or unspecified type diabetes mellitus without mention of complication, uncontrolled- Primary documented in this encounter Care Teams Needle Loom Weaver Relationship Specialty Start Date End Date Gorge Luciano DO [address] [place] [phone] PCP - General Internal Medicine 07/17/09 documented as of this encounter
--- OUTSIDE RECORDS SUMMARY | 2025-02-07 18:51 | XMS_ITS | Encounter Summary ---
Author Organization [facility] Address [address] [place] [address] Care Team Providers Care Database Administration Associate Name Role Phone Gorge Luciano DO Primary Care Provider [phone] Encounter Details Date Type Department Care Team (Latest Contact Info) Description 06/26/2003 Outpatient Historical [facility] Int [facility] [place] [address] [place] [address] Fernando Meng MD [address] [place] [address] PRECORDIAL PAIN (Primary Dx) Social History Tobacco Use Types Packs/Day Years Used Date Smoking Tobacco: Never Assessed Comments Unknown Sex and Gender Information Value Date Recorded Sex Assigned at Not on file Legal Sex Female 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
--- OUTSIDE RECORDS SUMMARY | 2025-02-07 18:51 | XMS_ITS | Encounter Summary ---
Author Organization [facility] Address [address] [place] [address] Care Team Providers Care Sand Miller Name Role Phone Gorge Luciano DO Primary Care Provider [phone] Encounter Details Date Type Department Care Team (Latest Contact Info) Description 08/07/2003 Outpatient Historical [facility] Endocrinology-[place] [address] [place] [address] Brijesh Ybarra MD NO ADDRESS ON FILE DIABETES UNCOMPL LEIDY-TYPE I (CMS/[facility]) (Primary Dx); HYPERLIPIDEMIA NEC/NOS; CORONARY ATHEROSCLER UNSPEC VESSEL Social History Tobacco Use Types Packs/Day Years Used Date Smoking Tobacco: Never Assessed Comments Unknown Sex and Gender Information Value Date Recorded Sex Assigned at Not on file Legal Sex Female 5:31 AM AIRLINE DISPATCHER Gender Identity Not on file Sexual Orientation Not on file documented as of this encounter Plan of Treatment Not on file documented as of this encounter Visit Diagnoses Diagnosis Type I (juvenile type) diabetes mellitus without mention of complication, not stated as uncontrolled- Primary Other and unspecified hyperlipidemia Coronary atherosclerosis of unspecified type of vessel, southern ute or graft documented in this encounter Care Teams Sand Miller Relationship Specialty Start Date End Date Gorge Luciano DO [address] [place] [address] PCP - General Internal Medicine 07/17/09 documented as of this encounter
--- OUTSIDE RECORDS SUMMARY | 2025-02-07 18:51 | XMS_ITS | Encounter Summary ---
Author Organization [facility] Address [address] [place] [address] Care Team Providers Care Inspector Crystal Name Role Phone Gorge Luciano DO Primary Care Provider [phone] Encounter Details Date Type Department Care Team (Late st Contact Info) Description 12/31/2004 Outpatient Historical [facility] Orthopedics- 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
--- OUTSIDE RECORDS SUMMARY | 2025-02-07 18:51 | XMS_ITS | Encounter Summary ---
Author Organization [facility] Address [address] [place] [address] Care Team Providers Care Modeling Teacher Name Role Phone Gorge Luciano DO Primary Care Provider [phone] Encounter Details Date Type Department Care Team (Latest Contact Info) Description 05/29/2005 Outpatient Historical [facility] [address] [place] [address] Gorge Luciano DO [address] [place] [address] DM w/o Complication Type I (CMS/HCC) (Primary Dx) Social History Tobacco Use Types Packs/Day Years Used Date Smoking Tobacco: Never Assessed Comments Unknown Sex and Gender Information Value Date Recorded Sex Assigned at Not on file Legal Sex Female 5:31 AM WARP TENSION TESTER Gender Identity Not on file Sexual Orientation Not on file documented as of this encounter Plan of Treatment Not on file documented as of this encounter Visit Diagnoses Diagnosis Type I (juvenile type) diabetes mellitus without mention of complication, not stated as uncontrolled- Primary documented in this encounter Care Teams Modeling Teacher Relationship Specialty Start Date End Date Gorge Luciano DO [address] [place] [address] PCP - General Internal Medicine 07/17/09 documented as of this encounter
--- OUTSIDE RECORDS SUMMARY | 2025-02-07 18:51 | XMS_ITS | Encounter Summary ---
Author Organization [facility] Address [address] [place] [address] Care Team Providers Care Biology Laboratory Assistant Name Role Phone Mustapha Gorge Joelle CALDWELL Primary Care Provider [phone] Encounter Details Date Type Department Care Team (Late st Contact Info) Description 05/07/2005 Inpatient Historical [facility] Ino, Oren Chavez MD [address] [place] [address] JOINT STIFFNESS NEC-OTHER JOINT (Primary Dx) Social History Tobacco Use Types Packs/Day Years Used Date Smoking Tobacco: Never Assessed Comments Unknown Sex and Gender Information Value Date Recorded Sex Assigned at Not on file Legal Sex Female 5:31 AM MOTION STUDY ENGINEER Gender Identity Not on file Sexual Orientation Not on file documented as of this encounter Plan of Treatment Not on file documented as of this encounter Procedures Procedure Name Priority Date/Time Associated Diagnosis Comments POC GLUCOSE Routine 05/08/2005 11:47 AM MOTION STUDY ENGINEER POC GLUCOSE Routine 05/08/2005 6:11 AM MOTION STUDY ENGINEER POC GLUCOSE Routine 05/08/2005 4:07 AM MOTION STUDY ENGINEER POC GLUCOSE Routine 05/08/2005 12:39 AM MOTION STUDY ENGINEER POC GLUCOSE Routine 05/07/2005 9:44 PM MOTION STUDY ENGINEER POC GLUCOSE Routine 05/07/2005 4:00 PM MOTION STUDY ENGINEER POC GLUCOSE Routine 05/07/2005 12:38 PM MOTION STUDY ENGINEER POC GLUCOSE Routine 05/07/2005 9:29 AM MOTION STUDY ENGINEER documented in this encounter Results * (ABNORMAL) POC GLUCOSE (05/08/2005 11:47 AM MOTION STUDY ENGINEER) GLUCOSE POC 307(H) 60 - 100 mg/dL INTERFACE SYSTEM 05/08/2005 11:4 7 AM MOTION STUDY ENGINEER Historical Provider POINT OF CARE TESTING Final Result Performing Organization Address [facility] de Phone Number INTERFACE SYSTEM Refer to clinic/hospital department * (ABNORMAL) POC GLUCOSE (05/08/2005 6:11 AM MOTION STUDY ENGINEER) GLUCOSE POC 157(H) 60 - 100 mg/dL INTERFACE SYSTEM 05/08/2005 6:11 AM MOTION STUDY ENGINEER Historical Provider POINT OF CARE TESTING Final Result Performing Organization Address [facility] Phone Number INTERFACE SYSTEM Refer to clinic/hospital department * (ABNORMAL) POC GLUCOSE (05/08/2005 4:07 AM MOTION STUDY ENGINEER) GLUCOSE POC 187(H) 60 - 100 mg/dL INTERFACE SYSTEM 05/08/2005 4:07 AM MOTION STUDY ENGINEER Historical Provider POINT OF CARE TESTING Final Result Performing Organization Address [facility] Phone Number INTERFACE SYSTEM Refer to clinic/hospital department * (ABNORMAL) POC GLUCOSE (05/08/2005 12:39 AM MOTION STUDY ENGINEER) GLUCOSE POC 330(H) 60 - 100 mg/dL INTERFACE SYSTEM 05/08/2005 12:3 9 AM MOTION STUDY ENGINEER Historical Provider POINT OF CARE TESTING Final Result Performing Organization Address [facility] de Phone Number INTERFACE SYSTEM Refer to clinic/hospital department * (ABNORMAL) POC GLUCOSE (05/07/2005 9:44 PM MOTION STUDY ENGINEER) GLUCOSE POC 295(H) 60 - 100 mg/dL INTERFACE SYSTEM 05/07/2005 9:44 PM MOTION STUDY ENGINEER Historical Provider POINT OF CARE TESTING Final Result Performing Organization Address [facility] de Phone Number INTERFACE SYSTEM Refer to clinic/hospital department * (ABNORMAL) POC GLUCOSE (05/07/2005 4:00 PM MOTION STUDY ENGINEER) GLUCOSE POC 224(H) 60 - 100 mg/dL INTERFACE SYSTEM 05/07/2005 4:00 PM MOTION STUDY ENGINEER [facility] Provider POINT OF CARE TESTING Final Result Performing Organization Address [facility] de Phone Number INTERFACE SYSTEM Refer to clinic/hospital department * (ABNORMAL) POC GLUCOSE (05/07/2005 12:38 PM MOTION STUDY ENGINEER) GLUCOSE POC 198(H) 60 - 100 mg/dL INTERFACE SYSTEM 05/07/2005 12:3 8 PM MOTION STUDY ENGINEER Historical Provider POINT OF CARE TESTING Final Result Performing Organization Address [facility] Phone Number INTERFACE SYSTEM Refer to clinic/hospital department * (ABNORMAL) POC GLUCOSE (05/07/2005 9:29 AM MOTION STUDY ENGINEER) GLUCOSE POC 199(H) 60 - 100 mg/dL INTERFACE SYSTEM 05/07/2005 9:29 AM MOTION STUDY ENGINEER Historical Provider POINT OF CARE TESTING Final Result Performing Organization Address [facility] de Phone Number INTERFACE SYSTEM Refer to clinic/hospital department documented in this encounter Visit Diagnoses Diagnosis Stiffness of joint, not elsewhere classified, other specified site- Primary documented in this encounter Care Teams Biology Laboratory Assistant Relationship Specialty Start Date End Date Gorge Luciano DO [address] [place] [address] PCP - General Internal Medicine 07/17/09 documented as of this encounter
--- OUTSIDE RECORDS SUMMARY | 2025-02-07 18:51 | XMS_ITS | Encounter Summary ---
Author Organization [facility] Address [address] [place] [address] Care Team Providers Care Personal Lines Agent Name Role Phone Gorge Luciano DO Primary Care Provider [phone] Encounter Details Date Type Department Care Team (Late st Contact Info) Description 07/27/2005 Outpatient Historical [facility] Orthopedics- 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
--- OUTSIDE RECORDS SUMMARY | 2025-02-07 18:51 | XMS_ITS | Encounter Summary ---
Author Organization [facility] Address [address] [place] [address] Care Team Providers Care Steam Room Attendant Name Role Phone Gorge Luciano DO Primary Care Provider [phone] Encounter Details Date Type Department Care Team (Latest Contact Info) Description 02/13/2005 Outpatient Historical [facility] [address] [place] [address] Nicolt Katarzyna Padilla, SEO ANALYST [address] [place] [address] ACUTE SINUSITIS NOS (Primary Dx); OTITIS MEDIA NOS Social History Tobacco Use Types Packs/Day Years Used Date Smoking Tobacco: Never Assessed Comments Unknown Sex and Gender Information Value Date Recorded Sex Assigned at Not on file Legal Sex Female 5:31 AM GROUP DIRECTOR Gender Identity Not on file Sexual Orientation Not on file documented as of this encounter Plan of Treatment Not on file documented as of this encounter Visit Diagnoses Diagnosis Acute sinusitis, unspecified- Primary Unspecified otitis media documented in this encounter Care Teams Steam Room Attendant Relationship Specialty Start Date End Date Gorge Luciano DO [address] [place] [address] PCP - General Internal Medicine 07/17/09 documented as of this encounter
--- OUTSIDE RECORDS SUMMARY | 2025-02-07 18:51 | XMS_ITS | Encounter Summary ---
Author Organization [facility] Address [address] [place] [address] Care Team Providers Care Quality Compliance Consultant Name Role Phone Gorge Luciano DO Primary Care Provider [phone] Encounter Details Date Type Department Care Team (Late st Contact Info) Description 12/08/2004 Outpatient Historical [facility] Orthopedics- [address] [place] [address] Oren Mckinnon MD [address] [place] [address] JOINT PAIN-ANKLE (Primary Dx); FX UPPER END TIBIA-CLOSE; FX SHAFT FIBULA-CLOSED Social History Tobacco Use Types Packs/Day Years Used Date Smoking Tobacco: Never Assessed Comments Unknown Sex and Gender Information Value Date Recorded Sex Assigned at Not on file Legal Sex Female 5:31 AM TICKET ATTENDANT Gender Identity Not on file Sexual Orientation Not on file documented as of this encounter Plan of Treatment Not on file documented as of this encounter Visit Diagnoses Diagnosis Pain in joint, ankle and foot- Primary Closed fracture of upper end of tibia Closed fracture of shaft of fibula documented in this encounter Care Teams Quality Compliance Consultant Relationship Specialty Start Date End Date Gorge Luciano DO [address] [place] [address] PCP - General Internal Medicine 07/17/09 documented as of this encounter
--- OUTSIDE RECORDS SUMMARY | 2025-02-07 18:51 | XMS_ITS | Encounter Summary ---
Author Organization [facility] Address [address] [place] [address] Care Team Providers Care Test Carrier Name Role Phone Gorge Luciano DO Primary Care Provider [phone] Reason for Referral * Outpatient Services (Routine) - Closed Specialty Diagnoses / Procedures Referred By Cami chavez Referred To Contact Diagnoses Liver lesion Procedures MRI ABDOMEN WO CONTRAST Prateek Weaver MD [address] [place] [address] Phone: tel: Referral ID Status Reason Start Date Expiration Date Visits Re quested Visits Authorized [id number] Closed 06/12/2010 12/09/2010 1 1 Encounter Details Date Type Department Care Team (Late st Contact Info) Description 06/12/2010 [facility]illary [facility] [address] [place] [address] Prateek Weaver MD [address] [place] [address] Liver lesion Social History Tobacco Use Types Packs/Day Years Used Date Smoking Tobacco: Never Alcohol Use Standard Drinks/Week Comments No 0 (1 standard drink = 0.6 oz pur e alcohol) Comments No Sex and Gender Information Value Date Recorded Sex Assigned at Not on file Legal Sex Female 5:31 AM PLUMBER SUPERVISOR Gender Identity Not on file Sexual Orientation Not on file documented as of this encounter Plan of Treatment Not on file documented as of this encounter Results * MRI ABDOMEN WO CONTRAST (06/12/2010 8:51 AM CDT) Anatomical Region Laterality Modality Abdomen Magnetic Resonan ce 06/12/2010 8:32 AM CDT Impressions 06/12/2010 12:06 PM CDT Impression: Diagnostically limited exam given limitation of absent IV contrast and motion artifact. Stable size of small indeterminate right hepatic lesion. No apparent new discrete hepatic lesion. Fatty infiltration of liver and hepatomegaly. rli - uploaded from [employer] 06/12/2010 12:06 PM CDT Exam: MRI ABDOMEN WO CONTRAST Date/Time of Exam: Jun 12, 2010 08:51:00 AM History: LIVER LESION. Abdomen imaged with sequences obtained in several planes without intravenous contrast. Comparison to prior abdominal MRI of 11/25/2009 and comparison to prior abdominal pelvic CT of 10/29/2009. Examination is limited by absence of IV contrast as IV access was unsuccessful. Examination also diagnostically limited by degradation of images by motion artifact. Unchanged in size is an indeterminate 6 mm lesion within right hepatic lobe. Fatty infiltration of liver. Hepatomegaly. Remainder of solid upper intra-abdominal organs unremarkable. Surgical absence of gallbladder. Biliary tree not abnormally dilated. No gross evidence for lymphadenopathy or free fluid. Procedure Note Suly Lo MD - 06/12/2010 Exam: MRI ABDOMEN WO CONTRAST Date/Time of Exam: Jun 12, 2010 08:51:00 AM History: LIVER LESION. Abdomen imaged with sequences obtained in several planes without intravenous contrast. Comparison to prior abdominal MRI of 11/25/2009 and comparison to prior abdominal pelvic CT of 10/29/2009. Examination is limited by absence of IV contrast as IV access was unsuccessful. Examination also diagnostically limited by degradation of images by motion artifact. Unchanged in size is an indeterminate 6 mm lesion within right hepatic lobe. Fatty infiltration of liver. Hepatomegaly. Remainder of solid upper intra-abdominal organs unremarkable. Surgical absence of gallbladder. Biliary tree not abnormally dilated. No gross evidence for lymphadenopathy or free fluid. IMPRESSION Impression: Diagnostically limited exam given limitation of absent IV contrast and motion artifact. Stable size of small indeterminate right hepatic lesion. No apparent new discrete hepatic lesion. Fatty infiltration of liver and hepatomegaly. rli - uploaded from [employer] - Prateek Weaver MD MR ORDERABLES Final Result documented in this encounter Visit Diagnoses Diagnosis Liver lesion Other specified disorders of liver Liver lesion Other specified disorders of liver documented in this encounter Care Teams Test Carrier Relationship Specialty Start Date End Date Gorge Luciano DO [address] [phone] PCP - General Internal Medicine 07/17/09 documented as of this encounter
--- OUTSIDE RECORDS SUMMARY | 2025-02-07 18:51 | XMS_ITS | Encounter Summary ---
Author Organization [facility] Address [address] [place] [address] Care Team Providers Care Tobacco Prizer Name Role Phone Gorge Luciano DO Primary Care Provider [phone] Encounter Details Date Type Department Care Team (Latest Contact Info) Description 06/23/2017 Ancillary Orders [facility] Pre-Registration [place] CALL TO MAKE APPOINTMENT ONLY [address] [place] [address] Gorge Luciano DO [address] [facility] [address] [place] [address] Visit for screening mammogram Social History Tobacco Use Types Packs/Day Years Used Date Smoking Tobacco: Never Smokeless Tobacco: Never Alcohol Use Standard Drinks/Week Comments No 0 (1 standard drink = 0.6 oz pur e alcohol) Comments No Sex and Gender Information Value Date Recorded Sex Assigned at Not on file Legal Sex Female 5:31 AM MANAGER PHOTO Gender Identity Not on file Sexual Orientation [...] Page MD documented as of this encounter Visit Diagnoses Diagnosis Visit for screening mammogram Other screening mammogram documented in this encounter Care Teams Tobacco Prizer Relationship Specialty Start Date End Date Gorge Luciano DO [address] [address] PCP - General Internal Medicine 07/17/09 documented as of this encounter
--- OUTSIDE RECORDS SUMMARY | 2025-02-07 18:51 | XMS_ITS | Encounter Summary ---
Author Organization [facility] Address [address] [place] [address] Care Team Providers Care Hot Wort Settler Name Role Phone Gorge Luciano DO Primary Care Provider [phone] Encounter Details Date Type Department Care Team (Latest Contact Info) Description 08/28/2005 Outpatient Historical [facility] [address] [place] [address] Gorge Luciano DO [address] [place] [address] DM w/o Complication Type II (CMS/HCC) (Primary Dx); Allergic Rhinitis, Cause Unspecified Social History Tobacco Use Types Packs/Day Years Used Date Smoking Tobacco: Never Assessed Comments Unknown Sex and Gender Information Value Date Recorded Sex Assigned at Not on file Legal Sex Female 5:31 AM DONOR SERVICES TEAM 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
--- OUTSIDE RECORDS SUMMARY | 2025-02-07 18:51 | XMS_ITS | Encounter Summary ---
Author Organization [facility] Address [address] [place] [address] Care Team Providers Care Inpatient Auditor Name Role Phone Gorge Luciano DO Primary Care Provider Encounter Details Date Type Department Care Team (Late st Contact Info) Description 10/27/[address] [facility] Orthopedics- [address] [place] [address] Oren Mckinnon MD [address] [place] [address] FX UPPER END TIBIA-CLOSE (Primary Dx); FX SHAFT FIBULA-CLOSED Social History Tobacco Use Types Packs/Day Years Used Date Smoking Tobacco: Never Assessed Comments Unknown Sex and Gender Information Value Date Recorded Sex Assigned at Not on file Legal Sex Female 5:31 AM DIRECTOR EXPERIMENTAL MEDICINE Gender Identity Not on file Sexual Orientation Not on file documented as of this encounter Plan of Treatment Not on file documented as of this encounter Visit Diagnoses Diagnosis Closed fracture of upper end of tibia- Primary Closed fracture of shaft of fibula documented in this encounter Care Teams Inpatient Auditor Relationship Specialty Start Date End Date Gorge Luciano DO [address] [place] [address] PCP - General Internal Medicine 07/17/09 documented as of this encounter
--- OUTSIDE RECORDS SUMMARY | 2025-02-07 18:51 | XMS_ITS | Encounter Summary ---
Author Organization [facility] Address [address] [place] [address] Care Team Providers Care Date Puller Name Role Phone Gorge Luciano DO Primary Care Provider [phone] Encounter Details Date Type Department Care Team (Latest Contact Info) Description 11/27/2005 Outpatient Historical [facility] [address] [place] [address] Gorge Luciano DO [address] [place] [address] DM w/o Complication Type I (CMS/HCC) (Primary Dx) Social History Tobacco Use Types Packs/Day Years Used Date Smoking Tobacco: Never Assessed Comments Unknown Sex and Gender Information Value Date Recorded Sex Assigned at Not on file Legal Sex Female 5:31 AM DOOR LINER HELPER Gender Identity Not on file Sexual Orientation Not on file documented as of this encounter Plan of Treatment Not on file documented as of this encounter Visit Diagnoses Diagnosis Type I (juvenile type) diabetes mellitus without mention of complication, not stated as uncontrolled- Primary documented in this encounter Care Teams Date Puller Relationship Specialty Start Date End Date Gorge Luciano DO [address] [place] [address] PCP - General Internal Medicine 07/17/09 documented as of this encounter
--- OUTSIDE RECORDS SUMMARY | 2025-02-07 18:51 | XMS_ITS | Encounter Summary ---
Author Organization [facility] Address [address] [place] [address] Care Team Providers Care Trapeze Artist Name Role Phone Gorge Luciano Joelle CALDWELL Primary Care Provider [phone] Reason for Visit * Reason Comments Medication Refill Encounter Details Date Type Department Care Team (Late st Contact Info) Description 07/24/2013 Refill [facility] 4H Cardiac Admit [address] [place] [address] Salinas Cutler MD [address] [address] Social History Tobacco Use Types Packs/Day Years Used Date Smoking Tobacco: Never Smokeless Tobacco: Never Alcohol Use Standard Drinks/Week Comments No 0 (1 standard drink = 0.6 oz pur e alcohol) Comments No Sex and Gender Information Value Date Recorded Sex Assigned at Not on file Legal Sex Female 5:31 AM PIN MAKER Gender Identity Not on file Sexual [...] on filedocumented in this encounter Care Teams Trapeze Artist Relationship Specialty Start Date End Date Gorge Luciano DO [address] [address] PCP - General Internal Medicine 07/17/09 documented as of this encounter
--- OUTSIDE RECORDS SUMMARY | 2025-02-07 18:51 | XMS_ITS | Encounter Summary ---
Author Organization [facility] Address [address] [place] [address] Care Team Providers Care Transitional Care Liaison Name Role Phone MustaphaGorge Joelle CALDWELL Primary Care Provider [phone] Reason for Referral * Outpatient Services (Routine) - Closed Specialty Diagnoses / Procedures Referred By Contjagdeep t Referred To Contact Radiology Diagnoses Chronic diastolic congestive heart failure (CMS/HCC) Procedures ECHOCARDIOGRAM W/ CONTRAST AGENT ECHO COMPLETE Ching Lua FNP [facility] Echo [place] [address] [place] [address] Phone: tel: fax: Referral ID Status Reason Start Date Expiration Date V isits Requested Visits Authorized [id number] Closed SGF [facility] TO SCHEDULE (SGF) 08/19/2017 09/19/2018 1 1 Encounter Details Date Type Department Care Team (Late st Contact Info) Description 11/19/2017 Ancillary Orders [facility] Cardiology- [place] [address] [place] [address] Ching Lua FNP NO ADDRESS ON FILE Chronic diastolic congestive heart failure (CMS/HCC) Social History Tobacco Use Types Packs/Day Years Used Date Smoking Tobacco: Never Smokeless Tobacco: Never Alcohol Use Standard Drinks/Week Comments No 0 (1 standard drink = 0.6 oz pur e alcohol) Comments No Sex and Gender Information Value Date Recorded Sex Assigned at Not on file 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 Gender Identity Not on file Sexual Orientation [...] documented as of this encounter Results * ECHOCARDIOGRAM W/ CONTRAST AGENT (11/19/2017 3:55 PM CDT) EJECTION FRACTION INTERFACE SYSTEM 11/19/2017 2:55 PM CDT Narrative INTERFACE SYSTEM - 11/19/2017 4:26 PM CDT [facility] Echocardiography-[address] [address] Transthoracic Echocardiography Patient: Светлана Study ECHO COMPLETE Beryl Garrison ID: Gender: F : 1965 Age: 52 Room: Study 11/19/2017 Pt Outpatient Date: Status: Study 02:55:03 PM CSN #: [id number] Time: Ordering:Ching Lua Interpreting:Leonle Briones Lining Feller: oRmero Moy [facility] Indications and History: Chronic diastolic congestive heart failure [I50.32 (ICD-10-CM)]. Labs, prior tests, procedures, and surgery: Echocardiography (12/01/2016). Coronary artery bypass grafting. Summary and Conclusion: - Left ventricle: The cavity size was normal. Wall thickness was at the upper limits of normal. Systolic function was at the lower limits of normal. The visually estimated ejection fraction was in the range of 50% to 55%. Regional wall motion difficult to determine despite echo contrast. Interventricular septum shows dyssynergy, consistent with previous thoracotomy, conduction delay or RV pacing. Moderate diastolic dysfunction (grade II, pseudonormal filling pattern), suggestive of elevated LV filling pressures. - Right ventricle: The cavity size was normal. Systolic function was difficult to assess and probably normal. Systolic pressure was within the normal range. Procedure information: Comparison was made to the study of 12/01/2016. Study status: Routine. Procedure: Transthoracic echocardiography. Image quality was adequate. The study was technically difficult due to poor acoustic window availability. Scanning was performed from the parasternal, apical, subcostal, and suprasternal notch acoustic windows. Intravenous contrast (Definity) was administered to opacify the LV. There were no complications. There were no contrast reactions. Study components: M-mode, 2D, complete spectral Doppler, and color Doppler. Height: 162.6cm. Height: 64in. Weight: 111.1kg. Weight: 244.5lb. BMI: 42.1kg/m\S\2. BSA: 2.3m\S\2. Blood pressure: 135/70 Study date: 11/19/2017. Study time: 02:55 PM. Location: Echo laboratory. Cardiac Anatomy: LEFT VENTRICLE: The cavity size was normal. Wall thickness was at the upper limits of normal. Systolic function was at the lower limits of normal. The visually estimated ejection fraction was in the range of 50% to 55%. Regional wall motion difficult to determine despite echo contrast. No diagnostic regional wall motion abnormality identified. Interventricular septum shows dyssynergy, consistent with previous thoracotomy, conduction delay or RV pacing. Moderate diastolic dysfunction (grade II, pseudonormal filling pattern), suggestive of elevated LV filling pressures. RIGHT VENTRICLE: The cavity size was normal. Systolic function was difficult to assess and probably normal. Systolic pressure was within the normal range. LEFT ATRIUM: The atrium was at the upper limits of normal in size. RIGHT ATRIUM: The atrium was normal in size. ATRIAL SEPTUM: Not well visualized. No obvious PFO or ASD identified by 2D imaging and color Doppler. AORTIC VALVE: Not well visualized. Normal thickness leaflets. Doppler: There was no stenosis. No significant regurgitation. VTI ratio of LVOT to aortic valve: 0.77. Valve area (VTI): 2.45cm\S\2. Indexed valve area (VTI): 1.07cm\S\2/m\S\2. Peak velocity ratio of LVOT to aortic valve: 0.66. Valve area (Vmax): 2.1cm\S\2. Indexed valve area (Vmax): 0.91cm\S\2/m\S\2. Mean velocity ratio of LVOT to aortic valve: 0.71. Valve area (Vmean): 2.25cm\S\2. Indexed valve area (Vmean): 0.98cm\S\2/m\S\2. Mean gradient (S): 4mm Hg. Peak gradient (S): 8mm Hg. MITRAL VALVE: Structurally normal valve. ; Mobility was not restricted. No echocardiographic evidence for prolapse. Doppler: There was no evidence for stenosis. Trivial regurgitation. Valve area: 2.14cm\S\2. Indexed valve area: 0.93cm\S\2/m\S\2. Valve area by pressure half-time: 3.96cm\S\2. Indexed valve area by pressure half-time: 1.72cm\S\2/m\S\2. Valve area by continuity equation (using LVOT flow): 2.1cm\S\2. Indexed valve area by continuity equation (using LVOT flow): 0.93cm\S\2/m\S\2. Mean gradient (D): 3mm Hg. Peak gradient (D): 7mm Hg. TRICUSPID VALVE: Structurally normal valve. Mobility was not restricted. Doppler: There was no evidence for stenosis. No significant regurgitation. Peak gradient (D): 28mm Hg. PULMONIC VALVE: Not well visualized. Doppler: There was no evidence for stenosis. No significant regurgitation. Peak gradient (S): 5mm Hg. PERICARDIUM: A minimal pericardial effusion and/or fat pad was identified. AORTA: Aortic root: The aortic root was normal in size. Aortic arch: The aortic arch was normal in size. SYSTEMIC VEINS: Inferior vena cava: The vessel was normal in size. INTRACARDIAC MASS THROMBUS: No apparent intracavitary masses or thrombi detected. 2D measurements Doppler measurements Left ventricle Left ventricle LVID ED, PLAX 5.3 cm IVRT 65 ms LVID ES, PLAX 3.6 cm E', lat ksenia, 7 cm/sec FS, endocardial, 32 % TDI PLAX E/e', lat 18 Major axis ES, A4C 6.7 cm ksenia, TDI Minor axis ED, A4C 6.7 cm E', med ksenia, 7 cm/sec Major axis ED, A2C 8.7 cm TDI Major axis ES, A2C 7.9 cm E/e', med 18 LVID, ES 3.6 cm ksenia, TDI LVPW, ED 1.1 cm E', avg, TDI 7 cm/sec IVS/LVPW ratio, ED 0.96 E/e', avg, 18 Vol, ED, 1-p A2C 102 ml TDI Vol, ES, 1-p A2C 48 ml LVOT EF, 1-p A2C 48 % Peak gabriella, S 92.78 cm/sec Vol ED, 1-p A4C 120 ml Mean gabriella, S 64.71 cm/sec Vol ES, 1-p A4C 63 ml VTI, S 22.4 cm EF, 1-p A4C 47 % Peak 3 mm Hg SV, 1-p A4C 57 ml gradient, S EDV/bsa, 1-p A4C 52 ml/m\S\2 Mean 2 mm Hg ESV/bsa, 1-p A4C 27 ml/m\S\2 gradient, S SV/bsa, 1-p A4C 25 ml/m\S\2 HR 78 bpm Vol ED, 2-p 115 ml Stroke vol 71 ml Vol ES, 2-p 63 ml Cardiac 5.5 L/min EF, 2-p 46 % output (Qs) SV, 2-p 53 ml Cardiac index 2.4 L/(min-m\S\2) Vol/bsa, ED, 2-p 50 ml/m\S\2 (Qs/bsa) Vol/bsa, ES, 2-p 27 ml/m\S\2 Stroke index 31 ml/m\S\2 SV/bsa, 2-p 23.2 ml/m\S\2 (SV/bsa) Ventricular septum Aortic valve IVS, ED 1.0 cm Peak gabriella, S 139.61 cm/sec LVOT Mean gabriella, S 90.83 cm/sec Diam, S 2.0 cm VTI, S 28.9 cm Area 3 cm\S\2 Mean 4 mm Hg Aorta gradient, S Root diam 2.0 cm Peak 8 mm Hg AAo AP diam, S 2.7 cm gradient, S Left atrium VTI ratio 0.77 AP dim 4.1 cm LVOT/AV AP dim index 1.8 cm/m\S\2 Area, VTI 2.45 cm\S\2 SI dim, A4C 6.0 cm Area/bsa, VTI 1.07 cm\S\2/m\S\2 Area ES, A4C 20 cm\S\2 Peak gabriella 0.66 Vol, S 57 ml ratio, Vol/bsa, S 25 ml/m\S\2 LVOT/AV Vol, ES, 1-p A4C 53 ml Area, Vmax 2.1 cm\S\2 Vol/bsa, ES, 1-p A4C 23 ml/m\S\2 Area/bsa, 0.91 cm\S\2/m\S\2 Vol, ES, 1-p A2C 55 ml Vmax Vol/bsa, ES, 1-p A2C 24 ml/m\S\2 Vmean ratio 0.71 Vol, ES, A/L 55 ml LVOT/AV Vol/bsa, ES, A/L 24 ml/m\S\2 Area, Vmean 2.25 cm\S\2 Right ventricle Area/bsa, 0.98 cm\S\2/m\S\2 RVID ED, PLAX 2.3 cm Vmean RVID ED 2.3 cm Mitral valve Peak E gabriella 123.89 cm/sec Peak A gabriella 116.99 cm/sec Mean gabriella, D 82.25 cm/sec VTI leaflet 33.0 cm coapt Deceleration 193 ms time Pressure 56 ms half-time Mean 3 mm Hg gradient, D Peak 7 mm Hg gradient, D Peak E/A 1.06 ratio Area 2.14 cm\S\2 Area/bsa 0.93 cm\S\2/m\S\2 Area (PHT) 3.96 cm\S\2 Area/bsa 1.72 cm\S\2/m\S\2 (PHT) Area (LVOT) 2.1 cm\S\2 continuity Area/bsa 0.93 cm\S\2/m\S\2 (LVOT cont) Regurg vena 2.3 cm contracta Pulmonary arteries Pressure, S 26 mm Hg Pressure ED 5 mm Hg Tricuspid valve Peak 28 mm Hg gradient, D Regurg peak 265.06 cm/sec gabriella Peak RV-RA 28 mm Hg gradient, S Systemic veins Estimated CVP 3 mm Hg Right ventricle Pressure, S 31 mm Hg Pulmonic valve Peak gabriella, S 112.75 cm/sec Peak 5 mm Hg gradient, S Regurg gabriella, 77.87 cm/sec ED [facility] Echo Labs are accredited with the Intersocietal Accreditation Commission - Echocardiography. Prepared and Electronically Authenticated Leonel Briones Confirmed 11/19/2017 16:26 Procedure Note Leonel Briones MD - 11/19/2017 [facility] Echocardiography-[place] [address] [place] [address] Transthoracic Echocardiography Patient: Светлана Study ECHO COMPLETE Beryl Garrison ID: Gender: Lillie : 1965 Age: 52 Room: Study 11/19/2017 Pt Outpatient Date: Status: Study 02:55:03 PM CSN #: [id number] Time: Ordering:Ching Lua Interpreting:Leonel Briones Lining Feller: Romero Moy [facility] Indications and History: Chronic diastolic congestive heart failure [I50.32 (ICD-10-CM)]. Labs, prior tests, procedures, and surgery: Echocardiography (12/01/2016). Coronary artery bypass grafting. Summary and Conclusion: - Left ventricle: The cavity size was normal. Wall thickness was at the upper limits of normal. Systolic function was at the lower limits of normal. The visually estimated ejection fraction was in the range of 50% to 55%. Regional wall motion difficult to determine despite echo contrast. Interventricular septum shows dyssynergy, consistent with previous thoracotomy, conduction delay or RV pacing. Moderate diastolic dysfunction (grade II, pseudonormal filling pattern), suggestive of elevated LV filling pressures. - Right ventricle: The cavity size was normal. Systolic function was difficult to assess and probably normal. Systolic pressure was within the normal range. Procedure information: Comparison was made to the study of 12/01/2016. Study status: Routine. Procedure: Transthoracic echocardiography. Image quality was adequate. The study was technically difficult due to poor acoustic window availability. Scanning was performed from the parasternal, apical, subcostal, and suprasternal notch acoustic windows. Intravenous contrast (Definity) was administered to opacify the LV. There were no complications. There were no contrast reactions. Study components: M-mode, 2D, complete spectral Doppler, and color Doppler. Height: 162.6cm. Height: 64in. Weight: 111.1kg. Weight: 244.5lb. BMI: 42.1kg/m\S\2. BSA: 2.3m\S\2. Blood pressure: 135/70 Study date: 11/19/2017. Study time: 02:55 PM. Location: Echo laboratory. Cardiac Anatomy: LEFT VENTRICLE: The cavity size was normal. Wall thickness was at the upper limits of normal. Systolic function was at the lower limits of normal. The visually estimated ejection fraction was in the range of 50% to 55%. Regional wall motion difficult to determine despite echo contrast. No diagnostic regional wall motion abnormality identified. Interventricular septum shows dyssynergy, consistent with previous thoracotomy, conduction delay or RV pacing. Moderate diastolic dysfunction (grade II, pseudonormal filling pattern), suggestive of elevated LV filling pressures. RIGHT VENTRICLE: The cavity size was normal. Systolic function was difficult to assess and probably normal. Systolic pressure was within the normal range. LEFT ATRIUM: The atrium was at the upper limits of normal in size. RIGHT ATRIUM: The atrium was normal in size. ATRIAL SEPTUM: Not well visualized. No obvious PFO or ASD identified by 2D imaging and color Doppler. AORTIC VALVE: Not well visualized. Normal thickness leaflets. Doppler: There was no stenosis. No significant regurgitation. VTI ratio of LVOT to aortic valve: 0.77. Valve area (VTI): 2.45cm\S\2. Indexed valve area (VTI): 1.07cm\S\2/m\S\2. Peak velocity ratio of LVOT to aortic valve: 0.66. Valve area (Vmax): 2.1cm\S\2. Indexed valve area (Vmax): 0.91cm\S\2/m\S\2. Mean velocity ratio of LVOT to aortic valve: 0.71. Valve area (Vmean): 2.25cm\S\2. Indexed valve area (Vmean): 0.98cm\S\2/m\S\2. Mean gradient (S): 4mm Hg. Peak gradient (S): 8mm Hg. MITRAL VALVE: Structurally normal valve. ; Mobility was not restricted. No echocardiographic evidence for prolapse. Doppler: There was no evidence for stenosis. Trivial regurgitation. Valve area: 2.14cm\S\2. Indexed valve area: 0.93cm\S\2/m\S\2. Valve area by pressure half-time: 3.96cm\S\2. Indexed valve area by pressure half-time: 1.72cm\S\2/m\S\2. Valve area by continuity equation (using LVOT flow): 2.1cm\S\2. Indexed valve area by continuity equation (using LVOT flow): 0.93cm\S\2/m\S\2. Mean gradient (D): 3mm Hg. Peak gradient (D): 7mm Hg. TRICUSPID VALVE: Structurally normal valve. Mobility was not restricted. Doppler: There was no evidence for stenosis. No significant regurgitation. Peak gradient (D): 28mm Hg. PULMONIC VALVE: Not well visualized. Doppler: There was no evidence for stenosis. No significant regurgitation. Peak gradient (S): 5mm Hg. PERICARDIUM: A minimal pericardial effusion and/or fat pad was identified. AORTA: Aortic root: The aortic root was normal in size. Aortic arch: The aortic arch was normal in size. SYSTEMIC VEINS: Inferior vena cava: The vessel was normal in size. INTRACARDIAC MASS THROMBUS: No apparent intracavitary masses or thrombi detected. 2D measurements Doppler measurements Left ventricle Left ventricle LVID ED, PLAX 5.3 cm IVRT 65 ms LVID ES, PLAX 3.6 cm E', lat ksenia, 7 cm/sec FS, endocardial, 32 % TDI PLAX E/e', lat 18 Major axis ES, A4C 6.7 cm ksenia, TDI Minor axis ED, A4C 6.7 cm E', med ksenia, 7 cm/sec Major axis ED, A2C 8.7 cm TDI Major axis ES, A2C 7.9 cm E/e', med 18 LVID, ES 3.6 cm ksenia, TDI LVPW, ED 1.1 cm E', avg, TDI 7 cm/sec IVS/LVPW ratio, ED 0.96 E/e', avg, 18 Vol, ED, 1-p A2C 102 ml TDI Vol, ES, 1-p A2C 48 ml LVOT EF, 1-p A2C 48 % Peak gabriella, S 92.78 cm/sec Vol ED, 1-p A4C 120 ml Mean gabriella, S 64.71 cm/sec Vol ES, 1-p A4C 63 ml VTI, S 22.4 cm EF, 1-p A4C 47 % Peak 3 mm Hg SV, 1-p A4C 57 ml gradient, S EDV/bsa, 1-p A4C 52 ml/m\S\2 Mean 2 mm Hg ESV/bsa, 1-p A4C 27 ml/m\S\2 gradient, S SV/bsa, 1-p A4C 25 ml/m\S\2 HR 78 bpm Vol ED, 2-p 115 ml Stroke vol 71 ml Vol ES, 2-p 63 ml Cardiac 5.5 L/min EF, 2-p 46 % output (Qs) SV, 2-p 53 ml Cardiac index 2.4 L/(min-m\S\2) Vol/bsa, ED, 2-p 50 ml/m\S\2 (Qs/bsa) Vol/bsa, ES, 2-p 27 ml/m\S\2 Stroke index 31 ml/m\S\2 SV/bsa, 2-p 23.2 ml/m\S\2 (SV/bsa) Ventricular septum Aortic valve IVS, ED 1.0 cm Peak gabriella, S 139.61 cm/sec LVOT Mean gabriella, S 90.83 cm/sec Diam, S 2.0 cm VTI, S 28.9 cm Area 3 cm\S\2 Mean 4 mm Hg Aorta gradient, S Root diam 2.0 cm Peak 8 mm Hg AAo AP diam, S 2.7 cm gradient, S Left atrium VTI ratio 0.77 AP dim 4.1 cm LVOT/AV AP dim index 1.8 cm/m\S\2 Area, VTI 2.45 cm\S\2 SI dim, A4C 6.0 cm Area/bsa, VTI 1.07 cm\S\2/m\S\2 Area ES, A4C 20 cm\S\2 Peak gabriella 0.66 Vol, S 57 ml ratio, Vol/bsa, S 25 ml/m\S\2 LVOT/AV Vol, ES, 1-p A4C 53 ml Area, Vmax 2.1 cm\S\2 Vol/bsa, ES, 1-p A4C 23 ml/m\S\2 Area/bsa, 0.91 cm\S\2/m\S\2 Vol, ES, 1-p A2C 55 ml Vmax Vol/bsa, ES, 1-p A2C 24 ml/m\S\2 Vmean ratio 0.71 Vol, ES, A/L 55 ml LVOT/AV Vol/bsa, ES, A/L 24 ml/m\S\2 Area, Vmean 2.25 cm\S\2 Right ventricle Area/bsa, 0.98 cm\S\2/m\S\2 RVID ED, PLAX 2.3 cm Vmean RVID ED 2.3 cm Mitral valve Peak E gabriella 123.89 cm/sec Peak A gabriella 116.99 cm/sec Mean gabriella, D 82.25 cm/sec VTI leaflet 33.0 cm coapt Deceleration 193 ms time Pressure 56 ms half-time Mean 3 mm Hg gradient, D Peak 7 mm Hg gradient, D Peak E/A 1.06 ratio Area 2.14 cm\S\2 Area/bsa 0.93 cm\S\2/m\S\2 Area (PHT) 3.96 cm\S\2 Area/bsa 1.72 cm\S\2/m\S\2 (PHT) Area (LVOT) 2.1 cm\S\2 continuity Area/bsa 0.93 cm\S\2/m\S\2 (LVOT cont) Regurg vena 2.3 cm contracta Pulmonary arteries Pressure, S 26 mm Hg Pressure ED 5 mm Hg Tricuspid valve Peak 28 mm Hg gradient, D Regurg peak 265.06 cm/sec gabriella Peak RV-RA 28 mm Hg gradient, S Systemic veins Estimated CVP 3 mm Hg Right ventricle Pressure, S 31 mm Hg Pulmonic valve Peak gabriella, S 112.75 cm/sec Peak 5 mm Hg gradient, S Regurg gabriella, 77.87 cm/sec ED [facility] Echo Labs are accredited with the Intersphysicians care surgical hospitaletal Accreditation Commission - Echocardiography. Prepared and Electronically Authenticated Leonel Briones Confirmed 11/19/2017 16:26 us Ching Lua SORORITY SUPERVISOR US ORDERABLES Final Result INTERFACE SYSTEM Refer to clinic/hospital department documented in this encounter Visit Diagnoses Diagnosis Chronic diastolic congestive heart failure (CMS/HCC) Chronic diastolic heart failure Chronic diastolic congestive heart failure (CMS/HCC) Chronic diastolic heart failure documented in this encounter Care Teams Transitional Care Liaison Relationship Specialty Start Date End Date Gorge Luciano DO [address] [address] PCP - General Internal Medicine 07/17/09 documented as of this encounter
--- OUTSIDE RECORDS SUMMARY | 2025-02-07 18:51 | XMS_ITS | Encounter Summary ---
Author Organization [facility] Address [address] [place] [address] Care Team Providers Care Manufacturing Storeperson Name Role Phone Gorge Luciano DO Primary Care Provider Reason for Referral * Outpatient Services (Routine) - Closed Specialty Diagnoses / Procedures Referred By Cami chavez Referred To Contact Diagnoses Liver cyst Procedures MRI ABDOMEN WO CONTRAST Prateek Weaver MD [address] [place] [address] Phone: tel: Referral ID Status Reason Start Date Expiration Date Visits Re quested Visits Authorized [id number] Closed 11/25/2009 05/24/2010 1 1 Encounter Details Date Type Department Care Team (Late st Contact Info) Description 11/25/2009 Ancillary Orders [facility] Gastroenterology- [place] [address] [place] [address] Prateek Weaver MD [address] [place] [address] Liver Cyst Social History Tobacco Use Types Packs/Day Years Used Date Smoking Tobacco: Never Alcohol Use Standard Drinks/Week Comments No 0 (1 standard drink = 0.6 oz pur e alcohol) Comments No Sex and Gender Information Value Date Recorded Sex Assigned at Not on file 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 Hepatomegaly with fatty infiltration. 1 cm focal lesion seen on prior CT is only equivocally visualized and indeterminate. Prior cholecystectomy. carlotta - uploaded from [employer]- [place] 11/25/2009 1:28 PM CDT Exam: MRI ABDOMEN WO CONTRAST Date/Time of Exam: Nov 25, 2009 11:27:00 AM History: Liver cyst. Technique: MRI of the abdomen was performed without the administration of intravenous contrast. Noncontrast technique. No IV access. Findings: Study is limited by respiratory degradation. The liver is enlarged with features of fatty infiltration. Areas of more marked fatty infiltration noted in the lateral segment of the left hepatic lobe corresponding to findings from prior CT of 10/29/2009. A 1 cm focal lesion of the dome of the right lobe seen on the prior CT is equivocally visualized on T2-weighted images (series 5 image 12). Prior cholecystectomy. No evidence of biliary dilatation. Unremarkable spleen, pancreas, adrenal glands, and kidneys. No ascites or adenopathy. Procedure Note Rg Brumfield MD - 11/25/2009 Exam: MRI ABDOMEN WO CONTRAST Date/Time of Exam: Nov 25, 2009 11:27:00 AM History: Liver cyst. Technique: MRI of the abdomen was performed without the administration of intravenous contrast. Noncontrast technique. No IV access. Findings: Study is limited by respiratory degradation. The liver is enlarged with features of fatty infiltration. Areas of more marked fatty infiltration noted in the lateral segment of the left hepatic lobe corresponding to findings from prior CT of 10/29/2009. A 1 cm focal lesion of the dome of the right lobe seen on the prior CT is equivocally visualized on T2-weighted images (series 5 image 12). Prior cholecystectomy. No evidence of biliary dilatation. Unremarkable spleen, pancreas, adrenal glands, and kidneys. No ascites or adenopathy. IMPRESSION Impression: Exam limited by non-IV contrast technique and respiratory degradation. Hepatomegaly with fatty infiltration. 1 cm focal lesion seen on prior CT is only equivocally visualized and indeterminate. Prior cholecystectomy. carlotta - uploaded from [employer]- Prateek Weaver MD MR ORDERABLES Final Result documented in this encounter Visit Diagnoses Diagnosis Liver cyst Other specified disorders of liver Liver cyst Other specified disorders of liver documented in this encounter Care Teams Manufacturing Storeperson Relationship Specialty Start Date End Date Gorge Luciano DO [address] [id number] PCP - General Internal Medicine 07/17/09 documented as of this encounter
--- OUTSIDE RECORDS SUMMARY | 2025-02-07 18:51 | XMS_ITS | Encounter Summary ---
Author Organization [facility] Address [address] [place] [address] Care Team Providers Care Police Officer Name Role Phone Gorge Luciano DO Primary Care Provider [phone] Encounter Details Date Type Department Care Team (Latest Contact Info) Description 06/04/2004 Outpatient Historical [facility] [address] [place] [address] Brijesh Ybarra MD NO ADDRESS ON FILE DIABETES MELLITUS TYPE II UNCONTR UNCOMPL (Primary Dx) Social History Tobacco Use Types Packs/Day Years Used Date Smoking Tobacco: Never Assessed Comments Unknown Sex and Gender Information Value Date Recorded Sex Assigned at Not on file 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
--- OUTSIDE RECORDS SUMMARY | 2025-02-07 18:51 | XMS_ITS | Encounter Summary ---
Author Organization [facility] Address [address] [place] [address] Care Team Providers Care Customs Officer Name Role Phone Gorge Luciano DO Primary Care Provider [phone] Encounter Details Date Type Department Care Team (Late st Contact Info) Description 12/22/2004 Outpatient Historical [facility] [address] [place] [address] Oren Mckinnon MD [address] [place] [address] PAIN IN LIMB (Primary Dx) Social History Tobacco Use Types Packs/Day Years Used Date Smoking Tobacco: Never Assessed Comments Unknown Sex and Gender Information Value Date Recorded Sex Assigned at Not on file 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
--- OUTSIDE RECORDS SUMMARY | 2025-02-07 18:51 | XMS_ITS | Encounter Summary ---
Author Organization [facility] Address [address] [place] [address] Care Team Providers Care Beauty Consultant Name Role Phone Gorge Luciano DO Primary Care Provider Encounter Details Date Type Department Care Team (Latest Contact Info) Description 04/11/2004 Outpatient Historical [facility] Endocrinology[facility] [place] [address] [place] [address] Brijesh Ybarra MD NO ADDRESS ON FILE DIABETES MELLITUS TYPE II UNCONTR UNCOMPL (Primary Dx); HYPERLIPIDEMIA NEC/NOS; HYPERTENSION NOS Social History Tobacco Use Types Packs/Day Years Used Date Smoking Tobacco: Never Assessed Comments Unknown Sex and Gender Information Value Date Recorded Sex Assigned at Not on file Legal Sex 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
--- OUTSIDE RECORDS SUMMARY | 2025-02-07 18:51 | XMS_ITS | Encounter Summary ---
Author Organization [facility] Address [address] [place] [address] Care Team Providers Care Sensor Specialist Name Role Phone Gorge Luciano Joelle CALDWELL Primary Care Provider [phone] Encounter Details Date Type Department Care Team (Late st Contact Info) Description 11/09/2005 Outpatient Historical [facility] Occupational Medicine-[facility] [place] [address] [place] [address] Tunde Hamilton MD 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 History: Low back pain, status post fall, and numbness in the right lower extremity and left foot. Comparison: None. No significant focal bony lesion or acute fracture is identified. Alignment is normal. Conus isintact. L1-L2: No significant abnormality. L2-L3: No significant abnormality. L3-L4: No significant abnormality. L4-L5: No significant abnormality. L5-S1: A small right paracentral/subarticular disc protrusion is present which appears to touch butnot compress the traversing right S1 nerve root. Impression: A small right-sided protrusion at L5-S1 appears to touch the right S1 nerve root. - Dictated By: Andre Veliz M.D. Electronically Signed By: Andre Veliz M.D. Date Signed: 11/09/05 SDM Procedure Note Provider, Historical - 01/31/2009 Multiplanar images of the lumbar spine were obtained without IVgadolinium. History: Low back pain, status post fall, and numbness in the right lower extremityand left foot. Comparison: None. No significant focal bony lesion or acute fracture is identified.Alignment is normal. Conus isintact. L1-L2: No significant abnormality. L2-L3: No significant abnormality. L3-L4: No significant abnormality. L4-L5: No significant abnormality. L5-S1: A small right paracentral/subarticular disc protrusion is present whichappears to touch butnot compress the traversing right S1 nerve root. Impression: A small right-sided protrusion at L5-S1 appears to touch the right A3eprxr root. - Dictated By: Andre Veliz M.D. Electronically Signed By: Andre Veliz M.D. Date Signed: 11/09/05 SDM Catracho Dueñas MD MR ORDERABLES Final Result documented in this encounter Visit Diagnoses Diagnosis Sprain and strain of unspecified site of knee and leg- Primary documented in this encounter Care Teams Sensor Specialist Relationship Specialty Start Date End Date Gorge Luciano DO [address] [address] PCP - General Internal Medicine 07/17/09 documented as of this encounter
--- OUTSIDE RECORDS SUMMARY | 2025-02-07 18:51 | XMS_ITS | Encounter Summary ---
Author Organization [facility] Address [address] [place] [address] Care Team Providers Care Auto Leasing Manager Name Role Phone Gorge Luciano DO Primary Care Provider [phone] Encounter Details Date Type Department Care Team (Late st Contact Info) Description 10/26/2005 Outpatient Historical [facility] Orthopedics- 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
--- OUTSIDE RECORDS SUMMARY | 2025-02-07 18:51 | XMS_ITS | Encounter Summary ---
Author Organization [facility] Address [address] [place] [address] Care Team Providers Care Chief Enterprise Architect Name Role Phone Gorge Luciano DO Primary Care Provider [phone] Reason for Referral * Outpatient Services (Routine) - Closed Specialty Diagnoses / Procedures Referred By Cami chavez Referred To Contact Diagnoses Visit for screening mammogram Procedures MAMMO DIGITAL SCREEN BILAT Yesenia Ortega MD [address] [address] Phone: tel: fax: [facility] Pre-Registration [place] CALL TO MAKE APPOINTMENT ONLY [address] [place] [address] Phone: tel: fax: Referral ID Status Reason Start Date Expiration Date Visits Re quested Visits Authorized [id number] Closed 05/29/2015 06/28/2016 1 2 Encounter Details Date Type Department Care Team (Late st Contact Info) Description 05/29/[address] 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 Reason for Exam: Screening Comparison: Compared to: 01/20/2013 MAMMO DIGITAL SCREEN BILAT, 01/15/2012 MAMMO DIGITAL SCREEN BILAT Findings: Bilateral CC and MLO views were obtained. This examination was reviewed with the aid of a computer-aided detection system(CAD). The breast tissue is dense. No significant new findings since the prior mammogram(s). Yesenia Ortega MD MAMMO ORDERABLES Final Result documented in this encounter Visit Diagnoses Diagnosis Visit for screening mammogram- Primary Other screening mammogram Visit for screening mammogram Other screening mammogram documented in this encounter Care Teams Chief Enterprise Architect Relationship Specialty Start Date End Date Gorge Luciano DO [address] [place] [address] PCP - General Internal Medicine 07/17/09 documented as of this encounter
--- OUTSIDE RECORDS SUMMARY | 2025-02-07 18:51 | XMS_ITS | Encounter Summary ---
Author Organization [facility] Address [address] [place] [address] Care Team Providers Care Melon Packer Name Role Phone Gorge Luciano DO Primary Care Provider [phone] Encounter Details Date Type Department Care Team (Late st Contact Info) Description 02/11/2005 Outpatient Historical [facility] Orthopedics- 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
--- OUTSIDE RECORDS SUMMARY | 2025-02-07 18:51 | XMS_ITS | Encounter Summary ---
Author Organization [facility] Address [address] [place] [address] Care Team Providers Care Biology Professor Name Role Phone Gorge Luciano DO Primary Care Provider [phone] Reason for Referral * Outpatient Services (Routine) - Closed Specialty Diagnoses / Procedures Referred By Cami chavez Referred To Contact Diagnoses Other screening mammogram Procedures MAMMO DIGITAL SCREEN BILAT Gorge Luciano DO [address] [address] Phone: tel: fax: Referral ID Status Reason Start Date Expiration Date Visits Re quested Visits Authorized [id number] Closed 12/26/2012 01/26/2014 1 1 Encounter Details Date Type Department Care Team (Latest Contact Info) Description 12/26/2012 Ancillary Orders [facility] Pre-Registration [place] CALL TO MAKE APPOINTMENT ONLY [address] [place] [address] Gorge Luciano DO [address] [address] Other screening mammogram (Primary Dx) Social History Tobacco Use Types Packs/Day Years Used Date Smoking Tobacco: Never Smokeless Tobacco: Never Alcohol Use Standard Drinks/Week Comments No 0 (1 standard drink = 0.6 oz pur e alcohol) Comments No Sex and Gender Information Value Date Recorded Sex Assigned at Not on file Legal 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 Findings: Bilateral CC and MLO views were obtained. This examination was reviewed with the aid of a computer-aided detection system(CAD). The breast tissue is dense. No significant new findings since the prior mammogram(s). Procedure Note Mahad Rosas MD - 01/23/2013 Bilateral Mammogram Reason for Exam: Screening Comparison: Compared to: 01/15/2012 MAMMO DIGITAL SCREEN BILAT, . Findings: Bilateral CC and MLO views were obtained. This examination was reviewed with the aid of a computer-aided detectionsystem(CAD). The breast tissue is dense. No significant new findings since the prior mammogram(s). Gorge Luciano DO MAMMO ORDERABLES Final Result documented in this encounter Visit Diagnoses Diagnosis Other screening mammogram- Primary Other screening mammogram documented in this encounter Care Teams Biology Professor Relationship Specialty Start Date End Date Gorge Luciano DO [address] [place] [address] PCP - General Internal Medicine 07/17/09 documented as of this encounter
--- OUTSIDE RECORDS SUMMARY | 2025-02-07 18:51 | XMS_ITS | Encounter Summary ---
Author Organization [facility] Address [address] [place] [address] Care Team Providers Care Extrusion Die Repairer Name Role Phone Gorge Luciano DO Primary Care Provider [phone] Encounter Details Date Type Department Care Team (Latest Contact Info) Description 12/05/2003 Outpatient Historical [facility] End[facility]inology[facility] [place] [address] [place] [address] Brijesh Ybarra MD NO ADDRESS ON FILE DIABETES MELLITUS TYPE II UNCONTR UNCOMPL (Primary Dx); HYPERLIPIDEMIA NEC/NOS; HYPERTENSION NOS Social History Tobacco Use Types Packs/Day Years Used Date Smoking Tobacco: Never Assessed Comments Unknown Sex and Gender Information Value Date Recorded Sex Assigned at Not on file Legal 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
--- OUTSIDE RECORDS SUMMARY | 2025-02-07 18:51 | XMS_ITS | Encounter Summary ---
Author Organization [facility] Address [address] [place] [address] Care Team Providers Care Career Law Clerk Name Role Phone Gorge Luciano DO Primary Care Provider [phone] Encounter Details Date Type Department Care Team (Latest Contact Info) Description 03/12/2005 Outpatient Historical [facility] [address] [place] [address] Gorge Luciano DO [address] [place] [address] INGROWING NAIL (Primary Dx) Social History Tobacco Use Types Packs/Day Years Used Date Smoking Tobacco: Never Assessed Comments Unknown Sex and Gender Information Value Date Recorded Sex Assigned at Not on file Legal Sex Female 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
--- OUTSIDE RECORDS SUMMARY | 2025-02-07 18:51 | XMS_ITS | Encounter Summary ---
Author Organization [facility] Address [address] [place] [address] Care Team Providers Care Aix Administrator Name Role Phone Gorge Luciano DO Primary Care Provider Encounter Details Date Type Department Care Team (Latest Contact Info) Description 05/14/2004 Outpatient Historical [facility] Int [facility] [place] [address] [place] [address] Gorge Luciano DO [address] [place] [address] HEADACHE (Primary Dx) Social History Tobacco Use Types Packs/Day Years Used Date Smoking Tobacco: Never Assessed Comments Unknown Sex and Gender Information Value Date Recorded Sex Assigned at Not on file Legal Sex Female 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
--- OUTSIDE RECORDS SUMMARY | 2025-02-07 18:51 | XMS_ITS | Encounter Summary ---
Author Organization [facility] Address [address] [place] [address] Care Team Providers Care Glue Line Operator Name Role Phone Gorge Luciano DO Primary Care Provider [phone] Encounter Details Date Type Department Care Team (Latest Contact Info) Description 11/26/2005 Outpatient Historical [address] [phone] Danae Scanlon MD [address] [place] [address] Abnormal Weight Gain (Primary Dx); Dietary Surveil/Ton Container Shipper Social History Tobacco Use Types Packs/Day Years Used Date Smoking Tobacco: Never Assessed Comments Unknown Sex and Gender Information Value Date Recorded Sex Assigned at Not on file Legal Sex Female 5:31 AM LUGGAGE LINER Gender Identity Not on file Sexual Orientation Not on file documented as of this encounter Plan of Treatment Not on file documented as of this encounter Visit Diagnoses Diagnosis Abnormal weight gain- Primary Dietary surveil/memorial counselor Dietary surveillance and counseling documented in this encounter Care Teams Glue Line Operator Relationship Specialty Start Date End Date Gorge Luciano DO [address] [place] [address] PCP - General Internal Medicine 07/17/09 documented as of this encounter
--- OUTSIDE RECORDS SUMMARY | 2025-02-07 18:51 | XMS_ITS | Encounter Summary ---
Author Organization [facility] Address [address] [place] [address] Care Team Providers Care Nursing Home Manager Name Role Phone Gorge Luciano DO Primary Care Provider [phone] Encounter Details Date Type Department Care Team (Late st Contact Info) Description 02/13/2005 Outpatient Historical [facility] [address] [facility] [address] [place] [address] Kathy Cuellar MD NO ADDRESS ON FILE SCREENING MAMM-MAILG NEOPL NEC (Primary Dx) Social History Tobacco Use Types Packs/Day Years Used Date Smoking Tobacco: Never Assessed Comments Unknown Sex and Gender Information Value Date Recorded Sex Assigned at Not on file Legal 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
--- OUTSIDE RECORDS SUMMARY | 2025-02-07 18:51 | XMS_ITS | Encounter Summary ---
Author Organization [facility] Address [address] [place] [address] Care Team Providers Care Turf Keeper Name Role Phone Gorge Luciano DO Primary Care Provider [phone] Encounter Details Date Type Department Care Team (Latest Contact Info) Description 07/02/2003 Inpatient Historical 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
--- OUTSIDE RECORDS SUMMARY | 2025-02-07 18:51 | XMS_ITS | Encounter Summary ---
Author Organization [facility] Address [address] [place] [address] Care Team Providers Care Paper Products Printer Name Role Phone Gorge Luciano DO Primary Care Provider [phone] Encounter Details Date Type Department Care Team (Latest Contact Info) Description 06/25/2003 Outpatient Historical [facility] Cardiology Ancillary Services-[place] [address] [place] [address] Fernando Selby MD [address] [address] [place] [address] CONGESTIVE HEART FAILURE, UNSPEC (CMS/HCC) (Primary Dx); HYPERLIPIDEMIA NEC/NOS Social History Tobacco Use Types Packs/Day Years Used Date Smoking Tobacco: Never Assessed Comments Unknown Sex and Gender Information Value Date Recorded Sex Assigned at Not on file Legal Sex Female 5:31 AM DOGGER Gender Identity Not on file Sexual Orientation Not on file documented as of this encounter Plan of Treatment Not on file documented as of this encounter Visit Diagnoses Diagnosis Congestive heart failure, unspecified- Primary Other and unspecified hyperlipidemia documented in this encounter Care Teams Paper Products Printer Relationship Specialty Start Date End Date Gorge Luciano DO [address] [place] [address] PCP - General Internal Medicine 07/17/09 documented as of this encounter
--- OUTSIDE RECORDS SUMMARY | 2025-02-07 18:51 | XMS_ITS | Encounter Summary ---
Author Organization [facility] Address [address] [place] [address] Care Team Providers Care Foreign Food Cook Specialty Name Role Phone Gorge Luciano DO Primary Care Provider [phone] Encounter Details Date Type Department Care Team (Late st Contact Info) Description 09/11/2004 Outpatient Historical [facility] [address] [place] [address] Oren Mckinnon MD [address] [place] [address] FX UPPER END TIBIA-CLOSE (Primary Dx) Social History Tobacco Use Types Packs/Day Years Used Date Smoking Tobacco: Never Assessed Comments Unknown Sex and Gender Information Value Date Recorded Sex Assigned at Not on file Legal Sex Female 5:31 AM PORCELAIN FINISH SPRAYER Gender Identity Not on file Sexual Orientation Not on file documented as of this encounter Plan of Treatment Not on file documented as of this encounter Visit Diagnoses Diagnosis Closed fracture of upper end of tibia- Primary documented in this encounter Care Teams Foreign Food Cook Specialty Relationship Specialty Start Date End Date Gorge Luciano DO [address] [place] [address] PCP - General Internal Medicine 07/17/09 documented as of this encounter
--- OUTSIDE RECORDS SUMMARY | 2025-02-07 18:51 | XMS_ITS | Encounter Summary ---
Author Organization [facility] Address [address] [place] [address] Care Team Providers Care Sheriff Name Role Phone Gorge Luciano DO Primary Care Provider [phone] Encounter Details Date Type Department Care Team (Latest Contact Info) Description 12/12/2004 Outpatient Historical [facility] [address] [place] [address] Oren Mckinnon MD [address] [place] [address] ADMINISTRTVE ENCOUNT NOS (Primary Dx) Social History Tobacco Use Types Packs/Day Years Used Date Smoking Tobacco: Never Assessed Comments Unknown Sex and Gender Information Value Date Recorded Sex Assigned at Not on file Legal Sex Female 5:31 AM PROPERTY UNDERWRITER Gender Identity Not on file Sexual Orientation Not on file documented as of this encounter Plan of Treatment Not on file documented as of this encounter Visit Diagnoses Diagnosis Encounters for unspecified administrative purpose- Primary documented in this encounter Care Teams Sheriff Relationship Specialty Start Date End Date Gorge Luciano DO [address] [place] [address] PCP - General Internal Medicine 07/17/09 documented as of this encounter
--- OUTSIDE RECORDS SUMMARY | 2025-02-07 18:51 | XMS_ITS | Encounter Summary ---
Author Organization [facility] Address [address] [place] [address] Care Team Providers Care Fur Dyer Name Role Phone Gorge Luciano DO Primary Care Provider [phone] Encounter Details Date Type Department Care Team (Latest Contact Info) Description 07/21/2002 Outpatient Historical [facility] [address] [place] [address] Sawyer Tang, OD [address] [place] [address] DIABETES UNCOMPL LEIDY-TYPE I (CMS/HCC) (Primary Dx) Social History Tobacco Use Types Packs/Day Years Used Date Smoking Tobacco: Never Assessed Comments Unknown Sex and Gender Information Value Date Recorded Sex Assigned at Not on file 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
--- OUTSIDE RECORDS SUMMARY | 2025-02-07 18:51 | XMS_ITS | Encounter Summary ---
Author Organization [facility] Address [address] [place] [address] Care Team Providers Care Mechanical Manufacturing Engineer Name Role Phone Gorge Luciano DO Primary Care Provider [phone] Encounter Details Date Type Department Care Team (Late st Contact Info) Description 04/08/[address] [facility]- 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
--- OUTSIDE RECORDS SUMMARY | 2025-02-07 18:51 | XMS_ITS | Encounter Summary ---
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
--- OUTSIDE RECORDS SUMMARY | 2025-02-07 18:51 | XMS_ITS | Encounter Summary ---
Author Organization [facility] Address [address] [place] [address] Care Team Providers Care Test Desk Trouble Locator Name Role Phone Mustapha Gorge Joelle CALDWELL Primary Care Provider [phone] Encounter Details Date Type Department Care Team (Late st Contact Info) Description 07/29/2004 Inpatient Historical [facility], Oren Chavez MD [address] [place] [address] FX UPPER END TIBIA-CLOSE (Primary Dx) Social History Tobacco Use Types Packs/Day Years Used Date Smoking Tobacco: Never Assessed Comments Unknown Sex and Gender Information Value Date Recorded Sex Assigned at Not on file 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 Gender Identity Not on file Sexual Orientation Not on file documented as of this encounter Plan of Treatment Not on file documented as of this encounter Procedures Procedure Name Priority Date/Time Associated Diagnosis Comments POC GLUCOSE Routine 07/30/2004 10:42 AM CDT POC GLUCOSE Routine 07/30/2004 5:50 AM CDT POC GLUCOSE Routine 07/29/2004 9:39 PM CDT POC GLUCOSE Routine 07/29/2004 5:24 PM CDT POC GLUCOSE Routine 07/29/2004 2:39 PM CDT POC GLUCOSE Routine 07/29/2004 8:28 AM CDT documented in this encounter Results * (ABNORMAL) POC GLUCOSE (07/30/2004 10:42 AM CDT) GLUCOSE POC 332(H) 60 - 100 mg/dL INTERFACE SYSTEM 07/30/2004 10:4 2 AM CDT Oren Mckinnon MD POINT OF CARE TESTING F inal Result Performing Organization Address [facility] Co de Phone Number INTERFACE SYSTEM Refer to clinic/hospital department * (ABNORMAL) POC GLUCOSE (07/30/2004 5:50 AM CDT) GLUCOSE POC 286(H) 60 - 100 mg/dL INTERFACE SYSTEM 07/30/2004 5:50 AM CDT Oren Mckinnon MD POINT OF CARE TESTING F inal Result Performing Organization Address [facility] Phone Number INTERFACE SYSTEM Refer to clinic/hospital department * (ABNORMAL) POC GLUCOSE (07/29/2004 9:39 PM CDT) GLUCOSE POC 361(H) 60 - 100 mg/dL INTERFACE SYSTEM 07/29/2004 9:39 PM CDT Oren Mckinnon MD POINT OF CARE TESTING F inal Result Performing Organization Address [facility] Co de Phone Number INTERFACE SYSTEM Refer to clinic/hospital department * (ABNORMAL) POC GLUCOSE (07/29/2004 5:24 PM CDT) GLUCOSE POC 288(H) 60 - 100 mg/dL INTERFACE SYSTEM 07/29/2004 5:24 PM CDT Oren Mckinnon MD POINT OF CARE TESTING F inal Result Performing Organization Address [facility] Co de Phone Number INTERFACE SYSTEM Refer to clinic/hospital department * (ABNORMAL) POC GLUCOSE (07/29/2004 2:39 PM CDT) GLUCOSE POC 173(H) 60 - 100 mg/dL INTERFACE SYSTEM 07/29/2004 2:39 PM CDT us Oren Mckinnon MD POINT OF CARE TESTING F inal Result Performing Organization Address [facility] Co de Phone Number INTERFACE SYSTEM Refer to clinic/hospital department * (ABNORMAL) POC GLUCOSE (07/29/2004 8:28 AM CDT) GLUCOSE POC 198(H) 60 - 100 mg/dL INTERFACE SYSTEM 07/29/2004 8:28 AM CDT Oren Mckinnon MD POINT OF CARE TESTING F inal Result Performing Organization Address [facility] Phone Number INTERFACE SYSTEM Refer to clinic/hospital department documented in this encounter Visit Diagnoses Diagnosis Closed fracture of upper end of tibia- Primary documented in this encounter Care Teams Test Desk Trouble Locator Relationship Specialty Start Date End Date Gorge Luciano DO [address] [facility] [address] [place] [address] PCP - General Internal Medicine 07/17/09 documented as of this encounter
--- OUTSIDE RECORDS SUMMARY | 2025-02-07 18:51 | XMS_ITS | Encounter Summary ---
Author Organization [facility] Address [address] [place] [address] Care Team Providers Care Cutting Table Operator Name Role Phone Mustapha Gorge Joelle CALDWELL Primary Care Provider [phone] Reason for Visit * Reason Onset Date Comments Medication Refill 02/04/2025 Encounter Details Date Type Department Care Team (Late st Contact Info) Description 02/04/2025 Refill [facility] Rheumatology- [facility] Sam[place] [address] [place] [address] Enrrique Scanlon MD [address] [place] [address] Primary osteoarthritis, unspecified site Social History Tobacco Use Types Packs/Day Years [...] AM CDT Legal Sex Female 12:41 PM LEARN TO SWIM INSTRUCTOR Gender Identity Female 12/21/2023 9:49 AM CDT Sexual Orientation Not on file documented as of this encounter Miscellaneous Notes * Telephone Encounter - Danuta Saab - 02/05/2025 12:52 PM CST Last ov: 12/12/24 Last fill:11/28/24 QTY: 60 N TO SWIM INSTRUCTOR documented in this encounter Plan of Treatment Upcoming Encounters Date Type Department Care Team (Late st Contact Info) Description 02/14/2025 9:15 AM LEARN TO SWIM INSTRUCTOR Appointment [facility] [address] [place] [address] PA [address] [place] [address] 02/15/2025 11:40 AM LEARN TO SWIM INSTRUCTOR Office Visit [facility] Orthopedics - Orthopedic [facility] [address] [place] [phone] Conrado Barraza, PA-C [address] [place] [address] 02/28/2025 11:20 AM LEARN TO SWIM INSTRUCTOR Office Visit [facility] Vianey Lee-Derik [address] [place] [address] Gorge Luciano DO [address] [place] [address] 04/09/2025 12:35 PM LEARN TO SWIM INSTRUCTOR Appointment [facility] Cancer [facility] [address] [place] [address] 04/12/2025 8:00 AM LEARN TO SWIM INSTRUCTOR Video Visit [facility] Endocrinology [facility] [address] [place] [address] Lorna Page MD [address] [place] [address] 04/16/2025 1:20 PM LEARN TO SWIM INSTRUCTOR Office Visit [facility] Cancer and Hematology [place] [address] [place] [address] Levy Page MD [address] [place] [address] 06/12/2025 12:40 PM CDT Office Visit [facility] Rheumatology- [place] [address] [place] [address] Enrrique Scanlon MD [address] [place] [address] 09/03/2025 11:20 AM CDT Office Visit [facility] Int Med-[place] [place] [address] Gorge Luciano DO [address] [place] [address] documented as of this encounter Visit Diagnoses Diagnosis Primary osteoarthritis, unspecified site documented in this encounter Care Teams Cutting Table Operator Relationship Specialty Start Date End Date Gorge Luciano DO [address] [place] [address] PCP - General Internal Medicine 07/17/09 documented as of this encounter
--- OUTSIDE RECORDS SUMMARY | 2025-02-07 18:51 | XMS_ITS | Clinical Summary ---
Author Organization [facility] Address [address] [place] [address] Care Team Providers Care Hat Braider Name Role Phone Gorge Luciano Joelle CALDWELL Primary Care Provider [phone] Allergies Active Allergy Reactions Criticality Noted Date Comments Andrea Inhibitors Unknown,Cough Low Adhesive Rash Low 01/26/2012 Arb-Angiotensin Receptor Antagonist Unknown 06/23/2007 Candesartan Cough Low 07/17/2009 Carvedilol Hypotension Medium 07/12/2009 Cefaclor Unknown,Other (See Comments) Mouth breaks out. Ciprofloxacin Unknown Mouth sores Elavil Unknown 07/17/2009 Excessive drowsiness Sulfa (Sulfonamide Antibiotics) Unknown,Other (See Comments) Mouth sores Topiramate Unknown 11/12/2014 Made too many side effects Medications oxygen home delivery Administer in each nostril daily at bedtime. 2 liters Active BENEFIBER, GUAR GUM, ORAL Mix 2 tbsp into 8 oz and drink PO daily. Active aspirin (ECOTRIN EC) 81 mg Oral TbEC TAKE ONE TABLET BY MOUTH EVERY DAY WITH BREAKFAST 90 Tab 3 12/16/19 13 Active wheelchairIndicat ions:Chronic diastolic congestive heart failure ([facility]),Diabete s mellitus type 1, controlled, with complications ([facility]),Morbid obesity with BMI of 40.0-44.9, adult ([facility]) Wheelchair Repairs to owned power wheelchair [id number] Switchbox [id number] Labor (1 unit). 1 Each 04/23/19 17 Active NITROSTAT 0.4 mg Tablet, Sublingual DISSOLVE ONE TABLET UNDER THE TONGUE EVERY 5 MINUTES NEEDED FOR CHEST PAIN. DO NOT EXCEED A TOTAL OF 3 DOSES IN 15 MINUTES 25 Tablet 11 07/22/19 17 Active cyanocobalamin (VITAMIN B-12) 500 mcg tablet Take 500 mcg by mouth daily. Active vitamin B complex-vitamin C-folic acid (NEPHROCAP) 1 mg Capsule Take 1 Capsule by mouth daily. Active fluticasone propionate (FLONASE) 50 mcg/spray [place], Suspension nasal inhalerIndication s:Sinusitis, unspecified chronicity, unspecified location Administer 2 Sprays in each nostril daily. 16 Gram 5 06/04/19 19 Active azelastine (ASTELIN) 137 mcg/actuation nasal sprayIndications: Chronic pansinusitis Administer 2 Sprays in each nostril 2 times daily. 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 Act zhane cetirizine (ZyrTEC) 10 mg tablet Take 10 mg by mouth daily. Active Insulin [place], Disposable, (BD Ultra-Fine Short Pen Needle) 31 gauge x 5/16 Needle Use for injection of insulin as directed dx e 10.8 300 Each 2 06/20/19 20 Active pravastatin (PRAVACHOL) 80 mg tablet TAKE 1 TABLET BY MOUTH ONCE DAILY IN THE EVENING 90 Tablet 3 07/25/19 20 Active montelukast (SINGULAIR) 10 mg tablet TAKE 1 TABLET BY MOUTH ONCE DAILY 90 Tablet 3 07/25/19 20 Active furosemide (LASIX) 40 mg tablet TAKE ONE TABLET BY MOUTH Twice daily 180 Tablet 3 07/25/19 20 Active Blood-Glucose Meter,Continuous (Dexcom G6 Rail Grinder) Use as directed. 1 Each 08/24/19 20 Active lidocaine-priloca ine (EMLA) 2.5-2.5 % Cream Apply to affected area see administration instructions. Apply to port 30-60 minutes prior to port use 25 Gram 09/06/19 20 Active clotrimazole (LOTRIMIN) 1 % Cream Apply to affected area 2 times daily. Apply to irritated areas, groins, underneath breasts as needed to control symptoms. 45 Gram 1 09/13/19 20 Active potassium chloride (Klor-Con M10) 10 mEq Extended Release tablet TAKE TWO TABLETS BY MOUTH THREE TIMES DAILY 180 Tablet 11 11/17/19 20 Active Adelaida Pen Needle 32 gauge x 5/32 Needle USE DIRECTED 100 Each 01/11/20 20 Active celecoxib (CeleBREX) 200 mg capsuleIndication s:Chronic pain of right knee,Right hip pain,Generalized osteoarthrosis, involving multiple sites Take 1 Capsule (200 mg) by mouth 2 times daily. 60 Capsule 2 01/28/20 20 Active metoprolol succinate (TOPROL XL) 25 mg Extended Release 24 hour tablet Take 1/2 (one-half) tablet by mouth twice daily 90 Tablet 3 03/14/20 20 Active pantoprazole (PROTONIX) 40 mg Tablet, Delayed Release (E.C.) TAKE 1 TABLET BY MOUTH TWICE DAILY BEFORE MEAL(S) 180 Tablet 3 03/19/19 21 Active Lantus Solostar U-100 Insulin 100 unit/mL (3 mL) solution for injectionIndicati ons:Uncontrolled type 1 diabetes mellitus with hyperglycemia (CMS/HCC) INJECT 62 UNITS SUBCUTANEOUSLY IN THE MORNING AND 58 IN THE EVENING 45 mL 09/04/19 21 Active insulin lispro (HumaLOG) 100 unit/mL pen syringe INJECT 24 UNITS THREE TIMES A DAY AND SSI. MAX DAILY DOSE OF 80 UNITS 60 mL 09/04/19 21 Active Blood-Glucose Sensor (Dexcom G6 Sensor) Device Use as directed 9 Each 11 09/11/19 21 Active Blood-Glucose Transmitter (Dexcom G6 Transmitter) Device Use as directed. 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 07/31/2020 Hypovitaminosis D 07/31/2020 Chronic allergic rhinitis 07/31/2020 Chronic GERD 07/24/2019 Central line complication 06/24/2018 Type 1 diabetes mellitus with retinopathy 2017 Debility 12/29/2016 Arthritis of shoulder region, right 07/17/2016 Localized osteoporosis witho ut current pathological fracture 07/06/2016 Chronic midline low back pain without sciatica 0 07/06/2016 Family history of breast cancer in first degree relative 05/21/2016 History of iron deficiency 10/01/2015 Arthritis of knee, right 09/02/2015 Hyperlipidemia LDL goal <100 06/26/2015 Overview (06/26/2015): continue with pravachol and to goal Generalized edema 06/26/2015 Essential hypertension 06/26/2015 Overview (06/26/2015): failed acei, arb; continue toprol xl and controlled Chronic diastolic congestive heart failure 04/12 Morbid obesity with BMI of 40.0-44.9, adult 09/2014 DUARTE (obstructive sleep apnea) 06/15/2014 Overview (06/15/2014): compliant with cpap machine and uses oxygen at night for this 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 Overview (06/09/2013): creates upper extremitiy problems but has compensated [...] pectoris 06/19/2019 07/24/2019 Acute diarrhea 03/14/2018 07/14/2018 Viral gastroenteritis 03/09/20182018 Dehydration, moderate 03/09/20182018 Gastroesophageal reflux dise ase without esophagitis 07/06/2016 07/24/2019 Iron deficiency anemia secon brenda to inadequate dietary iron intake 07/06/2016 8 LGSIL of cervix of undetermined significance 7 07/06/2016 Cervical high risk HPV (apurva n papillomavirus) test positive 06/01/2016 07/06/2016 S/P decompression of ulnar nerve at elbow 03/11/2016 07/06/2016 Right carpal tunnel syndrome 03/11/2016 07/06/2016 Cubital tunnel syndrome 11/13/201506/14 Encounter for long-term (cur rent) use of high-risk medication 10/29/2015 07/06/2016 Chest pain 09/23/2015 06/01/2016 LGSIL Pap smear of vagina 07/01/2015 Gastroesophageal reflux disease 06/26/2015 07/06/2016 Need for prophylactic vaccin ation against Streptococcus pneumoniae (pneumococcus) 06/26/2015 07/06/2016 Overview (06/26/2015): prevnair done today Encounter for long-term (cur rent) use of medications 04/15/2015 07/06/2016 Diabetes mellitus with perip heral autonomic neuropathy 02/21/2015 06/26/2015 Knee pain, acute 02/13/2015 06/26/2015 Protruded lumbar disc 12/19/20142015 Stenosis of lateral recess of lumbar spine 12/19/2014 06/26/2015 Chronic low back pain 12/19/20142016 Lumbar radicular pain 12/19/20142015 Shoulder pain, left 12/18/2014 06/26/19 16 Chronic blood loss anemia 08/17/2014 Diabetes mellitus type 1, co ntrolled, with complications 06/15/2014 07/14/2018 Anemia 12/18/2013 06/15/2014 DM retinopathy 11/22/2012 06/09/2013 Crescendo angina 09/17/2012 10/10/2012 Foot sprain 02/28/2012 06/09/2013 Overview (02/28/2012): Left Ankle sprain and strain 02/28/2012/10/2013 Overview (02/28/2012): Left Osteoporosis 02/28/2012 07/06/2016 Diabetes mellitus 09/10/2010 11/11/2010 CAD (coronary artery disease) 09/10/2010 11/11/2010 Iron deficiency anemia, unspecified 07/25/2010 06/09/2013 Overview (07/25/2010): Anemia with decreased MCV and Ferritin 10 Liver lesion 07/18/2010 11/11/2010 LBP (low back pain) 01/21/2010 11/12/19 11 Lumbosacral spondylosis without myelopathy 01/21/2010 06/26/2015 Facet syndrome 01/21/2010 11/11/2010 Disorders of sacrum 01/21/2010 11/12/19 11 Loose stools 08/15/2009 08/21/2009 Encounter for long-term (cur rent) use of other medications 08/15/2009 06/15/2014 Angina 07/12/2009 08/21/2009 Other chest pain 07/08/2009 08/21/2009 Hyperlipidemia 01/20/2008 06/26/2015 Hypertension 01/20/2008 06/26/2015 Peripheral neuropathy 01/20/20082012 Obesity 06/23/2007 06/26/2015 CHF (congestive heart failure) 06/23/2007 04/12/2015 Type I (juvenile type) diabe luís mellitus without mention of complication, not stated as uncontrolled 06/23/2007 06/09/2013 Type I (juvenile type) diabe luís mellitus without mention of complication, not stated as uncontrolled 06/23/2007 Esophageal reflux 06/26/2015 Other and unspecified hyperlipidemia 01/20/2008 Coronary atherosclerosis of cheesh-na coronary artery 01/20/2008 Gastroparesis 06/09/2013 Unspecified hereditary and i diopathic peripheral neuropathy 01/20/2008 Essential hypertension, benign 01/20/2008 Immunizations Immunization Administration Dates Next Due (PNEUMOVAX 23)(50 YRS UP) PN EUMOCOCCAL POLYSACCHARIDE (PPV23) 0.5 ML, IM 03/23/2006,03/05/2006,02/26/2005 (PREVNAR 13)(6 WKS UP) PNEUM OCOCCAL CONJUGATE (PCV13) 0.5 ML, IM 06/26/2015 INFLUENZA VACCINE QUADRIVALE NT 6 MOS UP PF IM 12/22/2019,12/21/2018,12/14/2016 Influenza A (H1N1) Vaccine PF IM 03/24/2008 Influenza Seasonal Unspecifi ed Formulation IM 12/17/2017,12/14/2016,02/18/2015,12/27,02/13/2013,01/03/2007,12/31/2006 ,03/23/2006 Family History Medical History Relation Name Comments Hypertension Father Shahid Sotomayor Other Father Shahid Sotomayor Breast Cancer Maternal Cousin under 50 Ovarian Cancer Maternal Cousin under age 50 Heart Disease Maternal Grandfather Manish Pj Walke r Hypertension Maternal Grandfather Manish Hernández Cancer Maternal Uncle Anemia Mother Graciela Gaona Redburn Breast Cancer Mother Graciela Gaona Redanette posit zhane responses - see media tab Cancer Mother Graciela Gaona [place]burn Cataract Mother Graciela Gaona Redburn Depression Mother Graciela Gaona Redburn Detachment/Tears Mother Graciela Gaona Redburn Hypertension Mother Graciela Gaona Redburn Other Mother Graciela Gaona Redburn Thyroid Disease Mother Graciela Gaona [place] Diabetes Other Elevated Lipids Other Heart Disease Other Hypertension Other Cataract Paternal Grandmother Jessica Lock [place] Hypertension Paternal Grandmother Jessica Lock [place] Amblyopia Neg Hx Blindness Neg Hx Colon Cancer Neg Hx Glaucoma Neg Hx Macular Degen Neg Hx Strabismus Neg Hx Relation Name Status Comments Father Shahid العلي Redanette Alive Maternal Cousin Maternal Grandfather Manish Hernández Maternal Uncle Mother Graciela Gaona Redanette Alive Other Paternal Grandmother eJssica Lock Redburn Social History Tobacco Use Types Packs/Day Years Used Date Smoking Tobacco: Never Smokeless Tobacco: Never Tobacco Cessation:Counseling Given: Yes Alcohol Use Standard Drinks/Week Comments No 0 (1 standard drink = 0.6 oz pur e alcohol) Comments No Sex and Gender Information Value Date Recorded Sex Assigned at Not on file Legal Sex Female 5:31 AM UX CONSULTANT Gender Identity Not on file Sexual Orientation Not on file Occupation Industry Job Start Date Job End Date Not on file Not on file Not on file Not on file Last Filed Vital Signs Vital Sign Reading Time Taken Comments Blood Pressure 140/70 08/02/2020 12:49 PM CDT Pulse 80 08/02/2020 12:49 PM CDT Temperature 37.1 C (98.8 F) 07/29/2020 11:02 AM CDT Respiratory Rate 18 07/29/2020 11:02 AM CDT Oxygen Saturation 99% 08/02/2020 9:36 AM CDT Inhaled Oxygen Concentration - - Weight 111.1 kg (245 lb) 08/02/2020 12:49 PM CDT Height 157.5 cm (5' 2 ) 08/02/2020 12:49 PM CDT Body Mass Index 44.81 08/02/2020 12:49 PM CDT Plan of Treatment Health Maintenance Due Date Last Done Comments DTAP/TDAP/TD VACCINES (1 - Tdap) 09/23/1983 FIT/FOBT Q 1 year 2009 Flex Sig/CT Colonography Q 5 years 2009 RSV VACCINE (60+ or ) (1 - Risk 50-74 years 1-dose series) 2014 ZOSTER VACCINE (1 of 2) 2014 COLORECTAL SCREENING 12/27/2019 12/26/2009, 12/27/19 10 BREAST CANCER SCREENING 01/16/2021 01/17/20, 01/20/2019, 01/19/2019, Additional history exists DIABETES HBA1C Q 6 MONTHS 01/29/20212020, 07/02/2020, 01/17/2020, Additional history exists LDL CHOLESTEROL ANNUAL 07/29/2021 , 07/02/2020, 07/06/2019, Additional history exists DIABETES MICROALBUMIN ANNUAL SCREEN 07/30/2021 07/30/2020, 07/06/2019, 06/06/2019, Additional history exists DIABETES ANNUAL FOOT EXAM 08/02/20212020, 01/22/2020, 10/17/2019, Additional history exists DIABETES ANNUAL RETINAL EXAM 08/02/2021 08/02/2020, 08/02/2020, 08/02/2020, Additional history exists Traditional Medicare (ACO) Annual Wellness Visit 08/03/2021 08/02/2020, 07/25/2019, 07/15/2018, Additional history exists Colorectal Cancer Screening 07/31/2022 FIT-DNA Q 3 years 07/31/2022 08/01/2019 PAP SMEAR 09/11/2022 09/12/2019, 08/15, 06/07/2018, Additional history exists CERVICAL CANCER SCREENING 09/11/2024 HPV/Cotest (21-29) 09/11/2024 09/12/2019, 0 06/07/2018, 06/01/2016, Additional history exists HPV/Cotest (30-65) 09/11/2024 09/12/2019, 0 06/07/2018, 06/01/2016, Additional history exists INFLUENZA VACCINE (#1) 2024 , 12/22/2019, 07/25/2019, Additional history exists HEPATITIS B VACCINES Aged Out No long er eligible based on patient's age to complete this topic Goals Goal Patient Goal Type Associated Problems Recent Progress Patient-Stated? Author HEMOGLOBIN A1C < 7.0 Result Component 6.8(07/29/2020 11:23 AM CDT) Lorna Shi MD HEMOGLOBIN A1C < 7.0 Result Component 6.8(07/29/2020 11:23 AM CDT) No Lorna Page MD Medical Devices Implanted Type Area Extrusion Engineer Device Identifier Shelf Expiration Date Model / Serial / Lot Log [id number] - Bard Patches, Pledgets, [employer]an, Fabrics - 1 - Mckinney Ptfe Thck 1.6mmx2.5x2.5cm [id number] Implanted:Qty: 1 on 09/09/2010 at [facility] Graft N/A: Heart CR [employer] 05/14/2015 [id number] / / [id number] Port Smart 8.0fr [id number] Implanted:05/22 by Milan Malik MD (Quantity not on file) Port Left: Chest Wall [employer] 03/13/2017 / / [id number] Procedures Procedure Name Priority Date/Time Associated Diagnosis Comments MICROALBUMIN/CREATI NINE RATIO, RANDOM UR Routine 07/30/2020 8:53 AM CDT Uncontrolled type 1 diabetes mellitus with hyperglycemia (CMS/HCC) LIPID PANEL Routine 07/29/2020 11:23 AM CDT Hyperlipidemia LDL goal <100 HEMOGLOBIN A1C Routine 07/29/2020 11:23 AM CDT Uncontrolled type 1 diabetes mellitus with hyperglycemia (CMS/HCC) MAMMO SCREEN BILAT W OR WO CAD Routine 01/17/2020 11:13 AM UX CONSULTANT Breast cancer screening by mammogram CERV/VAG CYTO SCREEN PAP W/HPV Routine 09/12/2019 3:45 PM CDT Cervical cancer screening COLON CANCER SCREEN, STOOL DNA Routine 08/01/2019 2:15 PM CDT Special screening for malignant neoplasms, colon HM DIABETES FOOT EXAM Routine 04/26/2018 ENDOSCOPY, COLON, DIAGNOSTIC Routine 12/26/2009 8:51 AM CDT Diarrhea from Last 3 Months or Most Recently Relevant to Health Maintenance Results * MICROALBUMIN/CREATININE RATIO, RANDOM UR (07/30/2020 8:53 AM CDT) MICROALBUMIN, URINE <1.2 No Reference Range mg/dL 07/30/2020 9:14 AM CDT [facility] CREATININE, URINE 59.4 29.0 - 226.0 mg/dL 07/30/2020 9:14 AM CDT [facility] Comment:Reference Range vari es with fluid intake and diet. MICROALBUMIN/C REAT RATIO, UR <20.2 <25.0 mg/g 07/30/2020 9:14 AM CDT [facility] Urine URINE SPECIMEN OBTAINED BY CLEAN CATCH PROCEDURE / Unknown Collection / Unknown 07/30/2020 8:53 AM CDT 07/30/2020 8:53 AM CDT [facility] - 07/30/2020 9:14 AM CDT Condition Microalbumin/Creat ratio Normal Males <17 Normal Females <25 Microalbuminuria Males 17-299 Microalbuminuria Females 25-299 Overt proteinuria >=300 Gorge Luciano DO URINE ORDERABLES Final Result [facility] # [id number] [address] [place] [address] * (ABNORMAL) HEMOGLOBIN A1C (07/29/2020 11:23 AM CDT) HEMOGLOBIN A1C 6.8(H) <=5.6 % 07/29/2020 11:48 AM CDT [facility] EST. AVG GLUCOSE, A1C 148 mg/dL 07/29/2020 11:48 AM CDT [facility] Blood Collection / Unknown 07/29/2020 11:23 AM CDT 07/29/2020 11:26 AM CDT [facility] - 07/29/2020 11:48 AM CDT HGB A1C INTERPRETATION NORMAL: <5.7% PRE-DIABETES: 5.7 - 6.4% DIABETES: 6.5% OR GREATER oGrge Luciano DO CHEMISTRY ORDERABLES Final Res ult [facility] CLIA # [id number] [address] [place] [address] * LIPID PANEL (07/29/2020 11:23 AM CDT) [facility] CHOLESTEROL 122 <200 mg/dL 07/29/2020 11:56 AM CDT [facility] TRIGLYCERIDE 149 <150 mg/dL 07/29/2020 11:56 AM T [facility] HDL 51 40 - 59 mg/dL 07/29/2020 11:56 AM T [facility] LDL CALCULATED 41 <100 mg/dL 07/29/2020 11:56 AM T [facility] NON-HDL CHOLESTEROL 71 <130 mg/dL 07/29/2020 11:56 AM [facility] Blood Collection / Unknown 07/29/2020 11:23 AM CDT 07/29/2020 11:26 AM CDT [facility] - 07/29/2020 11:56 AM CDT TOTAL CHOLESTEROL mg/dL Desirable <200 Borderline high 200-239 High >=240 TRIGLYCERIDES mg/dL Normal <150 Borderline high 150-199 High 200-499 Very high >=500 HDL CHOLESTEROL mg/dL Low <40 Normal 40-59 Desirable >=60 NON HDL CHOLESTEROL mg/dL Optimal <130 Near Optimal 130-159 Borderline High 160-189 Very High >=190 CALCULATED LDL mg/dL LDL <70, OPTIMAL if have Atherosclerotic cardiovascular disease (ASCVD) or intermediate or higher (>7.5%) 10 year risk of ASCVD including most adults with diabetes. LDL <100, Optimal in adult patients with low (<7.5%) 10 year ASCVD risk LDL 100-160, Suboptimal LDL >160, High LDL >190, Very high ATPIII Guidelines Reference Ranges for Lipid Panels (NCEP/AMA) . Gorge Luciano DO CHEMISTRY ORDERABLES Final Res ult [facility] CLIA # [id number] [address] [place] [address] * MAMMO SCREEN BILAT W OR WO CAD (01/17/2020 11:13 AM UX CONSULTANT) Anatomical Region Laterality Modality Breast Bilateral Mammography Narrative 01/23/2020 1:35 PM UX CONSULTANT Bilateral Mammogram Reason for Exam: Screening Comparison: Compared to: 01/19/2019 MAMMO SCREEN BILAT W OR WO CAD, 06/26/2016 MAMMO SCREEN BILAT W OR WO CAD, 06/26/2015 MAMMO DIGITAL SCREEN BILAT, 02/20/2014 MAMMO DIGITAL SCREEN BILAT, and 01/20/2013 MAMMO DIGITAL SCREEN BILAT Findings: Bilateral CC and MLO views were obtained. This examination was reviewed with the aid of a computer-aided detection system(CAD). Breast Composition: There are scattered areas of fibroglandular density. There are no suspicious masses, areas of architectural distortions, or microcalcifications to suggest malignancy. No significant new findings since the prior mammogram(s). Impression: Negative screening mammogram. Recommendation: Routine annual follow-up Overall Assessment: Birads Category 1: Negative Yesenia Ortega MD MAMMO ORDERABLES Final Result * CERV/VAG CYTO SCREEN PAP W/HPV (09/12/2019 3:45 PM CDT) PAP INTERP See Separate Results 09/19/2019 1:47 PM CDT [facility] Genital SWAB OF ENDOCERVIX / Unknown Collection / Unknown 09/12/2019 3:45 PM CDT 09/13/2019 12:13 PM CDT Yesenia Ortega MD PATHOLOGY/CYTOLOGY ORDERABLES F inal Result [facility] [address] [place] [address] * COLON CANCER SCREEN, STOOL DNA (08/01/2019 2:15 PM CDT) COLOGUARD RESULT Negative Not Applicable [facility] Comment: A negative result indicates a low likelihood that a colorectal cancer (CRC) or an advanced adenoma (adenomatous polyps with more advanced pre-malignant features) is present. The chance that a person with a negative Cologuard test has a colorectal cancer is less than 1 in 1500 (negative predictive value >99.9%) or has an advanced adenoma is less than 5.3% (negative predictive value 94.7%). These data are based on a prospective cross-sectional screening study of 10,000 individuals at average risk for colorectal cancer who were screened with both Cologuard and colonoscopy. (Joselin Marcelo et al, N Engl J Med 2014;370(14):0016-0369) The normal value (reference range) for this assay is negative. COLOGUARD RE-SCREENING RECOMMENDATION: Periodic routine colorectal cancer screening is an important part of preventive healthcare for asymptomatic persons at average risk for colorectal cancer. Following a negative Cologuard result, the [place] [employer] and U.S. Multi-Society Task Force screening guidelines recommend a Cologuard re-screening interval of 3 years. References: [place] [employer] (ACS). Colorectal cancer prevention and early detection. [place], [place]: [place] [employer]; [updated 2015Jul 06]. https://www.cancer.org/cancer/cspqe-hzblrb-pmdnxr/chiztgojw-uuigkvpkv-xcxahfn/ac s-rec ommendations.html. Accessed November 12, 2017; Ashu DK, Jessica CR, Mildred RodriguezK, Colorectal Cancer Screening: Recommendations for Physicians and Patients from the U.S. Multi-Society Task Force on Colorectal Cancer Screening, Am J Gastroenterology 2017; 112:2682-0179. TEST TYPE: Composite algorithmic analysis of stool DNA-biomarkers with hemoglobin immunoassay. Quantitative values of individual biomarkers are not reportable and are not associated with individual biomarker result reference ranges. PRECAUTIONS AND LIMITATIONS: Cologuard is intended for colorectal cancer screening of adults of either sex, 45 years or older, who are at average-risk for colorectal cancer (CRC). Cologuard has been approved for use by the U.S. FDA. Cologuard may produce a false negative or false positive result. A negative Cologuard test result does not guarantee the absence of CRC or advanced adenoma (pre-cancer). Patients with a negative Cologuard test result should be advised to continue participating in a colorectal cancer screening program. The screening interval for Cologuard is currently recommended at an interval of every 3 years by the [place] [employer] and U.S. Multi-Society Task Force. A false positive result occurs when Cologuard produces a positive result, even though a colonoscopy may not find colorectal cancer or precancerous polyps. The performance of Cologuard has been established in a cross sectional study (i.e., single point in time) of average-risk adults aged 50-84. Cologuard performance in patients ages 45 to 49 years was estimated by sub-group analysis of near-age groups. Cologuard performance data in a 10,000 patient pivotal study using colonoscopy as the reference method can be accessed at the following location: www.[employer]/results. Additional description of the Cologuard test process, warnings and precautions can be found at www.cologuardtest.com. Rx only. Stool STOOL SPECIMEN / Unknown 08/01/2019 2:15 PM CDT 08/02/2019 10:03 PM CDT Gorge Luciano DO BODY FLUIDS AND STOOLS Final R esult [email or web address] CLIA # [id number] [address] , [address] [place] [address] * DIABETES FOOT EXAM (04/26/2018) us Abstract Spg Provider HEALTH MAINTENANCE Final R esult from Last 3 Months or Most Recently Relevant to Health Maintenance Insurance MEDICARE PART A AND B BCBS RX MEDIMPACT Member Subscriber Plan / Payer (Ef fective 2014-Present) Name:Beryl Sotomayor Relation to Subscriber:Self Name:Beryl Sotomayor Payer ID:Not on file Group ID:[id number] Type:RX Medicare Part D Address: [address] Advance Directives For more information, please contact: [phone] * Full Code (Latest Code Status on File) Date Activated Date Inactivated Comments 03/09/2018 2:57 AM 03/09/2018 8:13 PM * Full Code Date Activated Date Inactivated Comments 04/16/2016 8:09 AM 04/16/2016 11:52 AM * Full Code Date Activated Date Inactivated Comments 10/05/2012 6:35 AM 10/05/2012 2:33 PM * Full Code Date Activated Date Inactivated Comments 09/17/2012 6:30 PM 09/20/2012 2:21 PM * Full Code Date Activated Date Inactivated Comments 10/03/2010 2:27 PM 10/04/2010 2:38 AM Care Teams Hat Braider Relationship Specialty Start Date End Date Gorge Luciano DO [address] [facility] [address] [place] [address] PCP - General Internal Medicine 07/17/09
--- OUTSIDE RECORDS SUMMARY | 2025-02-07 18:51 | XMS_ITS | Encounter Summary ---
Author Organization [facility] Address [address] [place] [address] Care Team Providers Care Cranberry Bog Supervisor Name Role Phone Gorge Luciano DO Primary Care Provider [phone] Encounter Details Date Type Department Care Team (Latest Contact Info) Description 10/30/2005 Outpatient Historical [facility] Spine [facility] [address] 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
--- OUTSIDE RECORDS SUMMARY | 2025-02-07 18:52 | XMS_ITS | Encounter Summary ---
Author Organization [facility] Address [address] [place] [address] Care Team Providers Care Metal Milling Machine Operator Name Role Phone Gorge Luciano DO Primary Care Provider [phone] Encounter Details Date Type Department Care Team (Late st Contact Info) Description 06/23/2007 Outpatient Historical [facility] Other, Sgf NO ADDRESS ON FILE Social History Tobacco Use Types Packs/Day Years Used Date Smoking Tobacco: Never Alcohol Use Standard Drinks/Week Comments No 0 (1 standard drink = 0.6 oz pur e alcohol) Comments No Sex and Gender Information Value Date Recorded Sex Assigned at Not on file Legal Sex Female 5:31 AM [employer]ING INTER[employer] Gender Identity Not on file Sexual Orientation Not on file documented as of this encounter Plan of Treatment Not on file documented as of this encounter Visit Diagnoses Not on filedocumented in this encounter Care Teams Metal Milling Machine Operator Relationship Specialty Start Date End Date Gorge Luciano DO [address] [place] [address] PCP - General Internal Medicine 07/17/09 documented as of this encounter
--- OUTSIDE RECORDS SUMMARY | 2025-02-07 18:52 | XMS_ITS | Encounter Summary ---
Author Organization [facility] Address [address] [place] [address] Care Team Providers Care Pot Sander Name Role Phone Gorge Luciano DO Primary Care Provider [phone] Encounter Details Date Type Department Care Team (Late st Contact Info) Description 01/28/2008 Emergency [facility] Emergency Department [address] [place] [address] Ed, Physician NO ADDRESS ON FILE Magnus Sullivan DO NO ADDRESS ON FILE Social History Tobacco Use Types Packs/Day Years Used Date Smoking Tobacco: Never Alcohol Use Standard Drinks/Week Comments No 0 (1 standard drink = 0.6 oz pur e alcohol) Comments No Sex and Gender Information Value Date Recorded Sex Assigned at Not on file Legal Sex Female 5:31 AM SUPERVISOR COFFEE Gender Identity Not on file Sexual Orientation Not on file documented as of this encounter Plan of Treatment Not on file documented as of this encounter Procedures Procedure Name Priority Date/Time Associated Diagnosis Comments XR CHEST PA OR AP 1 VW Routine 01/28/2008 11:10 PM SUPERVISOR COFFEE PT AND APTT Stat 01/28/2008 11:04 PM SUPERVISOR COFFEE CARDIAC ENZYMES Stat 01/28/2008 11:04 PM SUPERVISOR COFFEE CBC WITH DIFFERENTIAL Stat 01/28/2008 11:04 PM SUPERVISOR COFFEE D-DIMER Stat 01/28/2008 11:04 PM SUPERVISOR COFFEE BRAIN NATRIURETIC PEPTIDE, BNP OR PROBNP Stat 01/28/2008 11:04 PM SUPERVISOR COFFEE BASIC METABOLIC PANEL Stat 01/28/2008 11:04 PM SUPERVISOR COFFEE documented in this encounter Results * XR CHEST PA OR AP (01/28/2008 11:10 PM SUPERVISOR COFFEE) Anatomical Region Laterality Modality Chest Other 01/28/2008 11:1 0 PM SUPERVISOR COFFEE Narrative 01/29/2008 11:23 AM SUPERVISOR COFFEE The study is limited due to patient's body habitus. The heart is probably borderline enlarged. Mild opacities in the right lower lobe probably reflect atelectasis. These opacities were not present on the previous study of February 12, 2004. The pleural spaces appear normal. Impression: Probable atelectatic changes in the right lower lobe. A followup study with better inspiration and PA and lateral view would be helpful. - Dictated By: Keith Cavazos M.D. Electronically Signed By: Keith Cavazos M.D. Date Signed: 01/29/08 Procedure Note Keith Cavazos - 01/29/2008 The study is limited due to patient's body habitus. The heart is probablyborderline enlarged. Mild opacities in the right lower lobe probably reflect atelectasis. Theseopacities were not present on the previous study of February 12, 2004. The pleural spaces appear normal. Impression: Probable atelectatic changes in the right lower lobe. Afollowup study with better inspiration and PA and lateral view would be helpful. - Dictated By: Keith Cavazos M.D. Electronically Signed By: Keith Cavazos M.D. Date Signed: 01/29/08 Magnus Sullivan DO DIAGNOSTIC IMAGING ORDERAB LES Final Result * D-DIMER (01/28/2008 11:04 PM SUPERVISOR COFFEE) D-DIMER QUANT <0.2 0.0 - 0.5 mcg/mL [facility] Comment: Testing performed using the STA Liatest D-Di kit. This test can be used as an aid to the diagnosis of deep venous thrombosis and pulmonary embolism. In clinical studies it has been reported that, with a cutoff value of 0.5 mcg/mL FEU, the negative predictive value for the exclusion of thrombosis was within the 95-100% range. Blood specimen (specimen) 01/28/2008 11:04 PM SUPERVISOR COFFEE 01/28/2008 11:15 PM SUPERVISOR COFFEE Magnus Sullivan DO HEMATOLOGY ORDERABLES Alina l Result Performing Organization Address [facility] Phone Number INTERFACE SYSTEM Refer to clinic/hospital department [facility] CLIA# [id number] [address] [place] [address] * (ABNORMAL) BRAIN NATRIURETIC PEPTIDE, BNP OR PROBNP (01/28/2008 11:04 PM SUPERVISOR COFFEE) BRAIN NATRIURETIC PEPTIDE 302(H) 0 - 125 pg/mL [facility] Blood specimen (specimen) 01/28/2008 11:04 PM SUPERVISOR COFFEE 01/28/2008 11:15 PM SUPERVISOR COFFEE Magnus Sullivan DO CHEMISTRY ORDERABLES Final Result Performing Organization Address [facility] Phone Number INTERFACE SYSTEM Refer to clinic/hospital [facility] CLIA# [id number] [address] [place] [address] * CARDIAC ENZYMES (01/28/2008 11:04 PM SUPERVISOR COFFEE) CKMB 0.3 0.0 - 5.0 ng/mL [facility] TROPONIN I <0.1 0.0 - 1.3 ng/mL [facility] Blood specimen (specimen) 01/28/2008 11:04 PM SUPERVISOR COFFEE 01/28/2008 11:15 PM SUPERVISOR COFFEE Magnus Solimangler DO CHEMISTRY ORDERABLES Final Result Performing Organization Address [facility] Phone Number INTERFACE SYSTEM Refer to clinic/hospital [facility] CLIA# [id number] [address] [place] [address] * PT AND APTT (01/28/2008 11:04 PM SUPERVISOR COFFEE) PTT 31.3 22.5 - 36.5 Secs [facility] Comment: Therapeutic Range: Hi-level PE/DVT heparin protocol 80.1 -95.0 sec Lo-level PE/DVT heparin protocol 67.1 - 80.0 sec Cardiac Heparin Protocol 67.1 - 85.0 sec Neuro Heparin Protocol 67.1 - 80.0 sec As of 06/02/2007 note change in APTT Normal Range. INR 1.1 [facility] Comment: Expected Values for INR: DVT/PE Goal INR 2.5; range 2.0 - 3.0 Valve Replacement Tissue Goal INR 2.5; range 2.0 - 3.0 Mechanical Goal INR 3.0; range 2.5 - 3.5 POST-CO Goal INR 2.5; range 2.0 - 3.0 or Goal 3.0; range 2.5 - 3.5 Atrial Fibrillation Goal INR 2.5; range 2.0 - 3.0 Ischemic Stroke Goal INR 2.5; range 2.0 - 3.0 For additional information see Guidelines for Anticoagulation available from the pharmacy Roberto Noe [phone] PROTIME 15.0 12.8 - 15.8 Secs [facility] Comment:As of 2007 not e change in normal range. Blood specimen (specimen) 01/28/2008 11:04 PM SUPERVISOR COFFEE 01/28/2008 11:15 PM SUPERVISOR COFFEE Magnus Sullivan DO HEMATOLOGY ORDERABLES Edit ed INTERFACE SYSTEM Refer to clinic/hospital department [facility] CLIA# [id number] [address] [place] [address] * (ABNORMAL) BASIC METABOLIC PANEL (01/28/2008 11:04 PM SUPERVISOR COFFEE) CREATININE 0.8 0.7 - 1.2 mg/dL [facility] CALCIUM 8.9 8.4 - 10.5 mg/dL [facility] GLUCOSE 119(H) 70 - 110 mg/dL [facility] CHLORIDE 108 95 - 110 mEq/L [facility] ANION GAP 13 9 - 20 mEq/L [facility] SODIUM 141 136 - 145 mEq/L [facility] BUN 20(H) 7 - 17 mg/dL [facility] CO2 24 22 - 32 mmol/l [facility] POTASSIUM 3.9 3.5 - 5.0 mEq/L [facility] OSMOLALITY, CALCULATED 293 275 - 295 mOsm/Kg [facility] Blood specimen (specimen) 01/28/2008 11:04 PM SUPERVISOR COFFEE 01/28/2008 11:15 PM SUPERVISOR COFFEE Magnus Sullivan DO CHEMISTRY ORDERABLES Final Result Performing Organization Address City/State/[facility] Co de Phone Number INTERFACE SYSTEM Refer to clinic/hospital department [facility] CLIA# [id number] [address] [place] [address] * (ABNORMAL) CBC WITH DIFFERENTIAL (01/28/2008 11:04 PM SUPERVISOR COFFEE) MONOCYTES 9.6 2.0 - 10.0 % [facility] RDW 17.2(H) 11.0 - 14.5 % [facility] MONOCYTE ABSOLUTE 0.7(H) 0.1 - 0.6 K/ul [facility] WBC 7.6 4.5 - 11.0 K/ul [facility] NEUTROPHILS 68.3 42.2 - 75.2 % [facility] MCH 22.2(L) 27.0 - 34.0 pg [facility] NEUTROPHIL ABSOLUTE 5.2 2.0 - 8.0 K/ul [facility] HEMATOCRIT 34.1(L) 36.0 - 46.0 % [facility] PLATELETS 330 140 - 440 K/ul [facility] EOSINOPHIL ABSOLUTE 0.2 0.0 - 0.7 K/ul [facility] EOSINOPHILS 2.9 0.0 - 7.0 % [facility] PERIPHERAL BLOOD SMEAR REVIEW Automated Diff [facility] RBC 4.72 4.20 - 5.40 Mil/ul [facility] MCHC 30.8 30.0 - 35.0 g/dL [facility] LYMPHOCYTE ABSOLUTE 1.4 1.2 - 4.0 K/ul [facility] LYMPHOCYTES 18.8(L) 24.0 - 44.0 % [facility] MCV 72.2(L) 84.0 - 103.0 Fl [facility] BASOPHILS 0.4 0.0 - 1.0 % [facility] MPV 9.7 8.9 - 12.8 Fl [facility] BASOPHILS ABSOLUTE 0.0 0.0 - 0.2 K/ul [facility] HEMOGLOBIN 10.5(L) 12.0 - 16.0 g/dL [facility] Blood specimen (specimen) 01/28/2008 11:04 PM SUPERVISOR COFFEE 01/28/2008 11:15 PM SUPERVISOR COFFEE us Magnus Sullivan DO HEMATOLOGY ORDERABLES Alina renner Result INTERFACE SYSTEM Refer to clinic/hospital department [facility] CLIA# [id number] [address] [place] [address] documented in this encounter Visit Diagnoses Not on filedocumented in this encounter Care Teams Pot Sander Relationship Specialty Start Date End Date Gorge Luciano DO [address] [place] [address] PCP - General Internal Medicine 07/17/09 documented as of this encounter
--- OUTSIDE RECORDS SUMMARY | 2025-02-07 18:52 | XMS_ITS | Encounter Summary ---
Author Organization [facility] Address [address] [place] [address] Care Team Providers Care Casting Room Operator Name Role Phone Gorge Luciano DO Primary Care Provider [phone] Encounter Details Date Type Department Care Team (Latest Contact Info) Description 06/19/2003 Outpatient Historical [facility] [place] [address] [place] [address] Ling Snow MD [address] [id number] CONGESTIVE HEART FAILURE, UNSPEC (CMS/[facility]) (Primary Dx); DIABETES UNCOMPL LEIDY-TYPE I (CMS/HCC) Social History Tobacco Use Types Packs/Day Years Used Date Smoking Tobacco: Never Assessed Comments Unknown Sex and Gender Information Value Date Recorded Sex Assigned at Not on file Legal Sex Female 5:31 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
--- OUTSIDE RECORDS SUMMARY | 2025-02-07 18:52 | XMS_ITS | Encounter Summary ---
Author Organization [facility] Address [address] [place] [address] Care Team Providers Care Orange Peel Operator Name Role Phone MustaphaGorge Joelle CALDWELL Primary Care Provider [phone] Encounter Details Date Type Department Care Team (Late st Contact Info) Description 07/12/2009 Ancillary Orders [facility] [employer] [address] [place] [address] Salinas Cutler MD [address] [address] Angina; CAD (Coronary Artery Disease) Social History Tobacco Use Types Packs/Day Years Used Date Smoking Tobacco: Never Alcohol Use Standard Drinks/Week Comments No 0 (1 standard drink = 0.6 oz pur e alcohol) Comments No Sex and Gender Information Value Date Recorded Sex Assigned at Not on file Legal Sex Female 5:31 AM 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 Severe restenosis, recurrent-recurrent. 2. Successful catheter-based intervention and drug-eluting stent with adjunctive cutting balloon to the obtuse marginal #1 of the circumflex. 3. Attempted intervention of the obtuse marginal #2, failed secondary to non-passage of the balloon. 4. Low normal left ventricular systolic function. 5. Diabetes. PLAN: 1. Effient will be resumed at 10 milligrams daily. 2. Aspirin 325 milligrams daily. 3. Unfortunately, the patient is again presenting with recurrent-recurrent restenosis of the stent and, unfortunately, the obtuse marginal #2 cannot be fixed secondary to inability of the balloon to be passed down the artery. Fortunately, the obtuse marginal #2 is a small caliber vessel, and this will be treated medically. I suspect that the real problem will arise when the patient has restenosis of the obtuse marginal #1 vessel. I have informed the patient that there is no limit to the number of stents that we can put in a location per se; however, we are approaching the unwritten limit as she has multiple stents in this vessel for restenosis. I am hopeful that the drug-eluting balloons will be available in the near future so that if and when the patient has recurrent restenosis (very high likelihood) we could balloon rather than restent. klb/ / D [id number] V [id number] [facility] OFF[facility]IC - 07/17/2009 10:19 PM CDT DATE OF PROCEDURE: 07/17/2009 TYPE OF PROCEDURE(S): 1. Left heart catheterization. 2. Selective coronary angiography. 3. Left ventricular angiography. 4. Catheter-based intervention and drug-eluting stent with adjunctive cutting balloon to obtuse marginal branch #1 of the circumflex. 5. Attempted intervention of obtuse marginal #2 (failed secondary to non-passage of the balloon). INDICATION: Angina. FINDINGS: 1. The left main artery has no significant stenosis. 2. The left anterior descending has proximal up to 30% stenosis. 3. The circumflex artery has an obtuse marginal #1 with proximal 30% restenosis and 80% mid stenosis. Obtuse marginal #2 has ostial 80% restenosis with mid to distal small vessel disease. 4. The right coronary artery is a codominant vessel with minor stenosis. 5. Left ventricular angiography shows an ejection fraction of 50% with equivocal wall motion abnormality. HEMODYNAMICS: Left ventricular pressure is 140/0, left ventricular end-diastolic pressure is 28, aortic pressure is 140/70. PROCEDURE NOTE: After the patient was brought into the cardiac catheterization lab, she was prepped and draped in the usual sterile manner. The right groin was anesthetized with 1% Xylocaine. A 5 Angolan arterial sheath was inserted via modified Seldinger technique. A JL4 was used to engage the left main demonstrating the severe restenosis. Then a JR4 was used to engage the right coronary artery demonstrating a codominant right with minor plaquing. A pigtail was used to cross the aortic valve. Left ventricular angiography was done demonstrating a low normal left ventricular systolic function. Pullback into the ascending aorta did not reveal a significant gradient. Next, the 5 Angolan sheath was upgraded to a 6 Angolan. Then an XB 3 guide was used to engage the left main. Angiomax was initiated per cardiac protocol. Then a BMW wire was used to cross into the obtuse marginal #1 and the restenosis was pre-dilated with a cutting balloon 2.5 x 10 at up to 6 atmospheres and then stented with a PROMUS 2.5 x 12 at 14 atmospheres. The stent was post-dilated with a Quantum Rutland 2.5 x 8 at up to 20 atmospheres with an excellent angiographic result. I redirected the BMW wire into the obtuse marginal #2 and attempted to advance the cutting balloon 2.0 x 15; however, unable to cross beyond the origin of the obtuse marginal #1. Then I tried a Voyager 2.0 x 20, still unable, and then a shorter cutting balloon 2.0 x 6 but still unable, sticking at the same location. Then ultimately a Voyager 2.0 x 8, still unable. So, in fear of the possibility of crossing a preexisting strut in the obtuse marginal #1 at the ostium, I rewired the system with a BMW while directing the tip of the wire away from the ostium of the obtuse marginal #1 and again tried a different balloon but still unable. Then I used an [employer] light joel wire and again tried but still the Voyager would not cross. I suspect there is a stent strut sticking out into the circumflex preventing further passage of the balloon. No further attempts were made. This small vessel disease will be treated medically. COMPLICATIONS: None immediate. Procedure Note Salinas Cutler MD - 07/17/2009 DATE OF PROCEDURE: 07/17/2009 TYPE OF PROCEDURE(S): 1. Left heart catheterization. 2. Selective coronary angiography. 3. Left ventricular angiography. 4. Catheter-based intervention and drug-eluting stent with adjunctivecutting balloon to obtuse marginal branch #1 of the circumflex. 5. Attempted intervention of obtuse marginal #2 (failed secondary tonon-passage of the balloon). INDICATION: Angina. FINDINGS: 1. The left main artery has no significant stenosis. 2. The left anterior descending has proximal up to 30% stenosis. 3. The circumflex artery has an obtuse marginal #1 with proximal 30%restenosis and 80% mid stenosis. Obtuse marginal #2 has ostial 80%restenosis with mid to distal small vessel disease. 4. The right coronary artery is a codominant vessel with minorstenosis. 5. Left ventricular angiography shows an ejection fraction of 50% withequivocal wall motion abnormality. HEMODYNAMICS: Left ventricular pressure is 140/0, left ventricularend-diastolic pressure is 28, aortic pressure is 140/70. PROCEDURE NOTE: After the patient was brought into the cardiaccatheterization lab, she was prepped and draped in the usual sterilemanner. The right groin was anesthetized with 1% Xylocaine. A 5 Frencharterial sheath was inserted via modified Seldinger technique. A JL4 wasused to engage the left main demonstrating the severe restenosis. Then aJR4 was used to engage the right coronary artery demonstrating acodominant right with minor plaquing. A pigtail was used to cross theaortic valve. Left ventricular angiography was done demonstrating a lownormal left ventricular systolic function. Pullback into the ascendingaorta did not reveal a significant gradient. Next, the 5 Angolan sheath wasupgraded to a 6 Angolan. Then an XB 3 guide was used to engage the leftmain. Angiomax was initiated per cardiac protocol. Then a BMW wire wasused to cross into the obtuse marginal #1 and the restenosis waspre- dilated with a cutting balloon 2.5 x 10 at up to 6 atmospheres andthen stented with a PROMUS 2.5 x 12 at 14 atmospheres. The stent waspost-dilated with a Quantum Rutland 2.5 x 8 at up to 20 atmospheres withan excellent angiographic result. I redirected the BMW wire into theobtuse marginal #2 and attempted to advance the cutting balloon 2.0 x 15;however, unable to cross beyond the origin of the obtuse marginal #1. ThenI tried a Voyager 2.0 x 20, still unable, and then a shorter cuttingballoon 2.0 x 6 but still unable, sticking at the same location. Thenultimately a Voyager 2.0 x 8, still unable. So, in fear of the possibilityof crossing a preexisting strut in the obtuse marginal #1 at the ostium, Irewired the system with a BMW while directing the tip of the wire awayfrom the ostium of the obtuse marginal #1 and again tried a differentballoon but still unable. Then I used an [employer] light joel wire and againtried but still the Voyager would not cross. I suspect there is a stentstrut sticking out into the circumflex preventing further passage of theballoon. No further attempts were made. This small vessel disease will betreated medically. COMPLICATIONS: None immediate. IMPRESSION 1. Severe restenosis, recurrent-recurrent. 2. Successful catheter-based intervention and drug-eluting stent withadjunctive cutting balloon to the obtuse marginal #1 of the circumflex. 3. Attempted intervention of the obtuse marginal #2, failed secondary tonon- passage of the balloon. 4. Low normal left ventricular systolic function. 5. Diabetes. PLAN: 1. Effient will be resumed at 10 milligrams daily. 2. Aspirin 325 milligrams daily. 3. Unfortunately, the patient is again presenting withrecurrent-recurrent restenosis of the stent and, unfortunately, the obtusemarginal #2 cannot be fixed secondary to inability of the balloon to bepassed down the artery. Fortunately, the obtuse marginal #2 is a smallcaliber vessel, and this will be treated medically. I suspect that thereal problem will arise when the patient has restenosis of the obtusemarginal #1 vessel. I have informed the patient that there is no limit tothe number of stents that we can put in a location per se; however, we areapproaching the unwritten limit as she has multiple stents in this vesselfor restenosis. I am hopeful that the drug-eluting balloons will beavailable in the near future so that if and when the patient has recurrentrestenosis (very high likelihood) we could balloon rather than restent. pat/ / D [id number] V [id number] us Salinas Cutler MD FLUOROSCOPY ORDERABLES Final Res ult [facility] documented in this encounter Visit Diagnoses Diagnosis Angina Other and unspecified angina pectoris CAD (coronary artery disease) Coronary atherosclerosis of unspecified type of vessel, [place] or graft Type I (juvenile type) diabetes mellitus without mention of complication, not stated as uncontrolled ASHD (arteriosclerotic heart disease) Coronary atherosclerosis of unspecified type of vessel, [place] or graft Angina Other and unspecified angina pectoris documented in this encounter Care Teams Orange Peel Operator Relationship Specialty Start Date End Date Gorge Luciano DO [address] [address] PCP - General Internal Medicine 07/17/09 documented as of this encounter
--- OUTSIDE RECORDS SUMMARY | 2025-02-07 18:52 | XMS_ITS | Encounter Summary ---
Author Organization [facility] Address [address] [facility] Attn: [place] [id number] Care Team Providers Care Fence Laborer Name Role Phone Gorge Luciano DO Primary Care Provider [phone] Encounter Details Date Type Department Care Team (Late st Contact Info) Description 12/29/2001 Outpatient Historical Sky Torres MD [address] [place] [address] Social History Tobacco Use Types Packs/Day Years Used Date Smoking Tobacco: Never Assessed Comments Unknown Sex and Gender Information Value Date Recorded Sex Assigned at Not on file Legal Sex Female 5:31 AM DAY 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
--- OUTSIDE RECORDS SUMMARY | 2025-02-07 18:52 | XMS_ITS | Encounter Summary ---
Author Organization [facility] [place] Address [address] [place] [address] Care Team Providers Care Burlap Spreader Name Role Phone Gorge Luciano DO Primary Care Provider [phone] Encounter Details Date Type Department Care Team (Latest Contact Info) Description 06/19/2003 Outpatient Historical [facility] [place] [address] [place] [address] Ling Snow MD [address] [id number] CHEST PAIN NOS (Primary Dx) Social History Tobacco Use Types Packs/Day Years Used Date Smoking Tobacco: Never Assessed Comments Unknown Sex and Gender Information Value Date Recorded Sex Assigned at Not on file Legal Sex Female 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
--- OUTSIDE RECORDS SUMMARY | 2025-02-07 18:52 | XMS_ITS | Encounter Summary ---
Author Organization [facility] Address [address] [place] [address] Care Team Providers Care Tacking Stitch Remover Name Role Phone Gorge Luciano DO Primary Care Provider Encounter Details Date Type Department Care Team (Latest Contact Info) Description 02/21/2002 Outpatient Historical [facility] [address] [place] [address] Sawyer Tang, OD [address] [place] [address] ABSCESS OF EYELID (Primary Dx) Social History Tobacco Use Types Packs/Day Years Used Date Smoking Tobacco: Never Assessed Comments Unknown Sex and Gender Information Value Date Recorded Sex Assigned at Not on file Legal Sex Female 5:31 AM SILK SPOOLER Gender Identity Not on file Sexual Orientation Not on file documented as of this encounter Plan of Treatment Not on file documented as of this encounter Visit Diagnoses Diagnosis Abscess of eyelid- Primary documented in this encounter Care Teams Tacking Stitch Remover Relationship Specialty Start Date End Date Gorge Luciano DO [address] [place] [address] PCP - General Internal Medicine 07/17/09 documented as of this encounter
--- OUTSIDE RECORDS SUMMARY | 2025-02-07 18:52 | XMS_ITS | Encounter Summary ---
Author Organization [facility] Address [address] [facility] Attn: Epic Prelude ADT [place] [address] Care Team Providers Care Intelligence Clerk Name Role Phone Gorge Luciano DO Primary Care Provider [phone] Encounter Details Date Type Department Care Team (Late st Contact Info) Description 06/13/2001 Outpatient Historical Zachery Barroso MD NO ADDRESS ON FILE Social History Tobacco Use Types Packs/Day Years Used Date Smoking Tobacco: Never Assessed Comments Unknown Sex and Gender Information Value Date Recorded Sex Assigned at Not on file Legal Sex Female 5:31 AM NIGHT CLERK Gender Identity Not on file Sexual Orientation Not on file documented as of this encounter Plan of Treatment Not on file documented as of this encounter Visit Diagnoses Not on filedocumented in this encounter Care Teams Intelligence Clerk Relationship Specialty Start Date End Date Gorge Luciano DO [address] [place] [address] PCP - General Internal Medicine 07/17/09 documented as of this encounter
--- OUTSIDE RECORDS SUMMARY | 2025-02-07 18:52 | XMS_ITS | Encounter Summary ---
Author Organization [facility] Address [address] [address] 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
--- OUTSIDE RECORDS SUMMARY | 2025-02-07 18:52 | XMS_ITS | Encounter Summary ---
Author Organization [facility] Address [address] [place] [address] Care Team Providers Care Spike Machine Feeder Name Role Phone Gorge Luciano DO Primary Care Provider [phone] Encounter Details Date Type Department Care Team (Latest Contact Info) Description 02/13/2002 Outpatient Historical [facility] Dermatology- [facility] [address] [place] [address] Enrrique Coates MD NO ADDRESS ON FILE Benign nestor skin trunk (Primary Dx) Social History Tobacco Use Types Packs/Day Years Used Date Smoking Tobacco: Never Assessed Comments Unknown Sex and Gender Information Value Date Recorded Sex Assigned at Not on file Legal Sex Female 5:31 AM MATH TUTOR Gender Identity Not on file Sexual Orientation Not on file documented as of this encounter Plan of Treatment Not on file documented as of this encounter Visit Diagnoses Diagnosis Benign nestor skin trunk- Primary Benign neoplasm of skin of trunk, except scrotum documented in this encounter Care Teams Spike Machine Feeder Relationship Specialty Start Date End Date Gorge Luciano DO [address] [place] [address] PCP - General Internal Medicine 07/17/09 documented as of this encounter
--- OUTSIDE RECORDS SUMMARY | 2025-02-07 18:52 | XMS_ITS | Encounter Summary ---
Author Organization [facility] Address [address] [place] [address] Care Team Providers Care Critical Care Nurse Specialist Name Role Phone Gorge Luciano DO Primary Care Provider [phone] Encounter Details Date Type Department Care Team (Latest Contact Info) Description 02/13/2002 Outpatient Historical [facility] Sky Torres MD [address] [place] [address] UPPER LIMB ANOMALY NOS (Primary Dx) Social History Tobacco Use Types Packs/Day Years Used Date Smoking Tobacco: Never Assessed Comments Unknown Sex and Gender Information Value Date Recorded Sex Assigned at Not on file 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
--- OUTSIDE RECORDS SUMMARY | 2025-02-07 18:52 | XMS_ITS | Encounter Summary ---
Author Organization [facility] Address [address] [place] [address] Care Team Providers Care Helper Shear Operator Name Role Phone Gorge Luciano DO Primary Care Provider [phone] Encounter Details Date Type Department Care Team (Latest Contact Info) Description 04/20/2003 Outpatient Historical [facility] Optometry 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
--- OUTSIDE RECORDS SUMMARY | 2025-02-07 18:52 | XMS_ITS | Encounter Summary ---
Author Organization [facility] Address [address] [place] [address] Care Team Providers Care Ip Technology Transactions Attorney Name Role Phone Gorge Luciano DO Primary Care Provider Encounter Details Date Type Department Care Team (Late st Contact Info) Description 04/22/2007 Outpatient Historical [facility] Gorge Luciano DO [address] [place] [address] Social History Tobacco Use Types Packs/Day Years Used Date Smoking Tobacco: Never Assessed Comments No Sex and Gender Information Value Date Recorded Sex Assigned at Not on file Legal Sex Female 5:31 AM THERMITE BOMB LOADER Gender Identity Not on file Sexual Orientation Not on file documented as of this encounter Plan of Treatment Not on file documented as of this encounter Visit Diagnoses Not on filedocumented in this encounter Care Teams Ip Technology Transactions Attorney Relationship Specialty Start Date End Date Gorge Luciano DO [address] [place] [address] PCP - General Internal Medicine 07/17/09 documented as of this encounter
--- OUTSIDE RECORDS SUMMARY | 2025-02-07 18:52 | XMS_ITS | Encounter Summary ---
Author Organization [facility] Address [address] [place] [address] Care Team Providers Care Mortician Helper Name Role Phone Gorge Luciano DO Primary Care Provider Encounter Details Date Type Department Care Team (Latest Contact Info) Description 07/30/2000 Outpatient Historical [facility] Sawyer Tang, OD [address] [place] [address] Type II or unspecified type diabetes mellitus without mention of complication, not stated as uncontrolled (Primary Dx) Social History Tobacco Use Types Packs/Day Years Used Date Smoking Tobacco: Never Assessed Comments Unknown Sex and Gender Information Value Date Recorded Sex Assigned at Not on file Legal Sex Female 5:31 AM BATCHER OPERATOR Gender Identity Not on file Sexual Orientation Not on file documented as of this encounter Plan of Treatment Not on file documented as of this encounter Visit Diagnoses Diagnosis Type II or unspecified type diabetes mellitus without mention of complication, not stated as uncontrolled- Primary documented in this encounter Care Teams Mortician Helper Relationship Specialty Start Date End Date Gorge Luciano DO [address] [place] [address] PCP - General Internal Medicine 07/17/09 documented as of this encounter
--- OUTSIDE RECORDS SUMMARY | 2025-02-07 18:52 | XMS_ITS | Encounter Summary ---
Author Organization [facility] Address [address] [place] [address] Care Team Providers Care High Density Press Operator Name Role Phone Gorge Luciano DO Primary Care Provider [phone] Encounter Details Date Type Department Care Team (Late st Contact Info) Description 04/28/2007 Outpatient Historical [facility] Other, Sgf NO ADDRESS ON FILE Social History Tobacco Use Types Packs/Day Years Used Date Smoking Tobacco: Never Assessed Comments No Sex and Gender Information Value Date Recorded Sex Assigned at Not on file Legal Sex Female 5:31 AM BRICK POINTER Gender Identity Not on file Sexual Orientation Not on file documented as of this encounter Plan of Treatment Not on file documented as of this encounter Visit Diagnoses Not on filedocumented in this encounter Care Teams High Density Press Operator Relationship Specialty Start Date End Date Gorge Luciano DO [address] [place] [address] PCP - General Internal Medicine 07/17/09 documented as of this encounter
--- OUTSIDE RECORDS SUMMARY | 2025-02-07 18:52 | XMS_ITS | Encounter Summary ---
Author Organization [facility] Address [address] [facility] Attn: Epic Prelude ADT [place] [address] Care Team Providers Care Restaurant Associate Name Role Phone Gorge Luciano DO Primary Care Provider Encounter Details Date Type Department Care Team (Late st Contact Info) Description 02/18/2001 Outpatient Historical Zachery Barroso MD NO ADDRESS ON FILE Social History Tobacco Use Types Packs/Day Years Used Date Smoking Tobacco: Never Assessed Comments Unknown Sex and Gender Information Value Date Recorded Sex Assigned at Not on file Legal Sex Female 5:31 AM PET HANDLER Gender Identity Not on file Sexual Orientation Not on file documented as of this encounter Plan of Treatment Not on file documented as of this encounter Visit Diagnoses Not on filedocumented in this encounter Care Teams Restaurant Associate Relationship Specialty Start Date End Date Gorge Luciano DO [address] [place] [address] PCP - General Internal Medicine 07/17/09 documented as of this encounter
--- OUTSIDE RECORDS SUMMARY | 2025-02-07 18:52 | XMS_ITS | Encounter Summary ---
Author Organization [facility] Address [address] [place] [address] Care Team Providers Care Licensed Massage Practitioner Name Role Phone Gorge Luciano DO Primary Care Provider [phone] Encounter Details Date Type Department Care Team (Late st Contact Info) Description 12/08/2007 Outpatient Historical [facility] Other, Sgf NO ADDRESS ON FILE Social History Tobacco Use Types Packs/Day Years Used Date Smoking Tobacco: Never Alcohol Use Standard Drinks/Week Comments No 0 (1 standard drink = 0.6 oz pur e alcohol) Comments No Sex and Gender Information Value Date Recorded Sex Assigned at Not on file Legal Sex Female 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
--- OUTSIDE RECORDS SUMMARY | 2025-02-07 18:52 | XMS_ITS | Encounter Summary ---
Author Organization [facility] Address [address] [place] [address] Care Team Providers Care Director Prospect Name Role Phone Gorge Luciano DO Primary Care Provider [phone] Encounter Details Date Type Department Care Team (Latest Contact Info) Description 06/07/1998 Outpatient Historical [facility] Type II or unspecified type diabetes mellitus without mention of complication, not stated as uncontrolled (Primary Dx) Social History Tobacco Use Types Packs/Day Years Used Date Smoking Tobacco: Never Assessed Comments Unknown Sex and Gender Information Value Date Recorded Sex Assigned at Not on file Legal Sex Female 5:31 AM PARALEGAL LEGAL SECRETARY Gender Identity Not on file Sexual Orientation Not on file documented as of this encounter Plan of Treatment Not on file documented as of this encounter Visit Diagnoses Diagnosis Type II or unspecified type diabetes mellitus without mention of complication, not stated as uncontrolled- Primary documented in this encounter Care Teams Director Prospect Relationship Specialty Start Date End Date Gorge Luciano DO [address] [place] [address] PCP - General Internal Medicine 07/17/09 documented as of this encounter
--- OUTSIDE RECORDS SUMMARY | 2025-02-07 18:52 | XMS_ITS | Encounter Summary ---
Author Organization [facility] Address [address] [place] [address] Care Team Providers Care Family Practice Md Name Role Phone Gorge Luciano DO Primary Care Provider [phone] Encounter Details Date Type Department Care Team (Latest Contact Info) Description 06/25/2003 Outpatient Historical [facility] Cardiology- [place] [address] [place] [address] Too Brandon MD NO ADDRESS ON FILE PRECORDIAL PAIN (Primary Dx); RESPIRATORY ABNORM NEC Social History Tobacco Use Types Packs/Day Years Used Date Smoking Tobacco: Never Assessed Comments Unknown Sex and Gender Information Value Date Recorded Sex Assigned at Not on file Legal Sex Female 5:31 AM LIP READING TEACHER Gender Identity Not on file Sexual Orientation Not on file documented as of this encounter Plan of Treatment Not on file documented as of this encounter Visit Diagnoses Diagnosis Precordial pain- Primary Other dyspnea and respiratory abnormality documented in this encounter Care Teams Family Practice Md Relationship Specialty Start Date End Date Gorge Luciano DO [address] [place] [address] PCP - General Internal Medicine 07/17/09 documented as of this encounter
--- OUTSIDE RECORDS SUMMARY | 2025-02-07 18:52 | XMS_ITS | Encounter Summary ---
Author Organization [facility] Address [address] [facility] Attn: [place] [address] Care Team Providers Care Ranch Hand Name Role Phone Gorge Luciano DO Primary Care Provider [phone] Encounter Details Date Type Department Care Team (Late st Contact Info) Description 12/16/2001 Outpatient Historical Sky Torres MD [address] [place] [address] Social History Tobacco Use Types Packs/Day Years Used Date Smoking Tobacco: Never Assessed Comments Unknown Sex and Gender Information Value Date Recorded Sex Assigned at Not on file Legal Sex Female 5: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
--- OUTSIDE RECORDS SUMMARY | 2025-02-07 18:52 | XMS_ITS | Encounter Summary ---
Author Organization [facility] Address [address] [place] [address] Care Team Providers Care Geophysics Teacher Name Role Phone Gorge Luciano DO Primary Care Provider [phone] Encounter Details Date Type Department Care Team (Late st Contact Info) Description 08/13/2007 Outpatient Historical [facility] Gorge Luciano DO [address] [address] Social History Tobacco Use Types Packs/Day Years Used Date Smoking Tobacco: Never Alcohol Use Standard Drinks/Week Comments No 0 (1 standard drink = 0.6 oz pur e alcohol) Comments No Sex and Gender Information Value Date Recorded Sex Assigned at Not on file Legal Sex Female 5:31 AM GAS OPERATIONS SUPERINTENDENT Gender Identity Not on file Sexual Orientation Not on file documented as of this encounter Plan of Treatment Not on file documented as of this encounter Visit Diagnoses Not on filedocumented in this encounter Care Teams Geophysics Teacher Relationship Specialty Start Date End Date Gorge Luciano DO [address] [place] [address] PCP - General Internal Medicine 07/17/09 documented as of this encounter
--- OUTSIDE RECORDS SUMMARY | 2025-02-07 18:52 | XMS_ITS | Encounter Summary ---
Author Organization [facility] Address [address] [place] [address] Care Team Providers Care Tire Technician Name Role Phone Gorge Luciano DO Primary Care Provider Encounter Details Date Type Department Care Team (Latest Contact Info) Description 04/02/2003 Outpatient Historical [facility] Dermatology- [facility] [address] [place] [address] Enrrique Coates MD NO ADDRESS ON FILE Benign nestor skin trunk (Primary Dx) Social History Tobacco Use Types Packs/Day Years Used Date Smoking Tobacco: Never Assessed Comments Unknown Sex and Gender Information Value Date Recorded Sex Assigned at Not on file Legal Sex Female 5:31 AM BATTERY PLATE REMOVER Gender Identity Not on file Sexual Orientation Not on file documented as of this encounter Plan of Treatment Not on file documented as of this encounter Visit Diagnoses Diagnosis Benign nestor skin trunk- Primary Benign neoplasm of skin of trunk, except scrotum documented in this encounter Care Teams Tire Technician Relationship Specialty Start Date End Date Gorge Luciano DO [address] [place] [address] PCP - General Internal Medicine 07/17/09 documented as of this encounter
--- OUTSIDE RECORDS SUMMARY | 2025-02-07 18:52 | XMS_ITS | Encounter Summary ---
Author Organization [facility] Address [address] [place] [address] Care Team Providers Care Package Sealer Machine Name Role Phone Gorge Luciano DO Primary Care Provider [phone] Encounter Details Date Type Department Care Team (Late st Contact Info) Description 04/25/2007 Outpatient [facility] [address] [place] [address] Gorge Luciano DO [address] [place] [phone] Social History Tobacco Use Types Packs/Day Years Used Date Smoking Tobacco: Never Assessed Comments No Sex and Gender Information Value Date Recorded Sex Assigned at Not on file Legal Sex Female 5:31 AM CUSTOM GARMENT DESIGNER Gender Identity Not on file Sexual Orientation Not on file documented as of this encounter Plan of Treatment Not on file documented as of this encounter Visit Diagnoses Not on filedocumented in this encounter Care Teams Package Sealer Machine Relationship Specialty Start Date End Date Gorge Luciano DO [address] [place] [phone] PCP - General Internal Medicine 07/17/09 documented as of this encounter
--- OUTSIDE RECORDS SUMMARY | 2025-02-07 18:52 | XMS_ITS | Encounter Summary ---
Author Organization [facility] Address [address] [place] [address] Care Team Providers Care Line Worker Name Role Phone Gorge Luciano DO Primary Care Provider [phone] Encounter Details Date Type Department Care Team (Latest Contact Info) Description 07/25/1999 Outpatient Historical [facility] Tear film insufficiency, unspecified (Primary Dx); Type II or unspecified type diabetes mellitus without mention of complication, uncontrolled Social History Tobacco Use Types Packs/Day Years Used Date Smoking Tobacco: Never Assessed Comments Unknown Sex and Gender Information Value Date Recorded Sex Assigned at Not on file Legal Sex Female 5:31 AM EGG CRATER Gender Identity Not on file Sexual Orientation Not on file documented as of this encounter Plan of Treatment Not on file documented as of this encounter Visit Diagnoses Diagnosis Tear film insufficiency, unspecified- Primary Type II or unspecified type diabetes mellitus without mention of complication, uncontrolled documented in this encounter Care Teams Line Worker Relationship Specialty Start Date End Date Gorge Luciano DO [address] [place] [address] PCP - General Internal Medicine 07/17/09 documented as of this encounter
--- OUTSIDE RECORDS SUMMARY | 2025-02-07 18:52 | XMS_ITS | Encounter Summary ---
Author Organization [facility] Address [address] [place] [address] Care Team Providers Care Gamma Facilities Operator Name Role Phone Gorge Luciano DO Primary Care Provider [phone] Encounter Details Date Type Department Care Team (Late st Contact Info) Description 04/21/2007 Outpatient Historical [facility] Other, Sgf NO ADDRESS ON FILE Social History Tobacco Use Types Packs/Day Years Used Date Smoking Tobacco: Never Assessed Comments No Sex and Gender Information Value Date Recorded Sex Assigned at Not on file Legal Sex Female 5:31 AM AVIATION MEDICINE SPECIALIST Gender Identity Not on file Sexual Orientation Not on file documented as of this encounter Plan of Treatment Not on file documented as of this encounter Visit Diagnoses Not on filedocumented in this encounter Care Teams Gamma Facilities Operator Relationship Specialty Start Date End Date Gorge Luciano DO [address] [place] [address] PCP - General Internal Medicine 07/17/09 documented as of this encounter
--- OUTSIDE RECORDS SUMMARY | 2025-02-07 18:52 | XMS_ITS | Encounter Summary ---
Author Organization [facility] Address [address] [place] [address] Care Team Providers Care Video Tape Editor Name Role Phone MustaphaGorge Joelle CALDWELL Primary Care Provider [phone] Encounter Details Date Type Department Care Team (Late st Contact Info) Description 01/13/2008 Outpatient Historical [facility] Salinas Cutler MD [address] [address] Other Chest Pain Social History Tobacco Use Types Packs/Day Years Used Date Smoking Tobacco: Never Alcohol Use Standard Drinks/Week Comments No 0 (1 standard drink = 0.6 oz pur e alcohol) Comments No Sex and Gender Information Value Date Recorded Sex Assigned at Not on file Legal Sex Female 5:31 AM TOOTH CUTTER Gender Identity Not on file Sexual Orientation Not on file documented as of this encounter Plan of Treatment Not on file documented as of this encounter Procedures Procedure Name Priority Date/Time Associated Diagnosis Comments POC GLUCOSE Routine 01/17/2008 6:23 AM TOOTH CUTTER POC GLUCOSE Routine 01/16/2008 8:59 PM TOOTH CUTTER POC GLUCOSE Routine 01/16/2008 5:00 PM TOOTH CUTTER POC GLUCOSE Routine 01/16/2008 4:14 PM TOOTH CUTTER CBC WITHOUT DIFFERENTIAL Stat 01/16/2008 12:08 PM TOOTH CUTTER BASIC METABOLIC PANEL Stat 01/16/2008 12:08 PM TOOTH CUTTER documented in this encounter Results * (ABNORMAL) POC GLUCOSE (01/17/2008 6:23 AM TOOTH CUTTER) GLUCOSE POC 268(H) 60 - 100 mg/dL [facility] Venous blood specimen (specimen) 01/17/2008 6:23 AM TOOTH CUTTER 01/18/2008 3:45 AM TOOTH CUTTER us Salinas Cutler MD POINT OF CARE TESTING Final Resu lt Performing Organization Address [facility] de Phone Number INTERFACE SYSTEM Refer to clinic/hospital department [facility] CLIA# [id number] [address] [place] [address] * (ABNORMAL) POC GLUCOSE (01/16/2008 8:59 PM TOOTH CUTTER) GLUCOSE POC 177(H) 60 - 100 mg/dL [facility] Venous blood specimen (specimen) 01/16/2008 8:59 PM TOOTH CUTTER 01/17/2008 3:33 AM TOOTH CUTTER us Salinas Cutler MD POINT OF CARE TESTING Final Resu lt Performing Organization Address [facility] Phone Number INTERFACE SYSTEM Refer to clinic/hospital department [facility] CLIA# [id number] [address] [place] [address] * POC GLUCOSE (01/16/2008 5:00 PM TOOTH CUTTER) GLUCOSE POC 74 60 - 100 mg/dL [facility] Venous blood specimen (specimen) 01/16/2008 5:00 PM TOOTH CUTTER 01/17/2008 3:33 AM TOOTH CUTTER us aSlinas Cutler MD POINT OF CARE TESTING Final Resu lt Performing Organization Address [facility] de Phone Number INTERFACE SYSTEM Refer to clinic/hospital department [facility] CLIA# [id number] [address] [place] [address] * (ABNORMAL) POC GLUCOSE (01/16/2008 4:14 PM TOOTH CUTTER) [facility] GLUCOSE POC 53(L) 60 - 100 mg/dL [facility] Venous blood specimen (specimen) 01/16/2008 4:14 PM TOOTH CUTTER 01/17/2008 3:33 AM TOOTH CUTTER Salinas Cutler MD POINT OF CARE TESTING Final Resu lt Performing Organization Address [facility] Phone Number INTERFACE SYSTEM Refer to clinic/hospital department [facility] CLIA# [id number] [address] [place] [address] * CBC WITHOUT DIFFERENTIAL (01/16/2008 12:08 PM TOOTH CUTTER) [facility] HEMATOCRIT 38.3 36.0 - 46.0 % [facility] RBC 5.37 4.20 - 5.40 Mil/ul [facility] PLATELETS 293 140 - 440 K/ul [facility] HEMOGLOBIN 12.0 12.0 - 16.0 g/dL [facility] WBC 6.3 4.5 - 11.0 K/ul [facility] Blood specimen (specimen) 01/16/2008 12:08 PM TOOTH CUTTER 01/16/2008 12:17 PM TOOTH CUTTER us Salinas Cutler MD HEMATOLOGY ORDERABLES Final Resu lt Performing Organization Address [facility] Phone Number INTERFACE SYSTEM Refer to clinic/hospital department [facility] CLIA# [id number] [address] [place] [address] * (ABNORMAL) BASIC METABOLIC PANEL (01/16/2008 12:08 PM TOOTH CUTTER) [facility] SODIUM 140 136 - 145 mEq/L [facility] ANION GAP 10 9 - 20 mEq/L [facility] BUN 13 7 - 17 mg/dL [facility] CO2 29 22 - 32 mmol/l [facility] OSMOLALITY, CALCULATED 291 275 - 295 mOsm/Kg [facility] POTASSIUM 4.5 3.5 - 5.0 mEq/L [facility] Comment: Specimen slightly hemolyzed CREATININE 0.6(L) 0.7 - 1.2 mg/dL [facility] CALCIUM 9.6 8.4 - 10.5 mg/dL [facility] GLUCOSE 134(H) 70 - 110 mg/dL [facility] CHLORIDE 106 95 - 110 mEq/L [facility] Blood specimen (specimen) 01/16/2008 12:08 PM TOOTH CUTTER 01/16/2008 12:17 PM TOOTH CUTTER us Salinas Cutler MD CHEMISTRY ORDERABLES Final Resul t INTERFACE SYSTEM Refer to clinic/hospital department [facility] CLIA# [id number] [address] [place] [address] documented in this encounter Visit Diagnoses Diagnosis Other chest pain documented in this encounter Care Teams Video Tape Editor Relationship Specialty Start Date End Date Gorge Luciano DO [address] [place] [address] PCP - General Internal Medicine 07/17/09 documented as of this encounter
--- OUTSIDE RECORDS SUMMARY | 2025-02-07 18:52 | XMS_ITS | Encounter Summary ---
Author Organization [facility] Address [address] [place] [address] Care Team Providers Care Country Manager Name Role Phone Gorge Luciano DO Primary Care Provider [phone] Encounter Details Date Type Department Care Team (Late st Contact Info) Description 11/30/2007 Outpatient Historical [facility] Gorge Luciano DO [address] [address] Social History Tobacco Use Types Packs/Day Years Used Date Smoking Tobacco: Never Alcohol Use Standard Drinks/Week Comments No 0 (1 standard drink = 0.6 oz pur e alcohol) Comments No Sex and Gender Information Value Date Recorded Sex Assigned at Not on file Legal Sex Female 5:31 AM OIL FILTERS INSPECTOR Gender Identity Not on file Sexual Orientation Not on file documented as of this encounter Plan of Treatment Not on file documented as of this encounter Visit Diagnoses Not on filedocumented in this encounter Care Teams Country Manager Relationship Specialty Start Date End Date Gorge Luciano DO [address] [place] [address] PCP - General Internal Medicine 07/17/09 documented as of this encounter
--- OUTSIDE RECORDS SUMMARY | 2025-02-07 18:52 | XMS_ITS | Encounter Summary ---
Author Organization [facility] Address [address] [place] [address] Care Team Providers Care Sap Abap Programmer Name Role Phone Gorge Luciano DO Primary Care Provider Encounter Details Date Type Department Care Team (Late st Contact Info) Description 06/21/2007 Outpatient Historical [facility] Gorge Luciano DO [address] [place] [address] Social History Tobacco Use Types Packs/Day Years Used Date Smoking Tobacco: Never Assessed Comments No Sex and Gender Information Value Date Recorded Sex Assigned at Not on file Legal Sex Female 5:31 AM LIQUOR RECTIFIER Gender Identity Not on file Sexual Orientation Not on file documented as of this encounter Plan of Treatment Not on file documented as of this encounter Visit Diagnoses Not on filedocumented in this encounter Care Teams Sap Abap Programmer Relationship Specialty Start Date End Date Gorge Luciano DO [address] [place] [address] PCP - General Internal Medicine 07/17/09 documented as of this encounter
--- OUTSIDE RECORDS SUMMARY | 2025-02-07 18:52 | XMS_ITS | Encounter Summary ---
Author Organization [facility] Address [address] [facility] Attn: Epic Prelude ADT [place] [address] Care Team Providers Care Anodize Machine Operator Name Role Phone Gorge Luciano DO Primary Care Provider [phone] Encounter Details Date Type Department Care Team (Late st Contact Info) Description 03/11/2001 Outpatient Historical Zachery Barroso MD NO ADDRESS ON FILE Social History Tobacco Use Types Packs/Day Years Used Date Smoking Tobacco: Never Assessed Comments Unknown Sex and Gender Information Value Date Recorded Sex Assigned at Not on file Legal Sex Female 5:31 AM DELI SLICER Gender Identity Not on file Sexual Orientation Not on file documented as of this encounter Plan of Treatment Not on file documented as of this encounter Visit Diagnoses Not on filedocumented in this encounter Care Teams Anodize Machine Operator Relationship Specialty Start Date End Date Gorge Luciano DO [address] [place] [address] PCP - General Internal Medicine 07/17/09 documented as of this encounter
--- OUTSIDE RECORDS SUMMARY | 2025-02-07 18:52 | XMS_ITS | Encounter Summary ---
Author Organization [facility] Address [address] [place] [address] Care Team Providers Care Flag Maker Name Role Phone Gorge Luciano DO Primary Care Provider [phone] Encounter Details Date Type Department Care Team (Latest Contact Info) Description 01/09/2002 Outpatient Historical [facility] Sky Torres MD [address] [place] [address] Trigger finger (Primary Dx) Social History Tobacco Use Types Packs/Day Years Used Date Smoking Tobacco: Never Assessed Comments Unknown Sex and Gender Information Value Date Recorded Sex Assigned at Not on file Legal Sex Female 5:31 AM WEB WORKER Gender Identity Not on file Sexual Orientation Not on file documented as of this encounter Plan of Treatment Not on file documented as of this encounter Visit Diagnoses Diagnosis Trigger finger- Primary Trigger finger (acquired) documented in this encounter Care Teams Flag Maker Relationship Specialty Start Date End Date Gorge Luciano DO [address] [place] [address] PCP - General Internal Medicine 07/17/09 documented as of this encounter
--- OUTSIDE RECORDS SUMMARY | 2025-02-07 18:52 | XMS_ITS | Encounter Summary ---
Author Organization [facility] Address [address] [place] [address] Care Team Providers Care Utility Specialist Name Role Phone Gorge Luciano DO Primary Care Provider [phone] Encounter Details Date Type Department Care Team (Late st Contact Info) Description 02/16/2008 Outpatient Historical [facility] Gorge Luciano DO [address] [address] Social History Tobacco Use Types Packs/Day Years Used Date Smoking Tobacco: Never Alcohol Use Standard Drinks/Week Comments No 0 (1 standard drink = 0.6 oz pur e alcohol) Comments No Sex and Gender Information Value Date Recorded Sex Assigned at Not on file Legal Sex Female 5:31 AM METAL HANGING SUPERVISOR Gender Identity Not on file Sexual Orientation Not on file documented as of this encounter Plan of Treatment Not on file documented as of this encounter Visit Diagnoses Not on filedocumented in this encounter Care Teams Utility Specialist Relationship Specialty Start Date End Date Gorge Luciano DO [address] [place] [address] PCP - General Internal Medicine 07/17/09 documented as of this encounter
--- OUTSIDE RECORDS SUMMARY | 2025-02-07 18:52 | XMS_ITS | Encounter Summary ---
Author Organization [facility] Address [address] Attn: Epic Prelude ADT TIFFANY LEY [address] Care Team Providers Care Violent Crimes Detective Name Role Phone Gorge Luciano DO Primary Care Provider Encounter Details Date Type Department Care Team (Late st Contact Info) Description 07/20/2001 Outpatient Historical Zachery Barroso MD NO ADDRESS ON FILE Social History Tobacco Use Types Packs/Day Years Used Date Smoking Tobacco: Never Assessed Comments Unknown Sex and Gender Information Value Date Recorded Sex Assigned at Not on file Legal Sex Female 5:31 AM FINANCIAL INVESTMENT ADVISER Gender Identity Not on file Sexual Orientation Not on file documented as of this encounter Plan of Treatment Not on file documented as of this encounter Visit Diagnoses Not on filedocumented in this encounter Care Teams Violent Crimes Detective Relationship Specialty Start Date End Date Gorge Luciano DO [address] [place] [address] PCP - General Internal Medicine 07/17/09 documented as of this encounter
--- OUTSIDE RECORDS SUMMARY | 2025-02-07 18:52 | XMS_ITS | Encounter Summary ---
Author Organization [facility] Address [address] [place] [address] Care Team Providers Care Boom Man Name Role Phone Gorge Luciano DO Primary Care Provider [phone] Encounter Details Date Type Department Care Team (Late st Contact Info) Description 10/05/2007 Outpatient Historical [facility] Other, Sgf NO ADDRESS ON FILE Social History Tobacco Use Types Packs/Day Years Used Date Smoking Tobacco: Never Alcohol Use Standard Drinks/Week Comments No 0 (1 standard drink = 0.6 oz pur e alcohol) Comments No Sex and Gender Information Value Date Recorded Sex Assigned at Not on file Legal Sex Female 5:31 AM LEVERS LACE MACHINE OPERATOR Gender Identity Not on file Sexual Orientation Not on file documented as of this encounter Plan of Treatment Not on file documented as of this encounter Visit Diagnoses Not on filedocumented in this encounter Care Teams Boom Man Relationship Specialty Start Date End Date Gorge Luciano DO [address] [place] [address] PCP - General Internal Medicine 07/17/09 documented as of this encounter
--- OUTSIDE RECORDS SUMMARY | 2025-02-07 18:52 | XMS_ITS | Encounter Summary ---
Author Organization [facility] Address [address] [place] [address] Care Team Providers Care Infant Room Teacher Name Role Phone Gorge Luciano DO Primary Care Provider [phone] Encounter Details Date Type Department Care Team (Late st Contact Info) Description 02/03/2008 Outpatient Historical [facility] [address] [place] [address] Salinas Cutler MD [address] [address] Social History Tobacco Use Types Packs/Day Years Used Date Smoking Tobacco: Never Alcohol Use Standard Drinks/Week Comments No 0 (1 standard drink = 0.6 oz pur e alcohol) Comments No Sex and Gender Information Value Date Recorded Sex Assigned at Not on file Legal Sex Female 5:31 AM SENIOR PROCESS CONTROL TECH Gender Identity Not on file Sexual Orientation Not on file documented as of this encounter Plan of Treatment Not on file documented as of this encounter Visit Diagnoses Not on filedocumented in this encounter Care Teams Infant Room Teacher Relationship Specialty Start Date End Date Gorge Luciano DO [address] [place] [address] PCP - General Internal Medicine 07/17/09 documented as of this encounter
--- OUTSIDE RECORDS SUMMARY | 2025-02-07 18:52 | XMS_ITS | Encounter Summary ---
Author Organization [facility] Address [address] [place] [address] Care Team Providers Care Adjunct English Instructor Name Role Phone Gorge Luciano DO Primary Care Provider [phone] Encounter Details Date Type Department Care Team (Late st Contact Info) Description 03/01/2008 Outpatient Historical [facility] Other, Sgf NO ADDRESS ON FILE Social History Tobacco Use Types Packs/Day Years Used Date Smoking Tobacco: Never Alcohol Use Standard Drinks/Week Comments No 0 (1 standard drink = 0.6 oz pur e alcohol) Comments No Sex and Gender Information Value Date Recorded Sex Assigned at Not on file Legal Sex Female 5:31 AM COUNTER STITCHER Gender Identity Not on file Sexual Orientation Not on file documented as of this encounter Plan of Treatment Not on file documented as of this encounter Visit Diagnoses Not on filedocumented in this encounter Care Teams Adjunct English Instructor Relationship Specialty Start Date End Date Gorge Luciano DO [address] [place] [address] PCP - General Internal Medicine 07/17/09 documented as of this encounter
--- OUTSIDE RECORDS SUMMARY | 2025-02-07 18:52 | XMS_ITS | Encounter Summary ---
Author Organization [facility] Address [address] [place] [address] Care Team Providers Care Lining Folder Name Role Phone Gorge Luciano DO Primary Care Provider [phone] Encounter Details Date Type Department Care Team (Latest Contact Info) Description 12/28/2002 Outpatient Historical [facility] [address] [place] [address] Sky Torres MD [address] [place] [address] SHOULDER REGION DIS NEC (Primary Dx) Social History Tobacco Use Types Packs/Day Years Used Date Smoking Tobacco: Never Assessed Comments Unknown Sex and Gender Information Value Date Recorded Sex Assigned at Not on file Legal Sex Female 5:31 AM SOLAR SYSTEM INSTALLER Gender Identity Not on file Sexual Orientation Not on file documented as of this encounter Plan of Treatment Not on file documented as of this encounter Visit Diagnoses Diagnosis Other affections of shoulder region, not elsewhere classified- Primary documented in this encounter Care Teams Lining Folder Relationship Specialty Start Date End Date Gorge Luciano DO [address] [place] [address] PCP - General Internal Medicine 07/17/09 documented as of this encounter
--- OUTSIDE RECORDS SUMMARY | 2025-02-07 18:52 | XMS_ITS | Encounter Summary ---
Author Organization [facility] Address [address] [place] [address] Care Team Providers Care Net Mvc Developer Name Role Phone Gorge Luciano DO Primary Care Provider [phone] Encounter Details Date Type Department Care Team (Latest Contact Info) Description 03/22/2003 Outpatient Historical [facility] [address] [place] [address] Ling Snow MD [address] [id number] ARAUZ'S PALSY (Primary Dx); DIAB KETOACIDOSIS ADULT (CMS/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
--- OUTSIDE RECORDS SUMMARY | 2025-02-07 18:52 | XMS_ITS | Encounter Summary ---
Author Organization [facility] Address [address] [place] [address] Care Team Providers Care Medical Legal Investigator Name Role Phone Gorge Luciano DO Primary Care Provider [phone] Encounter Details Date Type Department Care Team (Latest Contact Info) Description 12/07/2001 Outpatient Historical [facility] Sky Torres MD [address] [place] [address] SHOULDER REGION DIS NEC (Primary Dx); Trigger finger Social History Tobacco Use Types Packs/Day Years Used Date Smoking Tobacco: Never Assessed Comments Unknown Sex and Gender Information Value Date Recorded Sex Assigned at Not on file Legal Sex Female 5:31 AM ICT MANAGERS Gender Identity Not on file Sexual Orientation Not on file documented as of this encounter Plan of Treatment Not on file documented as of this encounter Visit Diagnoses Diagnosis Other affections of shoulder region, not elsewhere classified- Primary Trigger finger Trigger finger (acquired) documented in this encounter Care Teams Medical Legal Investigator Relationship Specialty Start Date End Date Gorge Luciano DO [address] [place] [address] PCP - General Internal Medicine 07/17/09 documented as of this encounter
--- OUTSIDE RECORDS SUMMARY | 2025-02-07 18:52 | XMS_ITS | Encounter Summary ---
Author Organization [facility] Address [address] [place] [address] Care Team Providers Care Music Internship Name Role Phone Gorge Luciano DO Primary Care Provider [phone] Encounter Details Date Type Department Care Team (Late st Contact Info) Description 04/28/2007 Outpatient Historical [facility] [address] [facility] [address] [place] [address] Social History Tobacco Use Types Packs/Day Years Used Date Smoking Tobacco: Never Assessed Comments No Sex and Gender Information Value Date Recorded Sex Assigned at Not on file Legal Sex Female 5:31 AM FIBER DESIGNER Gender Identity Not on file Sexual Orientation Not on file documented as of this encounter Plan of Treatment Not on file documented as of this encounter Visit Diagnoses Not on filedocumented in this encounter Care Teams Music Internship Relationship Specialty Start Date End Date Gorge Luciano DO [address] [place] [address] PCP - General Internal Medicine 07/17/09 documented as of this encounter
--- OUTSIDE RECORDS SUMMARY | 2025-02-07 18:52 | XMS_ITS | Encounter Summary ---
Author Organization [facility] Address [address] [place] [address] Care Team Providers Care Automotive Teacher Name Role Phone Gorge Luciano DO Primary Care Provider [phone] Encounter Details Date Type Department Care Team (Latest Contact Info) Description 12/10/2000 Outpatient Historical [facility] [place] [address] [place] [address] Shahid Cassidy MD NO ADDRESS ON FILE Gynecologic examination (Primary Dx); Excessive menstruation Social History Tobacco Use Types Packs/Day Years Used Date Smoking Tobacco: Never Assessed Comments Unknown Sex and Gender Information Value Date Recorded Sex Assigned at Not on file Legal Sex Female 5:31 AM SQL SSRS SSIS DEVELOPER Gender Identity Not on file Sexual Orientation Not on file documented as of this encounter Plan of Treatment Not on file documented as of this encounter Visit Diagnoses Diagnosis Gynecologic examination- Primary Gynecological examination Excessive menstruation Excessive or frequent menstruation documented in this encounter Care Teams Automotive Teacher Relationship Specialty Start Date End Date Gorge Luciano DO [address] [place] [address] PCP - General Internal Medicine 07/17/09 documented as of this encounter
--- OUTSIDE RECORDS SUMMARY | 2025-02-07 18:52 | XMS_ITS | Encounter Summary ---
Author Organization [facility] Address [address] [place] [address] Care Team Providers Care Manager Support Services Name Role Phone Gorge Luciano DO Primary Care Provider [phone] Encounter Details Date Type Department Care Team (Latest Contact Info) Description 04/06/2003 Outpatient Historical [facility] 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
--- OUTSIDE RECORDS SUMMARY | 2025-02-07 18:52 | XMS_ITS | Encounter Summary ---
Author Organization [facility] Address [address] [place] [address] Care Team Providers Care Screw Machine Repairer Name Role Phone Gorge Luciano DO Primary Care Provider [phone] Encounter Details Date Type Department Care Team (Latest Contact Info) Description 06/13/2001 Outpatient Historical [facility] ANDROID SOFTWARE ENGINEER [address] [place] [address] Zachery Barroso MD NO ADDRESS ON FILE Gynecologic examination (Primary Dx); SURGERY FOLLOWUP, UNSPEC Social History Tobacco Use Types Packs/Day Years Used Date Smoking Tobacco: Never Assessed Comments Unknown Sex and Gender Information Value Date Recorded Sex Assigned at Not on file Legal Sex Female 5:31 AM CHUTE FEEDER Gender Identity Not on file Sexual Orientation Not on file documented as of this encounter Plan of Treatment Not on file documented as of this encounter Visit Diagnoses Diagnosis Gynecologic examination- Primary Gynecological examination Follow-up examination, following unspecified surgery documented in this encounter Care Teams Screw Machine Repairer Relationship Specialty Start Date End Date Gorge Luciano DO [address] [place] [address] PCP - General Internal Medicine 07/17/09 documented as of this encounter
--- OUTSIDE RECORDS SUMMARY | 2025-02-07 18:52 | XMS_ITS | Encounter Summary ---
Author Organization [facility] Address [address] [place] [address] Care Team Providers Care Service Worker Name Role Phone Gorge Luciano DO Primary Care Provider [phone] Encounter Details Date Type Department Care Team (Latest Contact Info) Description 01/17/2001 Outpatient Historical [facility] PLASTIC TILE LAYER [address] [place] [address] Zachery Barroso MD NO ADDRESS ON FILE Excessive menstruation (Primary Dx) Social History Tobacco Use Types Packs/Day Years Used Date Smoking Tobacco: Never Assessed Comments Unknown Sex and Gender Information Value Date Recorded Sex Assigned at Not on file 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
--- OUTSIDE RECORDS SUMMARY | 2025-02-07 18:53 | XMS_ITS | Encounter Summary ---
Author Organization [facility] Address [address] [place] [address] Care Team Providers Care Clerk Cashier Name Role Phone Gorge Luciano DO Primary Care Provider [phone] Reason for Referral * Outpatient Services (Routine) - Closed Specialty Diagnoses / Procedures Referred By Cami t Referred To Contact Radiology Diagnoses Other screening mammogram Procedures MAMMO DIGITAL SCREEN BILAT Gorge Luciano DO [address] [address] Phone: tel: fax: [facility] Derik Clark [place] [address] [place] [address] Phone: tel: fax: Referral ID Status Reason Start Date Expiration Date Visits Re quested Visits Authorized [id number] Closed 12/18/2011 12/17/2012 1 1 Encounter Details Date Type Department Care Team (Latest Contact Info) Description 12/18/2011 Ancillary Orders [facility] Pre-Registration [place] CALL TO MAKE APPOINTMENT ONLY [address] [place] [address] Gorge Luciano DO [address] [address] Other screening mammogram Social History Tobacco Use Types Packs/Day Years Used Date Smoking Tobacco: Never Smokeless Tobacco: Never Alcohol Use Standard Drinks/Week Comments No 0 (1 standard drink = 0.6 oz pur e alcohol) Comments No Sex and Gender Information Value Date Recorded Sex Assigned at Not on file 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 Findings: Bilateral CC and MLO views were obtained. This examination was reviewed with the aid of a computer-aided detection system(CAD). The breast tissue is dense. No significant new findings since the prior mammogram(s). Procedure Note Michael Urrutia MD - 01/19/2012 Bilateral Mammogram Reason for Exam: Screening Comparison: Comparison is made with prior exam(s). Findings: Bilateral CC and MLO views were obtained. This examination was reviewed with the aid of a computer-aided detectionsystem(CAD). The breast tissue is dense. No significant new findings since the prior mammogram(s). Gorge Luciano DO MAMMO ORDERABLES Final Result documented in this encounter Visit Diagnoses Diagnosis Other screening mammogram Other screening mammogram documented in this encounter Care Teams Clerk Cashier Relationship Specialty Start Date End Date Gorge Luciano DO [address] [place] [address] PCP - General Internal Medicine 07/17/09 documented as of this encounter
--- OUTSIDE RECORDS SUMMARY | 2025-02-07 18:53 | XMS_ITS | Encounter Summary ---
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 Gender Identity Not on file Sexual Orientation Not on file documented as of this encounter Plan of Treatment Not on file documented as of this encounter Procedures Procedure Name Priority Date/Time Associated Diagnosis Comments POC GLUCOSE Routine 04/13/2007 6:00 AM BRAKE LINING CURER POC GLUCOSE Routine 04/12/2007 8:56 PM BRAKE LINING CURER POC GLUCOSE Routine 04/12/2007 4:54 PM BRAKE LINING CURER POC ACTIVATED CLOTTING TIME Routine 04/12/2007 2:13 PM BRAKE LINING CURER POC ACTIVATED CLOTTING TIME Routine 04/12/2007 1:42 PM BRAKE LINING CURER POC GLUCOSE Routine 04/12/2007 12:08 PM BRAKE LINING CURER BASIC METABOLIC PANEL Routine 04/12/2007 8:48 AM BRAKE LINING CURER documented in this encounter Results * (ABNORMAL) POC GLUCOSE (04/13/2007 6:00 AM BRAKE LINING CURER) GLUCOSE POC 286(H) 60 - 100 mg/dL INTERFACE SYSTEM 04/13/2007 6:00 AM BRAKE LINING CURER Result Abdulaziz Brandon MD POINT OF CARE TESTING Edite d Performing Organization Address [facility] Phone Number INTERFACE SYSTEM Refer to clinic/hospital department * (ABNORMAL) POC GLUCOSE (04/12/2007 8:56 PM BRAKE LINING CURER) GLUCOSE POC 255(H) 60 - 100 mg/dL INTERFACE SYSTEM 04/12/2007 8:56 PM BRAKE LINING CURER Result Abdulaziz Brandon MD POINT OF CARE TESTING Edite d Performing Organization Address [facility] Phone Number INTERFACE SYSTEM Refer to clinic/hospital department * (ABNORMAL) POC GLUCOSE (04/12/2007 4:54 PM BRAKE LINING CURER) GLUCOSE POC 168(H) 60 - 100 mg/dL INTERFACE SYSTEM 04/12/2007 4:54 PM BRAKE LINING CURER Result Abdulaziz Brandon MD POINT OF CARE TESTING Edite d Performing Organization Address [facility] Phone Number INTERFACE SYSTEM Refer to clinic/hospital department * POC ACTIVATED CLOTTING TIME (04/12/2007 2:13 PM BRAKE LINING CURER) ACT POC 134 79 - 149 sec INTERFACE SYSTEM 04/12/2007 2:13 PM BRAKE LINING CURER Result Abdulaziz Brandon MD POINT OF CARE TESTING Edite d Performing Organization Address [facility] Phone Number INTERFACE SYSTEM Refer to clinic/hospital department * (ABNORMAL) POC ACTIVATED CLOTTING TIME (04/12/2007 1:42 PM BRAKE LINING CURER) ACT POC 151(H) 79 - 149 sec INTERFACE SYSTEM 04/12/2007 1:42 PM BRAKE LINING CURER us Too Brandon MD POINT OF CARE TESTING Edite d Performing Organization Address [facility] Phone Number INTERFACE SYSTEM Refer to clinic/hospital department * POC GLUCOSE (04/12/2007 12:08 PM BRAKE LINING CURER) GLUCOSE POC 73 60 - 100 mg/dL INTERFACE SYSTEM 04/12/2007 12:0 8 PM BRAKE LINING CURER us Too Brandon MD POINT OF CARE TESTING Edite d Performing Organization Address [facility] Phone Number INTERFACE SYSTEM Refer to clinic/hospital department * (ABNORMAL) BASIC METABOLIC PANEL (04/12/2007 8:48 AM BRAKE LINING CURER) GLUCOSE 123(H) 70 - 110 mg/dL INTERFACE SYSTEM BUN 13 7 - 17 mg/dL INTERFACE SYSTEM CREATININE 0.8 0.7 - 1.2 mg/dL INTERFACE SYSTEM SODIUM 138 136 - 145 mEq/L INTERFACE SYSTEM POTASSIUM 4.4 3.5 - 5.0 mEq/L INTERFACE SYSTEM CHLORIDE 105 95 - 110 mEq/L INTERFACE SYSTEM CO2 19(L) 22 - 32 mmol/l INTERFACE SYSTEM CALCIUM 9.1 8.4 - 10.5 mg/dL INTERFACE SYSTEM ANION GAP 18 9 - 20 mEq/L INTERFACE SYSTEM OSMOLALITY, CALCULATED 286 275 - 295 mOsm/Kg INTERFACE SYSTEM 04/12/2007 8:48 AM BRAKE LINING CURER us Too Brandon MD CHEMISTRY ORDERABLES Edited Performing Organization Address [facility] Phone Number INTERFACE SYSTEM Refer to clinic/hospital department documented in this encounter Visit Diagnoses Diagnosis Preoperative examination, unspecified documented in this encounter Care Teams Driver Service Technician Relationship Specialty Start Date End Date Gorge Luciano DO [address] [phone] PCP - General Internal Medicine 07/17/09 documented as of this encounter
--- OUTSIDE RECORDS SUMMARY | 2025-02-07 18:53 | XMS_ITS | Encounter Summary ---
Author Organization [facility] Address [address] [place] [address] Care Team Providers Care Histopathologist Name Role Phone Gorge Lucinao DO Primary Care Provider [phone] Reason for Referral * Outpatient Services (Routine) - Closed Specialty Diagnoses / Procedures Referred By Contac t Referred To Contact Radiology Diagnoses Chronic diastolic congestive heart failure (CMS/HCC) ASHD (arteriosclerotic heart disease) Procedures ECHOCARDIOGRAM W/ CONTRAST AGENT ECHO COMPLETE Salinas Cutler MD Phone: tel: fax: [facility] Echo [place] [address] [place] [address] Phone: tel: fax: Referral ID Status Reason Start Date Expiration Date V isits Requested Visits Authorized [id number] Closed [facility] TO SCHEDULE (SGF) 11/03/2016 12/21/2016 1 1 Encounter Details Date Type Department Care Team (Late st Contact Info) Description 12/01/2016 Ancillary Orders [facility] Cardiology- [place] [address] [place] [address] Salinas Cutler MD [address] [facility] [address] [place] [address] Chronic diastolic congestive heart failure (CMS/HCC); ASHD (arteriosclerotic heart disease) Social History Tobacco Use Types Packs/Day Years Used Date Smoking Tobacco: Never Smokeless Tobacco: Never Alcohol Use Standard Drinks/Week Comments No 0 (1 standard drink = 0.6 oz pur e alcohol) Comments No Sex and Gender Information Value Date Recorded Sex Assigned at Not on file 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 Gender Identity Not on file Sexual Orientation [...] encounter Results * ECHOCARDIOGRAM W/ CONTRAST AGENT (12/01/2016 3:27 PM CDT) EJECTION FRACTION 59 INTERFACE SYSTEM 12/01/2016 2:37 PM CDT Narrative INTERFACE SYSTEM - 12/01/2016 4:56 PM CDT [facility]-[address] [address] Transthoracic Echocardiography Patient: Светлана Study ECHO COMPLETE Beryl Garrison ID: Gender: F : 1965 Age: 51 Room: Study 12/01/2016 Pt Outpatient Date: Status: Study 02:37 PM CSN #: [id number] Time: Ordering:Salinas Cutler Interpreting:Leonel Briones MD [place] [employer] Group Leader: Amber Browning [facility] Indications and History: Congestive Heart Failure. ASHD. Labs, prior tests, procedures, and surgery: Transthoracic echocardiography (April 07, 2016). EF was 58%. Coronary artery bypass grafting (2009). Summary and Conclusion: - Left ventricle: The cavity size was normal. Wall thickness was normal. Systolic function was normal. The left ventricular ejection fraction was 59%. Regional wall motion difficult to determine but improved with echo contrast. Interventricular septum shows dyssynergy, consistent with previous thoracotomy, conduction delay or RV pacing. Mild diastolic dysfunction (grade I, impaired relaxation pattern), suggestive of normal LV filling pressures. - Right ventricle: The cavity size was normal. Systolic function was difficult to assess and probably normal. Systolic pressure was at the upper limits of normal. - Pericardium: A minimal pericardial effusion and/or fat pad was identified. Comparison: Compared to the prior study, there has been no significant interval change. Procedure information: Comparison was made to the study of April 07, 2016. Study status: Routine. Procedure: Transthoracic echocardiography. Image quality was poor. The study was technically difficult due to poor acoustic window availability and body habitus. Scanning was performed from the parasternal and apical acoustic windows. Intravenous contrast (Definity) was administered to opacify the LV. There were no complications. There were no contrast reactions. Study components: M-mode, 2D, complete spectral Doppler, and color Doppler. Height: Height: 162.6cm. Height: 64in. Weight: Weight: 112kg. Weight: 246.5lb. Body mass index: BMI: 42.4kg/m\S\2. Body surface area: BSA: 2.31m\S\2. Blood pressure: 112/50. Patient status: Outpatient. Study date: Study date: December 01, 2016. Cardiac Anatomy: LEFT VENTRICLE: The cavity size was normal. Wall thickness was normal. Systolic function was normal. The left ventricular ejection fraction was 59%. Regional wall motion difficult to determine but improved with echo contrast. No diagnostic regional wall motion abnormality identified. Interventricular septum shows dyssynergy, consistent with previous thoracotomy, conduction delay or RV pacing. Mild diastolic dysfunction (grade I, impaired relaxation pattern), suggestive of normal LV filling pressures. RIGHT VENTRICLE: Not well visualized. The cavity size was normal. Systolic function was difficult to assess and probably normal. Systolic pressure was at the upper limits of normal. LEFT ATRIUM: The atrium was normal in size. RIGHT ATRIUM: The atrium was normal in size. ATRIAL SEPTUM: No obvious PFO or ASD identified by 2D imaging and color Doppler. AORTIC VALVE: Not well visualized. Doppler: There was no stenosis. No significant regurgitation. Peak gradient: 6mm Hg (S). MITRAL VALVE: Not well visualized. Mildly thickened , with involvement of chords. Mobility was not restricted. No echocardiographic evidence for prolapse. Doppler: There was no evidence for stenosis. No significant regurgitation. Valve area by pressure half-time: 4.06cm\S\2. Indexed valve area by pressure half-time: 1.76cm\S\2/m\S\2. Peak gradient: 5mm Hg (D). TRICUSPID VALVE: Not well visualized. Doppler: There was no evidence for stenosis. Trivial regurgitation. PULMONIC VALVE: Not well visualized. The valve appears to be grossly normal. Doppler: There was no evidence for stenosis. No significant regurgitation. PERICARDIUM: A minimal pericardial effusion and/or fat pad was identified. AORTA: The aorta was not well visualized. Aortic arch: The aortic arch was normal in size. SYSTEMIC VEINS: Inferior vena cava: The vessel was normal in size. INTRACARDIAC MASS THROMBUS: No apparent intracavitary masses or thrombi detected. 2D measurements Doppler measurements Left ventricle Aortic valve Vol ED, MOD1 80.6 ml Peak gabriella, S 126.66 cm/s Vol ES, MOD1 32.6 ml Peak 6 mm Hg Stroke vol, MOD1 48 ml gradient, S Vol index, ED, 35 ml/m\S\2 Mitral valve MOD1 Peak E gabriella 114.32 cm/s Vol index, ES, 14 ml/m\S\2 Peak A gabriella 128.22 cm/s MOD1 Deceleration 187 ms Stroke index, 20.8 ml/m\S\2 time MOD1 Pressure 54 ms Vol ED, MOD2 87.4 ml half-time Vol ES, MOD2 35.8 ml Peak 5 mm Hg EF, MOD2 59.04 % gradient, D Vol index, ED, 38 ml/m\S\2 Peak E/A 0.89 MOD2 ratio Vol index, ES, 16 ml/m\S\2 Area (PHT) 4.06 cm\S\2 MOD2 Area index 1.76 cm\S\2/m\S\2 (PHT) Tricuspid valve Regurg peak 287.34 cm/s gabriella Peak RV-RA 33 mm Hg gradient, S Max regurg 287.34 cm/s gabriella [facility] are accredited with the Intersocietal Accreditation Commission - Echocardiography. Prepared and Electronically Authenticated Leonel Briones MD Confirmed 12/01/2016 16:56 Procedure Note Leonel Briones MD - 12/01/2016 [facility]-[place] [address] [place] [address] Transthoracic Echocardiography Patient: Светлана Study ECHO COMPLETE Beryl Garrison ID: Gender: F : 1965 Age: 51 Room: Study 12/01/2016 Pt Outpatient Date: Status: Study 02:37 PM [facility] #: [id number] Time: Ordering:Salinas Cutler Interpreting:Leonel Briones MD [employer] Group Leader: Amber Browning [facility] Indications and History: Congestive Heart Failure. ASHD. Labs, prior tests, procedures, and surgery: Transthoracic echocardiography (April 07, 2016). EF was 58%. Coronary artery bypass grafting (2009). Summary and Conclusion: - Left ventricle: The cavity size was normal. Wall thickness was normal. Systolic function was normal. The left ventricular ejection fraction was 59%. Regional wall motion difficult to determine but improved with echo contrast. Interventricular septum shows dyssynergy, consistent with previous thoracotomy, conduction delay or RV pacing. Mild diastolic dysfunction (grade I, impaired relaxation pattern), suggestive of normal LV filling pressures. - Right ventricle: The cavity size was normal. Systolic function was difficult to assess and probably normal. Systolic pressure was at the upper limits of normal. - Pericardium: A minimal pericardial effusion and/or fat pad was identified. Comparison: Compared to the prior study, there has been no significant interval change. Procedure information: Comparison was made to the study of April 07, 2016. Study status: Routine. Procedure: Transthoracic echocardiography. Image quality was poor. The study was technically difficult due to poor acoustic window availability and body habitus. Scanning was performed from the parasternal and apical acoustic windows. Intravenous contrast (Definity) was administered to opacify the LV. There were no complications. There were no contrast reactions. Study components: M-mode, 2D, complete spectral Doppler, and color Doppler. Height: Height: 162.6cm. Height: 64in. Weight: Weight: 112kg. Weight: 246.5lb. Body mass index: BMI: 42.4kg/m\S\2. Body surface area: BSA: 2.31m\S\2. Blood pressure: 112/50. Patient status: Outpatient. Study date: Study date: December 01, 2016. Cardiac Anatomy: LEFT VENTRICLE: The cavity size was normal. Wall thickness was normal. Systolic function was normal. The left ventricular ejection fraction was 59%. Regional wall motion difficult to determine but improved with echo contrast. No diagnostic regional wall motion abnormality identified. Interventricular septum shows dyssynergy, consistent with previous thoracotomy, conduction delay or RV pacing. Mild diastolic dysfunction (grade I, impaired relaxation pattern), suggestive of normal LV filling pressures. RIGHT VENTRICLE: Not well visualized. The cavity size was normal. Systolic function was difficult to assess and probably normal. Systolic pressure was at the upper limits of normal. LEFT ATRIUM: The atrium was normal in size. RIGHT ATRIUM: The atrium was normal in size. ATRIAL SEPTUM: No obvious PFO or ASD identified by 2D imaging and color Doppler. AORTIC VALVE: Not well visualized. Doppler: There was no stenosis. No significant regurgitation. Peak gradient: 6mm Hg (S). MITRAL VALVE: Not well visualized. Mildly thickened , with involvement of chords. Mobility was not restricted. No echocardiographic evidence for prolapse. Doppler: There was no evidence for stenosis. No significant regurgitation. Valve area by pressure half-time: 4.06cm\S\2. Indexed valve area by pressure half-time: 1.76cm\S\2/m\S\2. Peak gradient: 5mm Hg (D). TRICUSPID VALVE: Not well visualized. Doppler: There was no evidence for stenosis. Trivial regurgitation. PULMONIC VALVE: Not well visualized. The valve appears to be grossly normal. Doppler: There was no evidence for stenosis. No significant regurgitation. PERICARDIUM: A minimal pericardial effusion and/or fat pad was identified. AORTA: The aorta was not well visualized. Aortic arch: The aortic arch was normal in size. SYSTEMIC VEINS: Inferior vena cava: The vessel was normal in size. INTRACARDIAC MASS THROMBUS: No apparent intracavitary masses or thrombi detected. 2D measurements Doppler measurements Left ventricle Aortic valve Vol ED, MOD1 80.6 ml Peak gabriella, S 126.66 cm/s Vol ES, MOD1 32.6 ml Peak 6 mm Hg Stroke vol, MOD1 48 ml gradient, S Vol index, ED, 35 ml/m\S\2 Mitral valve MOD1 Peak E gabriella 114.32 cm/s Vol index, ES, 14 ml/m\S\2 Peak A gabriella 128.22 cm/s MOD1 Deceleration 187 ms Stroke index, 20.8 ml/m\S\2 time MOD1 Pressure 54 ms Vol ED, MOD2 87.4 ml half-time Vol ES, MOD2 35.8 ml Peak 5 mm Hg EF, MOD2 59.04 % gradient, D Vol index, ED, 38 ml/m\S\2 Peak E/A 0.89 MOD2 ratio Vol index, ES, 16 ml/m\S\2 Area (PHT) 4.06 cm\S\2 MOD2 Area index 1.76 cm\S\2/m\S\2 (PHT) Tricuspid valve Regurg peak 287.34 cm/s gabriella Peak RV-RA 33 mm Hg gradient, S Max regurg 287.34 cm/s gabriella [facility] are accredited with the Intersocietal Accreditation Commission - Echocardiography. Prepared and Electronically Authenticated Leonel Briones MD Confirmed 12/01/2016 16:56 us Salinas Cutler MD ORDERABLES Final Result Performing Organization Address City/State/[facility] Co de Phone Number INTERFACE SYSTEM Refer to clinic/hospital department documented in this encounter Visit Diagnoses Diagnosis Chronic diastolic congestive heart failure (CMS/HCC) Chronic diastolic heart failure ASHD (arteriosclerotic heart disease) Coronary atherosclerosis of unspecified type of vessel, [place] or graft Chronic diastolic congestive heart failure (CMS/HCC) Chronic diastolic heart failure ASHD (arteriosclerotic heart disease) Coronary atherosclerosis of unspecified type of vessel, [place] or graft documented in this encounter Care Teams Histopathologist Relationship Specialty Start Date End Date Gorge Luciano DO [address] [phone] PCP - General Internal Medicine 07/17/09 documented as of this encounter
--- OUTSIDE RECORDS SUMMARY | 2025-02-07 18:53 | XMS_ITS | Encounter Summary ---
Author Organization [facility] Address [address] [place] [address] Care Team Providers Care Pouch Maker Name Role Phone Gorge Luciano DO Primary Care Provider [phone] Encounter Details Date Type Department Care Team (Late st Contact Info) Description 03/31/2007 Outpatient Historical [facility] [address] [place] [phone] Gorge Luciano DO [address] [place] [address] Social History Tobacco Use Types Packs/Day Years Used Date Smoking Tobacco: Never Assessed Comments No Sex and Gender Information Value Date Recorded Sex Assigned at Not on file 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
--- OUTSIDE RECORDS SUMMARY | 2025-02-07 18:53 | XMS_ITS | Encounter Summary ---
Author Organization [facility] Address [address] [place] [address] Care Team Providers Care Detonator Assembler Name Role Phone Gorge Luciano DO Primary Care Provider [phone] Reason for Visit * Reason Comments Patient Communication Encounter Details Date Type Department Care Team (Late st Contact Info) Description 08/31/2024 Telephone [facility] [place] [address] [place] [address] Gorge Luciano DO [address] [place] [address] Patient Communication Social History Tobacco [...] AM CDT Legal Sex Female 12:41 PM CUSHION SEWER Gender Identity Female 12/21/2023 9:49 AM CDT Sexual Orientation Not on file documented as of this encounter Miscellaneous Notes * Telephone Encounter - BalaAlli nguyen Taisha - 08/31/2024 3:01 PM CDT Copied from [facility] #[id number]. Topic: CPA Information Request >> Aug 31, 2024 3:00 PM Alli Russ wrote: Caller is returning phone call from clinic. Caller Name: Beryl Sotomayor Patient/Caregiver Callback Number: [phone] Clinic Left Note In Chart Is there a note from the clinic requesting the caller be transferred when they call back? No Are the credentials of the caregiver who called the patient letter of credit document examiner? No Call Notes: Communicated information that is documented in the note. Caller wants a call back from clinic. documented in this encounter Plan of Treatment Upcoming Encounters Date Type Department Care Team (Late st Contact Info) Description 02/14/2025 9:15 AM CUSHION SEWER Appointment [facility] [address] [place] [phone] PA [address] [place] [address] 02/15/2025 11:40 AM CUSHION SEWER Office Visit [facility] [address] [place] [address] Conrado Barraza PA-C [address] [place] [address] 02/28/2025 11:20 AM CUSHION SEWER Office Visit [facility] [address] [place] [phone] Gorge Luciano DO [address] [place] [address] 04/09/2025 12:35 PM CUSHION SEWER Appointment [facility] [address] [place] [phone] 04/12/2025 8:00 AM CUSHION SEWER Video Visit [facility] [address] [place] [address] Lorna Page MD [address] [place] [address] 04/16/2025 1:20 PM CUSHION SEWER Office Visit [facility] [place] [address] [place] [phone] Levy Page MD [address] [place] [address] 06/12/2025 12:40 PM CDT Office Visit [facility] Rheumatology- [place] Samira [address] [place] [address] Enrrique Scanlon MD [address] [place] [address] 09/03/2025 11:20 AM CDT Office Visit [facility] [address] [place] [address] Gorge Luciano DO [address] [place] [address] documented as of this encounter Visit Diagnoses Not on filedocumented in this encounter Care Teams Detonator Assembler Relationship Specialty Start Date End Date Gorge Luciano DO [address] [phone] PCP - General Internal Medicine 07/17/09 documented as of this encounter
--- OUTSIDE RECORDS SUMMARY | 2025-02-07 18:53 | XMS_ITS | Encounter Summary ---
Author Organization [facility] Address [address] [place] [address] Care Team Providers Care Administrative Job Titles Name Role Phone Gorge Luciano Joelle CALDWELL Primary Care Provider [phone] Encounter Details Date Type Department Care Team (Late st Contact Info) Description 12/19/2014 Ancillary Orders [facility] Orthopedics - Orthopedic [facility] [address] [place] [address] Oren Mckinnon MD [address] [place] [address] Shoulder pain, left (Primary Dx) Social History Tobacco Use Types Packs/Day Years Used Date Smoking Tobacco: Never Smokeless Tobacco: Never Alcohol Use Standard Drinks/Week Comments No 0 (1 standard drink = 0.6 oz pur e alcohol) Comments No Sex and Gender Information Value Date Recorded Sex Assigned at Not on file 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 us Oren Mckinnon MD DIAGNOSTIC IMAGING [facility] Final Result documented in this encounter Visit Diagnoses Diagnosis Shoulder pain, left- Primary Pain in joint, shoulder region documented in this encounter Care Teams Administrative Job Titles Relationship Specialty Start Date End Date Gorge Luciano DO [address] [address] PCP - General Internal Medicine 07/17/09 documented as of this encounter
--- OUTSIDE RECORDS SUMMARY | 2025-02-07 18:53 | XMS_ITS | Encounter Summary ---
Author Organization [facility] Address [address] [place] [address] Care Team Providers Care Cartridge Maker Name Role Phone MustaphaGorge Joelle CALDWELL Primary Care Provider [phone] Reason for Visit * Reason Onset Date Comments Medication Refill 01/28/2025 Encounter Details Date Type Department Care Team (Late st Contact Info) Description 01/28/2025 Refill [facility] Endocrinology [facility] [address] [facility] [address] [place] [address] Lorna Page MD [address] [facility] [address] [place] [address] Social History Tobacco Use Types [...] AM CDT Legal Sex Female 12:41 PM LABORER POULTRY HATCHERY Gender Identity Female 12/21/2023 9:49 AM CDT Sexual Orientation Not on file documented as of this encounter Plan of Treatment Upcoming Encounters Date Type Department Care Team (Late st Contact Info) Description 02/14/2025 9:15 AM LABORER POULTRY HATCHERY Appointment [facility] MRI [place] [address] [place] [phone] PA [address] [place] [address] 02/15/2025 11:40 AM LABORER POULTRY HATCHERY Office Visit [facility] [address] [place] [address] Conrado Barraza PA-C [address] [place] [address] 02/28/2025 11:20 AM LABORER POULTRY HATCHERY Office Visit [facility] Vianey Clark [place] [place] [address] Gorge Luciano DO [address] [place] [address] 04/09/2025 12:35 PM LABORER POULTRY HATCHERY [facility] [address] [place] [address] 04/12/2025 8:00 AM LABORER POULTRY HATCHERY Video Visit [facility] Endocrinology [facility] [address] [place] [address] Lorna Page MD [address] [place] [address] 04/16/2025 1:20 PM LABORER POULTRY HATCHERY Office Visit [facility] Cancer and Hematology [facility] [address] [facility] [address] [place] [address] Levy Page MD [address] [place] [address] [place] [address] 06/12/2025 12:40 PM CDT Office Visit [facility] Rheumatology- More Drew Samira [address] [place] [address] Enrrique Scanlon MD [address] [place] [address] 09/03/2025 11:20 AM CDT Office Visit [facility] Int Med-More Eduardo [address] [place] [address] Gorge Luciano DO [address] [place] [address] documented as of this encounter Visit Diagnoses Not on filedocumented in this encounter Care Teams Cartridge Maker Relationship Specialty Start Date End Date Gorge Luciano DO [address] [place] [address] PCP - General Internal Medicine 07/17/09 documented as of this encounter
--- OUTSIDE RECORDS SUMMARY | 2025-02-07 18:53 | XMS_ITS | Encounter Summary ---
Author Organization [facility] Address [address] [place] [address] Care Team Providers Care Plasma Processing Centrifuge Operator Name Role Phone Gorge Luciano DO Primary Care Provider [phone] Encounter Details Date Type Department Care Team (Late st Contact Info) Description 04/11/2007 Outpatient Historical [facility] [address] [place] [address] Omayra Cooper, NURSING SPECIALIST NO ADDRESS ON FILE Social History Tobacco Use Types Packs/Day Years Used Date Smoking Tobacco: Never Assessed Comments No Sex and Gender Information Value Date Recorded Sex Assigned at Not on file Legal Sex Female 5:31 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
--- OUTSIDE RECORDS SUMMARY | 2025-02-07 18:53 | XMS_ITS | Encounter Summary ---
Author Organization [facility] Address [address] [place] [address] Care Team Providers Care Dealership General Manager Name Role Phone Gorge Luciano DO Primary Care Provider [phone] Encounter Details Date Type Department Care Team (Late st Contact Info) Description 01/01/2025 Results Follow-Up [facility] Int Jesus-More Eduardo [address] [place] [address] Priyanka Fong PA [address] [place] [address] MAMMO 3D ALEYDA SCREEN BILAT W OR WO CAD Social History Tobacco Use Types Packs/Day Years [...] AM CDT Legal Sex Female 12:41 PM GLASS CUTTING MACHINE 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 Gender Identity Female 12/21/2023 9:49 AM CDT Sexual Orientation Not on file documented as of this encounter Plan of Treatment Upcoming Encounters Date Type Department Care Team (Late st Contact Info) Description 02/14/2025 9:15 AM GLASS CUTTING MACHINE OPERATOR Appointment [facility] MRI [place] [address] [place] [address] PA [address] [place] [address] 02/15/2025 11:40 AM GLASS CUTTING MACHINE OPERATOR Office Visit [facility] Orthopedics - Orthopedic [facility] [address] [place] [address] Conrado Barraza PA-C [address] [place] [address] 02/28/2025 11:20 AM GLASS CUTTING MACHINE OPERATOR Office Visit [facility] Int Jesus-More Eduardo [place] [place] [address] Gorge Luciano DO [address] [place] [address] 04/09/2025 12:35 PM GLASS CUTTING MACHINE OPERATOR Appointment [facility] Laboratory [facility] [address] [place] [address] 04/12/2025 8:00 AM GLASS CUTTING MACHINE OPERATOR Video Visit [facility] Endocrinology [facility] [address] [place] [address] Lorna Page MD [address] [place] [address] 04/16/2025 1:20 PM GLASS CUTTING MACHINE OPERATOR Office Visit [facility] Cancer and Hematology [place] [address] [facility] [place] [address] [place] [address] Levy Page MD [address] [place] [address] [place] [address] 06/12/2025 12:40 PM CDT Office Visit [facility] Rheumatology- More [place] [address] [place] [address] Enrrique Scanlon MD [address] [place] [address] 09/03/2025 11:20 AM CDT Office Visit [facility] Int Med-More Eduardo [place] [place] [address] Gorge Luciano DO [address] [place] [address] documented as of this encounter Visit Diagnoses Not on filedocumented in this encounter Care Teams Dealership General Manager Relationship Specialty Start Date End Date Gorge Luciano DO [address] [place] [address] PCP - General Internal Medicine 07/17/09 documented as of this encounter
--- OUTSIDE RECORDS SUMMARY | 2025-02-07 18:53 | XMS_ITS | Encounter Summary ---
Author Organization [facility] Address [address] [place] [address] Care Team Providers Care Flash Welder Name Role Phone Gorge Luciano DO Primary Care Provider [phone] Reason for Referral * Outpatient Services (5-7 Days) - Closed Specialty Diagnoses / Procedures Referred By Cami t Referred To Contact Radiology Diagnoses Visit for screening mammogram Procedures MAMMO SCREEN BILAT W OR WO CAD Gorge Luciano DO [address] [address] Phone: tel: fax: [facility] [address] [facility] [address] [place] [address] Phone: tel: fax: Referral ID Status Reason Start Date Expiration Date Visits Requested Visits Authorized [id number] Closed Interventional Scheduling (SGF) 06/01/2016 07/02/2017 1 1 Encounter Details Date Type Department Care Team (Latest Contact Info) Description 06/01/2016 Ancillary Orders [facility] Pre-Registration [place] CALL TO MAKE APPOINTMENT ONLY [address] [place] [address] Gorge Luciano DO [address] [address] Visit for screening mammogram Social History Tobacco Use Types Packs/Day Years Used Date Smoking Tobacco: Never Smokeless Tobacco: Never Alcohol Use Standard Drinks/Week Comments No 0 (1 standard drink = 0.6 oz pur e alcohol) Comments No Sex and Gender Information Value Date Recorded Sex Assigned at Not on file Legal Sex Female 5:31 AM OFFAL ROLLER Gender Identity Not on file Sexual Orientation [...] as of this encounter Results * MAMMO SCREEN BILAT W OR WO CAD (06/26/2016 11:35 AM CDT) Anatomical Region Laterality Modality Breast Bilateral Mammography Narrative 06/28/2016 12:53 PM CDT Bilateral Mammogram Reason for Exam: Screening Comparison: Compared to: 06/26/2015 MAMMO DIGITAL SCREEN BILAT, 02/20/2014 MAMMO DIGITAL SCREEN BILAT, 01/20/2013 MAMMO DIGITAL SCREEN BILAT, and 01/15/2012 MAMMO DIGITAL SCREEN BILAT Findings: Bilateral CC and MLO views were obtained. This examination was reviewed with the aid of a computer-aided detection system(CAD). The breast tissue density is average. No significant new findings since the prior mammogram(s). Gorge Luciano DO MAMMO ORDERABLES Final Result documented in this encounter Visit Diagnoses Diagnosis Visit for screening mammogram Other screening mammogram Visit for screening mammogram Other screening mammogram documented in this encounter Additional Health Concerns Assessment Noted Time PHQ-9 Depression Total Score: 1 06/26/19 16 12:00 PM CDT documented as of this encounter Care Teams Flash Welder Relationship Specialty Start Date End Date Gorge Luciano DO [address] [place] [address] PCP - General Internal Medicine 07/17/09 documented as of this encounter
--- OUTSIDE RECORDS SUMMARY | 2025-02-07 18:53 | XMS_ITS | Encounter Summary ---
Author Organization [facility] Address [address] [place] [address] Care Team Providers Care Client Server Programmer Name Role Phone Gorge Luciano Primary Care Provider [phone] Encounter Details Date Type Department Care Team (Late st Contact Info) Description 07/17/[address] 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 us Oren Mckinnon MD DIAGNOSTIC IMAGING [facility] Final Result documented in this encounter Visit Diagnoses Diagnosis Arthritis of knee, right Unspecified arthropathy, lower leg documented in this encounter Care Teams Client Server Programmer Relationship Specialty Start Date End Date Gorge Luciano DO [address] [address] PCP - General Internal Medicine 07/17/09 documented as of this encounter
--- OUTSIDE RECORDS SUMMARY | 2025-02-07 18:53 | XMS_ITS | Encounter Summary ---
Author Organization [facility] Address [address] [place] [address] Care Team Providers Care Racing Mechanic Name Role Phone Gorge Luciano DO Primary Care Provider [phone] Reason for Referral * Outpatient Services (Routine) - Closed Specialty Diagnoses / Procedures Referred By Cami t Referred To Contact Radiology Diagnoses Other screening mammogram Procedures MAMMO DIGITAL SCREEN BILAT Gorge Luciano DO [address] [address] Phone: tel: fax: [facility] Derik Clark [place] [address] [place] [address] Phone: tel: fax: Referral ID Status Reason Start Date Expiration Date Visits Re quested Visits Authorized [id number] Closed 01/19/2014 02/19/2015 1 1 EURIZER Encounter Details Date Type Department Care Team (Latest Contact Info) Description 01/19/2014 Ancillary Orders [facility] Pre-Registration [place] CALL TO MAKE APPOINTMENT ONLY [address] [place] [address] Gorge Luciano DO [address] [address] Other screening mammogram (Primary Dx) Social History Tobacco Use Types Packs/Day Years Used Date Smoking Tobacco: Never Smokeless Tobacco: Never Alcohol Use Standard Drinks/Week Comments No 0 (1 standard drink = 0.6 oz pur e alcohol) Comments No Sex and Gender Information Value Date Recorded Sex Assigned at Not on file Legal Sex Female 5:31 AM PASTEURIZER Gender Identity Not on file Sexual Orientation [...] encounter Results * MAMMO DIGITAL SCREEN BILAT (02/20/2014 2:35 PM PASTEURIZER) Anatomical Region Laterality Modality Breast Bilateral Mammography Narrative 02/22/2014 10:48 AM PASTEURIZER Bilateral Mammogram Reason for Exam: Screening Comparison: Compared to: 01/20/2013 MAMMO DIGITAL SCREEN BILAT, 01/15/2012 MAMMO DIGITAL SCREEN BILAT and 2009. Findings: Bilateral CC and MLO views were obtained. This examination was reviewed with the aid of a computer-aided detection system(CAD). The breast tissue is dense. No significant new findings since the prior mammogram(s). Procedure Note Vincent Urrutia MD - 02/22/2014 Bilateral Mammogram Reason for Exam: Screening Comparison: Compared to: 01/20/2013 MAMMO DIGITAL SCREEN BILAT, 01/15/2012MAMMO DIGITAL SCREEN BILAT and 2009. Findings: Bilateral CC and MLO views were obtained. This examination was reviewed with the aid of a computer-aided detectionsystem(CAD). The breast tissue is dense. No significant new findings since the prior mammogram(s). us Gorge Luciano DO MAMMO ORDERABLES Final Result documented in this encounter Visit Diagnoses Diagnosis Other screening mammogram- Primary Other screening mammogram documented in this encounter Care Teams Racing Mechanic Relationship Specialty Start Date End Date Gorge Luciano DO [address] [address] PCP - General Internal Medicine 07/17/09 documented as of this encounter
--- OUTSIDE RECORDS SUMMARY | 2025-02-07 18:53 | XMS_ITS | Encounter Summary ---
Author Organization [facility] Address [address] [place] [address] Care Team Providers Care Timber Faller Name Role Phone Gorge Luciano DO Primary Care Provider [phone] Encounter Details Date Type Department Care Team (Late st Contact Info) Description 04/07/2007 Outpatient Historical [facility] 2C Rehabilitation Services [address] [place] [address] Gorge Luciano DO [address] [place] [address] Social History Tobacco Use Types Packs/Day Years Used Date Smoking Tobacco: Never Assessed Comments No Sex and Gender Information Value Date Recorded Sex Assigned at Not on file Legal Sex Female 5:31 AM ALLOPATHIC DOCTOR Gender Identity Not on file Sexual Orientation Not on file documented as of this encounter Plan of Treatment Not on file documented as of this encounter Visit Diagnoses Not on filedocumented in this encounter Care Teams Timber Faller Relationship Specialty Start Date End Date Gorge Luciano DO [address] [place] [address] PCP - General Internal Medicine 07/17/09 documented as of this encounter
[2025-02-07 18:55] VITALS: BP 119/68; PULSE 90; TEMP 36.7; O2SAT 98; BMI 41.1
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
[2025-02-07 20:30] VITALS: BP 149/74; PULSE 87; RESP 16; O2SAT 95
== END 2025-02-07 20:31 | disposition home or self-care (01) ==
PROVIDERS: Emergency Provider Emergency Medicine; PCP Family Medicine
DX: S80.01XA Contusion of right knee, initial encounter (principal); V89.2XXA Person injured in unspecified motor-vehicle accident, traffic, initial encounter
CPT/HCPCS: 73562; 99284; J9999

== ENCOUNTER 2025-02-10 14:03 | Emergency (ER) | payer MEDICARE, SELFPAY ==
--- OUTSIDE RECORDS SUMMARY | 2024-12-15 03:20 | XMS_ITS ---
Author Organization [facility] Address [address] [place] [address] Care Team Providers Care Marble Supervisor Name Role Phone HENNA MCCORMICK DO Primary Care Provider UnavailTunde Gannon Unavailable [phone] REASON FOR VISIT RIGHT SHOULDER Encounters Encounter Location Date Provider Diagnosis [facility] [address] [place] [address] 12/15/2024 Tuned Montemayor Plan Of Treatment No Information Progress Notes * Beryl HOLLYDOB: 5 (59 yo F)Acc No.[id number]:12/15/2024 Progress Notes Patient: Beryl Nixon Provider: Janey Montemayor M.D. :1965 A ge:59 Y S ex:Female Date:12/15/2024 Address:[id number] Pcp:HENNA MCCORMICK DO Subjective: * Chief Complaints: * R IGHT SHOULDER Care Plan Details* * Electronic signature of Italo Montemayor MD on 02/10/2025 at 02:10 PM MITER OPERATOR Sign off status: Pending * Provider: Janey Montemayor M.D. Date: Generated for Karmen keith/Dima/eTransmitting on: 04/12/2024 02:10 PM MITER OPERATOR
--- OUTSIDE RECORDS SUMMARY | 2025-02-06 10:30 | XMS_ITS | Encounter Summary ---
Author Organization [facility] Address [address] [place] [address] Care Team Providers Care Machine Tool Electrician Name Role Phone Gorge Luciano DO Primary Care Provider [phone] Reason for Visit * EMG (Routine) - Closed Specialty Diagnoses / Procedures Referred By Contact Referred To Contact Physical Medicine and Rehabilitation Diagnoses Chronic right shoulder pain Numbness and tingling of right arm Procedures EMG WITH NERVE CONDUCTION FL NERVE CONDUCTION STUDIES 1-2 STUDIES FL NERVE CONDUCTION STUDIES 3-4 STUDIES FL NERVE CONDUCTION STUDIES 5-6 STUDIES FL NERVE CONDUCTION STUDIES 7-8 STUDIES FL NERVE CONDUCTION STUDIES 9-10 STUDIES FL NERVE CONDUCTION STUDIES 11-12 STUDIES FL NERVE CONDUCTION STUDIES 13/> STUDIES FL NEEDLE EMG EA EXTREMTY W/PARASPINL AREA COMPLETE FL NDL EMG 1 XTR W/WO RELATED PARASPINAL AREAS Casie Lane, REBEL [address] [place] [address] Phone: tel: fax: [facility] [address] [place] [address] Phone: tel: fax: Referral ID Status Reason Start Date Expiration Date Visits Re quested Visits Authorized [id number] Closed 01/09/2025 02/09/2026 1 1 Encounter Details Date Type Department Care Team (Late st Contact Info) Description 02/06/2025 10:30 AM BURR GRINDER Procedure visit [facility] Med [facility] Re[facility] [address] [place] [address] Yosef Hoffman MD [address] [place] [address] Chronic right shoulder pain; Numbness and tingling [...] AM CDT Legal Sex Female 12:41 PM BURR GRINDER Gender Identity Female 12/21/2023 9:49 AM CDT Sexual Orientation Not on file documented as of this encounter Procedure Notes * Yosef Hoffman MD - 02/06/2025 10:40 AM CSTAssociated Order(s): EMG WITH NERVE CONDUCTION Procedure(s): [place] NERVE CONDUCTION STUDIES 3-4 STUDIES; FL NEEDLE EMG EA EXTREMITY W/PARASPINL AREA LIMITED Pre-Procedure Diagnose(s): Chronic right shoulder pain; Numbness and tingling of right arm NCS/EMG performed today in the clinic ( 1 extremity). 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 No evidence of radiculopathy, plexopathy or other mononeuropathy. Results of this test to be uploaded to the media section by medical physiologist by early next week. Please see media section from this date to review report once uploaded. GRINDER documented in this encounter Miscellaneous Notes * [...] few hours for the first 24 hours. Aizc-gld-nkbtsmm pain relievers like acetaminophen (Tylenol) or ibuprofen [...] concerns, don't hesitate to contact our office. GRINDER documented in this encounter Plan of Treatment Upcoming Encounters Date Type Department Care Team (Late st Contact Info) Description 02/14/2025 9:15 AM BURR GRINDER Appointment [facility] [place] [address] [place] [phone] PA [address] [place] [address] 02/15/2025 11:40 AM BURR GRINDER Office Visit [facility] Orthopedics - Orthopedic [facility] [address] [place] [address] Conrado Barraza PA-C [address] [place] [address] 02/28/2025 11:20 AM BURR GRINDER Office Visit [facility] Int Med-More Eduardo [address] [place] [address] Gorge Luciano DO [address] [place] [address] 04/09/2025 12:35 PM BURR GRINDER Appointment [facility] [address] [place] [phone] 04/12/2025 8:00 AM BURR GRINDER Video Visit [facility] Endocrinology [facility] [address] [place] [address] Lorna Page MD [address] [place] [address] 04/16/2025 1:20 PM BURR GRINDER Office Visit [facility] Cancer and Hematology [place] [address] [facility] [address] [place] [phone] Levy Page MD [address] [facility] [address] [place] [address] 06/12/2025 12:40 PM CDT Office Visit [facility]- More Eduardo [place] [address] [place] [address] Enrrique Scanlon MD [address] [place] [address] 09/03/2025 11:20 AM CDT Office Visit [facility] Int Med-More Edu[place] [place] [address] Gorge Luciano DO [address] [place] [address] documented as of this encounter Procedures Procedure Name Priority Date/Time Associated Diagnosis Comments FL NEEDLE EMG EA EXTREMITY W/PARASPINL AREA LIMITED Routine 02/06/2025 10:40 AM BURR GRINDER Chronic right shoulder pain Numbness and tingling of right arm FL NERVE CONDUCTION STUDIES 3-4 STUDIES Routine 02/06/2025 10:40 AM BURR GRINDER Chronic right shoulder pain Numbness and tingling of right arm documented in this encounter Results * (ABNORMAL) FL NERVE CONDUCTION STUDIES 3-4 STUDIES, FL NEEDLE EMG EA EXTREMITY W/PARASPINL AREA LIMITED (02/06/2025 10:40 AM BURR GRINDER) Fabio Delgado - 02/06/2025 10:40 AM BURR GRINDER Yosef Hoffman MD 02/06/2025 10:41 AM NCS/EMG performed today in the clinic ( 1 extremity). 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 No evidence of radiculopathy, plexopathy or other mononeuropathy. Results of this test to be uploaded to the media section by medical physiologist by early next week. Please see media [...] sensation documented in this encounter Care Teams Machine Tool Electrician Relationship Specialty Start Date End Date Gorge Luciano DO [address] [facility] [address] [place] [address] PCP - General Internal Medicine 07/17/09 documented as of this encounter
--- OUTSIDE RECORDS SUMMARY | 2025-02-10 14:09 | XMS_ITS | Encounter Summary ---
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
--- OUTSIDE RECORDS SUMMARY | 2025-02-10 14:09 | XMS_ITS | Encounter Summary ---
Author Organization [facility] Address [address] [place] [address] Care Team Providers Care Sales And Marketing Analyst Name Role Phone Gorge Luciano DO Primary Care Provider Encounter Details Date Type Department Care Team (Latest Contact Info) Description 01/22/2006 Outpatient Historical [facility] [address] [place] [address] Gorge Luciano DO [address] [place] [address] Pain in Limb (Primary Dx) Social History Tobacco Use Types Packs/Day Years Used Date Smoking Tobacco: Never Assessed Comments Unknown Sex and Gender Information Value Date Recorded Sex Assigned at Not on file Legal 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
--- OUTSIDE RECORDS SUMMARY | 2025-02-10 14:09 | XMS_ITS | Encounter Summary ---
Author Organization [facility] Address [address] [place] [address] Care Team Providers Care Professor Of Communication And Writing Name Role Phone Gorge Luciano DO Primary Care Provider [phone] Encounter Details Date Type Department Care Team (Latest Contact Info) Description 04/16/2006 Outpatient Historical [facility] Breast [facility] Eduardo [place] [address] 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
--- OUTSIDE RECORDS SUMMARY | 2025-02-10 14:09 | XMS_ITS | Encounter Summary ---
Author Organization [facility] Address [address] [place] [address] Care Team Providers Care Review Specialist Name Role Phone Gorge Luciano DO Primary Care Provider [phone] Encounter Details Date Type Department Care Team (Late st Contact Info) Description 04/16/2006 Outpatient Historical [facility] Breast [facility] Edu[place] [address] [place] [address] Kathy Cuellar MD NO ADDRESS ON FILE Other Screening Mammogram (Primary Dx) Social History Tobacco Use Types Packs/Day Years Used Date Smoking Tobacco: Never Assessed Comments Unknown Sex and Gender Information Value Date Recorded Sex Assigned at Not on file Legal Sex Female 5:31 AM DESOLDERER Gender Identity Not on file Sexual Orientation Not on file documented as of this encounter Plan of Treatment Not on file documented as of this encounter Visit Diagnoses Diagnosis Other screening mammogram- Primary documented in this encounter Care Teams Review Specialist Relationship Specialty Start Date End Date Gorge Luciano DO [address] [id number] PCP - General Internal Medicine 07/17/09 documented as of this encounter
--- OUTSIDE RECORDS SUMMARY | 2025-02-10 14:09 | XMS_ITS | Encounter Summary ---
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
--- OUTSIDE RECORDS SUMMARY | 2025-02-10 14:09 | XMS_ITS | Encounter Summary ---
Author Organization [facility] Address [address] [place] [address] Care Team Providers Care Hospice Office Coordinator Name Role Phone Gorge Luciano DO Primary Care Provider [phone] Encounter Details Date Type Department Care Team (Late st Contact Info) Description 02/23/2006 Outpatient Historical [facility] Occupational Medicine-[facility] [place] [address] [place] [address] Tunde Hamilton MD [address] 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
--- OUTSIDE RECORDS SUMMARY | 2025-02-10 14:09 | XMS_ITS | Encounter Summary ---
Author Organization [facility] Address [address] [place] [address] Care Team Providers Care Non Destructive Evaluation Manager Name Role Phone Gorge Luciano DO Primary Care Provider [phone] Encounter Details Date Type Department Care Team (Late st Contact Info) Description 06/21/2006 Outpatient Historical [facility] Imaging Services-[facility] [place] [address] [place] [address] Enrrique Avila, CRIMINOLOGY PROFESSOR [address] [place] [phone] Cough (Primary Dx) Social History Tobacco Use Types Packs/Day Years Used Date Smoking Tobacco: Never Assessed Comments Unknown Sex and Gender Information Value Date Recorded Sex Assigned at Not on file Legal Sex Female 5:31 AM IRRIGATOR SPRINKLING SYSTEM Gender Identity Not on file Sexual Orientation Not on file documented as of this encounter Plan of Treatment Not on file documented as of this encounter Visit Diagnoses Diagnosis Cough- Primary documented in this encounter Care Teams Non Destructive Evaluation Manager Relationship Specialty Start Date End Date Gorge Luciano DO [address] [place] [address] PCP - General Internal Medicine 07/17/09 documented as of this encounter
--- OUTSIDE RECORDS SUMMARY | 2025-02-10 14:09 | XMS_ITS | Encounter Summary ---
Author Organization [facility] Address [address] [place] [address] Care Team Providers Care Last Waxer Name Role Phone Gorge Luciano DO Primary Care Provider [phone] Encounter Details Date Type Department Care Team (Late st Contact Info) Description 02/17/2006 Outpatient Historical [facility] Cardiology Ancillary Services-[place] [address] [place] [address] Social History Tobacco Use Types Packs/Day Years Used Date Smoking Tobacco: Never Assessed Comments Unknown Sex and Gender Information Value Date Recorded Sex Assigned at Not on file Legal Sex Female 5:31 AM DOCUMENT DESIGN SPECIALIST Gender Identity Not on file Sexual Orientation Not on file documented as of this encounter Plan of Treatment Not on file documented as of this encounter Visit Diagnoses Not on filedocumented in this encounter Care Teams Last Waxer Relationship Specialty Start Date End Date Gorge Luciano DO [address] [place] [phone] PCP - General Internal Medicine 07/17/09 documented as of this encounter
--- OUTSIDE RECORDS SUMMARY | 2025-02-10 14:09 | XMS_ITS | Encounter Summary ---
Author Organization [facility] Address [address] [place] [address] Care Team Providers Care Tree Planter Name Role Phone Gorge Luciano DO Primary Care Provider Encounter Details Date Type Department Care Team (Late st Contact Info) Description 03/12/2006 Outpatient Historical [facility] Social History Tobacco Use Types Packs/Day Years Used Date Smoking Tobacco: Never Assessed Comments Unknown Sex and Gender Information Value Date Recorded Sex Assigned at Not on file Legal Sex Female 5:31 AM HEALTH ADVOCATE Gender Identity Not on file Sexual Orientation Not on file documented as of this encounter Plan of Treatment Not on file documented as of this encounter Visit Diagnoses Not on filedocumented in this encounter Care Teams Tree Planter Relationship Specialty Start Date End Date Gorge Luciano DO [address] [facility] [address] [place] [address] PCP - General Internal Medicine 07/17/09 documented as of this encounter
--- OUTSIDE RECORDS SUMMARY | 2025-02-10 14:09 | XMS_ITS | Encounter Summary ---
Author Organization [facility] Address [address] [place] [address] Care Team Providers Care Road Passenger Firer Name Role Phone Gorge Luicano DO Primary Care Provider [phone] Encounter Details Date Type Department Care Team (Latest Contact Info) Description 01/22/2006 Outpatient Historical [facility] Services[facility] Eduardo [place] [address] [place] [address] Gorge Luciano DO [address] [place] [address] Calcaneal Spur (Primary Dx); Pain in Limb Social History Tobacco Use Types Packs/Day Years Used Date Smoking Tobacco: Never Assessed Comments Unknown Sex and Gender Information Value Date Recorded Sex Assigned at Not on file Legal Sex Female 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
--- OUTSIDE RECORDS SUMMARY | 2025-02-10 14:09 | XMS_ITS | Encounter Summary ---
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
--- OUTSIDE RECORDS SUMMARY | 2025-02-10 14:09 | XMS_ITS | Encounter Summary ---
Author Organization [facility] Address 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) (Primary Dx) Social History Tobacco Use [...] AM CDT Legal Sex Female 12:41 PM FULL STACK DEVELOPER Gender Identity Female 12/21/2023 9:49 AM CDT Sexual Orientation Not on file documented as of this encounter Plan of Treatment Upcoming Encounters Date Type Department Care Team (Late st Contact Info) Description 02/14/2025 9:15 AM FULL STACK DEVELOPER Appointment [facility] MRI [place] [address] [place] [address] PA [address] [place] [address] 02/15/2025 11:40 AM FULL STACK DEVELOPER Office Visit [facility] Orthopedics - [facility] [address] [place] [address] Conrado Barraza PA-C [address] [place] [address] 02/28/2025 11:20 AM FULL STACK DEVELOPER Office Visit [facility] Vianey Lee-Derik Clark [place] [place] [address] Gorge Luciano DO [address] [place] [address] 04/09/2025 12:35 PM FULL STACK DEVELOPER Appointment [facility] Laboratory Services [address] [place] [address] 04/12/2025 8:00 AM FULL STACK DEVELOPER Video Visit [facility] Endocrinology [facility] [address] [place] [address] Lorna Page MD [address] [place] [address] 04/16/2025 1:20 PM FULL STACK DEVELOPER Office Visit [facility] Cancer and Hematology [place] [address] [facility] [address] [place] [address] Levy Page MD [address] [place] [address] 06/12/2025 12:40 PM CDT Office Visit [facility] Rheumatology- More Eduardo Nationaway [address] [place] [address] Enrrique Scanlon MD [address] [place] [address] 09/03/2025 11:20 AM CDT Office Visit [facility] Int Med-More Eduardo [place]-[address] [place] [address] Gorge Luciano DO [address] [place] [address] Scheduled Orders Name Type Priority Associated Diagnoses Orde r Schedule HEMOGLOBIN A1C Lab Routine 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
--- OUTSIDE RECORDS SUMMARY | 2025-02-10 14:09 | XMS_ITS | Encounter Summary ---
Author Organization [facility] Address [address] [place] [address] Care Team Providers Care Tax Technician Name Role Phone Gorge Luciano DO Primary Care Provider [phone] Encounter Details Date Type Department Care Team (Late st Contact Info) Description 12/18/2005 Outpatient Historical [facility] Occupational Medicine[facility] Samira [address] [place] [address] Tunde Hamilton MD 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
--- OUTSIDE RECORDS SUMMARY | 2025-02-10 14:09 | XMS_ITS | Encounter Summary ---
Author Organization [facility] Address [address] [place] [address] Care Team Providers Care Closing Agent Name Role Phone Gorge Luciano DO Primary Care Provider [phone] Encounter Details Date Type Department Care Team (Latest Contact Info) Description 02/11/2006 Outpatient Historical [facility] Cardiology- [place] [address] [place] [address] Omayra Cooper, TELEPHONE DIRECTORY DELIVERER NO ADDRESS ON FILE Cor Athrs[place]-Uns Vessel (Primary Dx); Other and Unspecified Angina Pectoris; Palpitations; Shortness of Breath Social History Tobacco Use Types Packs/Day Years Used Date Smoking Tobacco: Never Assessed Comments Unknown Sex and Gender Information Value Date Recorded Sex Assigned at Not on file Legal Sex Female 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
--- OUTSIDE RECORDS SUMMARY | 2025-02-10 14:09 | XMS_ITS | Encounter Summary ---
Author Organization [facility] Address [address] [place] [address] Care Team Providers Care Store Mgr Name Role Phone Gorge Luciano DO Primary Care Provider [phone] Encounter Details Date Type Department Care Team (Latest Contact Info) Description 07/02/2006 Outpatient Historical [facility] Gorge Luciano DO [address] [place] [address] DM w/o Complication Type II (CMS/HCC) (Primary Dx) Social History Tobacco Use Types Packs/Day Years Used Date Smoking Tobacco: Never Assessed Comments Unknown Sex and Gender Information Value Date Recorded Sex Assigned at Not on file Legal Sex Female 5:31 AM FOOD OR BAGGAGE HANDLING 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
--- OUTSIDE RECORDS SUMMARY | 2025-02-10 14:09 | XMS_ITS | Encounter Summary ---
Author Organization [facility] Address [address] [place] [address] Care Team Providers Care Electron Microprobe Operator Name Role Phone Gorge Luciano DO Primary Care Provider [phone] Encounter Details Date Type Department Care Team (Latest Contact Info) Description 11/08/2006 Outpatient Historical [facility] Orthopedics- 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
--- OUTSIDE RECORDS SUMMARY | 2025-02-10 14:09 | XMS_ITS | Encounter Summary ---
Author Organization [facility] Address [address] [place] [address] Care Team Providers Care Charting Clerk Name Role Phone Gorge Luciano DO Primary Care Provider [phone] Encounter Details Date Type Department Care Team (Latest Contact Info) Description 01/22/2006 Outpatient Historical [facility] [place] [address] [place] [address] Gorge Luciano DO [address] [place] [address] Swelling of Limb (Primary Dx); Pain in Limb Social History Tobacco Use Types Packs/Day Years Used Date Smoking Tobacco: Never Assessed Comments Unknown Sex and Gender Information Value Date Recorded Sex Assigned at Not on file Legal Sex Female 5:31 AM SVP RESEARCH & EBUSINESS OPERATIONS Gender Identity Not on file Sexual Orientation Not on file documented as of this encounter Plan of Treatment Not on file documented as of this encounter Visit Diagnoses Diagnosis Swelling of limb- Primary Pain in limb Pain in soft tissues of limb documented in this encounter Care Teams Charting Clerk Relationship Specialty Start Date End Date Gorge Luciano DO [address] [place] [address] PCP - General Internal Medicine 07/17/09 documented as of this encounter
--- OUTSIDE RECORDS SUMMARY | 2025-02-10 14:09 | XMS_ITS | Encounter Summary ---
Author Organization [facility] Address [address] [place] [address] Care Team Providers Care Steel Post Installer Supervisor Name Role Phone Gorge Luciano DO Primary Care Provider [phone] Encounter Details Date Type Department Care Team (Latest Contact Info) Description 06/21/2006 Outpatient Historical [facility]- [facility] [place] [address] [place] [address] Enrrique Avila, FREDDY [address] [place] [address] Allergic Rhinitis, Cause Unspecified (Primary Dx); DM w/o Complication Type I (CMS/HCC); Cough; Acute Bronchitis Social History Tobacco Use Types Packs/Day Years Used Date Smoking Tobacco: Never Assessed Comments Unknown Sex and Gender Information Value Date Recorded Sex Assigned at Not on file Legal Sex Female 5:31 AM AIRLINE RESERVATIONIST Gender Identity Not on file Sexual Orientation Not on file documented as of this encounter Plan of Treatment Not on file documented as of this encounter Visit Diagnoses Diagnosis Allergic rhinitis, cause unspecified- Primary Type I (juvenile type) diabetes mellitus without mention of complication, not stated as uncontrolled Cough Acute bronchitis documented in this encounter Care Teams Steel Post Installer Supervisor Relationship Specialty Start Date End Date Gorge Luciano DO [address] [place] [address] PCP - General Internal Medicine 07/17/09 documented as of this encounter
--- OUTSIDE RECORDS SUMMARY | 2025-02-10 14:09 | XMS_ITS | Encounter Summary ---
Author Organization [facility] Address [address] [place] [address] Care Team Providers Care Harness Puller Name Role Phone Gorge Luciano DO Primary Care Provider [phone] Encounter Details Date Type Department Care Team (Latest Contact Info) Description 10/01/2006 Outpatient Historical [facility] [address] [place] [address] Gorge Luciano DO [address] [place] [address] DM w/o Complication Type I (CMS/HCC) (Primary Dx) Social History Tobacco Use Types Packs/Day Years Used Date Smoking Tobacco: Never Assessed Comments Unknown Sex and Gender Information Value Date Recorded Sex Assigned at Not on file Legal Sex Female 5: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
--- OUTSIDE RECORDS SUMMARY | 2025-02-10 14:09 | XMS_ITS | Encounter Summary ---
Author Organization [facility] Address [address] [place] [address] Care Team Providers Care Commercial Lender Name Role Phone Gorge Luciano DO Primary Care Provider [phone] Encounter Details Date Type Department Care Team (Late st Contact Info) Description 12/31/2006 Outpatient Historical [facility] [address] [place] [address] Social History Tobacco Use Types Packs/Day Years Used Date Smoking Tobacco: Never Assessed Comments No Sex and Gender Information Value Date Recorded Sex Assigned at Not on file Legal Sex Female 5:31 AM OTA Gender Identity Not on file Sexual Orientation Not on file documented as of this encounter Plan of Treatment Not on file documented as of this encounter Visit Diagnoses Not on filedocumented in this encounter Care Teams Commercial Lender Relationship Specialty Start Date End Date Gorge Luciano DO [address] [place] [address] PCP - General Internal Medicine 07/17/09 documented as of this encounter
--- OUTSIDE RECORDS SUMMARY | 2025-02-10 14:09 | XMS_ITS | Encounter Summary ---
Author Organization [facility] Address [address] [place] [address] Care Team Providers Care Mechanical Manufacturing Technician Name Role Phone Gorge Luciano DO Primary Care Provider [phone] Encounter Details Date Type Department Care Team (Latest Contact Info) Description 02/01/2006 Outpatient Historical [facility] [place] [address] [place] [address] Adán Melendrez, DPM NO ADDRESS ON FILE Calcaneal Spur (Primary Dx); Edema; Enthesopathy of Unspecified Site; Pain in Limb Social History Tobacco Use Types Packs/Day Years Used Date Smoking Tobacco: Never Assessed Comments Unknown Sex and Gender Information Value Date Recorded Sex Assigned at Not on file Legal Sex Female 5:31 AM DIRECTOR OF SCIENTIFIC RESEARCH Gender Identity Not on file Sexual Orientation Not on file documented as of this encounter Plan of Treatment Not on file documented as of this encounter Visit Diagnoses Diagnosis Calcaneal spur- Primary Edema Enthesopathy of unspecified site Pain in limb Pain in soft tissues of limb documented in this encounter Care Teams Mechanical Manufacturing Technician Relationship Specialty Start Date End Date Gorge Luciano DO [address] [place] [address] PCP - General Internal Medicine 07/17/09 documented as of this encounter
--- OUTSIDE RECORDS SUMMARY | 2025-02-10 14:09 | XMS_ITS | Encounter Summary ---
Author Organization [facility] Address [address] [place] [address] Care Team Providers Care Business Employment Specialist Name Role Phone Gorge Luciano DO Primary Care Provider [phone] Encounter Details Date Type Department Care Team (Late st Contact Info) Description 01/08/2006 Outpatient Historical [facility] [address] [place] [address] Tunde Hamilton MD [address] [place] [place] [address] Sprain and Strain of Unspecified Site of Knee and Leg (Primary Dx) Social History Tobacco Use Types Packs/Day Years Used Date Smoking Tobacco: Never Assessed Comments Unknown Sex and Gender Information Value Date Recorded Sex Assigned at Not on file Legal Sex Female 5:31 AM SERVICE TECHNICIAN COPIER Gender Identity Not on file Sexual Orientation Not on file documented as of this encounter Plan of Treatment Not on file documented as of this encounter Visit Diagnoses Diagnosis Sprain and strain of unspecified site of knee and leg- Primary documented in this encounter Care Teams Business Employment Specialist Relationship Specialty Start Date End Date Gorge Luciano DO [address] [place] [address] PCP - General Internal Medicine 07/17/09 documented as of this encounter
--- OUTSIDE RECORDS SUMMARY | 2025-02-10 14:09 | XMS_ITS | Encounter Summary ---
Author Organization [facility] Address [address] [place] [address] Care Team Providers Care Net Application Architect Name Role Phone Gorge Luciano DO Primary Care Provider Encounter Details Date Type Department Care Team (Latest Contact Info) Description 03/01/2006 Outpatient Historical [facility] [place] [place] [address] Gorge Luciano DO [address] [place] [address] Cor Athrscl-Uns Vessel (Primary Dx); Other and Unspecified Hyperlipidemia; Reflux Esophagitis; DM w/o Complication Type I (CMS/HCC) Social History Tobacco Use Types Packs/Day Years Used Date Smoking Tobacco: Never Assessed Comments Unknown Sex and Gender Information Value Date Recorded Sex Assigned at Not on file Legal Sex Female 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 Gender Identity Not on file Sexual Orientation Not on file documented as of this encounter Plan of Treatment Not on file documented as of this encounter Visit Diagnoses Diagnosis Coronary atherosclerosis of unspecified type of vessel, [place] or graft- Primary Other and unspecified hyperlipidemia Reflux esophagitis Type I (juvenile type) diabetes mellitus without mention of complication, not stated as uncontrolled documented in this encounter Care Teams Net Application Architect Relationship Specialty Start Date End Date Gorge Luciano DO [address] [place] [address] PCP - General Internal Medicine 07/17/09 documented as of this encounter
--- OUTSIDE RECORDS SUMMARY | 2025-02-10 14:09 | XMS_ITS | Encounter Summary ---
Author Organization [facility] Address [address] [place] [address] Care Team Providers Care Creative Coordinator Name Role Phone Gorge Luciano DO Primary Care Provider [phone] Encounter Details Date Type Department Care Team (Late st Contact Info) Description 05/11/2006 Outpatient Historical [facility] Social History Tobacco Use Types Packs/Day Years Used Date Smoking Tobacco: Never Assessed Comments Unknown Sex and Gender Information Value Date Recorded Sex Assigned at Not on file Legal Sex Female 5:31 AM CLIENT ACCOUNT REPRESENTATIVE Gender Identity Not on file Sexual Orientation Not on file documented as of this encounter Plan of Treatment Not on file documented as of this encounter Visit Diagnoses Not on filedocumented in this encounter Care Teams Creative Coordinator Relationship Specialty Start Date End Date Gorge Luciano DO [address] [facility] [address] [place] [address] PCP - General Internal Medicine 07/17/09 documented as of this encounter
--- OUTSIDE RECORDS SUMMARY | 2025-02-10 14:09 | XMS_ITS | Encounter Summary ---
Author Organization [facility] Address [address] [place] [address] Care Team Providers Care Mold Cleaning And Storage Supervisor Name Role Phone Gorge Luciano DO Primary Care Provider [phone] Encounter Details Date Type Department Care Team (Latest Contact Info) Description 11/04/2006 Outpatient Historical [facility] Optometry [address] [place] [address] Sawyer Tang, OD [address] [place] [address] DM w/o Complication Type I (CMS/HCC) (Primary Dx); Unspecified Lagophthalmos Social History Tobacco Use Types Packs/Day Years Used Date Smoking Tobacco: Never Assessed Comments Unknown Sex and Gender Information Value Date Recorded Sex Assigned at Not on file Legal Sex Female 5:31 AM SILVICULTURE FORESTER Gender Identity Not on file Sexual Orientation Not on file documented as of this encounter Plan of Treatment Not on file documented as of this encounter Visit Diagnoses Diagnosis Type I (juvenile type) diabetes mellitus without mention of complication, not stated as uncontrolled- Primary Lagophthalmos, unspecified documented in this encounter Care Teams Mold Cleaning And Storage Supervisor Relationship Specialty Start Date End Date Gorge Luciano DO [address] [place] [address] PCP - General Internal Medicine 07/17/09 documented as of this encounter
--- OUTSIDE RECORDS SUMMARY | 2025-02-10 14:09 | XMS_ITS | Encounter Summary ---
Author Organization [facility] Address [address] [place] [address] Care Team Providers Care Granite Polisher Name Role Phone Gorge Luciano DO Primary Care Provider [phone] Encounter Details Date Type Department Care Team (Latest Contact Info) Description 03/12/2006 Outpatient Historical [facility] Gorge Luciano DO [address] [place] [address] DM w/o Complication Type II (CMS/HCC) (Primary Dx) Social History Tobacco Use Types Packs/Day Years Used Date Smoking Tobacco: Never Assessed Comments Unknown Sex and Gender Information Value Date Recorded Sex Assigned at Not on file Legal Sex Female 5:31 AM TOUR NARRATOR Gender Identity Not on file Sexual Orientation Not on file documented as of this encounter Plan of Treatment Not on file documented as of this encounter Visit Diagnoses Diagnosis Type II or unspecified type diabetes mellitus without mention of complication, not stated as uncontrolled- Primary documented in this encounter Care Teams Granite Polisher Relationship Specialty Start Date End Date Gorge Luciano DO [address] [place] [address] PCP - General Internal Medicine 07/17/09 documented as of this encounter
--- OUTSIDE RECORDS SUMMARY | 2025-02-10 14:09 | XMS_ITS | Encounter Summary ---
Author Organization [facility] Address [address] [place] [address] Care Team Providers Care Scooter Mechanic Name Role Phone Gorge Luciano DO Primary Care Provider [phone] Encounter Details Date Type Department Care Team (Latest Contact Info) Description 05/11/2006 Outpatient Historical [facility] Cardiology- Raymond [address] [place] [address] Omayra Cooper, CLOSER ON NO ADDRESS ON FILE Cor Athrscl-Uns Vessel (Primary Dx); Other and Unspecified Angina Pectoris; DM w/o Complication Type II (CMS/HCC); Pure Hypercholesterolem Social History Tobacco Use Types Packs/Day Years Used Date Smoking Tobacco: Never Assessed Comments Unknown Sex and Gender Information Value Date Recorded Sex Assigned at Not on file Legal Sex Female 5:31 AM TRANSCRIPTION TYPIST Gender Identity Not on file Sexual Orientation Not on file documented as of this encounter Plan of Treatment Not on file documented as of this encounter Visit Diagnoses Diagnosis Coronary atherosclerosis of unspecified type of vessel, [place] or graft- Primary Other and unspecified angina pectoris Type II or unspecified type diabetes mellitus without mention of complication, not stated as uncontrolled Pure hypercholesterolem Pure hypercholesterolemia documented in this encounter Care Teams Scooter Mechanic Relationship Specialty Start Date End Date Gorge Luciano DO [address] [place] [address] PCP - General Internal Medicine 07/17/09 documented as of this encounter
--- OUTSIDE RECORDS SUMMARY | 2025-02-10 14:09 | XMS_ITS | Encounter Summary ---
Author Organization [facility] Address [address] [place] [address] Care Team Providers Care Bath Steward Name Role Phone Gorge Luciano DO Primary Care Provider [phone] Encounter Details Date Type Department Care Team (Latest Contact Info) Description 08/27/2006 Outpatient Historical [facility] Gorge Luciano DO [address] [place] [address] DM w/o Complication Type II (CMS/HCC) (Primary Dx) Social History Tobacco Use Types Packs/Day Years Used Date Smoking Tobacco: Never Assessed Comments Unknown Sex and Gender Information Value Date Recorded Sex Assigned at Not on file Legal Sex Female 5:31 AM CLAIM PROCESSING SPECIALIST Gender Identity Not on file Sexual Orientation Not on file documented as of this encounter Plan of Treatment Not on file documented as of this encounter Visit Diagnoses Diagnosis Type II or unspecified type diabetes mellitus without mention of complication, not stated as uncontrolled- Primary documented in this encounter Care Teams Bath Steward Relationship Specialty Start Date End Date Gorge Luciano DO [address] [place] [address] PCP - General Internal Medicine 07/17/09 documented as of this encounter
--- OUTSIDE RECORDS SUMMARY | 2025-02-10 14:09 | XMS_ITS | Encounter Summary ---
Author Organization [facility] Address [address] [place] [address] Care Team Providers Care Telegraph Inspector Name Role Phone Gorge Luciano DO Primary Care Provider [phone] Encounter Details Date Type Department Care Team [...] on file Legal Sex Female 5:31 AM SURVEY COMPILER Gender Identity Not on file Sexual Orientation Not on file documented as of this encounter Plan of Treatment Not on file documented as of this encounter Procedures Procedure Name Priority Date/Time Associated Diagnosis Comments POC GLUCOSE Routine 03/05/2006 5:29 AM SURVEY COMPILER POC GLUCOSE Routine 03/04/2006 8:57 PM SURVEY COMPILER POC GLUCOSE Routine 03/04/2006 5:26 PM SURVEY COMPILER POC GLUCOSE Routine 03/04/2006 9:29 AM SURVEY COMPILER PT AND APTT Routine 03/04/2006 7:26 AM SURVEY COMPILER CBC WITHOUT DIFFERENTIAL Routine 03/04/2006 7:26 AM SURVEY COMPILER C-REACTIVE PROTEIN Routine 03/04/2006 7: 26 AM SURVEY COMPILER BASIC METABOLIC PANEL Routine 03/04/2006 7:26 AM SURVEY COMPILER documented in this encounter Results * (ABNORMAL) POC GLUCOSE (03/05/2006 5:29 AM SURVEY COMPILER) GLUCOSE POC 222(H) 60 - 100 mg/dL INTERFACE SYSTEM 03/05/2006 5:29 AM SURVEY COMPILER Result Abdulaziz Brandon MD POINT OF CARE TESTING Final Result Performing Organization Address City/[facility] Phone Number INTERFACE SYSTEM Refer to clinic/hospital department * (ABNORMAL) POC GLUCOSE (03/04/2006 8:57 PM SURVEY COMPILER) GLUCOSE POC 149(H) 60 - 100 mg/dL INTERFACE SYSTEM 03/04/2006 8:57 PM SURVEY COMPILER Result Abdulaziz Brandon MD POINT OF CARE TESTING Final Result Performing Organization Address [facility] Phone Number INTERFACE SYSTEM Refer to clinic/hospital department * (ABNORMAL) POC GLUCOSE (03/04/2006 5:26 PM SURVEY COMPILER) GLUCOSE POC 256(H) 60 - 100 mg/dL INTERFACE SYSTEM 03/04/2006 5:26 PM SURVEY COMPILER Result Abdulaziz Brandon MD POINT OF CARE TESTING Final Result Performing Organization Address [facility] Phone Number INTERFACE SYSTEM Refer to clinic/hospital department * (ABNORMAL) POC GLUCOSE (03/04/2006 9:29 AM SURVEY COMPILER) GLUCOSE POC 145(H) 60 - 100 mg/dL INTERFACE SYSTEM 03/04/2006 9:29 AM SURVEY COMPILER Result Abdulaziz Brandon MD POINT OF CARE TESTING Final Result Performing Organization Address City/[facility] Phone Number INTERFACE SYSTEM Refer to clinic/hospital department * (ABNORMAL) CBC WITHOUT DIFFERENTIAL (03/04/2006 7:26 AM SURVEY COMPILER) WBC 6.4 4.5 - 11.0 K/ul INTERFACE [...] 0.2 K/ul INTERFACE SYSTEM 03/04/2006 7:26 AM SURVEY COMPILER Too Brandon MD HEMATOLOGY ORDERABLES Final Result INTERFACE SYSTEM Refer to clinic/hospital department * PT AND APTT (03/04/2006 7:26 AM SURVEY COMPILER) Pathologist [facility] PROTIME 14.7 13.0 - 15.7 Secs INTERFACE SYSTEM Comment: As of 06 note change in normal range. INR 1.0 INTERFACE SYSTEM Comment: Expected Values for INR: DVT/PE Goal INR 2.5; range 2.0 - 3.0 Valve Replacement Tissue Goal INR 2.5; range 2.0 - 3.0 Mechanical Goal INR 3.0; range 2.5 - 3.5 POST-IA Goal INR 2.5; range 2.0 - 3.0 [...] in APTT Normal Range. 03/04/2006 7:26 AM SURVEY COMPILER Too Brandon MD HEMATOLOGY ORDERABLES Final Result Performing Organization Address [facility] Phone Number INTERFACE SYSTEM Refer to clinic/hospital department * (ABNORMAL) C-REACTIVE PROTEIN (03/04/2006 7:26 AM SURVEY COMPILER) CRP 2.45(H) 0.00 - 1.00 mg/dL INTERFACE SYSTEM 03/04/2006 7:26 AM SURVEY COMPILER us Too Brandon MD CHEMISTRY ORDERABLES Final Result Performing Organization Address [facility] Phone Number INTERFACE SYSTEM Refer to clinic/hospital department * (ABNORMAL) BASIC METABOLIC PANEL (03/04/2006 7:26 AM SURVEY COMPILER) GLUCOSE 202(H) 70 - 110 mg/dL INTERFACE [...] 295 mOsm/Kg INTERFACE SYSTEM 03/04/2006 7:26 AM SURVEY COMPILER us Too Brandon MD CHEMISTRY ORDERABLES Final Result INTERFACE SYSTEM Refer to clinic/hospital department documented in this encounter Visit Diagnoses Diagnosis Other complications due to other cardiac device, implant, and graft- Primary documented in this encounter Care Teams Telegraph Inspector Relationship Specialty Start Date End Date Gorge Luciano DO [address] [address] PCP - General Internal Medicine 07/17/09 documented as of this encounter
--- OUTSIDE RECORDS SUMMARY | 2025-02-10 14:09 | XMS_ITS | Encounter Summary ---
Author Organization [facility] Address [address] [place] [address] Care Team Providers Care Engineering Analyst Name Role Phone Gorge Luciano DO Primary Care Provider [phone] Encounter Details Date Type Department Care Team (Late st Contact Info) Description 02/17/2007 Inpatient Historical [facility] Gorge Luciano DO [address] [place] [address] Social History Tobacco Use Types Packs/Day Years Used Date Smoking Tobacco: Never Assessed Comments No Sex and Gender Information Value Date Recorded Sex Assigned at Not on file Legal Sex Female 5:31 AM STIFF STRAW HAT WASHER Gender Identity Not on file Sexual Orientation Not on file documented as of this encounter Plan of Treatment Not on file documented as of this encounter Visit Diagnoses Not on filedocumented in this encounter Care Teams Engineering Analyst Relationship Specialty Start Date End Date Gorge Luciano DO [address] [place] [address] PCP - General Internal Medicine 07/17/09 documented as of this encounter
--- OUTSIDE RECORDS SUMMARY | 2025-02-10 14:09 | XMS_ITS | Encounter Summary ---
Author Organization [facility] Address [address] [place] [address] Care Team Providers Care Partition Assembler Name Role Phone Gorge Luciano DO Primary Care Provider [phone] Encounter Details Date Type Department Care Team (Latest Contact Info) Description 05/11/2006 Outpatient Historical [facility] Gorge Luciano DO [address] [place] [address] DM w/o Complication Type II (CMS/HCC) (Primary Dx) Social History Tobacco Use Types Packs/Day Years Used Date Smoking Tobacco: Never Assessed Comments Unknown Sex and Gender Information Value Date Recorded Sex Assigned at Not on file Legal Sex Female 5:31 AM ADOPTION SERVICES MANAGER Gender Identity Not on file Sexual Orientation Not on file documented as of this encounter Plan of Treatment Not on file documented as of this encounter Visit Diagnoses Diagnosis Type II or unspecified type diabetes mellitus without mention of complication, not stated as uncontrolled- Primary documented in this encounter Care Teams Partition Assembler Relationship Specialty Start Date End Date Gorge Luciano DO [address] [place] [address] PCP - General Internal Medicine 07/17/09 documented as of this encounter
--- OUTSIDE RECORDS SUMMARY | 2025-02-10 14:09 | XMS_ITS | Encounter Summary ---
Author Organization [facility] Address [address] [place] [address] Care Team Providers Care Health And Safety Coordinator Name Role Phone Gorge Luciano DO Primary Care Provider [phone] Encounter Details Date Type Department Care Team (Late st Contact Info) Description 08/27/2006 Outpatient Historical [facility] Social History Tobacco Use Types Packs/Day Years Used Date Smoking Tobacco: Never Assessed Comments Unknown Sex and Gender Information Value Date Recorded Sex Assigned at Not on file Legal Sex Female 5:31 AM MAP COMPILER Gender Identity Not on file Sexual Orientation Not on file documented as of this encounter Plan of Treatment Not on file documented as of this encounter Visit Diagnoses Not on filedocumented in this encounter Care Teams Health And Safety Coordinator Relationship Specialty Start Date End Date Gorge Luciano DO [address] [facility] [address] [place] [address] PCP - General Internal Medicine 07/17/09 documented as of this encounter
--- OUTSIDE RECORDS SUMMARY | 2025-02-10 14:09 | XMS_ITS | Encounter Summary ---
Author Organization [facility] Address [address] [place] [address] Care Team Providers Care Telephone Sterilizer Name Role Phone Gorge Luciano DO Primary Care Provider [phone] Encounter Details Date Type Department Care Team (Latest Contact Info) Description 02/18/2006 Outpatient Historical [facility] Podiatry-Derik Colliernn Peach [address] [place] [address] Adán Melendrez, DPM NO ADDRESS ON FILE Pain in Limb (Primary Dx); Unspecified Local Infection of Skin and Subcutaneous Tissue; Enthesopathy of Unspecified Site; [place]caneal Spur Social History Tobacco Use Types Packs/Day Years Used Date Smoking Tobacco: Never Assessed Comments Unknown Sex and Gender Information Value Date Recorded Sex Assigned at Not on file Legal Sex Female 5:31 AM DISTRIBUTION ACCOUNTING CLERK Gender Identity Not on file Sexual Orientation Not on file documented as of this encounter Plan of Treatment Not on file documented as of this encounter Visit Diagnoses Diagnosis Pain in limb- Primary Pain in soft tissues of limb Unspecified local infection of skin and subcutaneous tissue Enthesopathy of unspecified site Calcaneal spur documented in this encounter Care Teams Telephone Sterilizer Relationship Specialty Start Date End Date Gorge Luciano DO [address] [place] [address] PCP - General Internal Medicine 07/17/09 documented as of this encounter
--- OUTSIDE RECORDS SUMMARY | 2025-02-10 14:09 | XMS_ITS | Encounter Summary ---
Author Organization [facility] Address [address] [place] [address] Care Team Providers Care Food And Beverage Attendant Name Role Phone Gorge Luciano DO Primary Care Provider [phone] Encounter Details Date Type Department Care Team (Latest Contact Info) Description 11/04/2006 Outpatient Historical [facility] Gorge Luciano DO [address] [place] [address] DM w/o Complication Type II (CMS/HCC) (Primary Dx) Social History Tobacco Use Types Packs/Day Years Used Date Smoking Tobacco: Never Assessed Comments Unknown Sex and Gender Information Value Date Recorded Sex Assigned at Not on file Legal Sex Female 5:31 AM LACQUER SPRAY BOOTH OPERATOR Gender Identity Not on file Sexual Orientation Not on file documented as of this encounter Plan of Treatment Not on file documented as of this encounter Visit Diagnoses Diagnosis Type II or unspecified type diabetes mellitus without mention of complication, not stated as uncontrolled- Primary documented in this encounter Care Teams Food And Beverage Attendant Relationship Specialty Start Date End Date Gorge Luciano DO [address] [place] [address] PCP - General Internal Medicine 07/17/09 documented as of this encounter
--- OUTSIDE RECORDS SUMMARY | 2025-02-10 14:09 | XMS_ITS | Encounter Summary ---
Author Organization [facility] Address [address] [place] [address] Care Team Providers Care Distributor Sales Consultant Name Role Phone Gogre Luciano DO Primary Care Provider [phone] Encounter Details Date Type Department Care Team (Latest Contact Info) Description 07/02/2006 Outpatient Historical [facility] [address] [place] [address] Gorge Luciano DO [address] [place] [address] DM w/o Complication Type I (CMS/HCC) (Primary Dx); Allergic Rhinitis, Cause Unspecified Social History Tobacco Use Types Packs/Day Years Used Date Smoking Tobacco: Never Assessed Comments Unknown Sex and Gender Information Value Date Recorded Sex Assigned at Not on file Legal Sex Female 5:31 AM PROGRAM MGR Gender Identity Not on file Sexual Orientation Not on file documented as of this encounter Plan of Treatment Not on file documented as of this encounter Visit Diagnoses Diagnosis Type I (juvenile type) diabetes mellitus without mention of complication, not stated as uncontrolled- Primary Allergic rhinitis, cause unspecified documented in this encounter Care Teams Distributor Sales Consultant Relationship Specialty Start Date End Date Gorge Luciano DO [address] [place] [address] PCP - General Internal Medicine 07/17/09 documented as of this encounter
--- OUTSIDE RECORDS SUMMARY | 2025-02-10 14:09 | XMS_ITS | Encounter Summary ---
Author Organization [facility] Address [address] [place] [address] Care Team Providers Care Salesperson Jewelry Name Role Phone Gorge Luciano DO Primary Care Provider [phone] Encounter Details Date Type Department Care Team (Late st Contact Info) Description 07/02/2006 Outpatient Historical [facility] Social History Tobacco Use Types Packs/Day Years Used Date Smoking Tobacco: Never Assessed Comments Unknown Sex and Gender Information Value Date Recorded Sex Assigned at Not on file Legal Sex Female 5:31 AM SPECIALTY COOK Gender Identity Not on file Sexual Orientation Not on file documented as of this encounter Plan of Treatment Not on file documented as of this encounter Visit Diagnoses Not on filedocumented in this encounter Care Teams Salesperson Jewelry Relationship Specialty Start Date End Date Gorge Luciano DO [address] [facility] [address] [place] [address] PCP - General Internal Medicine 07/17/09 documented as of this encounter
--- OUTSIDE RECORDS SUMMARY | 2025-02-10 14:09 | XMS_ITS | Encounter Summary ---
Author Organization [facility] Address [address] [place] [address] Care Team Providers Care Data Software Engineer Name Role Phone Gorge Luciano DO Primary Care Provider [phone] Encounter Details Date Type Department Care Team (Latest Contact Info) Description 02/11/2006 Outpatient Historical [facility] Cardiovascular Services [address] [place] [address] Too Brandon MD NO ADDRESS ON FILE Palpitations (Primary Dx) Social History Tobacco Use Types Packs/Day Years Used Date Smoking Tobacco: Never Assessed Comments Unknown Sex and Gender Information Value Date Recorded Sex Assigned at Not on file Legal Sex Female 5:31 AM LOWER SCHOOL MUSIC TEACHER Gender Identity Not on file Sexual Orientation Not on file documented as of this encounter Plan of Treatment Not on file documented as of this encounter Visit Diagnoses Diagnosis Palpitations- Primary documented in this encounter Care Teams Data Software Engineer Relationship Specialty Start Date End Date Gorge Luciano DO [address] [place] [address] PCP - General Internal Medicine 07/17/09 documented as of this encounter
--- OUTSIDE RECORDS SUMMARY | 2025-02-10 14:09 | XMS_ITS | Encounter Summary ---
Author Organization [facility] Address [address] [place] [address] Care Team Providers Care Glass Washer And Carrier Name Role Phone Gorge Luciano Joelle CALDWELL Primary Care Provider [phone] Encounter Details Date Type Department Care Team (Latest Contact Info) Description 02/24/2006 Outpatient Historical [facility] Nuclear Medicine[address] [address] Too Brandon MD NO ADDRESS ON FILE Coronary Atherosclerosis of [place] Coronary Artery (Primary Dx) Social History Tobacco Use Types Packs/Day Years Used Date Smoking Tobacco: Never Assessed Comments Unknown Sex and Gender Information Value Date Recorded Sex Assigned at Not on file Legal Sex Female 5:31 AM ENVIRONMENTAL HEALTH AND SAFETY LEADER Gender Identity Not on file Sexual Orientation Not on file documented as of this encounter Plan of Treatment Not on file documented as of this encounter Procedures Procedure Name Priority Date/Time Associated Diagnosis Comments STRESS TEST EXERCISE NUCLEAR MED Routine 02/24/2006 12:01 AM ENVIRONMENTAL HEALTH AND SAFETY LEADER NM MYOCARD PERF IMAG SPECT MULT Routine 02/24/2006 12:01 AM ENVIRONMENTAL HEALTH AND SAFETY LEADER documented in this encounter Results * NM MYOCARD PERF IMAG SPECT MULT (02/24/2006 12:01 AM ENVIRONMENTAL HEALTH AND SAFETY LEADER) 02/24/2006 12:0 1 AM ENVIRONMENTAL HEALTH AND SAFETY LEADER Narrative INTERFACE SYSTEM - 02/24/2006 12:01 AM ENVIRONMENTAL HEALTH AND SAFETY LEADER Radionuclide Myocardial Perfusion SPECT Rest/Adenosine Stress Wall [...] STRESS TEST,EXERCISE, NUCLEAR MED (02/24/2006 12:01 AM ENVIRONMENTAL HEALTH AND SAFETY LEADER) 02/24/2006 12:0 1 AM ENVIRONMENTAL HEALTH AND SAFETY LEADER Narrative INTERFACE SYSTEM - 02/24/2006 12:01 AM ENVIRONMENTAL HEALTH AND SAFETY LEADER Cardiac Stress Test with Adenosine Provocation, Monitoring, [...] encounter Visit Diagnoses Diagnosis Coronary atherosclerosis of [place] coronary artery- Primary documented in this encounter Care Teams Glass Washer And Carrier Relationship Specialty Start Date End Date Gorge Luciano DO [address] [place] [address] PCP - General Internal Medicine 07/17/09 documented as of this encounter
--- OUTSIDE RECORDS SUMMARY | 2025-02-10 14:10 | XMS_ITS | Encounter Summary ---
Author Organization [facility] Address [address] [place] [address] Care Team Providers Care Crusher Machine Operator Name Role Phone Gorge Luciano DO Primary Care Provider [phone] Encounter Details Date Type Department Care Team (Late st Contact Info) Description 05/18/2005 Outpatient Historical [facility] Orthopedics- [address] [place] [address] Oren Mckinnon MD [address] [place] [address] Cmp Int Orth Dev/Gft NOS (CMS/HCC) (Primary Dx); Ankylosis of Lower Leg Joint Social History Tobacco Use Types Packs/Day Years Used Date Smoking Tobacco: Never Assessed Comments Unknown Sex and Gender Information Value Date Recorded Sex Assigned at Not on file Legal Sex Female 5:31 AM BANKING CONSULTANT Gender Identity Not on file Sexual Orientation Not on file documented as of this encounter Plan of Treatment Not on file documented as of this encounter Visit Diagnoses Diagnosis Unspecified mechanical complication of internal orthopedic device, implant, and graft- Primary Ankylosis of lower leg joint documented in this encounter Care Teams Crusher Machine Operator Relationship Specialty Start Date End Date Gorge Luciano DO [address] [place] [address] PCP - General Internal Medicine 07/17/09 documented as of this encounter
--- OUTSIDE RECORDS SUMMARY | 2025-02-10 14:10 | XMS_ITS | Encounter Summary ---
Author Organization [facility] Address [address] [place] [address] Care Team Providers Care Wrapper Off Name Role Phone Gorge Luciano DO Primary Care Provider [phone] Encounter Details Date Type Department Care Team (Latest Contact Info) Description 11/09/2005 Outpatient Historical [facility] Imaging Services-Derik Clark Fenwick [address] [place] [address] Catracho Dueñas MD [address] [place] [address] Intervertebral Lumbar Disc Disorder with Myelopathy, Lumbar Region (Primary Dx) Social History Tobacco Use Types Packs/Day Years Used Date Smoking Tobacco: Never Assessed Comments Unknown Sex and Gender Information Value Date Recorded Sex Assigned at Not on file Legal Sex Female 5:31 AM TOBACCO WAREHOUSE AGENT Gender Identity Not on file Sexual Orientation Not on file documented as of this encounter Plan of Treatment Not on file documented as of this encounter Visit Diagnoses Diagnosis Intervertebral lumbar disc disorder with myelopathy, lumbar region- Primary documented in this encounter Care Teams Wrapper Off Relationship Specialty Start Date End Date Gorge Luciano DO [address] [place] [address] PCP - General Internal Medicine 07/17/09 documented as of this encounter
--- OUTSIDE RECORDS SUMMARY | 2025-02-10 14:10 | XMS_ITS | Encounter Summary ---
Author Organization [facility] Address [address] [place] [address] Care Team Providers Care Restoration Ecologist Name Role Phone Gorge Luciano DO Primary Care Provider [phone] Encounter Details Date Type Department Care Team (Latest Contact Info) Description 11/20/2005 Outpatient Historical [facility] [address] [place] [address] Catracho Dueñas MD [address] [facility] [address] [place] [address] Lumbago (Primary Dx); DM w/o Complication Type II (CMS/HCC); Other, Multiple and Ill-Defined Closed Fractures of Lower Limb Social History Tobacco Use Types Packs/Day Years Used Date Smoking Tobacco: Never Assessed Comments Unknown Sex and Gender Information Value Date Recorded Sex Assigned at Not on file Legal Sex Female 5:31 AM PROTEIN PURIFICATION SCIENTIST Gender Identity Not on file Sexual Orientation Not on file documented as of this encounter Plan of Treatment Not on file documented as of this encounter Visit Diagnoses Diagnosis Lumbago- Primary Type II or unspecified type diabetes mellitus without mention of complication, not stated as uncontrolled Other, multiple and ill-defined closed fractures of lower limb documented in this encounter Care Teams Restoration Ecologist Relationship Specialty Start Date End Date Gorge Luciano DO [address] [place] [address] PCP - General Internal Medicine 07/17/09 documented as of this encounter
--- OUTSIDE RECORDS SUMMARY | 2025-02-10 14:10 | XMS_ITS | Encounter Summary ---
Author Organization [facility] Address [address] [place] [address] Care Team Providers Care Filament Coil Winder Name Role Phone Gorge Luciano DO Primary Care Provider [phone] Encounter Details Date Type Department Care Team (Late st Contact Info) Description 06/24/2005 Outpatient Historical [facility] [address] [place] [address] Oren Mckinnon MD [address] [place] [address] Cmp Int Orth Dev/Gft NOS (CMS/HCC) (Primary Dx); Ankylosis of Lower Leg Joint Social History Tobacco Use Types Packs/Day Years Used Date Smoking Tobacco: Never Assessed Comments Unknown Sex and Gender Information Value Date Recorded Sex Assigned at Not on file Legal Sex Female 5:31 AM WAXER Gender Identity Not on file Sexual Orientation Not on file documented as of this encounter Plan of Treatment Not on file documented as of this encounter Visit Diagnoses Diagnosis Unspecified mechanical complication of internal orthopedic device, implant, and graft- Primary Ankylosis of lower leg joint documented in this encounter Care Teams Filament Coil Winder Relationship Specialty Start Date End Date Gorge Luciano DO [address] [place] [address] PCP - General Internal Medicine 07/17/09 documented as of this encounter
--- OUTSIDE RECORDS SUMMARY | 2025-02-10 14:10 | XMS_ITS | Encounter Summary ---
Author Organization [facility] Address [address] [place] [address] Care Team Providers Care Insurance Office Manager Name Role Phone Gorge Luciano DO Primary Care Provider [phone] Encounter Details Date Type Department Care Team (Latest Contact Info) Description 08/28/2005 Outpatient Historical [facility] [address] [place] [address] Gorge Luciano DO [address] [place] [address] DM w/o Complication Type II (CMS/HCC) (Primary Dx); Allergic Rhinitis, Cause Unspecified Social History Tobacco Use Types Packs/Day Years Used Date Smoking Tobacco: Never Assessed Comments Unknown Sex and Gender Information Value Date Recorded Sex Assigned at Not on file Legal Sex Female 5:31 AM MOVIE SHOT CAMERA OPERATOR Gender Identity Not on file Sexual Orientation Not on file documented as of this encounter Plan of Treatment Not on file documented as of this encounter Visit Diagnoses Diagnosis Type II or unspecified type diabetes mellitus without mention of complication, not stated as uncontrolled- Primary Allergic rhinitis, cause unspecified documented in this encounter Care Teams Insurance Office Manager Relationship Specialty Start Date End Date Gorge Luciano DO [address] [place] [address] PCP - General Internal Medicine 07/17/09 documented as of this encounter
--- OUTSIDE RECORDS SUMMARY | 2025-02-10 14:10 | XMS_ITS | Encounter Summary ---
Author Organization [facility] Address [address] [place] [address] Care Team Providers Care Sale Professional Digital Marketing Name Role Phone Gorge Luciano Joelle CALDWELL Primary Care Provider [phone] Reason for Visit * Reason Comments Medication Refill Encounter Details Date Type Department Care Team (Late st Contact Info) Description 07/24/2013 Refill [facility] 4H Cardiac Admit [address] [place] [address] Salinas Cutler MD [address] [address] Social History Tobacco Use Types Packs/Day Years Used Date Smoking Tobacco: Never Smokeless Tobacco: Never Alcohol Use Standard Drinks/Week Comments No 0 (1 standard drink = 0.6 oz pur e alcohol) Comments No Sex and Gender Information Value Date Recorded Sex Assigned at Not on file Legal Sex Female 5:31 AM MOLD CAPPER Gender Identity Not on file Sexual Orientation [...] on filedocumented in this encounter Care Teams Sale Professional Digital Marketing Relationship Specialty Start Date End Date Gorge Luciano DO [address] [address] PCP - General Internal Medicine 07/17/09 documented as of this encounter
--- OUTSIDE RECORDS SUMMARY | 2025-02-10 14:10 | XMS_ITS | Encounter Summary ---
Author Organization [facility] Address [address] [place] [address] Care Team Providers Care Cylinder Machine Operator Name Role Phone Gorge Luciano DO Primary Care Provider [phone] Encounter Details Date Type Department Care Team (Latest Contact Info) Description 11/26/2005 Outpatient Historical [address] [id number] Danae Scanlon MD [address] [place] [phone] Abnormal Weight Gain (Primary Dx); Dietary Surveil/Pharmacognosist Social History Tobacco Use Types Packs/Day Years Used Date Smoking Tobacco: Never Assessed Comments Unknown Sex and Gender Information Value Date Recorded Sex Assigned at Not on file Legal Sex Female 5:31 AM HOSE TUBING BACKER Gender Identity Not on file Sexual Orientation Not on file documented as of this encounter Plan of Treatment Not on file documented as of this encounter Visit Diagnoses Diagnosis Abnormal weight gain- Primary Dietary surveil/awake overnight counselor Dietary surveillance and counseling documented in this encounter Care Teams Cylinder Machine Operator Relationship Specialty Start Date End Date Gorge Luciano DO [address] [place] [address] PCP - General Internal Medicine 07/17/09 documented as of this encounter
--- OUTSIDE RECORDS SUMMARY | 2025-02-10 14:10 | XMS_ITS | Encounter Summary ---
Author Organization [facility] Address [address] [place] [address] Care Team Providers Care Roll Coating Machine Operator Name Role Phone Mustapha Gorge Joelle CALDWELL Primary Care Provider Encounter Details Date Type Department Care Team (Late st Contact Info) Description 05/07/2005 Inpatient Historical [facility], Oren Chavez MD [address] [place] [address] JOINT STIFFNESS NEC-OTHER JOINT (Primary Dx) Social History Tobacco Use Types Packs/Day Years Used Date Smoking Tobacco: Never Assessed Comments Unknown Sex and Gender Information Value Date Recorded Sex Assigned at Not on file Legal Sex Female 5:31 AM GEOMAGNETIST Gender Identity Not on file Sexual Orientation Not on file documented as of this encounter Plan of Treatment Not on file documented as of this encounter Procedures Procedure Name Priority Date/Time Associated Diagnosis Comments POC GLUCOSE Routine 05/08/2005 11:47 AM GEOMAGNETIST POC GLUCOSE Routine 05/08/2005 6:11 AM GEOMAGNETIST POC GLUCOSE Routine 05/08/2005 4:07 AM GEOMAGNETIST POC GLUCOSE Routine 05/08/2005 12:39 AM GEOMAGNETIST POC GLUCOSE Routine 05/07/2005 9:44 PM GEOMAGNETIST POC GLUCOSE Routine 05/07/2005 4:00 PM GEOMAGNETIST POC GLUCOSE Routine 05/07/2005 12:38 PM GEOMAGNETIST POC GLUCOSE Routine 05/07/2005 9:29 AM GEOMAGNETIST documented in this encounter Results * (ABNORMAL) POC GLUCOSE (05/08/2005 11:47 AM GEOMAGNETIST) GLUCOSE POC 307(H) 60 - 100 mg/dL INTERFACE SYSTEM 05/08/2005 11:4 7 AM GEOMAGNETIST Historical Provider POINT OF CARE TESTING Final Result Performing Organization Address [facility] de Phone Number INTERFACE SYSTEM Refer to clinic/hospital department * (ABNORMAL) POC GLUCOSE (05/08/2005 6:11 AM GEOMAGNETIST) GLUCOSE POC 157(H) 60 - 100 mg/dL INTERFACE SYSTEM 05/08/2005 6:11 AM GEOMAGNETIST Historical Provider POINT OF CARE TESTING Final Result Performing Organization Address [facility] Phone Number INTERFACE SYSTEM Refer to clinic/hospital department * (ABNORMAL) POC GLUCOSE (05/08/2005 4:07 AM GEOMAGNETIST) GLUCOSE POC 187(H) 60 - 100 mg/dL INTERFACE SYSTEM 05/08/2005 4:07 AM GEOMAGNETIST Historical Provider POINT OF CARE TESTING Final Result Performing Organization Address [facility] Phone Number INTERFACE SYSTEM Refer to clinic/hospital department * (ABNORMAL) POC GLUCOSE (05/08/2005 12:39 AM GEOMAGNETIST) GLUCOSE POC 330(H) 60 - 100 mg/dL INTERFACE SYSTEM 05/08/2005 12:3 9 AM GEOMAGNETIST Historical Provider POINT OF CARE TESTING Final Result Performing Organization Address [facility] de Phone Number INTERFACE SYSTEM Refer to clinic/hospital department * (ABNORMAL) POC GLUCOSE (05/07/2005 9:44 PM GEOMAGNETIST) GLUCOSE POC 295(H) 60 - 100 mg/dL INTERFACE SYSTEM 05/07/2005 9:44 PM GEOMAGNETIST Historical Provider POINT OF CARE TESTING Final Result Performing Organization Address [facility] de Phone Number INTERFACE SYSTEM Refer to clinic/hospital department * (ABNORMAL) POC GLUCOSE (05/07/2005 4:00 PM GEOMAGNETIST) GLUCOSE POC 224(H) 60 - 100 mg/dL INTERFACE SYSTEM 05/07/2005 4:00 PM GEOMAGNETIST [facility] Provider POINT OF CARE TESTING Final Result Performing Organization Address [facility] de Phone Number INTERFACE SYSTEM Refer to clinic/hospital department * (ABNORMAL) POC GLUCOSE (05/07/2005 12:38 PM GEOMAGNETIST) GLUCOSE POC 198(H) 60 - 100 mg/dL INTERFACE SYSTEM 05/07/2005 12:3 8 PM GEOMAGNETIST Historical Provider POINT OF CARE TESTING Final Result Performing Organization Address [facility] Phone Number INTERFACE SYSTEM Refer to clinic/hospital department * (ABNORMAL) POC GLUCOSE (05/07/2005 9:29 AM GEOMAGNETIST) GLUCOSE POC 199(H) 60 - 100 mg/dL INTERFACE SYSTEM 05/07/2005 9:29 AM GEOMAGNETIST Historical Provider POINT OF CARE TESTING Final Result Performing Organization Address City/[facility] de Phone Number INTERFACE SYSTEM Refer to clinic/hospital department documented in this encounter Visit Diagnoses Diagnosis Stiffness of joint, not elsewhere classified, other specified site- Primary documented in this encounter Care Teams Roll Coating Machine Operator Relationship Specialty Start Date End Date Gorge Luciano DO [address] [place] [address] PCP - General Internal Medicine 07/17/09 documented as of this encounter
--- OUTSIDE RECORDS SUMMARY | 2025-02-10 14:10 | XMS_ITS | Encounter Summary ---
Author Organization [facility] Address [address] [place] [address] Care Team Providers Care Gum Machine Filler Name Role Phone Gorge Luciano DO Primary Care Provider [phone] Encounter Details Date Type Department Care Team (Latest Contact Info) Description 05/29/2005 Outpatient Historical [facility] [address] [place] [address] Gorge Luciano DO [address] [place] [address] DM w/o Complication Type I (CMS/HCC) (Primary Dx) Social History Tobacco Use Types Packs/Day Years Used Date Smoking Tobacco: Never Assessed Comments Unknown Sex and Gender Information Value Date Recorded Sex Assigned at Not on file Legal Sex Female 5:31 AM ACCOUNTS RECEIVABLE SPECIALIST Gender Identity Not on file Sexual Orientation Not on file documented as of this encounter Plan of Treatment Not on file documented as of this encounter Visit Diagnoses Diagnosis Type I (juvenile type) diabetes mellitus without mention of complication, not stated as uncontrolled- Primary documented in this encounter Care Teams Gum Machine Filler Relationship Specialty Start Date End Date Gorge Luciano DO [address] [place] [address] PCP - General Internal Medicine 07/17/09 documented as of this encounter
--- OUTSIDE RECORDS SUMMARY | 2025-02-10 14:10 | XMS_ITS | Encounter Summary ---
Author Organization [facility] Address [address] [place] [address] Care Team Providers Care Machinery Engineer Name Role Phone Gorge Luciano DO Primary Care Provider [phone] Reason for Visit * Reason Comments Patient Communication Encounter Details Date Type Department Care Team (Late st Contact Info) Description 02/01/2025 Telephone [facility] Chad Clark [place] [address] [place] [address] Gorge Luciano DO [address] [place] [address] Patient Communication Social History Tobacco [...] AM CDT Legal Sex Female 12:41 PM RELIEF MAP MODELER Gender Identity Female 12/21/2023 9:49 AM CDT Sexual Orientation Not on file documented as of this encounter Miscellaneous Notes * Telephone Encounter - Josh Corrales RN - 02/05/2025 11:56 AM RELIEF MAP MODELER Noted. EF MAP MODELER * Telephone Encounter - Josh Corrales RN - 02/01/2025 2:29 PM RELIEF MAP MODELER 02/01/2025 2:29 PM Radha brady [facility] [address] Medical: stating they received an WOPD from [...] will need completed /singed and faxed back. EF MAP MODELER * Telephone Encounter - Beth Torres PCA - 02/01/2025 8:37 AM RELIEF MAP MODELER Copied from [facility] #[id number]. Topic: CPA Information Request >> Feb 01, 2025 8:36 AM Beth Hernandez wrote: Caller is returning phone call from clinic. [facility]Caregiver Callback Number: [phone] Patient Has Additional Questions Are the credentials of the caregiver who talked to the patient scuba instructor? No Call Notes: Asking to speak with nurse about the WOPD form? It was filled out incorrect EF MAP MODELER documented in this encounter Plan of Treatment Upcoming Encounters Date Type Department Care Team (Late st Contact Info) Description 02/14/2025 9:15 AM RELIEF MAP MODELER Appointment [facility] [place] [address] [place] [phone] PA [address] [place] [address] 02/15/2025 11:40 AM RELIEF MAP MODELER Office Visit [facility] Orthopedics - Orthopedic [facility] [address] [place] [address] Conrado Barraza PA-C [address] [place] [address] 02/28/2025 11:20 AM RELIEF MAP MODELER Office Visit [facility] Int [facility]-Derik Clark [place] [address] [place] [address] Gorge Luciano DO [address] [place] [address] 04/09/2025 12:35 PM RELIEF MAP MODELER Appointment [facility] [address] [place] [address] 04/12/2025 8:00 AM RELIEF MAP MODELER Video Visit [facility] Endocrinology [facility] [address] [place] [address] Lorna Page MD [address] [place] [address] 04/16/2025 1:20 PM RELIEF MAP MODELER Office Visit [facility] Cancer and Hematology [place] [facility] [address] [place] [address] Levy Page MD [address] [facility] [address] [place] [address] 06/12/2025 12:40 PM CDT Office Visit [facility] Rheumatology- More Eduardo Hogan [address] [place] [address] Enrrique Scanlon MD [address] [place] [address] 09/03/2025 11:20 AM CDT Office Visit [facility] Int Med-Derik [address] [place] [address] Gorge Luciano DO [address] [place] [address] documented as of this encounter Visit Diagnoses Not on filedocumented in this encounter Care Teams Machinery Engineer Relationship Specialty Start Date End Date Gorge Luciano DO [address] [place] [address] PCP - General Internal Medicine 07/17/09 documented as of this encounter
--- OUTSIDE RECORDS SUMMARY | 2025-02-10 14:10 | XMS_ITS | Encounter Summary ---
Author Organization [facility] Address [address] [place] [address] Care Team Providers Care Pharmaceutical Officer Name Role Phone Gorge Luciano DO Primary Care Provider [phone] Encounter Details Date Type Department Care Team (Late st Contact Info) Description 08/29/2010 Ancillary Orders [facility] Cardiac Mortgage Loan Officer Originator [address] [place] [address] Salinas Cutler MD [address] [address] Chest pain; Cor athrscl-uns vessel Social History Tobacco Use Types Packs/Day Years Used Date Smoking Tobacco: Never Smokeless Tobacco: Never Alcohol Use Standard Drinks/Week Comments No 0 (1 standard drink = 0.6 oz pur e alcohol) Comments No Sex and Gender Information Value Date Recorded Sex Assigned at Not on file Legal Sex Female 5:31 AM COAL PULVERIZING OPERATOR Gender Identity Not on file Sexual Orientation Not on file documented as of this encounter Plan of Treatment Not on file documented as of this encounter Results * CL LT HEART CATHETERIZATION (09/03/2010 10:15 AM CDT) [facility] - 09/03/2010 10:29 AM CDT Cardiac Catheterization Report Beryl Sotomayor [id number] 44 y.o. 09/03/2010 Primary care physician: Gorge [...] next week for CABG. Salinas Cutler MD, [facility], [facility] Cardiovascular Medicine [phone] (office) 09/03/2010 10:25 AM Procedure Note Salinas Cutler MD - 09/03/2010 Cardiac Catheterization Report Beryl Sotomayor [id number] 44 y.o. 09/03/2010 Primary care physician: Gorge [...] next week for CABG. Salinas Cutler MD, [facility], [facility] Cardiovascular Medicine [phone] (office) 09/03/2010 10:25 AM us Salinas Cutler MD FLUOROSCOPY ORDERABLES Final Res ult [facility] documented in this encounter Visit Diagnoses Diagnosis Chest pain Chest pain, unspecified Coronary atherosclerosis of unspecified type of vessel, [place] or graft Chest pain Chest pain, unspecified Coronary atherosclerosis of unspecified type of vessel, [place] or graft Chest pain, unspecified documented in this encounter Care Teams Pharmaceutical Officer Relationship Specialty Start Date End Date Gorge Luciano DO [address] [address] PCP - General Internal Medicine 07/17/09 documented as of this encounter
--- OUTSIDE RECORDS SUMMARY | 2025-02-10 14:10 | XMS_ITS | Encounter Summary ---
Author Organization [facility] Address [address] [place] [address] Care Team Providers Care Fish Hatchery Inspector Name Role Phone Gorge Luciano DO Primary Care Provider [phone] Reason for Referral * Outpatient Services (Routine) - Closed Specialty Diagnoses / Procedures Referred By Contac t Referred To Contact Diagnoses Chest pain SOB (shortness of breath) Coronary atherosclerosis of unspecified type of vessel, [place] or graft Procedures CL LT HEART CATHETERIZATION Salinas Cutler MD [address] [facility] [address] [place] [address] Phone: tel: fax: Referral ID Status Reason Start Date Expiration Date Visits Re quested Visits Authorized [id number] Closed 09/27/2012 10/28/2013 1 1 Encounter Details Date Type Department Care Team (Latest Contact Info) Description 09/27/2012 Ancillary Orders [facility] Cardiac Medical Insurance Claims Processor [address] [place] [address] Salinas Cutler MD [address] [facility] [address] [place] [address] Chest pain (Primary Dx); SOB (shortness of breath); Coronary atherosclerosis of unspecified type of vessel, [place]oks[place] or graft Social History Tobacco Use Types Packs/Day Years Used Date Smoking Tobacco: Never Smokeless Tobacco: Never Alcohol Use Standard Drinks/Week Comments No 0 (1 standard drink = 0.6 oz pur e alcohol) Comments No Sex and Gender Information Value Date Recorded Sex Assigned at Not on file Legal Sex Female 5:31 AM OPTICAL LATHE OPERATOR Gender Identity Not on file Sexual [...] AM CDT Cardiac Catheterization Report Beryl Sotomayor [id number] 47 y.o. 10/05/2012 Primary care physician: Gorge [...] 1. Medical therapy Salinas Cutler MD, [facility], [facility] Cardiovascular Medicine [phone] (office) 10/05/2012 9:17 AM Procedure Note Salinas Cutler MD - 10/05/2012 Cardiac Catheterization Report Beryl Sotomayor [id number] 47 y.o. 10/05/2012 Primary care physician: Gorge [...] 1. Medical therapy Salinas Cutler MD, [facility], [facility] Cardiovascular Medicine [phone] (office) 10/05/2012 9:17 AM us Salinas Cutler MD FLUOROSCOPY ORDERABLES Final Res ult [facility] documented in this encounter Visit Diagnoses Diagnosis Chest pain- Primary Chest pain, unspecified SOB (shortness of breath) Shortness of breath Coronary atherosclerosis of unspecified type of vessel, [place] or graft Chest pain, unspecified- Primary Chest pain Chest pain, unspecified SOB (shortness of breath) Shortness of breath Coronary atherosclerosis of unspecified type of vessel, [place]oks[place] or graft documented in this encounter Care Teams Fish Hatchery Inspector Relationship Specialty Start Date End Date Gorge Luciano DO [address] [address] PCP - General Internal Medicine 07/17/09 documented as of this encounter
--- OUTSIDE RECORDS SUMMARY | 2025-02-10 14:10 | XMS_ITS | Encounter Summary ---
Author Organization [facility] Address [address] [place] [address] Care Team Providers Care Critical Care Unit Manager Name Role Phone Gorge Luciano DO Primary Care Provider [phone] Reason for Referral * Outpatient Services (Routine) - Closed Specialty Diagnoses / Procedures Referred By Cami chavez Referred To Contact Diagnoses Liver lesion Procedures MRI ABDOMEN WO CONTRAST Prateek Weaver MD [address] [place] [address] Phone: tel: Referral ID Status Reason Start Date Expiration Date Visits Re quested Visits Authorized [id number] Closed 06/12/2010 12/09/2010 1 1 Encounter Details Date Type Department Care Team (Late st Contact Info) Description 06/12/2010 Ancillary Orders [facility] [address] [place] [address] Prateek Weaver MD [address] [place] [address] Liver lesion Social History Tobacco Use Types Packs/Day Years Used Date Smoking Tobacco: Never Alcohol Use Standard Drinks/Week Comments No 0 (1 standard drink = 0.6 oz pur e alcohol) Comments No Sex and Gender Information Value Date Recorded Sex Assigned at Not on file Legal Sex Female 5:31 AM ENTRY LEVEL ACCOUNT EXECUTIVE Gender Identity Not on file Sexual Orientation [...] liver and hepatomegaly. rli - uploaded from [employer] 06/12/2010 12:06 PM CDT Exam: MRI ABDOMEN [...] liver documented in this encounter Care Teams Critical Care Unit Manager Relationship Specialty Start Date End Date Gorge Luciano DO [address] [id number] PCP - General Internal Medicine 07/17/09 documented as of this encounter
--- OUTSIDE RECORDS SUMMARY | 2025-02-10 14:10 | XMS_ITS | Encounter Summary ---
Author Organization [facility] Address [address] [place] [address] Care Team Providers Care Food Photographer Name Role Phone Gorge Luciano DO Primary Care Provider [phone] Reason for Referral * Outpatient Services (Routine) - Closed Specialty Diagnoses / Procedures Referred By Cami chavez Referred To Contact Diagnoses Visit for screening mammogram Procedures MAMMO DIGITAL SCREEN BILAT Yesenia Ortega MD [address] [address] Phone: tel: fax: [facility] Pre-Registration [place] CALL TO MAKE APPOINTMENT ONLY [address] [place] [address] Phone: tel: fax: Referral ID Status Reason Start Date Expiration Date Visits Re quested Visits Authorized [id number] Closed 05/29/2015 06/28/2016 1 2 Encounter Details Date Type Department Care Team (Late st Contact Info) Description 05/29/2015 Ancillary Orders [facility] Pre-Registration [place] CALL TO MAKE APPOINTMENT ONLY [address] [place] [address] Yesenia Ortega MD [address] [address] Visit for screening mammogram (Primary Dx) Social History Tobacco Use Types Packs/Day Years Used Date Smoking Tobacco: Never Smokeless Tobacco: Never Alcohol Use Standard Drinks/Week Comments No 0 (1 standard drink = 0.6 oz pur e alcohol) Comments No Sex and Gender Information Value Date Recorded Sex Assigned at Not on file Legal Sex Female 5:31 AM CLAY THROWER Gender Identity Not on file Sexual Orientation [...] mammogram documented in this encounter Care Teams Food Photographer Relationship Specialty Start Date End Date Gorge Luciano DO [address] [place] [phone] PCP - General Internal Medicine 07/17/09 documented as of this encounter
--- OUTSIDE RECORDS SUMMARY | 2025-02-10 14:10 | XMS_ITS | Encounter Summary ---
Author Organization [facility] Address [address] [place] [address] Care Team Providers Care Home Health Clinical Supervisor Name Role Phone Gorge Luciano DO Primary Care Provider [phone] Reason for Referral * Outpatient Services (Routine) - Closed Specialty Diagnoses / Procedures Referred By Cami chavez Referred To Contact Diagnoses Other screening mammogram Procedures MAMMO DIGITAL SCREEN BILAT Gorge Luciano DO [address] [address] Phone: tel: fax: Referral ID Status Reason Start Date Expiration Date Visits Re quested Visits Authorized [id number] Closed 12/26/2012 01/26/2014 1 1 Encounter Details Date Type Department Care Team (Latest Contact Info) Description 12/26/2012 Ancillary Orders [facility] Pre-Registration [place] CALL TO MAKE APPOINTMENT ONLY [address] [place] [address] Gorge Luciano DO [address] [address] Other screening mammogram (Primary Dx) Social History Tobacco Use Types Packs/Day Years Used Date Smoking Tobacco: Never Smokeless Tobacco: Never Alcohol Use Standard Drinks/Week Comments No 0 (1 standard drink = 0.6 oz pur e alcohol) Comments No Sex and Gender Information Value Date Recorded Sex Assigned at Not on file Legal Sex Female 5:31 AM MACHINIST BENCH Gender Identity Not on file Sexual Orientation [...] MAMMO DIGITAL SCREEN BILAT (01/20/2013 8:30 AM MACHINIST BENCH) Anatomical Region Laterality Modality Breast Bilateral Mammography Narrative 01/23/2013 3:58 PM MACHINIST BENCH Bilateral Mammogram Reason for Exam: Screening Comparison: [...] mammogram documented in this encounter Care Teams Home Health Clinical Supervisor Relationship Specialty Start Date End Date Gorge Luciano DO [address] [place] [address] PCP - General Internal Medicine 07/17/09 documented as of this encounter
--- OUTSIDE RECORDS SUMMARY | 2025-02-10 14:10 | XMS_ITS | Encounter Summary ---
Author Organization [facility] Address [address] [place] [address] Care Team Providers Care French Binder Name Role Phone Gorge Luciano DO Primary Care Provider [phone] Encounter Details Date Type Department Care Team (Latest Contact Info) Description 11/20/2005 Outpatient Historical [facility] [address] [facility] [address] [place] [address] Catracho Dueñas MD [address] [place] [address] Unspecified Backache (Primary Dx) Social History Tobacco Use Types Packs/Day Years Used Date Smoking Tobacco: Never Assessed Comments Unknown Sex and Gender Information Value Date Recorded Sex Assigned at Not on file Legal Sex Female 5:31 AM FOOD AND BEVERAGE SERVICE MANAGER Gender Identity Not on file Sexual Orientation Not on file documented as of this encounter Plan of Treatment Not on file documented as of this encounter Visit Diagnoses Diagnosis Backache, unspecified- Primary documented in this encounter Care Teams French Binder Relationship Specialty Start Date End Date Gorge Luciano DO [address] [place] [address] PCP - General Internal Medicine 07/17/09 documented as of this encounter
--- OUTSIDE RECORDS SUMMARY | 2025-02-10 14:10 | XMS_ITS | Clinical Summary ---
Author Organization [facility] Address [address] [place] [address] Care Team Providers Care Drencher Name Role Phone Gorge Luciano Joelle CALDWELL Primary Care Provider [phone] Allergies Active Allergy Reactions Criticality Noted Date [...] Active wheelchairIndicat ions:Chronic diastolic congestive heart failure ([facility]),Diabete s mellitus type 1, controlled, with complications ([facility]),Morbid obesity with BMI of 40.0-44.9, adult ([facility]) Wheelchair Repairs to owned power wheelchair [id number] [...] daily. Active fluticasone propionate (FLONASE) 50 mcg/spray [place], Suspension nasal inhalerIndication s:Sinusitis, unspecified chronicity, unspecified location Administer 2 Sprays in each nostril daily. 16 Gram 5 06/04/19 19 Active azelastine (ASTELIN) 137 mcg/actuation nasal sprayIndications: Chronic pansinusitis Administer 2 Sprays in each nostril 2 times daily. 30 mL 6 06/16/19 19 Active vit A-vit R-jawknp-xpcr-mass spectroscopist per 2,500 unit-100 mg-2,500 mcg Capsule Take by mouth. Act zhane cetirizine (ZyrTEC) 10 mg tablet Take 10 mg by mouth daily. Active Insulin [place], Disposable, (BD Ultra-Fine Short Pen Needle) 31 [...] 07/25/19 20 Active Blood-Glucose Meter,Continuous (Dexcom G6 Staff Psychologist) Use as directed. 1 Each 08/24/19 20 [...] extremities 0 08/02/2020 Overview (08/02/2020): [place] in [place] Home and told these needed fixing by Dr Velasquez at [facility]; may have to do this [...] and unspecified hyperlipidemia 01/20/2008 Coronary atherosclerosis of [place] coronary artery 01/20/2008 Gastroparesis 06/09/2013 Unspecified hereditary [...] Grandfather Manish Hernández Maternal Uncle Mother Graciela aGona Redanette Alive Other Paternal Grandmother Jessica Lock [place] Social History Tobacco Use Types Packs/Day Years Used Date Smoking Tobacco: Never Smokeless Tobacco: Never Tobacco Cessation:Counseling Given: Yes Alcohol Use Standard Drinks/Week Comments No 0 (1 standard drink = 0.6 oz pur e alcohol) Comments No Sex and Gender Information Value Date Recorded Sex Assigned at Not on file Legal Sex Female 5:31 AM CERAMIST Gender Identity Not on file Sexual Orientation [...] Page MD Medical Devices Implanted Type Area Glue Wheel Operator Device Identifier Shelf Expiration Date Model / Serial / Lot Log [id number] - Bard Patches, Pledgets, [employer], Fab[employer] - 1 - Grahn Ptfe Thck 1.6mmx2.5x2.5cm [id number] Implanted:Qty: 1 on 09/09/2010 at [facility] Graft N/A: Heart CR [employer] 05/14/2015 [id number] / / [id number] Port Smart 8.0fr [id number] Implanted:05/22 by Milan Malik MD (Quantity not on file) Port Left: Chest Wall [employer] 03/13/2017 / / [id number] Procedures Procedure Name Priority Date/Time Associated Diagnosis Comments MICROALBUMIN/CREATI NINE RATIO, RANDOM UR Routine 07/30/2020 8:53 AM CDT Uncontrolled type 1 diabetes mellitus with hyperglycemia (CMS/HCC) LIPID PANEL Routine 07/29/2020 11:23 AM CDT Hyperlipidemia LDL goal <100 HEMOGLOBIN A1C Routine 07/29/2020 11:23 AM CDT Uncontrolled type 1 diabetes mellitus with hyperglycemia (CMS/HCC) MAMMO SCREEN BILAT W OR WO CAD Routine 01/17/2020 11:13 AM CERAMIST Breast cancer screening by mammogram CERV/VAG CYTO [...] Reference Range mg/dL 07/30/2020 9:14 AM CDT [facility] CREATININE, URINE 59.4 29.0 - 226.0 mg/dL 07/30/2020 9:14 AM CDT [facility] Comment:Reference Range vari es with fluid intake and diet. MICROALBUMIN/C REAT RATIO, UR <20.2 <25.0 mg/g 07/30/2020 9:14 AM CDT [facility] Urine URINE SPECIMEN OBTAINED BY CLEAN CATCH PROCEDURE / Unknown Collection / Unknown 07/30/2020 8:53 AM CDT 07/30/2020 8:53 AM CDT [facility] - 07/30/2020 9:14 AM CDT Condition Microalbumin/Creat ratio Normal Males <17 Normal Females <25 Microalbuminuria Males 17-299 Microalbuminuria Females 25-299 Overt proteinuria >=300 Gorge Luciano DO URINE ORDERABLES Final Result [facility] # [id number] [address] [place] [address] * (ABNORMAL) HEMOGLOBIN A1C (07/29/2020 11:23 AM CDT) HEMOGLOBIN A1C 6.8(H) <=5.6 % 07/29/2020 11:48 AM CDT [facility] EST. AVG GLUCOSE, A1C 148 mg/dL 07/29/2020 11:48 AM CDT [facility] Blood Collection / Unknown 07/29/2020 11:23 AM CDT 07/29/2020 11:26 AM CDT [facility] - 07/29/2020 11:48 AM CDT HGB A1C INTERPRETATION NORMAL: <5.7% PRE-DIABETES: 5.7 - 6.4% DIABETES: 6.5% OR GREATER Gorge Luciano DO CHEMISTRY ORDERABLES Final Res ult [facility] CLIA # [id number] [address] [place] [address] * LIPID PANEL (07/29/2020 11:23 AM CDT) [facility] CHOLESTEROL 122 <200 mg/dL 07/29/2020 11:56 AM CDT [facility] TRIGLYCERIDE 149 <150 mg/dL 07/29/2020 11:56 AM T [facility] HDL 51 40 - 59 mg/dL 07/29/2020 11:56 AM T [facility] LDL CALCULATED 41 <100 mg/dL 07/29/2020 11:56 AM T [facility] NON-HDL CHOLESTEROL 71 <130 mg/dL 07/29/2020 11:56 AM [facility] Blood Collection / Unknown 07/29/2020 11:23 AM CDT 07/29/2020 11:26 AM CDT [facility] - 07/29/2020 11:56 AM CDT TOTAL CHOLESTEROL [...] Luciano DO CHEMISTRY ORDERABLES Final Res ult [facility] CLIA # [id number] [address] [place] [address] * MAMMO SCREEN BILAT W OR WO CAD (01/17/2020 11:13 AM CERAMIST) Anatomical Region Laterality Modality Breast Bilateral Mammography Narrative 01/23/2020 1:35 PM CERAMIST Bilateral Mammogram Reason for Exam: Screening Comparison: [...] See Separate Results 09/19/2019 1:47 PM CDT [facility] Genital SWAB OF ENDOCERVIX / Unknown Collection / Unknown 09/12/2019 3:45 PM CDT 09/13/2019 12:13 PM CDT Yesenia Ortega MD PATHOLOGY/CYTOLOGY ORDERABLES F inal Result [facility] [address] [address] * COLON CANCER SCREEN, STOOL DNA (08/01/2019 2:15 PM CDT) COLOGUARD RESULT Negative Not Applicable [facility] Comment: A negative result indicates a [...] Marcelo et al, N Engl J Med 2014;370(14):4829-4847) The normal value (reference range) for this assay is negative. COLOGUARD RE-SCREENING RECOMMENDATION: Periodic routine colorectal cancer screening is an important part of preventive healthcare for asymptomatic persons at average risk for colorectal cancer. Following a negative Cologuard result, the [place] Cancer Society and U.S. Multi-Society Task Force screening guidelines recommend a Cologuard re-screening interval of 3 years. References: [place] Cancer Society (ACS). Colorectal cancer prevention and early detection. [place], [place]: [place] [employer] Society; [updated 2015Jul 06]. https://www.cancer.org/cancer/gaxeu-gwusdc-khaukc/emffxswrh-hsvzkkqob-alxowki/ac s-rec ommendations.html. Accessed November 12, 2017; Ashu DK, Jessica CR, Mildred RodriguezK, Colorectal Cancer Screening: Recommendations for Physicians and Patients from the U.S. Multi-Society Task Force on Colorectal Cancer Screening, Am J Gastroenterology 2017; 112:0615-9537. TEST TYPE: Composite algorithmic analysis of stool [...] interval of every 3 years by the [place] Cancer Society and U.S. Multi-Society Task Force. [...] can be accessed at the following location: [email or web address].com.CINEPASS/results. Additional description of the Cologuard test process, warnings and precautions can be found at www.cologuardtest.com. Rx only. Stool STOOL SPECIMEN / Unknown 08/01/2019 2:15 PM CDT 08/02/2019 10:03 PM CDT Gorge Luciano DO BODY FLUIDS AND STOOLS Final R esult [facility] CLIA # [id number] [address] , [address] [place] [address] * DIABETES FOOT EXAM (04/26/2018) us Abstract [...] Advance Directives For more information, please contact: [phone] * Full Code (Latest Code Status on [...] 2:27 PM 10/04/2010 2:38 AM Care Teams Drencher Relationship Specialty Start Date End Date Gorge Luciano DO [address] [facility] [address] [place] [address] PCP - General Internal Medicine 07/17/09
--- OUTSIDE RECORDS SUMMARY | 2025-02-10 14:10 | XMS_ITS | Encounter Summary ---
Author Organization [facility] Address [address] [place] [address] Care Team Providers Care Shaper Machine Hand Name Role Phone Gorge Luciano Joelle CALDWELL Primary Care Provider [phone] Encounter Details Date Type Department Care Team (Late st Contact Info) Description 11/09/2005 Outpatient Historical [facility] [place] [address] [place] [address] Tunde Hamilton MD 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 - Dictated By: Andre Veliz M.D. Electronically Signed By: Andre Veliz M.D. Date Signed: 11/09/05 SDM Catracho Dueñas MD MR ORDERABLES Final Result documented in this encounter Visit Diagnoses Diagnosis Sprain and strain of unspecified site of knee and leg- Primary documented in this encounter Care Teams Shaper Machine Hand Relationship Specialty Start Date End Date Gorge Luciano DO [address] [address] PCP - General Internal Medicine 07/17/09 documented as of this encounter
--- OUTSIDE RECORDS SUMMARY | 2025-02-10 14:10 | XMS_ITS | Clinical Summary ---
Author Organization [facility] Address [address] [place] [address] Care Team Providers Care Asbestos Removal Supervisor Name Role Phone MustaphaGorge Joelle CALDWELL Primary Care Provider [phone] Allergies Active Allergy Reactions Criticality Noted Date [...] Triple Antibiotic (Colistimth) Rash Medium 04/24/2021 Zoledronic Kdpy-Qpvefcvz-Lhcgu Muscle Pain Low 08/27/2022 Medications zinc 50 [...] 270 Tablet 3 05/03/19 24 Active Insulin Oakpark, Disposable, (Adelaida Pen Needle) 32 gauge x [...] sensor to wirelessly send data to the vp packaging. Must be changed every 3 months. 1 [...] these needed fixing by Dr Velasquez at [facility]; may have to do this up here [place] Home and told these needed fixing by Dr Velasquez at [facility]; may have to do this [...] stated as uncontrolled 06/23/2007 Coronary atherosclerosis of [place] coronary artery 01/20/2008 Unspecified hereditary and i diopathic peripheral neuropathy 01/20/2008 Encounters Date Type Department Care Team Description 02/09/2025 Orders Only [facility] Int Med-Derik [place] [place] [address] Gorge Luciano DO 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 ([facility]) (Primary Dx) 02/06/2025 10:30 AM TRANSONIC ENGINEER Procedure visit [facility] Physical Med and Rehab S[facility] [address] [place] [address] Yosef Hoffman MD Chronic right shoulder pain; Numbness and tingling of right arm 02/04/2025 Refill [facility] Rheumatology- Derik Clark [place] [address] [place] [address] Enrrique Scanlon MD Primary osteoarthritis, unspecified site 02/01/2025 Telephone [facility] [place] [place] [address] Gorge Luciano DO Patient Communication 01/30/[address] [facility] Endocrinology [facility] [address] [place] [address] Lorna Page MD 01/28/[address] [facility] Endocrinology [facility] [address] [place] [address] Lorna Page MD 01/09/2025 9:45 AM CDT Office Visit [facility] Orthopedics - Orthopedic [place] [address] [place] [address] PA Chronic right shoulder pain (Primary Dx); Numbness and tingling of right arm 01/01/2025 Results Follow-Up [facility] [employer] [place] [phone] Priyanka Fnog PA MAMMO 3D ALEYDA SCREEN BILAT W OR WO CAD 12/29/2024 9:38 AM CDT - 12/29/2024 11:59 PM CDT Hospital Encounter 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 (CMS/HCC); Arthralgia of right temporomandibular joint; Debility; Essential hypertension; Generalized edema; Screening mammogram, encounter for 12/12/2024 12:20 PM CDT Office Visit [facility] Rheumatology- More Eduardo [place] [address] [place] [address] Enrrique Scanlon MD Primary osteoarthritis, unspecified site (Primary Dx); NSAID long-term use; Polyarthralgia 12/11/2024 Telephone [facility] Int Med-More Mcdonough [place] [place] [address] Gorge Luciano DO Order for a wheelchair 12/07/2024 10:09 AM CDT - 12/07/2024 11:59 PM CDT Hospital Encounter [facility] Outpatient Laboratory Services [place] [address] [facility] [address] [place] [phone] Edward Avila NP Discharge Disposition: Home or Self Care 12/07/2024 10:07 AM CDT - 12/07/2024 11:59 PM CDT Hospital Encounter [facility] Outpatient Services [place] [address] [facility] [address] [place] [address] Levy Page MD Discharge Disposition: Home or Self Care 11/28/2024 Refill [facility] Rheumatology- More [place] [address] [place] [address] Enrrique Scanlon MD Primary osteoarthritis, unspecified site 11/23/2024 Orders Only [facility] Cancer and Hematology [place] [address] [place] [phone] Edward Avila NP Iron deficiency anemia due [...] Relation Name Comments Anemia Father Shahid العلي [place] Arthritis Father Shahid العلي [place] Cancer Father Shahid العلي [place] Cancer lip area. Cancer - Other Father Shahid العلي [place] Gout Father Shahid العلي [place] Heart Disease Father Shahid العلي [place] Hemophilia Father Shahid العلي [place] High Cholesterol Father Shahid العلي [place] Hypertension Father Shahid العلي [place] Kidney Disease Father Shahid العلي Redanette Other [...] Breast Cancer Mother Graciela Gaona [place] posit zhane responses - see media tab Cancer Mother Graceila Gaona [place] Cataract Mother Graciela [place] Depression Mother Graciela Gaona [place] Detachment/Tears Mother Graciela Gaona [place] Goiter Mother Graciela Gaona [place] High Cholesterol Mother Graciela Gaona [place] Hypertension Mother Graciela [place] Osteoporosis Mother Graciela Gaona [place] Other Mother Graciela Gaona [place] Thyroid Disease Mother Graciela Gaona [place] Diabetes Other Elevated Lipids Other Heart Disease Other Hypertension Other Cataract Paternal Grandmother Iris Hayde [place] Hypertension Paternal Grandmother Jessica Lcok [place] Amblyopia Neg Hx Blindness Neg Hx Colon Cancer Neg Hx Glaucoma Neg Hx Macular Degen Neg Hx Strabismus Neg Hx Relation Name Status Comments Father Shahid Holly Alive Maternal Cousin 1 Maternal Cousin 2 Maternal Grandfather Manish Hernández Maternal Uncle Mother Graciela Gaona [place] Other Paternal Grandmother Iris Hayde [place] Social History Tobacco Use Types Packs/Day [...] AM CDT Legal Sex Female 12:41 PM TRANSONIC ENGINEER Gender Identity Female 12/21/2023 9:49 AM CDT [...] st Contact Info) Description 02/14/2025 9:15 AM TRANSONIC ENGINEER Appointment [facility] [place] [address] [place] [address] PA [address] [place] [phone] 02/15/2025 11:40 AM TRANSONIC ENGINEER Office Visit [facility] Orthopedics - Orthopedic [facility] [address] [place] [phone] Conrado Barraza, PA-C [address] [place] [address] 02/28/2025 11:20 AM TRANSONIC ENGINEER Office Visit [facility] Int Med-More Eduardo [place] [place] [address] Gorge Luciano DO [address] [place] [address] 04/09/2025 12:35 PM TRANSONIC ENGINEER Appointment [facility] Laboratory Services [address] [place] [phone] 04/12/2025 8:00 AM TRANSONIC ENGINEER Video Visit [facility] Endocrinology [facility] [address] [place] [address] Lorna Page MD [address] [place] [address] 04/16/2025 1:20 PM TRANSONIC ENGINEER Office Visit [facility] Cancer and Hematology [place] [address] [place] [address] Levy Page MD [address] [place] [address] 06/12/2025 12:40 PM CDT Office Visit [facility] Rheumatology- More [place] [address] [place] [address] Enrrique Scanlon MD [address] [place] [address] 09/03/2025 11:20 AM CDT Office Visit [facility] Int [facility] Eduardo [place] [place] [address] Gorge Luciano DO [address] [place] [address] Health Maintenance Due Date Last Done Comments [...] this topic Medical Devices Implanted Type Area Duplicating Machine Servicer Device Identifier Shelf Expiration Date Model / Serial / Lot Log [id number] - Bard Patches, Pledgets, Toan, Fabrics - 1 - [place] Ptfe Thck 1.6mmx2.5x2.5c m [id number] Implanted:Qty: 1 on 09/09/2010 Graft N/A: Heart CR BARD- [employer] 05/14/2015 [id number] / / [id number] Port Smart 8.0fr [id number] Implanted:05/13 by Milan Malik MD (Quantity not on file) Port Left: Chest Wall [employer] 03/13/2017 / / [id number] Procedures Procedure Name Priority Date/Time Associated Diagnosis Comments CA NEEDLE EMG EA EXTREMITY W/PARASPINL AREA LIMITED Routine 02/06/2025 10:40 AM TRANSONIC ENGINEER Chronic right shoulder pain Numbness and tingling of right arm CA NERVE CONDUCTION STUDIES 3-4 STUDIES Routine 02/06/2025 10:40 AM TRANSONIC ENGINEER Chronic right shoulder pain Numbness and tingling [...] <100 Routine general medical examination at a [facility] care facility COLON CANCER SCREEN, STOOL DNA Routine 09/11/2022 6:15 PM CDT Screening for colon cancer CERV/VAG CYTO SCREEN PAP W/HPV Routine 09/12/2019 3:45 PM CDT DIABETES FOOT EXAM 04/26/2018 12:00 AM TRANSONIC ENGINEER from Last 3 Months or Most Recently Relevant to Health Maintenance Results * (ABNORMAL) CA NERVE CONDUCTION STUDIES 3-4 STUDIES, CA NEEDLE EMG EA EXTREMITY W/PARASPINL AREA LIMITED (02/06/2025 10:40 AM TRANSONIC ENGINEER) Narrative Fabio Boyer - 02/06/2025 10:40 AM TRANSONIC ENGINEER Yosef Hoffman MD 02/06/2025 10:41 AM NCS/EMG performed today in the clinic ( 1 extremity). 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 No evidence of radiculopathy, plexopathy or other mononeuropathy. Results of this test to be uploaded to the media section by medical imaging technician by early next week. Please see media section from this date to review report once uploaded. Procedure Note Yosef Hoffman MD - 02/06/2025 10:40 AM CST NCS/EMG performed today in the clinic ( 1 extremity). Findings of ulnarnerve mononeuropathy of the right upper extremity. No evidence ofradiculopathy, plexopathy or other mononeuropathy. Results of this test to be uploaded to the media section by [employer] by early next week. Please see media [...] LAB PROCESSING FEE (12/07/2024 10:28 AM CDT) REFERENCE LAB SENDOUT Sent to Ref Lab 12/10/2024 7:48 AM CDT [facility] Other, specify BLOOD SPECIMEN / Unknown Collection / Unknown 12/07/2024 10:28 AM CDT 12/10/2024 7:47 AM CDT Edward Avila NP CHEMISTRY ORDERABLES Final R esult [facility] CLIA # [id number] [address] [place] [address] [place] [address] * VITAMIN B12 AND FOLATE (12/07/2024 10:28 AM CDT) VITAMIN B12 550 200 - 1100 pg/mL [facility] FOLATE, SERUM 7.6 ng/mL [facility] Comment: Reference Range Low: <3.4 Borderline: 3.4-5.4 Normal: >5.4 Test Performed at: [facility] [address] Toro Merchant MD Blood 12/07/2024 10:2 8 AM CDT 12/08/2024 4:13 AM CDT Edward Avial NP CHEMISTRY ORDERABLES Final R esult Performing Organization Address City/[facility] Co de Phone Number [facility] [phone] [address] * IRON, TIBC, AND PERCENT SATURATION (12/07/2024 10:28 AM CDT) IRON 51 45 - 160 mcg/dL [facility] TIBC 266 250 - 450 mcg/dL (calc) [facility] IRON % SATURATION 19 16 - 45 % (calc) [facility] Comment: Test Performed at: [facility] [address] Toro Merchant MD Blood 12/07/2024 10:2 8 AM CDT 12/08/2024 4:13 AM CDT Edward Avila NP CHEMISTRY ORDERABLES Final R esult Performing Organization Address City/[facility]/ZIP Co de Phone Number [facility] [phone] [address] * (ABNORMAL) CBC WITH DIFFERENTIAL (12/07/2024 10:28 AM CDT) Pathologist [facility] WBC 6.6 3.8 - 10.8 Thousand/u L [...] [facility] Comment: Test Performed at: [facility] [address] [place] [address] Toro Merchant MD Blood 12/07/2024 10:2 8 AM CDT 12/08/2024 4:13 AM CDT Edward Avila NP HEMATOLOGY ORDERABLES Final Result Performing Organization Address City/[facility] Co de Phone Number [facility] [phone] [facility] [address] [place] [address] * FERRITIN (12/07/2024 10:28 AM CDT) [facility] FERRITIN 199 16 - 232 ng/mL [facility] Comment: Test Performed at: [facility] [address] [place] [address] Toro Merchant MD Blood 12/07/2024 10:2 8 AM CDT 12/08/2024 4:13 AM CDT Edward Avila NP CHEMISTRY ORDERABLES Final R esult Performing Organization Address [facility] Co de Phone Number [facility] [phone] [facility] [address] [place] [phone] * (ABNORMAL) COMPREHENSIVE METABOLIC PANEL (12/07/2024 10:28 AM CDT) [facility] GLUCOSE 161(H) 65 - 99 mg/dL [facility] [...] ALT 14 6 - 29 U/L [facility] Comment: Test Performed at: [facility] [address] [place] [address] Toro Merchant MD Blood 12/07/2024 10:2 8 AM CDT 12/08/2024 4:13 AM CDT us Edward Avila NP CHEMISTRY ORDERABLES Final R esult [facility] [phone] [facility] [address] [place] [address] * (ABNORMAL) HEMOGLOBIN A1C (09/29/2024 11:15 AM CDT) HEMOGLOBIN A1C 6.1(H) <5.7 % [facility] Comment: For someone without known diabetes, [...] ESTIMATED AVERAGE GLUCOSE (MG/DL) 128 mg/dL [facility] ESTIMATED AVERAGE GLUCOSE (MMOL/L) 7.1 mmol/L [facility] Comment: Test Performed at: [facility] [address] [place] [address] Toro Merchant MD Blood 09/29/2024 11:1 5 AM CDT 09/30/2024 3:07 AM CDT us Lorna Page MD CHEMISTRY ORDERABLES Final Resul t [facility] [phone] [facility] [address] [place] [address] * LIPID PANEL (09/29/2024 11:15 AM CDT) [...] LDL-C. Nick SS et al. ARCHIE. 2013;310(19): 6075-7585 (http://education.[employer]CRAiLAR/faq/EXZ139) CHOL/HDL RATIO 2.3 <5.0 (calc) [facility] NON-HDL CHOLESTEROL 68 <130 mg/dL (calc) [facility] Comment: For patients with diabetes plus 1 major ASCVD risk factor, treating to a non-HDL-C goal of <100 mg/dL (LDL-C of <70 mg/dL) is considered a therapeutic option. Test Performed at: [facility] [address] [place] [address] Toro Merchant MD Blood 09/29/2024 11:1 5 AM CDT 09/30/2024 3:07 AM CDT Lorna Page MD CHEMISTRY ORDERABLES Final Resul t Performing Organization Address [facility] Co de Phone Number [facility] [phone] [facility] [address] [place] [address] * MICROALBUMIN/CREATININE RATIO, RANDOM UR (08/29/2024 8:15 AM CDT) CREATININE, URINE 88 20 - 275 mg/dL [...] within a diagnostic category. Test Performed at: [place] [address] Toro Merchant MD Urine URINE SPECIMEN OBTAINED BY CLEAN CATCH PROCEDURE / Unknown 08/29/2024 8:15 AM CDT 08/30/2024 4:51 AM CDT Gorge Luciano DO URINE ORDERABLES Final Result Performing Organization Address [facility]/ZIP Co de Phone Number [facility] [phone] [facility] [address] [place] [address] * COLON CANCER SCREEN, STOOL DNA (09/11/2022 6:15 PM CDT) COLOGUARD RESULT Negative Negative [facility] Comment: NEGATIVE TEST RESULT. A negative Cologuard [...] Marcelo et al, N Engl J Med 2014;370(14):8264-3478) The normal value (reference range) for this assay is negative. COLOGUARD RE-SCREENING RECOMMENDATION: Periodic colorectal cancer screening is an important part of preventive healthcare for asymptomatic individuals at average risk for colorectal cancer. Following a negative Cologuard result, the [place] Cancer Society and U.S. Multi-Society Task Force screening guidelines recommend a Cologuard re-screening interval of 3 years. References: [place] Cancer Society Guideline for Colorectal Cancer Screening: https://www.cancer.org/cancer/pucmj-sydtwy-kumlso/ionkmalnu-ljlsmwzxu-pjgxgsy/ac s-rec ommendations.html.; Ashu DK, Jessica CR, Mildred RodriguezK, Colorectal Cancer Screening: Recommendations for Physicians and Patients from the U.S. Multi-Society Task Force on Colorectal Cancer Screening , Am J Gastroenterology 2017; 112:1863-5168. TEST DESCRIPTION: Composite algorithmic analysis of stool [...] (Joselin Forte al, N Engl J Med 2014;370(14):4223-6352.) Cologuard may produce a false negative or false positive result (no colorectal cancer or precancerous polyp present at colonoscopy follow up). A negative Cologuard test result does not guarantee the absence of CRC or advanced adenoma (pre-cancer). The current Cologuard screening interval is every 3 years. ([place] Cancer Society and U.S. Multi-Society Task Force). Cologuard performance data in a 10,000 patient pivotal study using colonoscopy as the reference method can be accessed at the following location: www.BigDeal/results. Additional description of the Cologuard test process, warnings and precautions can be found at www.Seismic Softwareoguard.com. Stool STOOL SPECIMEN / Unknown 09/11/2022 6:15 PM CDT 09/13/2022 12:31 AM CDT us Gorge Luciano DO BODY FLUIDS AND STOOLS Final R esult [facility] CLIA # [id number] [address] [facility] [place] [address] * CERV/VAG CYTO SCREEN PAP W/HPV (09/12/2019 3:45 PM CDT) PAP INTERP See Separate Results 09/19/2019 1:47 PM CDT [facility] Gen[facility] SWAB OF ENDOCERVIX / Unknown Collection / Unknown 09/12/2019 3:45 PM CDT 09/13/2019 12:13 PM CDT us Yesenia Ortega MD PATHOLOGY/CYTOLOGY ORDERABLES F inal Result [facility] [address] [place] [address] [facility] LABORATORY SERVICES [facility]# [id number] [address] [place] [address] * DIABETES FOOT EXAM (04/26/2018 12:00 AM TRANSONIC ENGINEER) Sgf Scanning HEALTH MAINTENANCE Final Result from Last 3 Months or Most Recently Relevant to Health Maintenance Insurance [facility] [id number] * Guarantor: BERYL HOLLY Account Type Relation to Patient Date of Phone Billing Address Personal/Family [phone] [address] RX MEDIMPACT Member Subscriber Plan / Payer (Ef fective 2014-Present) Name:Beryl Holly Relation to Subscriber:Self Name:Светлана Berylgogo Cobos Payer ID:Not on file Group ID:[id number] Type:RX Medicare Part D Address: [address] Care Teams Asbestos Removal Supervisor Relationship Specialty Start Date End Date Gorge Luciano DO [address] [place] [phone] PCP - General Internal Medicine 07/17/09
--- OUTSIDE RECORDS SUMMARY | 2025-02-10 14:10 | XMS_ITS | Encounter Summary ---
Author Organization [facility] Address [address] [place] [address] Care Team Providers Care Reel Tender Name Role Phone Gorge Luciano DO Primary Care Provider [phone] Encounter Details Date Type Department Care Team (Late st Contact Info) Description 08/26/[address] [facility] Orthopedics- [address] [place] [address] Oren Mckinnon MD [address] [place] [address] Cmp Int Orth Dev/Gft NOS (CMS/HCC) (Primary Dx); Ankylosis of Lower Leg Joint Social History Tobacco Use Types Packs/Day Years Used Date Smoking Tobacco: Never Assessed Comments Unknown Sex and Gender Information Value Date Recorded Sex Assigned at Not on file Legal Sex Female 5:31 AM RECORDER GRAVITY PROSPECTING Gender Identity Not on file Sexual Orientation Not on file documented as of this encounter Plan of Treatment Not on file documented as of this encounter Visit Diagnoses Diagnosis Unspecified mechanical complication of internal orthopedic device, implant, and graft- Primary Ankylosis of lower leg joint documented in this encounter Care Teams Reel Tender Relationship Specialty Start Date End Date Gorge Luciano DO [address] [place] [address] PCP - General Internal Medicine 07/17/09 documented as of this encounter
--- OUTSIDE RECORDS SUMMARY | 2025-02-10 14:10 | XMS_ITS | Encounter Summary ---
Author Organization [facility] Address [address] [place] [address] Care Team Providers Care Bridge Crew Member Name Role Phone Gorge Luciano DO Primary Care Provider [phone] Encounter Details Date Type Department Care Team (Late st Contact Info) Description 07/27/2005 Outpatient Historical [facility] Orthopedics- [address] [place] [address] Oren Mckinnon MD [address] [place] [address] Cmp Int Orth Dev/Gft NOS (CMS/HCC) (Primary Dx); Ankylosis of Lower Leg Joint Social History Tobacco Use Types Packs/Day Years Used Date Smoking Tobacco: Never Assessed Comments Unknown Sex and Gender Information Value Date Recorded Sex Assigned at Not on file Legal Sex Female 5:31 AM CUSTODIAL SERVICES MANAGER Gender Identity Not on file Sexual Orientation Not on file documented as of this encounter Plan of Treatment Not on file documented as of this encounter Visit Diagnoses Diagnosis Unspecified mechanical complication of internal orthopedic device, implant, and graft- Primary Ankylosis of lower leg joint documented in this encounter Care Teams Bridge Crew Member Relationship Specialty Start Date End Date Gorge Luciano DO [address] [place] [address] PCP - General Internal Medicine 07/17/09 documented as of this encounter
--- OUTSIDE RECORDS SUMMARY | 2025-02-10 14:10 | XMS_ITS | Encounter Summary ---
Author Organization [facility] Address [address] [place] [address] Care Team Providers Care Earring Maker Name Role Phone Gorge Luciano DO Primary Care Provider [phone] Encounter Details Date Type Department Care Team (Latest Contact Info) Description 06/23/2017 Ancillary Orders [facility] Pre-Registration [place] CALL TO MAKE APPOINTMENT ONLY [address] [place] [address] Gorge Luciano DO [address] [facility] [address] [place] [address] Visit for screening mammogram Social History Tobacco Use Types Packs/Day Years Used Date Smoking Tobacco: Never Smokeless Tobacco: Never Alcohol Use Standard Drinks/Week Comments No 0 (1 standard drink = 0.6 oz pur e alcohol) Comments No Sex and Gender Information Value Date Recorded Sex Assigned at Not on file Legal Sex Female 5:31 AM POSTPARTUM NURSE Gender Identity Not on file Sexual [...] mammogram documented in this encounter Care Teams Earring Maker Relationship Specialty Start Date End Date Gorge Luciano DO [address] [address] PCP - General Internal Medicine 07/17/09 documented as of this encounter
--- OUTSIDE RECORDS SUMMARY | 2025-02-10 14:10 | XMS_ITS | Encounter Summary ---
Author Organization [facility] Address [address] [place] [address] Care Team Providers Care Mine Manager Name Role Phone Gorge Luciano DO Primary Care Provider [phone] Encounter Details Date Type Department Care Team (Latest Contact Info) Description 10/30/2005 Outpatient Historical [facility] [address] [place] [address] Catracho Dueñas MD [address] [place] [address] Unspecified Backache (Primary Dx); Other Malaise and Fatigue Social History Tobacco Use Types Packs/Day Years Used Date Smoking Tobacco: Never Assessed Comments Unknown Sex and Gender Information Value Date Recorded Sex Assigned at Not on file Legal Sex Female 5:31 AM EMPLOYMENT SERVICE SPECIALIST Gender Identity Not on file Sexual Orientation Not on file documented as of this encounter Plan of Treatment Not on file documented as of this encounter Visit Diagnoses Diagnosis Backache, unspecified- Primary Other malaise and fatigue documented in this encounter Care Teams Mine Manager Relationship Specialty Start Date End Date Gorge Luciano DO [address] [place] [address] PCP - General Internal Medicine 07/17/09 documented as of this encounter
--- OUTSIDE RECORDS SUMMARY | 2025-02-10 14:10 | XMS_ITS | Encounter Summary ---
Author Organization [facility] Address [address] [place] [address] Care Team Providers Care Literary Agent Name Role Phone Gorge Luciano DO Primary Care Provider [phone] Encounter Details Date Type Department Care Team (Latest Contact Info) Description 10/30/2005 Outpatient Historical [facility] [address] [facility] [address] [place] [address] Catracho Dueñas MD [address] [place] [address] Lumbago (Primary Dx) Social History Tobacco Use Types Packs/Day Years Used Date Smoking Tobacco: Never Assessed Comments Unknown Sex and Gender Information Value Date Recorded Sex Assigned at Not on file Legal Sex Female 5:31 AM PRODUCE PRODUCTION TEAM MEMBER Gender Identity Not on file Sexual Orientation Not on file documented as of this encounter Plan of Treatment Not on file documented as of this encounter Visit Diagnoses Diagnosis Lumbago- Primary documented in this encounter Care Teams Literary Agent Relationship Specialty Start Date End Date Gorge Luciano DO [address] [place] [address] PCP - General Internal Medicine 07/17/09 documented as of this encounter
--- OUTSIDE RECORDS SUMMARY | 2025-02-10 14:10 | XMS_ITS | Encounter Summary ---
Author Organization [facility] Address [address] [place] [address] Care Team Providers Care Machinist Supervisor Name Role Phone Gorge Luciano DO Primary Care Provider [phone] Encounter Details Date Type Department Care Team (Late st Contact Info) Description 10/26/2005 Outpatient Historical [facility] [place] [facility]- [address] [place] [address] Oren Mckinnon MD [address] [place] [address] Healed Fx Follow-Up (Primary Dx) Social History Tobacco Use Types Packs/Day Years Used Date Smoking Tobacco: Never Assessed Comments Unknown Sex and Gender Information Value Date Recorded Sex Assigned at Not on file Legal Sex Female 5:31 AM BASS FISHER Gender Identity Not on file Sexual Orientation Not on file documented as of this encounter Plan of Treatment Not on file documented as of this encounter Visit Diagnoses Diagnosis Healed fx follow-up- Primary Treatment of healed fracture follow-up examination documented in this encounter Care Teams Machinist Supervisor Relationship Specialty Start Date End Date Gorge Luciano DO [address] [place] [address] PCP - General Internal Medicine 07/17/09 documented as of this encounter
--- OUTSIDE RECORDS SUMMARY | 2025-02-10 14:10 | XMS_ITS | Encounter Summary ---
Author Organization [facility] Address [address] [place] [address] Care Team Providers Care Community Health Counselor Name Role Phone Gorge Luciano DO Primary Care Provider [phone] Encounter Details Date Type Department Care Team (Latest Contact Info) Description 11/04/2005 Outpatient Historical [facility] [address] [place] [address] Sawyer Tang, OD [address] [place] [address] DM w/o Complication Type II (CMS/HCC) (Primary Dx); Unspecified Superficial Keratitis Social History Tobacco Use Types Packs/Day Years Used Date Smoking Tobacco: Never Assessed Comments Unknown Sex and Gender Information Value Date Recorded Sex Assigned at Not on file Legal Sex Female 5:31 AM ASSORTMENT PLANNER Gender Identity Not on file Sexual Orientation Not on file documented as of this encounter Plan of Treatment Not on file documented as of this encounter Visit Diagnoses Diagnosis Type II or unspecified type diabetes mellitus without mention of complication, not stated as uncontrolled- Primary Superficial keratitis, unspecified documented in this encounter Care Teams Community Health Counselor Relationship Specialty Start Date End Date Gorge Luciano DO [address] [facility] [address] [place] [address] PCP - General Internal Medicine 07/17/09 documented as of this encounter
--- OUTSIDE RECORDS SUMMARY | 2025-02-10 14:10 | XMS_ITS | Encounter Summary ---
Author Organization [facility] Address [address] [place] [address] Care Team Providers Care Line Tender Name Role Phone Gorge Luciano DO Primary Care Provider [phone] Encounter Details Date Type Department Care Team (Late st Contact Info) Description 11/24/2005 Outpatient Historical [facility] Samira [address] [place] [address] Tunde [place] MD 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
--- OUTSIDE RECORDS SUMMARY | 2025-02-10 14:10 | XMS_ITS | Encounter Summary ---
Author Organization [facility] Address [address] [place] [address] Care Team Providers Care Impregnator And Drier Name Role Phone MustaphaGorge Joelle CALDWELL Primary Care Provider [phone] Reason for Referral * Outpatient Services (Routine) - Closed Specialty Diagnoses / Procedures Referred By Contjagdeep t Referred To Contact Radiology Diagnoses Chronic diastolic congestive heart failure (CMS/HCC) Procedures ECHOCARDIOGRAM W/ CONTRAST AGENT ECHO COMPLETE Ching Lua FNP [facility] Echo [place] [address] [place] [address] Phone: tel: fax: Referral ID Status Reason Start Date Expiration Date V isits Requested Visits Authorized [id number] Closed [facility] TO SCHEDULE (SGF) 08/19/2017 09/19/2018 1 1 Encounter Details Date Type Department Care Team (Late st Contact Info) Description 11/19/2017 Ancillary Orders [facility] Cardiology- [place] [address] [place] [address] Ching Lua FNP NO ADDRESS [...] on file Legal Sex Female 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 Gender Identity Not on file [...] INTERFACE SYSTEM - 11/19/2017 4:26 PM CDT [facility] Echocardiography-[address] [address] Transthoracic Echocardiography Patient: Светлана Study ECHO COMPLETE Beryl Garrison ID: Gender: F : 1965 Age: 52 Room: Study 11/19/2017 Pt Outpatient Date: Status: Study 02:55:03 PM CSN #: [id number] Time: Ordering:Ching Lua Interpreting:Leonel Briones Hydrogen Treater: Romero Moy [facility] Indications and History: Chronic diastolic congestive heart [...] gradient, S Regurg gabriella, 77.87 cm/sec ED [facility] Echo Labs are accredited with the Intersocietal Accreditation Commission - Echocardiography. Prepared and Electronically Authenticated Leonel Briones Confirmed 11/19/2017 16:26 Procedure Note Leonel Briones MD - 11/19/2017 [facility] Echocardiography-[place] [address] [facility] [address] [place] [address] Transthoracic Echocardiography Patient: Светлана Study ECHO COMPLETE Beryl Garrison ID: Gender: Lillie : 1965 Age: 52 Room: Study 11/19/2017 Pt Outpatient Date: Status: Study 02:55:03 PM CSN #: [id number] Time: Ordering:Ching Lua Interpreting:Leonel Briones Hydrogen Treater: Romero Moy [facility] Indications and History: Chronic diastolic congestive heart [...] gradient, S Regurg gabriella, 77.87 cm/sec ED [facility] Echo Labs are accredited with the Intersallegheny health networketal Accreditation Commission - Echocardiography. Prepared and Electronically Authenticated Leonel Briones Confirmed 11/19/2017 16:26 us Ching Lua LUNCHEONETTE MANAGER US ORDERABLES Final Result INTERFACE SYSTEM Refer to clinic/hospital department documented in this encounter Visit Diagnoses Diagnosis Chronic diastolic congestive heart failure (CMS/HCC) Chronic diastolic heart failure Chronic diastolic congestive heart failure (CMS/HCC) Chronic diastolic heart failure documented in this encounter Care Teams Impregnator And Drier Relationship Specialty Start Date End Date Gorge Luciano DO [address] [address] PCP - General Internal Medicine 07/17/09 documented as of this encounter
--- OUTSIDE RECORDS SUMMARY | 2025-02-10 14:10 | XMS_ITS | Encounter Summary ---
Author Organization [facility] Address [address] [place] [address] Care Team Providers Care Water Systems Designer Name Role Phone Mustapha Gorge Joelle CALDWELL Primary Care Provider Reason for Visit * Reason Onset Date Comments Medication Refill 02/04/2025 Encounter Details Date Type Department Care Team (Late st Contact Info) Description 02/04/2025 Refill [facility] Rheumatology- [facility] Sam[place] [address] [place] [address] Enrrique Scanlon MD [address] [place] [address] Primary osteoarthritis, unspecified site Social [...] AM CDT Legal Sex Female 12:41 PM BACK CLOSER Gender Identity Female 12/21/2023 9:49 AM CDT Sexual Orientation Not on file documented as of this encounter Miscellaneous Notes * Telephone Encounter - Danuta Saab - 02/05/2025 12:52 PM CST Last ov: 12/12/24 Last fill:11/28/24 QTY: 60 CLOSER documented in this encounter Plan of Treatment Upcoming Encounters Date Type Department Care Team (Late st Contact Info) Description 02/14/2025 9:15 AM BACK CLOSER Appointment [facility] [address] [place] [address] PA [address] [place] [address] 02/15/2025 11:40 AM BACK CLOSER Office Visit [facility] Orthopedics - Orthopedic [facility] [address] [place] [address] Conrado Barraza, PA-C [address] [place] [address] 02/28/2025 11:20 AM BACK CLOSER Office Visit [facility] Vianey Lee-Derik [address] [place] [address] Gorge Luciano DO [address] [place] [address] 04/09/2025 12:35 PM BACK CLOSER Appointment [facility] [address] [place] [address] 04/12/2025 8:00 AM BACK CLOSER Video Visit [facility] Endocrinology [facility] [address] [place] [address] Lorna Page MD [address] [place] [address] 04/16/2025 1:20 PM BACK CLOSER Office Visit [facility] Cancer and Hematology [place] [address] [place] [address] Levy Page MD [address] [place] [address] 06/12/2025 12:40 PM CDT Office Visit [facility] Rheumatology- [place] [address] [place] [address] Enrrique Scanlon MD [address] [place] [address] 09/03/2025 11:20 AM CDT Office Visit [facility] Int Med-[place] [place] [address] Gorge Luciano DO [address] [place] [address] documented as of this encounter Visit Diagnoses Diagnosis Primary osteoarthritis, unspecified site documented in this encounter Care Teams Water Systems Designer Relationship Specialty Start Date End Date Gorge Luciano DO [address] [place] [address] PCP - General Internal Medicine 07/17/09 documented as of this encounter
--- OUTSIDE RECORDS SUMMARY | 2025-02-10 14:10 | XMS_ITS | Encounter Summary ---
Author Organization [facility] Address [address] [place] [address] Care Team Providers Care Pin Drafter Operator Name Role Phone Gorge Luciano DO Primary Care Provider [phone] Encounter Details Date Type Department Care Team (Latest Contact Info) Description 11/27/2005 Outpatient Historical [facility] [address] [place] [address] Gorge Luciano DO [address] [place] [address] DM w/o Complication Type I (CMS/HCC) (Primary Dx) Social History Tobacco Use Types Packs/Day Years Used Date Smoking Tobacco: Never Assessed Comments Unknown Sex and Gender Information Value Date Recorded Sex Assigned at Not on file Legal Sex Female 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
--- OUTSIDE RECORDS SUMMARY | 2025-02-10 14:11 | XMS_ITS | Encounter Summary ---
Author Organization [facility] Address [address] [place] [address] Care Team Providers Care Yardage Estimator Name Role Phone Gorge Luciano DO Primary Care Provider [phone] Reason for Referral * Outpatient Services (Routine) - Closed Specialty Diagnoses / Procedures Referred By Cami chavez Referred To Contact Diagnoses Liver cyst Procedures MRI ABDOMEN WO CONTRAST Prateek Weaver MD [address] [place] [address] Phone: tel: Referral ID Status Reason Start Date Expiration Date Visits Re quested Visits Authorized [id number] Closed 11/25/2009 05/24/2010 1 1 Encounter Details Date Type Department Care Team (Late st Contact Info) Description 11/25/2009 Ancillary Orders [facility] Gastroenterology- [place] [address] [facility] [address] [place] [address] Prateek Weaver MD [address] [place] [address] Liver Cyst Social History Tobacco Use Types Packs/Day Years Used Date Smoking Tobacco: Never Alcohol Use Standard Drinks/Week Comments No 0 (1 standard drink = 0.6 oz pur e alcohol) Comments No Sex and Gender Information Value Date Recorded Sex Assigned at Not on file Legal Sex Female 5:31 AM ENERGY SCHEDULER Gender Identity Not on file Sexual [...] indeterminate. Prior cholecystectomy. carlotta - uploaded from [employer] 11/25/2009 1:28 PM CDT Exam: MRI ABDOMEN [...] indeterminate. Prior cholecystectomy. carlotta - uploaded from [employer]- Prateek Weaver MD MR ORDERABLES Final Result documented in this encounter Visit Diagnoses Diagnosis Liver cyst Other specified disorders of liver Liver cyst Other specified disorders of liver documented in this encounter Care Teams Yardage Estimator Relationship Specialty Start Date End Date Gorge Luciano DO [address] [address] PCP - General Internal Medicine 07/17/09 documented as of this encounter
--- OUTSIDE RECORDS SUMMARY | 2025-02-10 14:11 | XMS_ITS | Encounter Summary ---
Author Organization [facility] Address [address] [place] [address] Care Team Providers Care Microbiological Laboratory Technician Name Role Phone Gorge Luciano DO Primary Care Provider [phone] Encounter Details Date Type Department Care Team (Latest Contact Info) Description 06/25/2003 Outpatient Historical [facility] Cardiology Ancillary Services-[place] [address] [place] [address] Fernando Selby MD [address] [address] [place] [address] CONGESTIVE HEART FAILURE, UNSPEC (CMS/HCC) (Primary Dx); HYPERLIPIDEMIA NEC/NOS Social History Tobacco Use Types Packs/Day Years Used Date Smoking Tobacco: Never Assessed Comments Unknown Sex and Gender Information Value Date Recorded Sex Assigned at Not on file Legal 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
--- OUTSIDE RECORDS SUMMARY | 2025-02-10 14:11 | XMS_ITS | Encounter Summary ---
Author Organization [facility] Address [address] [place] [address] Care Team Providers Care Police Liaison Officer Name Role Phone Gorge Luciano DO Primary Care Provider [phone] Encounter Details Date Type Department Care Team (Latest Contact Info) Description 02/13/2005 Outpatient [facility] [address] [place] [address] Zachery Barroso MD NO ADDRESS ON FILE SCREENING MAMM-MAILG NEOPL NEC (Primary Dx) Social History Tobacco Use Types Packs/Day Years Used Date Smoking Tobacco: Never Assessed Comments Unknown Sex and Gender Information Value Date Recorded Sex Assigned at Not on file Legal Sex Female 5:31 AM 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
--- OUTSIDE RECORDS SUMMARY | 2025-02-10 14:11 | XMS_ITS | Encounter Summary ---
Author Organization [facility] Address [address] [place] [address] Care Team Providers Care Boiler Tender Name Role Phone Gorge Luciano DO Primary Care Provider [phone] Encounter Details Date Type Department Care Team (Latest Contact Info) Description 07/02/2003 Inpatient Historical [facility] Cardiac Liner Assembler [address] [place] [address] Too Brandon MD NO ADDRESS ON FILE CORON ATHEROSCL [place] CORON VESSEL (Primary Dx) Social History Tobacco Use Types Packs/Day Years Used Date Smoking Tobacco: Never Assessed Comments Unknown Sex and Gender Information Value Date Recorded Sex Assigned at Not on file Legal Sex Female 5:31 AM HELPER ELECTRICAL Gender Identity Not on file Sexual Orientation Not on file documented as of this encounter Plan of Treatment Not on file documented as of this encounter Visit Diagnoses Diagnosis Coronary atherosclerosis of [place] coronary artery- Primary documented in this encounter Care Teams Boiler Tender Relationship Specialty Start Date End Date Gorge Luciano DO [address] [place] [address] PCP - General Internal Medicine 07/17/09 documented as of this encounter
--- OUTSIDE RECORDS SUMMARY | 2025-02-10 14:11 | XMS_ITS | Encounter Summary ---
Author Organization [facility] Address [address] [place] [address] Care Team Providers Care Medical Records Coordinator Name Role Phone Gorge Luciano DO Primary Care Provider [phone] Encounter Details Date Type Department Care Team (Latest Contact Info) Description 12/05/2003 Outpatient Historical [facility] Endocrinology-[facility] [address] [place] [address] Brijesh Ybarra MD NO ADDRESS ON FILE DIABETES MELLITUS TYPE II UNCONTR UNCOMPL (Primary Dx); HYPERLIPIDEMIA NEC/NOS; HYPERTENSION NOS Social History Tobacco Use Types Packs/Day Years Used Date Smoking Tobacco: Never Assessed Comments Unknown Sex and Gender Information Value Date Recorded Sex Assigned at Not on file Legal Sex Female 5:31 AM DIRECTOR RECREATION CENTER Gender Identity Not on file Sexual Orientation Not on file documented as of this encounter Plan of Treatment Not on file documented as of this encounter Visit Diagnoses Diagnosis Type II or unspecified type diabetes mellitus without mention of complication, uncontrolled- Primary Other and unspecified hyperlipidemia Unspecified essential hypertension documented in this encounter Care Teams Medical Records Coordinator Relationship Specialty Start Date End Date Gorge Luciano DO [address] [place] [address] PCP - General Internal Medicine 07/17/09 documented as of this encounter
--- OUTSIDE RECORDS SUMMARY | 2025-02-10 14:11 | XMS_ITS | Encounter Summary ---
Author Organization [facility] Address [address] [place] [address] Care Team Providers Care Air Brush Decorator Name Role Phone Gorge Luciano DO Primary Care Provider [phone] Encounter Details Date Type Department Care Team (Late st Contact Info) Description 10/27/2004 Outpatient Historical [facility] Orthopedics- [address] [place] [address] Oren Mckinnon MD [address] [place] [address] FX UPPER END TIBIA-CLOSE (Primary Dx); FX SHAFT FIBULA-CLOSED Social History Tobacco Use Types Packs/Day Years Used Date Smoking Tobacco: Never Assessed Comments Unknown Sex and Gender Information Value Date Recorded Sex Assigned at Not on file Legal Sex Female 5:31 AM NUTRITION TECH Gender Identity Not on file Sexual Orientation Not on file documented as of this encounter Plan of Treatment Not on file documented as of this encounter Visit Diagnoses Diagnosis Closed fracture of upper end of tibia- Primary Closed fracture of shaft of fibula documented in this encounter Care Teams Air Brush Decorator Relationship Specialty Start Date End Date Gorge Luciano DO [address] [place] [phone] PCP - General Internal Medicine 07/17/09 documented as of this encounter
--- OUTSIDE RECORDS SUMMARY | 2025-02-10 14:11 | XMS_ITS | Encounter Summary ---
Author Organization [facility] Address [address] [place] [address] Care Team Providers Care Fine Dining Server Name Role Phone Mustapha Gorge Joelle CALDWELL Primary Care Provider [phone] Encounter Details Date Type Department Care Team (Late st Contact Info) Description 07/29/2004 Inpatient Historical [facility], Oren Chavez MD [address] [place] [address] FX UPPER END TIBIA-CLOSE (Primary Dx) Social History Tobacco Use Types Packs/Day Years Used Date Smoking Tobacco: Never Assessed Comments Unknown Sex and Gender Information Value Date Recorded Sex Assigned at Not on file Legal Sex Female 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 AM TRIPLE VALVE 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 Gender Identity Not on file Sexual Orientation [...] TESTING F inal Result Performing Organization Address [facility] Co de Phone Number INTERFACE SYSTEM Refer to clinic/hospital department * (ABNORMAL) POC GLUCOSE (07/30/2004 5:50 AM CDT) GLUCOSE POC 286(H) 60 - 100 mg/dL INTERFACE SYSTEM 07/30/2004 5:50 AM CDT Oren Mckinnon MD POINT OF CARE TESTING F inal Result Performing Organization Address [facility] Phone Number INTERFACE SYSTEM Refer to clinic/hospital department * (ABNORMAL) POC GLUCOSE (07/29/2004 9:39 PM CDT) GLUCOSE POC 361(H) 60 - 100 mg/dL INTERFACE SYSTEM 07/29/2004 9:39 PM CDT Oren Mckinnon MD POINT OF CARE TESTING F inal Result Performing Organization Address [facility] Co de Phone Number INTERFACE SYSTEM Refer to clinic/hospital department * (ABNORMAL) POC GLUCOSE (07/29/2004 5:24 PM CDT) GLUCOSE POC 288(H) 60 - 100 mg/dL INTERFACE SYSTEM 07/29/2004 5:24 PM CDT Oren Mckinnon MD POINT OF CARE TESTING F inal Result Performing Organization Address [facility] Co de Phone Number INTERFACE SYSTEM Refer to clinic/hospital department * (ABNORMAL) POC GLUCOSE (07/29/2004 2:39 PM CDT) GLUCOSE POC 173(H) 60 - 100 mg/dL INTERFACE SYSTEM 07/29/2004 2:39 PM CDT us Oren Mckinnon MD POINT OF CARE TESTING F inal Result Performing Organization Address [facility] Co de Phone Number INTERFACE SYSTEM Refer to clinic/hospital department * (ABNORMAL) POC GLUCOSE (07/29/2004 8:28 AM CDT) GLUCOSE POC 198(H) 60 - 100 mg/dL INTERFACE SYSTEM 07/29/2004 8:28 AM CDT Oren Mckinnon MD POINT OF CARE TESTING F inal Result Performing Organization Address [facility] Phone Number INTERFACE SYSTEM Refer to clinic/hospital department documented in this encounter Visit Diagnoses Diagnosis Closed fracture of upper end of tibia- Primary documented in this encounter Care Teams Fine Dining Server Relationship Specialty Start Date End Date Gorge Luciano DO [address] [facility] [address] [place] [address] PCP - General Internal Medicine 07/17/09 documented as of this encounter
--- OUTSIDE RECORDS SUMMARY | 2025-02-10 14:11 | XMS_ITS | Encounter Summary ---
Author Organization [facility] Address [address] [place] [address] Care Team Providers Care Oncology Research Rn Name Role Phone Gorge Luciano Joelle CALDWELL Primary Care Provider [phone] Encounter Details Date Type Department Care Team (Latest Contact Info) Description 04/17/2005 Outpatient Historical [facility] PreAdmission Center [address] [place] [address] Oren Mckinnon MD [address] [place] [address] PREOP EXAM OTHER SPECIFIED (Primary Dx) Social History Tobacco Use Types Packs/Day Years Used Date Smoking Tobacco: Never Assessed Comments Unknown Sex and Gender Information Value Date Recorded Sex Assigned at Not on file Legal Sex Female 5:31 AM PRODUCTION STATISTICAL CLERK Gender Identity Not on file Sexual Orientation Not on file documented as of this encounter Plan of Treatment Not on file documented as of this encounter Procedures Procedure Name Priority Date/Time Associated Diagnosis Comments HCG QUANTITATIVE, BLOOD Routine 04/17/2005 11:55 AM PRODUCTION STATISTICAL CLERK BASIC METABOLIC PANEL Routine 04/17/2005 11:55 AM PRODUCTION STATISTICAL CLERK documented in this encounter Results * HCG QUANTITATIVE, BLOOD (04/17/2005 11:55 AM PRODUCTION STATISTICAL CLERK) CHORIONIC GONADOTROPIN, TOTAL <2.0 0.0 - 10.0 mlU/ML INTERFACE SYSTEM Comment: As of 04 at 12:00 p.m. [facility] has changed the methodology for ThCG, and with this change the reference range has changed from 0-5.0 mIU/ml to 0-10.0 mIU/ml. ----- ----- Total HCG levels between 10 mIU/mL and 25 mIU/mL may be indicative of early but need to be correlated with other clinical findings. HCG ranges during normal , as reported by the revenue stamp clerk, are summarized as follows: Gestational Age Expected hCG Values(mIU/ml) 0.2-1 Weeks 5 - 50 1-2 Weeks 50 - 500 2-3 Weeks 100 - 5,000 3-4 Weeks 1,000 - 50,000 5-6 Weeks 10,000 - 100,000 6-8 Weeks 15,000 - 200,000 2-3 Months 10,000 - 100,000 04/17/2005 11:5 5 AM PRODUCTION STATISTICAL CLERK us Historical Provider CHEMISTRY ORDERABLES Final R esult INTERFACE SYSTEM Refer to clinic/hospital department * (ABNORMAL) BASIC METABOLIC PANEL (04/17/2005 11:55 AM PRODUCTION STATISTICAL CLERK) GLUCOSE 142(H) 70 - 110 mg/dL INTERFACE [...] mg/dL INTERFACE SYSTEM 04/17/2005 11:5 5 AM PRODUCTION STATISTICAL CLERK us Historical Provider CHEMISTRY ORDERABLES Final R esult INTERFACE SYSTEM Refer to clinic/hospital department documented in this encounter Visit Diagnoses Diagnosis Other specified pre-operative examination- Primary documented in this encounter Care Teams Oncology Research Rn Relationship Specialty Start Date End Date Gorge Luciano DO [address] [facility] [address] [place] [phone] PCP - General Internal Medicine 07/17/09 documented as of this encounter
--- OUTSIDE RECORDS SUMMARY | 2025-02-10 14:11 | XMS_ITS | Encounter Summary ---
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
--- OUTSIDE RECORDS SUMMARY | 2025-02-10 14:11 | XMS_ITS | Encounter Summary ---
Author Organization [facility] Address [address] [place] [address] Care Team Providers Care Principal Planner Name Role Phone Gorge Luciano DO Primary Care Provider [phone] Encounter Details Date Type Department Care Team (Late st Contact Info) Description 08/14/2004 Outpatient Historical [facility] Orthopedics- [address] [place] [address] Oren Mckinnon MD [address] [place] [address] FX UPPER END TIBIA-CLOSE (Primary Dx); FX SHAFT FIBULA-CLOSED Social History Tobacco Use Types Packs/Day Years Used Date Smoking Tobacco: Never Assessed Comments Unknown Sex and Gender Information Value Date Recorded Sex Assigned at Not on file Legal Sex Female 5:31 AM BALL RACKER Gender Identity Not on file Sexual Orientation Not on file documented as of this encounter Plan of Treatment Not on file documented as of this encounter Visit Diagnoses Diagnosis Closed fracture of upper end of tibia- Primary Closed fracture of shaft of fibula documented in this encounter Care Teams Principal Planner Relationship Specialty Start Date End Date Gorge Luciano DO [address] [place] [address] PCP - General Internal Medicine 07/17/09 documented as of this encounter
--- OUTSIDE RECORDS SUMMARY | 2025-02-10 14:11 | XMS_ITS | Encounter Summary ---
Author Organization [facility] Address [address] [place] [address] Care Team Providers Care Second Time Worker Name Role Phone Gorge Luciano DO Primary Care Provider [phone] Encounter Details Date Type Department Care Team (Latest Contact Info) Description 04/06/2003 Outpatient Historical [facility] Optometry [address] [place] [address] Sawyer Tang, OD [address] [place] [address] SUPERFIC KERATITIS NOS (Primary Dx) Social History Tobacco Use Types Packs/Day Years Used Date Smoking Tobacco: Never Assessed Comments Unknown Sex and Gender Information Value Date Recorded Sex Assigned at Not on file Legal Sex Female 5:31 AM LINSEED OIL PRESS TENDER Gender Identity Not on file Sexual Orientation Not on file documented as of this encounter Plan of Treatment Not on file documented as of this encounter Visit Diagnoses Diagnosis Superficial keratitis, unspecified- Primary documented in this encounter Care Teams Second Time Worker Relationship Specialty Start Date End Date Gorge Luciano DO [address] [place] [address] PCP - General Internal Medicine 07/17/09 documented as of this encounter
--- OUTSIDE RECORDS SUMMARY | 2025-02-10 14:11 | XMS_ITS | Encounter Summary ---
Author Organization [facility] Address [address] [place] [address] Care Team Providers Care Medical Tech Name Role Phone Gorge Luciano DO Primary Care Provider [phone] Encounter Details Date Type Department Care Team (Latest Contact Info) Description 07/21/2002 Outpatient Historical [facility] [address] [place] [address] Sawyer Tang, OD [address] [place] [address] DIABETES UNCOMPL LEIDY-TYPE I (CMS/HCC) (Primary Dx) Social History Tobacco Use Types Packs/Day Years Used Date Smoking Tobacco: Never Assessed Comments Unknown Sex and Gender Information Value Date Recorded Sex Assigned at Not on file Legal Sex Female 5:31 AM WELFARE INVESTIGATOR Gender Identity Not on file Sexual Orientation Not on file documented as of this encounter Plan of Treatment Not on file documented as of this encounter Visit Diagnoses Diagnosis Type I (juvenile type) diabetes mellitus without mention of complication, not stated as uncontrolled- Primary documented in this encounter Care Teams Medical Tech Relationship Specialty Start Date End Date Gorge Luciano DO [address] [place] [address] PCP - General Internal Medicine 07/17/09 documented as of this encounter
--- OUTSIDE RECORDS SUMMARY | 2025-02-10 14:11 | XMS_ITS | Encounter Summary ---
Author Organization [facility] Address [address] [place] [address] Care Team Providers Care Rehabilitation Center Manager Name Role Phone Gorge Luciano DO Primary Care Provider [phone] Encounter Details Date Type Department Care Team (Late st Contact Info) Description 12/22/2004 Outpatient Historical [facility] [address] [place] [address] Oren Mckinnon MD [address] [place] [address] PAIN IN LIMB (Primary Dx) Social History Tobacco Use Types Packs/Day Years Used Date Smoking Tobacco: Never Assessed Comments Unknown Sex and Gender Information Value Date Recorded Sex Assigned at Not on file Legal Sex Female 5:31 AM JOB SPOTTER Gender Identity Not on file Sexual Orientation Not on file documented as of this encounter Plan of Treatment Not on file documented as of this encounter Visit Diagnoses Diagnosis Pain in limb- Primary documented in this encounter Care Teams Rehabilitation Center Manager Relationship Specialty Start Date End Date Gorge Luciano DO [address] [place] [address] PCP - General Internal Medicine 07/17/09 documented as of this encounter
--- OUTSIDE RECORDS SUMMARY | 2025-02-10 14:11 | XMS_ITS | Encounter Summary ---
Author Organization [facility] Address [address] [place] [address] Care Team Providers Care Racquet Maker Name Role Phone Gorge Luciano DO Primary Care Provider [phone] Encounter Details Date Type Department Care Team (Latest Contact Info) Description 03/22/2003 Outpatient Historical [facility] Imaging Services-Derik [place] [address] [place] [address] Ling Snow MD [address] [phone] HEADACHE (Primary Dx) Social History Tobacco Use Types Packs/Day Years Used Date Smoking Tobacco: Never Assessed Comments Unknown Sex and Gender Information Value Date Recorded Sex Assigned at Not on file Legal Sex Female 5:31 AM DIRECTOR STYLE Gender Identity Not on file Sexual Orientation Not on file documented as of this encounter Plan of Treatment Not on file documented as of this encounter Visit Diagnoses Diagnosis Headache(784.0)- Primary Headache documented in this encounter Care Teams Racquet Maker Relationship Specialty Start Date End Date Gorge Luciano DO [address] [place] [address] PCP - General Internal Medicine 07/17/09 documented as of this encounter
--- OUTSIDE RECORDS SUMMARY | 2025-02-10 14:11 | XMS_ITS | Encounter Summary ---
Author Organization [facility] Address [address] [place] [address] Care Team Providers Care Mental Health Therapist Name Role Phone Gorge Luciano DO Primary Care Provider Encounter Details Date Type Department Care Team (Latest Contact Info) Description 06/26/2003 Outpatient Historical [facility] Nuclear Med Services-[facility] Eduardo Samira [address] [place] [address] Too Brandon MD NO ADDRESS ON FILE CHEST PAIN NEC (Primary Dx); SHORTNESS OF BREATH Social History Tobacco Use Types Packs/Day Years Used Date Smoking Tobacco: Never Assessed Comments Unknown Sex and Gender Information Value Date Recorded Sex Assigned at Not on file Legal Sex Female 5:31 AM FUNCTIONAL MANAGER Gender Identity Not on file Sexual Orientation Not on file documented as of this encounter Plan of Treatment Not on file documented as of this encounter Visit Diagnoses Diagnosis Other chest pain- Primary Shortness of breath documented in this encounter Care Teams Mental Health Therapist Relationship Specialty Start Date End Date Gorge Luciano DO [address] [place] [address] PCP - General Internal Medicine 07/17/09 documented as of this encounter
--- OUTSIDE RECORDS SUMMARY | 2025-02-10 14:11 | XMS_ITS | Encounter Summary ---
Author Organization [facility] Address [address] [place] [address] Care Team Providers Care Private Investigator Name Role Phone Gorge Luciano DO Primary Care Provider [phone] Encounter Details Date Type Department Care Team (Late st Contact Info) Description 12/08/2004 Outpatient Historical [facility] Orthopedics- [address] [place] [address] Oren Mckinnon MD [address] [place] [address] JOINT PAIN-ANKLE (Primary Dx); FX UPPER END TIBIA-CLOSE; FX SHAFT FIBULA-CLOSED Social History Tobacco Use Types Packs/Day Years Used Date Smoking Tobacco: Never Assessed Comments Unknown Sex and Gender Information Value Date Recorded Sex Assigned at Not on file Legal Sex Female 5:31 AM TABLE GAMES FLOOR SUPERVISOR Gender Identity Not on file Sexual Orientation Not on file documented as of this encounter Plan of Treatment Not on file documented as of this encounter Visit Diagnoses Diagnosis Pain in joint, ankle and foot- Primary Closed fracture of upper end of tibia Closed fracture of shaft of fibula documented in this encounter Care Teams Private Investigator Relationship Specialty Start Date End Date Gorge Luciano DO [address] [place] [address] PCP - General Internal Medicine 07/17/09 documented as of this encounter
--- OUTSIDE RECORDS SUMMARY | 2025-02-10 14:11 | XMS_ITS | Encounter Summary ---
Author Organization [facility] Address [address] [place] [address] Care Team Providers Care Welcome Hostess Name Role Phone Gorge Luciano DO Primary Care Provider [phone] Encounter Details Date Type Department Care Team (Latest Contact Info) Description 07/05/2004 Outpatient Historical [facility] [address] [place] [address] Brijesh Ybarra MD NO ADDRESS ON FILE DIABETES MELLITUS TYPE II UNCONTR UNCOMPL (Primary Dx) Social History Tobacco Use Types Packs/Day Years Used Date Smoking Tobacco: Never Assessed Comments Unknown Sex and Gender Information Value Date Recorded Sex Assigned at Not on file Legal Sex Female 5:31 AM ALUMINUM FABRICATION SUPERVISOR Gender Identity Not on file Sexual Orientation Not on file documented as of this encounter Plan of Treatment Not on file documented as of this encounter Visit Diagnoses Diagnosis Type II or unspecified type diabetes mellitus without mention of complication, uncontrolled- Primary documented in this encounter Care Teams Welcome Hostess Relationship Specialty Start Date End Date Gorge Luciano DO [address] [place] [address] PCP - General Internal Medicine 07/17/09 documented as of this encounter
--- OUTSIDE RECORDS SUMMARY | 2025-02-10 14:11 | XMS_ITS | Encounter Summary ---
Author Organization [facility] Address [address] [place] [address] Care Team Providers Care Manager Equity Name Role Phone Gorge Luciano DO Primary Care Provider [phone] Encounter Details Date Type Department Care Team (Latest Contact Info) Description 02/13/2005 Outpatient Historical [facility] [address] [place] [address] Nicolt Katarzyna Padilla, PAYROLL ASSISTANT [address] [place] [address] ACUTE SINUSITIS NOS (Primary Dx); OTITIS MEDIA NOS Social History Tobacco Use Types Packs/Day Years Used Date Smoking Tobacco: Never Assessed Comments Unknown Sex and Gender Information Value Date Recorded Sex Assigned at Not on file Legal Sex Female 5:31 AM MAIN LINE STATION ENGINEER Gender Identity Not on file Sexual Orientation Not on file documented as of this encounter Plan of Treatment Not on file documented as of this encounter Visit Diagnoses Diagnosis Acute sinusitis, unspecified- Primary Unspecified otitis media documented in this encounter Care Teams Manager Equity Relationship Specialty Start Date End Date Gorge Luciano DO [address] [place] [address] PCP - General Internal Medicine 07/17/09 documented as of this encounter
--- OUTSIDE RECORDS SUMMARY | 2025-02-10 14:11 | XMS_ITS | Encounter Summary ---
Author Organization [facility] Address [address] [place] [address] Care Team Providers Care Dope Maintenance Worker Name Role Phone Gorge Luciano DO Primary Care Provider [phone] Encounter Details Date Type Department Care Team (Late st Contact Info) Description 12/31/2004 Outpatient Historical [facility] Orthopedics- [address] [place] [address] Oren Mckinnon MD [address] [place] [address] FX UPPER END TIBIA-CLOSE (Primary Dx); FX SHAFT FIBULA-CLOSED; JOINT EFFUSION-L/LEG Social History Tobacco Use Types Packs/Day Years Used Date Smoking Tobacco: Never Assessed Comments Unknown Sex and Gender Information Value Date Recorded Sex Assigned at Not on file Legal Sex Female 5:31 AM FUND MANAGER Gender Identity Not on file Sexual Orientation Not on file documented as of this encounter Plan of Treatment Not on file documented as of this encounter Visit Diagnoses Diagnosis Closed fracture of upper end of tibia- Primary Closed fracture of shaft of fibula Effusion of lower leg joint documented in this encounter Care Teams Dope Maintenance Worker Relationship Specialty Start Date End Date Gorge Luciano DO [address] [place] [address] PCP - General Internal Medicine 07/17/09 documented as of this encounter
--- OUTSIDE RECORDS SUMMARY | 2025-02-10 14:11 | XMS_ITS | Encounter Summary ---
Author Organization [facility] Address [address] [place] [address] Care Team Providers Care Datapower Consultant Name Role Phone Gorge Luciano DO Primary Care Provider [phone] Encounter Details Date Type Department Care Team (Latest Contact Info) Description 03/22/2003 Outpatient Historical [facility] Urgent Care- [facility] [address] [place] [address] Ling Snow MD [address] [phone] ARAUZ'S PALSY (Primary Dx); DIAB KETOACIDOSIS ADULT (CMS/[facility]) Social History Tobacco Use Types Packs/Day Years Used Date Smoking Tobacco: Never Assessed Comments Unknown Sex and Gender Information Value Date Recorded Sex Assigned at Not on file Legal Sex Female 5:31 AM PARKS RECREATION COORDINATOR Gender Identity Not on file Sexual Orientation Not on file documented as of this encounter Plan of Treatment Not on file documented as of this encounter Visit Diagnoses Diagnosis Arauz's palsy- Primary Type II or unspecified type diabetes mellitus with ketoacidosis, not stated as uncontrolled documented in this encounter Care Teams Datapower Consultant Relationship Specialty Start Date End Date Gorge Luciano DO [address] [place] [address] PCP - General Internal Medicine 07/17/09 documented as of this encounter
--- OUTSIDE RECORDS SUMMARY | 2025-02-10 14:11 | XMS_ITS | Encounter Summary ---
Author Organization [facility] Address [address] [place] [address] Care Team Providers Care Loader Operator Name Role Phone Gorge Luciano DO Primary Care Provider [phone] Encounter Details Date Type Department Care Team (Late st Contact Info) Description 09/11/2004 Outpatient Historical [facility] Orthopedics- [address] [place] [address] Oren Mckinnon MD [address] [place] [address] FX UPPER END TIBIA-CLOSE (Primary Dx) Social History Tobacco Use Types Packs/Day Years Used Date Smoking Tobacco: Never Assessed Comments Unknown Sex and Gender Information Value Date Recorded Sex Assigned at Not on file Legal Sex Female 5:31 AM TRIPE FINISHER Gender Identity Not on file Sexual Orientation Not on file documented as of this encounter Plan of Treatment Not on file documented as of this encounter Visit Diagnoses Diagnosis Closed fracture of upper end of tibia- Primary documented in this encounter Care Teams Loader Operator Relationship Specialty Start Date End Date Gorge Luciano DO [address] [place] [address] PCP - General Internal Medicine 07/17/09 documented as of this encounter
--- OUTSIDE RECORDS SUMMARY | 2025-02-10 14:11 | XMS_ITS | Encounter Summary ---
Author Organization [facility] Address [address] [place] [address] Care Team Providers Care Assistant Professor Of Theater Name Role Phone Gorge Luciano DO Primary Care Provider [phone] Encounter Details Date Type Department Care Team (Late st Contact Info) Description 06/04/2004 Outpatient Historical [facility] Social History Tobacco Use Types Packs/Day Years Used Date Smoking Tobacco: Never Assessed Comments Unknown Sex and Gender Information Value Date Recorded Sex Assigned at Not on file Legal Sex Female 5:31 AM PARTS DATA WRITER Gender Identity Not on file Sexual Orientation Not on file documented as of this encounter Plan of Treatment Not on file documented as of this encounter Visit Diagnoses Not on filedocumented in this encounter Care Teams Assistant Professor Of Theater Relationship Specialty Start Date End Date Gorge Luciano DO [address] [facility] [address] [place] [address] PCP - General Internal Medicine 07/17/09 documented as of this encounter
--- OUTSIDE RECORDS SUMMARY | 2025-02-10 14:11 | XMS_ITS | Encounter Summary ---
Author Organization [facility] Address [address] [place] [address] Care Team Providers Care Truck Sales Representative Name Role Phone Gorge Luciano DO Primary Care Provider [phone] Encounter Details Date Type Department Care Team (Latest Contact Info) Description 06/04/2004 Outpatient Historical [facility] [address] [place] [address] Brijesh Ybarra MD NO ADDRESS ON FILE DIABETES MELLITUS TYPE II UNCONTR UNCOMPL (Primary Dx) Social History Tobacco Use Types Packs/Day Years Used Date Smoking Tobacco: Never Assessed Comments Unknown Sex and Gender Information Value Date Recorded Sex Assigned at Not on file Legal Sex Female 5:31 AM 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
--- OUTSIDE RECORDS SUMMARY | 2025-02-10 14:11 | XMS_ITS | Encounter Summary ---
Author Organization [facility] Address [address] [place] [address] Care Team Providers Care Fish Header Name Role Phone Gorge Luciano DO Primary Care Provider [phone] Encounter Details Date Type Department Care Team (Latest Contact Info) Description 06/26/2003 Outpatient Historical [facility] Int [facility] [address] [place] [address] Fernando Meng MD [address] [place] [address] PRECORDIAL PAIN (Primary Dx) Social History Tobacco Use Types Packs/Day Years Used Date Smoking Tobacco: Never Assessed Comments Unknown Sex and Gender Information Value Date Recorded Sex Assigned at Not on file Legal Sex Female 5:31 AM GUEST ATTENDANT Gender Identity Not on file Sexual Orientation Not on file documented as of this encounter Plan of Treatment Not on file documented as of this encounter Visit Diagnoses Diagnosis Precordial pain- Primary documented in this encounter Care Teams Fish Header Relationship Specialty Start Date End Date Gorge Luciano DO [address] [place] [address] PCP - General Internal Medicine 07/17/09 documented as of this encounter
--- OUTSIDE RECORDS SUMMARY | 2025-02-10 14:11 | XMS_ITS | Encounter Summary ---
Author Organization [facility] Address [address] [place] [address] Care Team Providers Care Police Chief Deputy Name Role Phone Gorge Luciano DO Primary Care Provider [phone] Encounter Details Date Type Department Care Team (Latest Contact Info) Description 03/12/2005 Outpatient Historical [facility] [place] [facility] Int [facility] [address] [place] [address] Gorge Luciano DO [address] [place] [address] INGROWING NAIL (Primary Dx) Social History Tobacco Use Types Packs/Day Years Used Date Smoking Tobacco: Never Assessed Comments Unknown Sex and Gender Information Value Date Recorded Sex Assigned at Not on file Legal Sex Female 5:31 AM TECHNICAL TRAINING SPECIALIST Gender Identity Not on file Sexual Orientation Not on file documented as of this encounter Plan of Treatment Not on file documented as of this encounter Visit Diagnoses Diagnosis Ingrowing nail- Primary documented in this encounter Care Teams Police Chief Deputy Relationship Specialty Start Date End Date Gorge Luciano DO [address] [place] [address] PCP - General Internal Medicine 07/17/09 documented as of this encounter
--- OUTSIDE RECORDS SUMMARY | 2025-02-10 14:11 | XMS_ITS | Encounter Summary ---
Author Organization [facility] Address [address] [place] [address] Care Team Providers Care Extension Edger Name Role Phone Gorge Luciano DO Primary Care Provider [phone] Encounter Details Date Type Department Care Team (Latest Contact Info) Description 12/12/2004 Outpatient Historical [facility] [address] [place] [address] Oren Mckinnon MD [address] [place] [address] ADMINISTRTVE ENCOUNT NOS (Primary Dx) Social History Tobacco Use Types Packs/Day Years Used Date Smoking Tobacco: Never Assessed Comments Unknown Sex and Gender Information Value Date Recorded Sex Assigned at Not on file Legal Sex Female 5:31 AM STILL TENDER Gender Identity Not on file Sexual Orientation Not on file documented as of this encounter Plan of Treatment Not on file documented as of this encounter Visit Diagnoses Diagnosis Encounters for unspecified administrative purpose- Primary documented in this encounter Care Teams Extension Edger Relationship Specialty Start Date End Date Gorge Luciano DO [address] [place] [address] PCP - General Internal Medicine 07/17/09 documented as of this encounter
--- OUTSIDE RECORDS SUMMARY | 2025-02-10 14:11 | XMS_ITS | Encounter Summary ---
Author Organization [facility] Address [address] [place] [address] Care Team Providers Care Statistical Analyst Name Role Phone Gorge Luciano DO Primary Care Provider [phone] Encounter Details Date Type Department Care Team (Latest Contact Info) Description 01/01/2005 Outpatient Historical [facility] Cardiology- [place] [address] [place] [address] Omayra Cooper, LIBRARY CATALOGING TECHNICIAN NO ADDRESS ON FILE CORON ATHEROSCL HOH CORON VESSEL (Primary Dx); Pure hypercholesterolem; DIABETES MELLITUS TYPE II-UNCOMPL (CMS/[facility]) Social History Tobacco Use Types Packs/Day Years Used Date Smoking Tobacco: Never Assessed Comments Unknown Sex and Gender Information Value Date Recorded Sex Assigned at Not on file Legal Sex Female 5:31 AM NURSE PRACTITIONER HOSPITALIST Gender Identity Not on file Sexual Orientation Not on file documented as of this encounter Plan of Treatment Not on file documented as of this encounter Visit Diagnoses Diagnosis Coronary atherosclerosis of [place] coronary artery- Primary Pure hypercholesterolem Pure hypercholesterolemia Type II or unspecified type diabetes mellitus without mention of complication, not stated as uncontrolled documented in this encounter Care Teams Statistical Analyst Relationship Specialty Start Date End Date Gorge Luciano DO [address] [place] [address] PCP - General Internal Medicine 07/17/09 documented as of this encounter
--- OUTSIDE RECORDS SUMMARY | 2025-02-10 14:11 | XMS_ITS | Encounter Summary ---
Author Organization [facility] Address [address] [place] [address] Care Team Providers Care Film Replacement Orderer Name Role Phone Gorge Luciano DO Primary Care Provider [phone] Encounter Details Date Type Department Care Team (Latest Contact Info) Description 12/08/2004 Outpatient Historical [facility] Cardiovascular Services [address] 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
--- OUTSIDE RECORDS SUMMARY | 2025-02-10 14:11 | XMS_ITS | Encounter Summary ---
Author Organization [facility] Address [address] [place] [address] Care Team Providers Care Display And Banner Designer Name Role Phone Gorge Luciano DO Primary Care Provider [phone] Encounter Details Date Type Department Care Team (Latest Contact Info) Description 04/02/2003 Outpatient Historical [facility] Dermatology- [facility] [address] [place] [address] Enrrique Coates MD NO ADDRESS ON FILE Benign nestor skin trunk (Primary Dx) Social History Tobacco Use Types Packs/Day Years Used Date Smoking Tobacco: Never Assessed Comments Unknown Sex and Gender Information Value Date Recorded Sex Assigned at Not on file Legal Sex Female 5:31 AM HAND MODEL Gender Identity Not on file Sexual Orientation Not on file documented as of this encounter Plan of Treatment Not on file documented as of this encounter Visit Diagnoses Diagnosis Benign nestor skin trunk- Primary Benign neoplasm of skin of trunk, except scrotum documented in this encounter Care Teams Display And Banner Designer Relationship Specialty Start Date End Date Gorge Luciano DO [address] [place] [address] PCP - General Internal Medicine 07/17/09 documented as of this encounter
--- OUTSIDE RECORDS SUMMARY | 2025-02-10 14:11 | XMS_ITS | Encounter Summary ---
Author Organization [facility] Address [address] [place] [address] Care Team Providers Care Sales Floor Associate Name Role Phone Gorge Luciano DO Primary Care Provider [phone] Encounter Details Date Type Department Care Team (Latest Contact Info) Description 05/14/2004 Outpatient Historical [facility] Int [facility] [address] [place] [address] Gorge Luciano DO [address] [place] [address] HEADACHE (Primary Dx) Social History Tobacco Use Types Packs/Day Years Used Date Smoking Tobacco: Never Assessed Comments Unknown Sex and Gender Information Value Date Recorded Sex Assigned at Not on file Legal 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
--- OUTSIDE RECORDS SUMMARY | 2025-02-10 14:11 | XMS_ITS | Encounter Summary ---
Author Organization [facility] Address [address] [place] [address] Care Team Providers Care Md Urologist Name Role Phone Gorge Luciano DO Primary Care Provider [phone] Encounter Details Date Type Department Care Team (Late st Contact Info) Description 02/13/2005 Outpatient Historical [facility] [address] [facility] [address] [place] [address] Kathy Cuellar MD NO ADDRESS ON FILE SCREENING MAMM-MAILG NEOPL NEC (Primary Dx) Social History Tobacco Use Types Packs/Day Years Used Date Smoking Tobacco: Never Assessed Comments Unknown Sex and Gender Information Value Date Recorded Sex Assigned at Not on file Legal Sex Female 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
--- OUTSIDE RECORDS SUMMARY | 2025-02-10 14:11 | XMS_ITS | Encounter Summary ---
Author Organization [facility] Address [address] [place] [address] Care Team Providers Care Master Cook Name Role Phone Gorge Luciano DO Primary Care Provider [phone] Encounter Details Date Type Department Care Team (Latest Contact Info) Description 12/28/2002 Outpatient Historical [facility] Orthopedics- 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
--- OUTSIDE RECORDS SUMMARY | 2025-02-10 14:11 | XMS_ITS | Encounter Summary ---
Author Organization [facility] Address [address] [place] [address] Care Team Providers Care Apprentice Photographer Name Role Phone Gorge Luciano DO Primary Care Provider [phone] Encounter Details Date Type Department Care Team (Late st Contact Info) Description 02/12/2004 Emergency [facility] Emergency Department [address] 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
--- OUTSIDE RECORDS SUMMARY | 2025-02-10 14:11 | XMS_ITS | Encounter Summary ---
Author Organization [facility] Address [address] [place] [address] Care Team Providers Care Mild Disabilities Teacher Name Role Phone Gorge Luciano DO Primary Care Provider [phone] Encounter Details Date Type Department Care Team (Latest Contact Info) Description 08/07/2003 Outpatient Historical [facility] Endocrinology-[place] [address] [place] [address] Brijesh Ybarra MD NO ADDRESS ON FILE DIABETES UNCOMPL LEIDY-TYPE I (CMS/[facility]) (Primary Dx); HYPERLIPIDEMIA NEC/NOS; CORONARY ATHEROSCLER UNSPEC VESSEL Social History Tobacco Use Types Packs/Day Years Used Date Smoking Tobacco: Never Assessed Comments Unknown Sex and Gender Information Value Date Recorded Sex Assigned at Not on file Legal Sex Female 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 Gender Identity Not on file Sexual Orientation Not on file documented as of this encounter Plan of Treatment Not on file documented as of this encounter Visit Diagnoses Diagnosis Type I (juvenile type) diabetes mellitus without mention of complication, not stated as uncontrolled- Primary Other and unspecified hyperlipidemia Coronary atherosclerosis of unspecified type of vessel, osage or graft documented in this encounter Care Teams Mild Disabilities Teacher Relationship Specialty Start Date End Date Gorge Luciano DO [address] [place] [address] PCP - General Internal Medicine 07/17/09 documented as of this encounter
--- OUTSIDE RECORDS SUMMARY | 2025-02-10 14:11 | XMS_ITS | Patient Health Record ---
Author Organization [facility] Address [address] [place] [address] Care Team Providers Care Medical Records Technician Name Role Phone HENNA MCCORMICK DO Primary Care Provider Tunde Jorge Unavailable [phone] Allergies Allergen (clinical drug ingredient) Drug/Non Drug Allergy documented on EMR Reaction Allergy Type Onset Date Status Information temporarily unavailable Atacand Unknown Drug Allergy Active Information temporarily unavailable Cipro Unknown Drug Allergy Active Information temporarily unavailable Sulfur Unknown Drug Allergy Active Information temporarily unavailable Elavil Unknown Drug Allergy Active Information temporarily unavailable Carvedilol Unknown Drug Allergy Active Information temporarily unavailable Cefaclor Unknown Drug Allergy Active Results Component Value Reference Range Notes Schedule Confirmation Reviewed date:11/01/2024 03:17:12 PM Interpretation: Performing Lab: Notes/Report: Schedule Confirmation Reviewed date:11/01/2024 03:16:56 PM Interpretation: Performing Lab: Notes/Report: Schedule Confirmation Reviewed date:10/27/2024 07:48:51 AM Interpretation: Performing Lab: Notes/Report: MRI UE JT w/o Cont RT Schedule Confirmation Reviewed date:11/23/2024 01:53:06 PM Interpretation: Performing Lab: Notes/Report: MRI UE JT w/o Cont RT Schedule Confirmation Reviewed date:12/07/2024 04:15:12 PM Interpretation: Performing Lab: Notes/Report: MRI UE JT w/o Cont RT Schedule Confirmation Reviewed date:12/20/2024 03:38:44 PM Interpretation: Performing Lab: Notes/Report: MRI UE JT w/o Cont RT Reason For Referral Reason Nerve conduction ivette dy and electromyogram right upper extremity. Diagnosis 1 Cubital tunnel syndr ome on right (G56.21) Referral Organization [facility] Referring Provider First Name Tunde Referring Provider Last Name Sim Referring Provider Speciality Orthopedic Surgery Referred Provider [facility], Physi jill Therapy (Main) Referred Provider Specialty Physical The rapist Referral Priority Routine Medications Medication SIG (Take, Route, Frequency, Duration) Notes Start Date End Date Status Lantus Breakfast 45 Bedtime 45 units Active Metoprolol Succinate ER 25 MG Tablet Extended Release 24 Hour 1 tablet Orally Once a day Active Pantoprazole Sodium 1 tab twice daily Active Aspirin 81 81 MG Tablet Delayed Release 1 tablet Orally Once a day Active Pravastatin Sodium 80 MG Tablet 1 tablet Orally Once a day Active Mounjaro 7.5 MG/0.5ML Solution Auto-injector as directed Subcutaneous Active Nitrostat As needed Active Furosemide 40 MG Tablet 1 tablet Orally Once a day Active Vitamin D3 125 MCG (5000 UT) Tablet 1 tablet Orally Once a day Active Humalog Pen Breakfast 18 units Lunch 6 units Supper 10 plus sliding scale Active Zinc 50 MG Tablet 1 tablet Orally Once a day 1 tablet wed, wed & wednesday Active Calcium Plus Vitamin D3 600-12.5 MG-MCG Capsule 1 capsule with a meal Orally twice a day Active traMADol HCl 50 MG Tablet 1 tablet as needed Orally twice a day Active CeleBREX 200 MG Capsule 1 capsule with food Orally Once a day Active Vitamin C Active Klor-Con M10 10 MEQ Tablet Extended Release 1 tablet with food Orally Twice a day Active Social History Section Notes: denies tobacco and alcohol u se denies tobacco and alcohol u se denies tobacco and alcohol u se Problems Problem Type SNOMED Code ICD Code Onset Dates Problem Status W/U Status Risk Notes Problem Information temporarily unavailable Cubital tunnel syndrome on right (G56.21) Active confirmed Vital Signs Heart Rate 91 /min 10/24/2024 Oximetry 97 % 10/24/2024 Height-cm 162.56 cm 10/24/2024 Blood pressure diastolic 60 mm Hg 10/24/2024 Weight-kg 113.4 kg 10/24/2024 Height 64 in 10/24/2024 Blood pressure systolic 100 mm Hg 10/24/2024 Weight 250 lbs 10/24/2024 BMI 42.91 kg/m2 10/24/2024 Encounters Encounter Location Date Provider Diagnosis [facility] [address] [place] [address] 05/05/2024 Tunde Montemayor Bursitis of right shoulder M75.51 [facility] [address] [facility] [place] [address] 09/12/2024 Tunde Montemayor Impingement syndrome of right shoulder M75.41 [facility] [address] [facility] [place] [address] 10/24/2024 Tunde Montemayor Impingement syndrome of right shoulder M75.41 and Cubital tunnel syndrome on right G56.21 [facility] [address] [facility] [place] [address] 01/31/2025 Tunde Montemayor Assessments Encounter Date Diagnosis (ICD Code) Assessment Notes Treatment Notes Treatment Clinical Notes Section Notes 05/05/2024 Bursitis of right shoulder (ICD-10 - M75.51) Jeramy has acute bursitis of the right shoulder. 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 Her x-rays show the loose body in the shoulder. I think we should manage this at least initially on a conservative basis. Patient is in agreement as well. She would like to try cortisone injection which I think is quite reasonable as well. Procedure: ChloraPrep is applied to the right shoulder. A mixture of 2 cc plain lidocaine +1 cc Depo-Medrol are injected into the right subacromial bursa without difficulty. Patient tolerates the procedure well. There are no complications. Recheck in 6 weeks 10/24/2024 Impingement syndrome of right shoulder (ICD-10 - M75.41) This individual's shoulder is worrisome. She continues to have pain and soreness with it. I feel the pain is to factor. 1 I think she definitely has primary problems with the right shoulder and secondly I think she may be having cubital tunnel syndrome in the right upper extremity secondary to her congenital malformation of heme jatin. We will get an MRI scan ordered on the right shoulder and I want to get nerve conduction studies EMGs of the right upper extremity. 10/24/2024 Cubital tunnel syndrome on right (ICD-10 - G56.21) This individual I think has cubital tunnel syndrome. I recommend nerve conduction studies and EMG. 09/12/2024 Impingement syndrome of right shoulder (ICD-10 - M75.41) This pleasant woman is having recurrent bursitis of the right shoulder. She notes cortisone inject her. Significantly for 2 to 3 months in April. She would like to consider a cortisone injection today. I think this is perfectly reasonable. Procedure: Right shoulder is prepped with ChloraPrep. A mixture of 2 cc plain lidocaine +1 cc Depo-Medrol injected into the right subacromial bursa without difficulty. Patient tolerates procedure well. Recheck in 3 months. Plan Of Treatment Pending Test Test Name Order Date MRI UE JT w/o Cont [id number] 10/24/2024 Insurance Providers Payer Name Payer Address Payer Phone Subscriber Number Group Number Insured Name Patient Relationship to Insured Coverage Start Date Coverage End Date [employer] Medicare Advantage PPO [address] [address] [place] [address] [id number] Beryl Sotomayor Self - patient is the insured [place] Medicare [address] [address] [place] [address] [phone] [id number] Beryl Sotomayor Self - patient is the insured 0 Medications Administered Medication Instructions Date of Administration Dosage Notes DEPO-Medrol 05/05/2024 1 mL DEPO-Medrol 09/12/2024 1 mL Lidocaine 05/05/2024 2 mL Lidocaine 09/12/2024 2 mL Medical (General) History Medical History History ICD Code Heart Disease Arthritis anemia Diabetes osteoporosis Back Trouble Low Blood Pressure Surgical History Surgery Date(Month/Year) right hand middle finger, rt elbows, lef t shoulder unspecified 01/31/1998 Gallbladder 11/1999 Right hand - Left finger & right finger unspecified 12/29/2001 Heart stent 06/2003 Lt knee/leg - tibula plateau fracture Lt Knee/leg - tibula plateau fracture manipulation & hardware matt patrick - LT knee/leg - tibula plateau fracture 05/07/2005 heart stent 03/04/06 heart stent 04/12/2007 heart stent 01/16/2008 heart stent 07/17/2009 heart open heart bypass surgery 1 Ulnar Right upper extremity 11/13/2015 Carpal tunnel - right upper ext 04/16/2016 Right and Left vein procedure 09/2020 cataract surgery right eye 12/03/2021 right eye lens surgery 12/2021 right eye laser surgery 02/13/2022 right eye floater bleeding 03/30/2023 right eye repair jarod lens from 12/03/2021 surgery 12/21/2023 Hospitalization History Reason Date(Month/Year) see surgery
--- OUTSIDE RECORDS SUMMARY | 2025-02-10 14:11 | XMS_ITS | Encounter Summary ---
Author Organization [facility] Address [address] [place] [address] Care Team Providers Care Toaster Element Repairer Name Role Phone MustaphaGorge Joelle CALDWELL Primary Care Provider [phone] Encounter Details Date Type Department Care Team (Late st Contact Info) Description 07/17/2004 Inpatient Historical [facility], Oren Chavez MD [address] [place] [address] FX UPPER END TIBIA-CLOSE (Primary Dx) Social History Tobacco Use Types Packs/Day Years Used Date Smoking Tobacco: Never Assessed Comments Unknown Sex and Gender Information Value Date Recorded Sex Assigned at Not on file 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 Gender Identity Not on file Sexual [...] TESTING F inal Result Performing Organization Address [facility] de Phone Number INTERFACE SYSTEM Refer to clinic/hospital department * (ABNORMAL) POC GLUCOSE (07/18/2004 1:39 AM CDT) GLUCOSE POC 299(H) 60 - 100 mg/dL INTERFACE SYSTEM 07/18/2004 1:39 AM CDT Oren Mckinnon MD POINT OF CARE TESTING F inal Result Performing Organization Address [facility] de Phone Number INTERFACE SYSTEM [...] URINE ORDERABLES Final Result Performing Organization Address [facility] Phone Number INTERFACE SYSTEM Refer to clinic/hospital department * (ABNORMAL) ACETONE QUALITATIVE, URINE (07/17/2004 4:16 PM CDT) KETONES UA Large(A) Negative INTERFACE SYSTEM 07/17/2004 4:16 PM CDT Oren Mckinnon MD URINE ORDERABLES Final Result Performing Organization Address [facility] Phone Number INTERFACE SYSTEM Refer to clinic/hospital department * (ABNORMAL) GLUCOSE URINALYSIS, QUALITATIVE (07/17/2004 4:16 PM CDT) GLUCOSE, URINE 5000(AA) Negative INTER FACE SYSTEM Comment: Potentially critical/toxic URINE GLUCOSE called by DG to ERIKA ORELLANA, with verbal repeat, at 07/17/2004 7:31 PM. 07/17/2004 4:16 PM CDT Result [facility] Oren Mckinnon MD URINE ORDERABLES Final Result Performing Organization Address [facility] Phone Number INTERFACE SYSTEM Refer to clinic/hospital [...] Goal INR 3.0; range 2.5 - 3.5 POST-NM Goal INR 2.5; range 2.0 - 3.0 [...] ORDERABLES F inal Result Performing Organization Address [facility] Phone Number INTERFACE SYSTEM Refer to clinic/hospital [...] ORDERABLES Fi nal Result Performing Organization Address [facility] Phone Number INTERFACE SYSTEM Refer to clinic/hospital [...] TESTING F inal Result Performing Organization Address [facility] Co de Phone Number INTERFACE SYSTEM Refer to clinic/hospital department * (ABNORMAL) POC GLUCOSE (07/16/2004 11:15 PM CDT) GLUCOSE POC 329(H) 60 - 100 mg/dL INTERFACE SYSTEM 07/16/2004 11:1 5 PM CDT Brijesh Amado MD POINT OF CARE TESTING Final Result Performing Organization Address [facility] Co de Phone Number INTERFACE SYSTEM Refer to clinic/hospital department documented in this encounter Visit Diagnoses Diagnosis Closed fracture of upper end of tibia- Primary documented in this encounter Care Teams Toaster Element Repairer Relationship Specialty Start Date End Date Gorge Luciano DO [address] [facility] [address] [place] [address] PCP - General Internal Medicine 07/17/09 documented as of this encounter
--- OUTSIDE RECORDS SUMMARY | 2025-02-10 14:11 | XMS_ITS | Encounter Summary ---
Author Organization [facility] Address [address] [place] [address] Care Team Providers Care Hydrotreater Operator Name Role Phone Gorge Luciano DO Primary Care Provider [phone] Encounter Details Date Type Department Care Team (Late st Contact Info) Description 02/11/2005 Outpatient Historical [facility] Orthopedics- 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
--- OUTSIDE RECORDS SUMMARY | 2025-02-10 14:11 | XMS_ITS | Encounter Summary ---
Author Organization [facility] Address [address] [place] [address] Care Team Providers Care Manufacturing Electrician Name Role Phone Gorge Luciano DO Primary Care Provider [phone] Encounter Details Date Type Department Care Team (Latest Contact Info) Description 08/21/2003 Outpatient Historical [facility] Cardiology- [place] [address] [place] [address] Too Brandon MD NO ADDRESS ON FILE ANGINA PECTORIS NEC/NOS (Primary Dx); CORON ATHEROSCL [place] CORON VESSEL Social History Tobacco Use Types Packs/Day Years Used Date Smoking Tobacco: Never Assessed Comments Unknown Sex and Gender Information Value Date Recorded Sex Assigned at Not on file Legal Sex Female 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
--- OUTSIDE RECORDS SUMMARY | 2025-02-10 14:11 | XMS_ITS | Encounter Summary ---
Author Organization [facility] Address [address] [place] [address] Care Team Providers Care Thermite Bomb Loader Name Role Phone Gorge Luciano DO Primary Care Provider [phone] Encounter Details Date Type Department Care Team (Late st Contact Info) Description 07/21/[address] [facility] Orthopedics- [address] [place] [address] Oren Mckinnon MD [address] [place] [address] FX UPPER END TIBIA-CLOSE (Primary Dx) Social History Tobacco Use Types Packs/Day Years Used Date Smoking Tobacco: Never Assessed Comments Unknown Sex and Gender Information Value Date Recorded Sex Assigned at Not on file Legal Sex Female 5:[address] Gender Identity Not on file Sexual Orientation Not on file documented as of this encounter Plan of Treatment Not on file documented as of this encounter Visit Diagnoses Diagnosis Closed fracture of upper end of tibia- Primary documented in this encounter Care Teams Thermite Bomb Loader Relationship Specialty Start Date End Date Gorge Luciano DO [address] [place] [address] PCP - General Internal Medicine 07/17/09 documented as of this encounter
--- OUTSIDE RECORDS SUMMARY | 2025-02-10 14:11 | XMS_ITS | Encounter Summary ---
Author Organization [facility] Address [address] [place] [address] Care Team Providers Care Firer Powerhouse Name Role Phone Gorge Luciano DO Primary Care Provider [phone] Encounter Details Date Type Department Care Team (Late st Contact Info) Description 04/08/2005 Outpatient Historical [facility] Orthopedics- 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
--- OUTSIDE RECORDS SUMMARY | 2025-02-10 14:11 | XMS_ITS | Encounter Summary ---
Author Organization [facility] Address [address] [place] [address] Care Team Providers Care Rock Climbing Instructor Name Role Phone Gorge Luciano DO Primary Care Provider [phone] Encounter Details Date Type Department Care Team (Latest Contact Info) Description 02/26/2005 Outpatient Historical [facility] [address] [place] [address] Gorge Luciano DO [address] [place] [address] DIABETES MELLITUS TYPE I UNCONTR UNCOMPL (Primary Dx); CORONARY ATHEROSCLER UNSPEC VESSEL; CONGESTIVE HEART FAILURE NOS (CMS/HCC); VACCINE FOR STREP PNEUMONIAE Social History Tobacco Use Types Packs/Day Years Used Date Smoking Tobacco: Never Assessed Comments Unknown Sex and Gender Information Value Date Recorded Sex Assigned at Not on file Legal Sex Female 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 Gender Identity Not on file Sexual Orientation Not on file documented as of this encounter Plan of Treatment Not on file documented as of this encounter Visit Diagnoses Diagnosis Type I (juvenile type) diabetes mellitus without mention of complication, uncontrolled- Primary Coronary atherosclerosis of unspecified type of vessel, comanche or graft Congestive heart failure, unspecified Need for prophylactic vaccination against Streptococcus pneumoniae (pneumococcus) Need for prophylactic vaccination against streptococcus pneumoniae (pneumococcus) documented in this encounter Care Teams Rock Climbing Instructor Relationship Specialty Start Date End Date Gorge Luciano DO [address] [place] [address] PCP - General Internal Medicine 07/17/09 documented as of this encounter
--- OUTSIDE RECORDS SUMMARY | 2025-02-10 14:11 | XMS_ITS | Encounter Summary ---
Author Organization [facility] Address [address] [place] [address] Care Team Providers Care Heat Treat Furnace Operator Name Role Phone Gorge Luciano DO Primary Care Provider [phone] Encounter Details Date Type Department Care Team (Latest Contact Info) Description 04/11/2004 Outpatient Historical [facility] Endocrinology-[facility] [place] [address] [place] [address] Brijesh Ybarra MD NO ADDRESS ON FILE DIABETES MELLITUS TYPE II UNCONTR UNCOMPL (Primary Dx); HYPERLIPIDEMIA NEC/NOS; HYPERTENSION NOS Social History Tobacco Use Types Packs/Day Years Used Date Smoking Tobacco: Never Assessed Comments Unknown Sex and Gender Information Value Date Recorded Sex Assigned at Not on file Legal Sex Female 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 Gender Identity Not on file Sexual Orientation Not on file documented as of this encounter Plan of Treatment Not on file documented as of this encounter Visit Diagnoses Diagnosis Type II or unspecified type diabetes mellitus without mention of complication, uncontrolled- Primary Other and unspecified hyperlipidemia Unspecified essential hypertension documented in this encounter Care Teams Heat Treat Furnace Operator Relationship Specialty Start Date End Date Gorge Luciano DO [address] [place] [address] PCP - General Internal Medicine 07/17/09 documented as of this encounter
--- OUTSIDE RECORDS SUMMARY | 2025-02-10 14:11 | XMS_ITS | Encounter Summary ---
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
--- OUTSIDE RECORDS SUMMARY | 2025-02-10 14:11 | XMS_ITS | Encounter Summary ---
Author Organization [facility] Address [address] [place] [address] Care Team Providers Care Overnight Babysitter Name Role Phone Gorge Luciano DO Primary Care Provider [phone] Encounter Details Date Type Department Care Team (Latest Contact Info) Description 04/17/2002 Outpatient Historical [facility] Sky Torres MD [address] [place] [address] SHOULDER REGION DIS NEC (Primary Dx); Trigger finger Social History Tobacco Use Types Packs/Day Years Used Date Smoking Tobacco: Never Assessed Comments Unknown Sex and Gender Information Value Date Recorded Sex Assigned at Not on file Legal Sex Female 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
--- OUTSIDE RECORDS SUMMARY | 2025-02-10 14:11 | XMS_ITS | Encounter Summary ---
Author Organization [facility] Address [address] [place] [address] Care Team Providers Care Pan Pusher Name Role Phone Gorge Luciano DO Primary Care Provider [phone] Encounter Details Date Type Department Care Team (Latest Contact Info) Description 02/15/2004 Outpatient Historical [facility] [address] [place] [address] Gorge Luciano DO [address] [place] [address] UNSPEC CONSTIPATION (Primary Dx); GASTROPARESIS; REFLUX ESOPHAGITIS Social History Tobacco Use Types Packs/Day Years Used Date Smoking Tobacco: Never Assessed Comments Unknown Sex and Gender Information Value Date Recorded Sex Assigned at Not on file Legal Sex Female 5:31 AM 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
--- OUTSIDE RECORDS SUMMARY | 2025-02-10 14:12 | XMS_ITS | Encounter Summary ---
Author Organization [facility] Address [address] [facility] Attn: Epic Prelude ADT [place] [address] Care Team Providers Care Log Loader Name Role Phone Gorge Luciano DO Primary Care Provider [phone] Encounter Details Date Type Department Care Team (Late st Contact Info) Description 07/20/2001 Outpatient Historical Zachery Barroso MD NO ADDRESS ON FILE Social History Tobacco Use Types Packs/Day Years Used Date Smoking Tobacco: Never Assessed Comments Unknown Sex and Gender Information Value Date Recorded Sex Assigned at Not on file Legal Sex Female 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
--- OUTSIDE RECORDS SUMMARY | 2025-02-10 14:12 | XMS_ITS | Encounter Summary ---
Author Organization [facility] Address [address] [place] [address] Care Team Providers Care Livestock Caretaker Name Role Phone Gorge Luciano DO Primary Care Provider [phone] Encounter Details Date Type Department Care Team (Late st Contact Info) Description 01/28/2008 Emergency [facility] Emergency Department [address] [place] [address] Ed, Physician NO ADDRESS ON FILE Magnus Sullivan DO NO ADDRESS ON FILE Social History Tobacco Use Types Packs/Day Years Used Date Smoking Tobacco: Never Alcohol Use Standard Drinks/Week Comments No 0 (1 standard drink = 0.6 oz pur e alcohol) Comments No Sex and Gender Information Value Date Recorded Sex Assigned at Not on file Legal Sex Female 5:31 AM CATERING ATTENDANT Gender Identity Not on file Sexual Orientation Not on file documented as of this encounter Plan of Treatment Not on file documented as of this encounter Procedures Procedure Name Priority Date/Time Associated Diagnosis Comments XR CHEST PA OR AP 1 VW Routine 01/28/2008 11:10 PM CATERING ATTENDANT PT AND APTT Stat 01/28/2008 11:04 PM CATERING ATTENDANT CARDIAC ENZYMES Stat 01/28/2008 11:04 PM CATERING ATTENDANT CBC WITH DIFFERENTIAL Stat 01/28/2008 11:04 PM CATERING ATTENDANT D-DIMER Stat 01/28/2008 11:04 PM CATERING ATTENDANT BRAIN NATRIURETIC PEPTIDE, BNP OR PROBNP Stat 01/28/2008 11:04 PM CATERING ATTENDANT BASIC METABOLIC PANEL Stat 01/28/2008 11:04 PM CATERING ATTENDANT documented in this encounter Results * XR CHEST PA OR AP (01/28/2008 11:10 PM CATERING ATTENDANT) Anatomical Region Laterality Modality Chest Other 01/28/2008 11:1 0 PM CATERING ATTENDANT Narrative 01/29/2008 11:23 AM CATERING ATTENDANT The study is limited due to patient's [...] Final Result * D-DIMER (01/28/2008 11:04 PM CATERING ATTENDANT) D-DIMER QUANT <0.2 0.0 - 0.5 mcg/mL [facility] Comment: Testing performed using the STA [...] range. Blood specimen (specimen) 01/28/2008 11:04 PM CATERING ATTENDANT 01/28/2008 11:15 PM CATERING ATTENDANT Magnus Sullivan DO HEMATOLOGY ORDERABLES Alina l Result Performing Organization Address [facility] Phone Number INTERFACE SYSTEM Refer to clinic/hospital department [facility] CLIA# [id number] [address] [place] [address] * (ABNORMAL) BRAIN NATRIURETIC PEPTIDE, BNP OR PROBNP (01/28/2008 11:04 PM CATERING ATTENDANT) BRAIN NATRIURETIC PEPTIDE 302(H) 0 - 125 pg/mL [facility] Blood specimen (specimen) 01/28/2008 11:04 PM CATERING ATTENDANT 01/28/2008 11:15 PM CATERING ATTENDANT Magnus Sullivan DO CHEMISTRY ORDERABLES Final Result Performing Organization Address [facility] Phone Number INTERFACE SYSTEM Refer to clinic/hospital [facility] CLIA# [id number] [address] [place] [address] * CARDIAC ENZYMES (01/28/2008 11:04 PM CATERING ATTENDANT) CKMB 0.3 0.0 - 5.0 ng/mL [facility] TROPONIN I <0.1 0.0 - 1.3 ng/mL [facility] Blood specimen (specimen) 01/28/2008 11:04 PM CATERING ATTENDANT 01/28/2008 11:15 PM CATERING ATTENDANT Magnus Solimangler DO CHEMISTRY ORDERABLES Final Result Performing Organization Address [facility] Phone Number INTERFACE SYSTEM Refer to clinic/hospital [facility] CLIA# [id number] [address] [place] [address] * PT AND APTT (01/28/2008 11:04 PM CATERING ATTENDANT) PTT 31.3 22.5 - 36.[address] [facility] Comment: Therapeutic Range: Hi-level PE/DVT heparin protocol 80.1 -95.0 sec Lo-level PE/DVT heparin protocol 67.1 - 80.0 sec Cardiac Heparin Protocol 67.1 - 85.0 sec Neuro Heparin Protocol 67.1 - 80.0 sec As of 06/02/2007 note change in APTT Normal Range. INR 1.1 [facility] Comment: Expected Values for INR: DVT/PE Goal INR 2.5; range 2.0 - 3.0 Valve Replacement Tissue Goal INR 2.5; range 2.0 - 3.0 Mechanical Goal INR 3.0; range 2.5 - 3.5 POST-WV Goal INR 2.5; range 2.0 - 3.0 or Goal 3.0; range 2.5 - 3.5 Atrial Fibrillation Goal INR 2.5; range 2.0 - 3.0 Ischemic Stroke Goal INR 2.5; range 2.0 - 3.0 For additional information see Guidelines for Anticoagulation available from the pharmacy Roberto Noe [phone] PROTIME 15.0 12.8 - 15.[address] [facility] Comment:As of 2007 not e change in normal range. Blood specimen (specimen) 01/28/2008 11:04 PM CATERING ATTENDANT 01/28/2008 11:15 PM CATERING ATTENDANT Magnus Sullivan DO HEMATOLOGY ORDERABLES Edit ed INTERFACE SYSTEM Refer to clinic/hospital department [facility] CLIA# [id number] [address] [place] [address] * (ABNORMAL) BASIC METABOLIC PANEL (01/28/2008 11:04 PM CATERING ATTENDANT) CREATININE 0.8 0.7 - 1.2 mg/dL [facility] CALCIUM 8.9 8.4 - 10.5 mg/dL [facility] GLUCOSE 119(H) 70 - 110 mg/dL [facility] CHLORIDE 108 95 - 110 mEq/L [facility] ANION GAP 13 9 - 20 mEq/L [facility] SODIUM 141 136 - 145 mEq/L [facility] BUN 20(H) 7 - 17 mg/dL [facility] CO2 24 22 - 32 mmol/l [facility] POTASSIUM 3.9 3.5 - 5.0 mEq/L [facility] OSMOLALITY, CALCULATED 293 275 - 295 mOsm/Kg [facility] Blood specimen (specimen) 01/28/2008 11:04 PM CATERING ATTENDANT 01/28/2008 11:15 PM CATERING ATTENDANT Magnus Sullivan DO CHEMISTRY ORDERABLES Final Result Performing Organization Address City/State/[facility] Co de Phone Number INTERFACE SYSTEM Refer to clinic/hospital department [facility] CLIA# [id number] [address] [place] [address] * (ABNORMAL) CBC WITH DIFFERENTIAL (01/28/2008 11:04 PM CATERING ATTENDANT) MONOCYTES 9.6 2.0 - 10.0 % [facility] RDW 17.2(H) 11.0 - 14.5 % [facility] MONOCYTE ABSOLUTE 0.7(H) 0.1 - 0.6 K/ul [facility] WBC 7.6 4.5 - 11.0 K/ul [facility] NEUTROPHILS 68.3 42.2 - 75.2 % [facility] MCH 22.2(L) 27.0 - 34.[address] [facility] NEUTROPHIL ABSOLUTE 5.2 2.0 - 8.0 K/ul [facility] HEMATOCRIT 34.1(L) 36.0 - 46.0 % [facility] PLATELETS 330 140 - 440 K/ul [facility] EOSINOPHIL ABSOLUTE 0.2 0.0 - 0.7 K/ul [facility] EOSINOPHILS 2.9 0.0 - 7.0 % [facility] PERIPHERAL BLOOD SMEAR REVIEW Automated Diff [facility] RBC 4.72 4.20 - 5.40 Mil/ul [facility] MCHC 30.8 30.0 - 35.0 g/dL [facility] LYMPHOCYTE ABSOLUTE 1.4 1.2 - 4.0 K/ul [facility] LYMPHOCYTES 18.8(L) 24.0 - 44.0 % [facility] MCV 72.2(L) 84.0 - 103.[address] [facility] BASOPHILS 0.4 0.0 - 1.0 % [facility] MPV 9.7 8.9 - 12.[address] [facility] BASOPHILS ABSOLUTE 0.0 0.0 - 0.2 K/ul [facility] HEMOGLOBIN 10.5(L) 12.0 - 16.0 g/dL [facility] Blood specimen (specimen) 01/28/2008 11:04 PM CATERING ATTENDANT 01/28/2008 11:15 PM CATERING ATTENDANT us Magnus Sullivan DO HEMATOLOGY ORDERABLES Alina renner Result INTERFACE SYSTEM Refer to clinic/hospital department [facility] CLIA# [id number] [address] [place] [address] documented in this encounter Visit Diagnoses Not on filedocumented in this encounter Care Teams Livestock Caretaker Relationship Specialty Start Date End Date Gorge Luciano DO [address] [place] [address] PCP - General Internal Medicine 07/17/09 documented as of this encounter
--- OUTSIDE RECORDS SUMMARY | 2025-02-10 14:12 | XMS_ITS | Encounter Summary ---
Author Organization [facility] Address [address] [place] [address] Care Team Providers Care Drum Operator Name Role Phone Gorge Luciano DO Primary Care Provider Encounter Details Date Type Department Care Team (Late st Contact Info) Description 02/16/2008 Outpatient Historical [facility] Gorge Luciano DO [address] [address] Social History Tobacco Use Types Packs/Day Years Used Date Smoking Tobacco: Never Alcohol Use Standard Drinks/Week Comments No 0 (1 standard drink = 0.6 oz pur e alcohol) Comments No Sex and Gender Information Value Date Recorded Sex Assigned at Not on file Legal Sex Female 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
--- OUTSIDE RECORDS SUMMARY | 2025-02-10 14:12 | XMS_ITS | Encounter Summary ---
Author Organization [facility] Address [address] [place] [address] Care Team Providers Care Chief Console Operator Name Role Phone Gorge Luciano DO Primary Care Provider [phone] Encounter Details Date Type Department Care Team (Latest Contact Info) Description 02/13/2002 Outpatient Historical [facility] Sky Torres MD [address] [place] [address] UPPER LIMB ANOMALY NOS (Primary Dx) Social History Tobacco Use Types Packs/Day Years Used Date Smoking Tobacco: Never Assessed Comments Unknown Sex and Gender Information Value Date Recorded Sex Assigned at Not on file Legal Sex Female 5:31 AM 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
--- OUTSIDE RECORDS SUMMARY | 2025-02-10 14:12 | XMS_ITS | Encounter Summary ---
Author Organization [facility] Address [address] [place] [address] Care Team Providers Care Police Sergeant Precinct Name Role Phone Gorge Luciano DO Primary Care Provider [phone] Encounter Details Date Type Department Care Team [...] on file Legal Sex Female 5:31 AM RELATIONSHIP ASSOC Gender Identity Not on file Sexual Orientation Not on file documented as of this encounter Plan of Treatment Not on file documented as of this encounter Visit Diagnoses Diagnosis Type II or unspecified type diabetes mellitus without mention of complication, not stated as uncontrolled- Primary documented in this encounter Care Teams Police Sergeant Precinct Relationship Specialty Start Date End Date Gorge Luciano DO [address] [place] [address] PCP - General Internal Medicine 07/17/09 documented as of this encounter
--- OUTSIDE RECORDS SUMMARY | 2025-02-10 14:12 | XMS_ITS | Encounter Summary ---
Author Organization [facility] Address [address] [place] [address] Care Team Providers Care Client Development Manager Name Role Phone Gorge Luciano DO Primary Care Provider [phone] Encounter Details Date Type Department Care Team (Latest Contact Info) Description 06/19/2003 Outpatient Historical [facility] [place] [address] [place] [address] Ling Snow MD [address] [phone] CONGESTIVE HEART FAILURE, UNSPEC (CMS/[facility]) (Primary Dx); DIABETES UNCOMPL LEIDY-TYPE I (CMS/HCC) Social History Tobacco Use Types Packs/Day Years Used Date Smoking Tobacco: Never Assessed Comments Unknown Sex and Gender Information Value Date Recorded Sex Assigned at Not on file Legal Sex Female 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
--- OUTSIDE RECORDS SUMMARY | 2025-02-10 14:12 | XMS_ITS | Encounter Summary ---
Author Organization [facility] Address [address] [place] [address] Care Team Providers Care Agricultural Plow Operator Name Role Phone Gorge Luciano DO Primary Care Provider [phone] Encounter Details Date Type Department Care Team (Latest Contact Info) Description 01/09/2002 Outpatient Historical [facility] Sky Torres MD [address] [place] [address] Trigger finger (Primary Dx) Social History Tobacco Use Types Packs/Day Years Used Date Smoking Tobacco: Never Assessed Comments Unknown Sex and Gender Information Value Date Recorded Sex Assigned at Not on file Legal 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
--- OUTSIDE RECORDS SUMMARY | 2025-02-10 14:12 | XMS_ITS | Encounter Summary ---
Author Organization [facility] Address [address] [facility] Attn: Epic Prelude ADT [place] [address] Care Team Providers Care Product Management Manager Name Role Phone Gorge Luciano DO Primary Care Provider [phone] Encounter Details Date Type Department Care Team (Late st Contact Info) Description 02/18/2001 Outpatient Historical Zachery Barroso MD NO ADDRESS ON FILE Social History Tobacco Use Types Packs/Day Years Used Date Smoking Tobacco: Never Assessed Comments Unknown Sex and Gender Information Value Date Recorded Sex Assigned at Not on file Legal Sex Female 5:31 AM ACCOUNTING RECRUITER Gender Identity Not on file Sexual Orientation Not on file documented as of this encounter Plan of Treatment Not on file documented as of this encounter Visit Diagnoses Not on filedocumented in this encounter Care Teams Product Management Manager Relationship Specialty Start Date End Date Gorge Luciano DO [address] [place] [address] PCP - General Internal Medicine 07/17/09 documented as of this encounter
--- OUTSIDE RECORDS SUMMARY | 2025-02-10 14:12 | XMS_ITS | Encounter Summary ---
Author Organization [facility] Address [address] [place] [address] Care Team Providers Care Concrete Hopper Operator Name Role Phone Gorge Luciano DO Primary Care Provider [phone] Encounter Details Date Type Department Care Team (Late st Contact Info) Description 04/25/2007 Outpatient [facility] [address] [place] [address] Gorge Luciano DO [address] [place] [phone] Social History Tobacco Use Types Packs/Day Years Used Date Smoking Tobacco: Never Assessed Comments No Sex and Gender Information Value Date Recorded Sex Assigned at Not on file Legal Sex Female 5:31 AM HAND WORKER Gender Identity Not on file Sexual Orientation Not on file documented as of this encounter Plan of Treatment Not on file documented as of this encounter Visit Diagnoses Not on filedocumented in this encounter Care Teams Concrete Hopper Operator Relationship Specialty Start Date End Date Gorge Luciano DO [address] [place] [phone] PCP - General Internal Medicine 07/17/09 documented as of this encounter
--- OUTSIDE RECORDS SUMMARY | 2025-02-10 14:12 | XMS_ITS | Encounter Summary ---
Author Organization [facility] Address [address] [place] [address] Care Team Providers Care Link Trainer Maintenance Worker Name Role Phone Gorge Luciano DO Primary Care Provider [phone] Encounter Details Date Type Department Care Team (Late st Contact Info) Description 02/03/2008 Outpatient Historical [facility] [address] 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
--- OUTSIDE RECORDS SUMMARY | 2025-02-10 14:12 | XMS_ITS | Encounter Summary ---
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
--- OUTSIDE RECORDS SUMMARY | 2025-02-10 14:12 | XMS_ITS | Encounter Summary ---
Author Organization [facility] Address [address] [place] [address] Care Team Providers Care First Aid Nurse Name Role Phone Gorge Luciano DO Primary Care Provider [phone] Encounter Details Date Type Department Care Team (Latest Contact Info) Description 01/17/2001 Outpatient Historical [facility] CANDY WAFFLE ASSEMBLER [address] [place] [address] Zachery Barroso MD NO ADDRESS ON FILE Excessive menstruation (Primary Dx) Social History Tobacco Use Types Packs/Day Years Used Date Smoking Tobacco: Never Assessed Comments Unknown Sex and Gender Information Value Date Recorded Sex Assigned at Not on file Legal Sex Female 5:31 AM IMPROVEMENT RN Gender Identity Not on file Sexual Orientation Not on file documented as of this encounter Plan of Treatment Not on file documented as of this encounter Visit Diagnoses Diagnosis Excessive menstruation- Primary Excessive or frequent menstruation documented in this encounter Care Teams First Aid Nurse Relationship Specialty Start Date End Date Gorge Luciano DO [address] [place] [address] PCP - General Internal Medicine 07/17/09 documented as of this encounter
--- OUTSIDE RECORDS SUMMARY | 2025-02-10 14:12 | XMS_ITS | Encounter Summary ---
Author Organization [facility] Address [address] [place] [address] Care Team Providers Care Apple Peeler Operator Name Role Phone Gorge Luciano DO Primary Care Provider [phone] Encounter Details Date Type Department Care Team [...] on file Legal Sex Female 5:31 AM LINUX DEVELOPER Gender Identity Not on file Sexual Orientation Not on file documented as of this encounter Plan of Treatment Not on file documented as of this encounter Visit Diagnoses Not on filedocumented in this encounter Care Teams Apple Peeler Operator Relationship Specialty Start Date End Date Gorge Luciano DO [address] [place] [address] PCP - General Internal Medicine 07/17/09 documented as of this encounter
--- OUTSIDE RECORDS SUMMARY | 2025-02-10 14:12 | XMS_ITS | Encounter Summary ---
Author Organization [facility] Address [address] [facility] Attn: [place] [address] Care Team Providers Care Cork Grinder Name Role Phone Gorge Luciano DO Primary Care Provider [phone] Encounter Details Date Type Department Care Team (Late st Contact Info) Description 12/16/2001 Outpatient Historical Sky Torres MD [address] [place] [address] Social History Tobacco Use Types Packs/Day Years Used Date Smoking Tobacco: Never Assessed Comments Unknown Sex and Gender Information Value Date Recorded Sex Assigned at Not on file Legal Sex Female 5:31 AM [employer]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
--- OUTSIDE RECORDS SUMMARY | 2025-02-10 14:12 | XMS_ITS | Encounter Summary ---
Author Organization [facility] Address [address] [facility] Attn: Epic Prelude ADT [place] [address] Care Team Providers Care Academic Services Professional Name Role Phone Gorge Luciano DO Primary Care Provider [phone] Encounter Details Date Type Department Care Team (Late st Contact Info) Description 03/11/2001 Outpatient Historical Zachery Barroso MD NO ADDRESS ON FILE Social History Tobacco Use Types Packs/Day Years Used Date Smoking Tobacco: Never Assessed Comments Unknown Sex and Gender Information Value Date Recorded Sex Assigned at Not on file Legal Sex Female 5:31 AM HOP GROWER Gender Identity Not on file Sexual Orientation Not on file documented as of this encounter Plan of Treatment Not on file documented as of this encounter Visit Diagnoses Not on filedocumented in this encounter Care Teams Academic Services Professional Relationship Specialty Start Date End Date Gorge Luciano DO [address] [place] [address] PCP - General Internal Medicine 07/17/09 documented as of this encounter
--- OUTSIDE RECORDS SUMMARY | 2025-02-10 14:12 | XMS_ITS | Encounter Summary ---
Author Organization [facility] Address [address] [place] [address] Care Team Providers Care Manager Pulmonary Name Role Phone MustaphaGorge Joelle CALDWELL Primary Care Provider [phone] Encounter Details Date Type Department Care Team (Late st Contact Info) Description 07/12/2009 Ancillary Orders [facility] Cardiac Work Distributor [address] [place] [address] Salinas Cutler MD [address] [address] Angina; CAD (Coronary Artery Disease) Social History Tobacco Use Types Packs/Day Years Used Date Smoking Tobacco: Never Alcohol Use Standard Drinks/Week Comments No 0 (1 standard drink = 0.6 oz pur e alcohol) Comments No Sex and Gender Information Value Date Recorded Sex Assigned at Not on file Legal Sex Female 5:31 AM QUILLER TENDER Gender Identity Not on file Sexual [...] balloon rather than restent. klb/ / D [id number] V [id number] [facility] - 07/17/2009 10:19 PM CDT [...] was anesthetized with 1% Xylocaine. A 5 [place] arterial sheath was inserted via modified Seldinger [...] reveal a significant gradient. Next, the 5 [place] sheath was upgraded to a 6 [place]. Then an XB 3 guide was used [...] The stent was post-dilated with a Quantum [place] 2.5 x 8 at up to 20 [...] reveal a significant gradient. Next, the 5 [place] sheath wasupgraded to a 6 [place]. Then an XB 3 guide was used to engage the leftmain. Angiomax was initiated per cardiac protocol. Then a BMW wire wasused to cross into the obtuse marginal #1 and the restenosis waspre- dilated with a cutting balloon 2.5 x 10 at up to 6 atmospheres andthen stented with a PROMUS 2.5 x 12 at 14 atmospheres. The stent waspost-dilated with a Quantum [place] 2.5 x 8 at up to 20 [...] but still unable. Then I used an [employer] light joel wire and againtried but still [...] balloon rather than restent. pat/ / D [id number] V [id number] us Salinas Cutler MD FLUOROSCOPY ORDERABLES Final Res [facility] documented in this encounter Visit Diagnoses Diagnosis Angina Other and unspecified angina pectoris CAD (coronary artery disease) Coronary atherosclerosis of unspecified type of vessel, sleetm[place] or graft Type I (juvenile type) diabetes mellitus without mention of complication, not stated as uncontrolled ASHD (arteriosclerotic heart disease) Coronary atherosclerosis of unspecified type of vessel, [place] or graft Angina Other and unspecified angina pectoris documented in this encounter Care Teams Manager Pulmonary Relationship Specialty Start Date End Date Gorge Luciano DO [address] [address] PCP - General Internal Medicine 07/17/09 documented as of this encounter
--- OUTSIDE RECORDS SUMMARY | 2025-02-10 14:12 | XMS_ITS | Encounter Summary ---
Author Organization [facility] Address [address] [place] [address] Care Team Providers Care Darkroom Technician Name Role Phone Gorge Luciano DO Primary Care Provider [phone] Encounter Details Date Type Department Care Team (Late st Contact Info) Description 04/28/2007 Outpatient Historical [facility] [address] [facility] [address] [place] [address] Social History Tobacco Use Types Packs/Day Years Used Date Smoking Tobacco: Never Assessed Comments No Sex and Gender Information Value Date Recorded Sex Assigned at Not on file Legal Sex Female 5:31 AM MANAGER OF 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
--- OUTSIDE RECORDS SUMMARY | 2025-02-10 14:12 | XMS_ITS | Encounter Summary ---
Author Organization [facility] Address [address] [place] [address] Care Team Providers Care Interior Decorator Painting Name Role Phone MustaphaGorge Joelle CALDWELL Primary Care Provider [phone] Encounter Details Date Type Department Care Team (Late st Contact Info) Description 01/13/2008 Outpatient Historical [facility] IN BED Salinas Cutler MD [address] [address] Other Chest Pain Social History Tobacco Use Types Packs/Day Years Used Date Smoking Tobacco: Never Alcohol Use Standard Drinks/Week Comments No 0 (1 standard drink = 0.6 oz pur e alcohol) Comments No Sex and Gender Information Value Date Recorded Sex Assigned at Not on file Legal Sex Female 5:31 AM COMPUTATIONAL BIOLOGIST Gender Identity Not on file Sexual Orientation Not on file documented as of this encounter Plan of Treatment Not on file documented as of this encounter Procedures Procedure Name Priority Date/Time Associated Diagnosis Comments POC GLUCOSE Routine 01/17/2008 6:23 AM COMPUTATIONAL BIOLOGIST POC GLUCOSE Routine 01/16/2008 8:59 PM COMPUTATIONAL BIOLOGIST POC GLUCOSE Routine 01/16/2008 5:00 PM COMPUTATIONAL BIOLOGIST POC GLUCOSE Routine 01/16/2008 4:14 PM COMPUTATIONAL BIOLOGIST CBC WITHOUT DIFFERENTIAL Stat 01/16/2008 12:08 PM COMPUTATIONAL BIOLOGIST BASIC METABOLIC PANEL Stat 01/16/2008 12:08 PM COMPUTATIONAL BIOLOGIST documented in this encounter Results * (ABNORMAL) POC GLUCOSE (01/17/2008 6:23 AM COMPUTATIONAL BIOLOGIST) GLUCOSE POC 268(H) 60 - 100 mg/dL [facility] Venous blood specimen (specimen) 01/17/2008 6:23 AM COMPUTATIONAL BIOLOGIST 01/18/2008 3:45 AM COMPUTATIONAL BIOLOGIST us Salinas Cutler MD POINT OF CARE TESTING Final Resu lt Performing Organization Address City/[facility] de Phone Number INTERFACE SYSTEM Refer to clinic/hospital department [facility] CLIA# [id number] [address] [place] [address] * (ABNORMAL) POC GLUCOSE (01/16/2008 8:59 PM COMPUTATIONAL BIOLOGIST) GLUCOSE POC 177(H) 60 - 100 mg/dL [facility] Venous blood specimen (specimen) 01/16/2008 8:59 PM COMPUTATIONAL BIOLOGIST 01/17/2008 3:33 AM COMPUTATIONAL BIOLOGIST us Salinas Cutler MD POINT OF CARE TESTING Final Resu lt Performing Organization Address [facility] Phone Number INTERFACE SYSTEM Refer to clinic/hospital department [facility] CLIA# [id number] [address] [place] [address] * POC GLUCOSE (01/16/2008 5:00 PM COMPUTATIONAL BIOLOGIST) GLUCOSE POC 74 60 - 100 mg/dL [facility] Venous blood specimen (specimen) 01/16/2008 5:00 PM COMPUTATIONAL BIOLOGIST 01/17/2008 3:33 AM COMPUTATIONAL BIOLOGIST us Salinas Cutler MD POINT OF CARE TESTING Final Resu lt Performing Organization Address [facility] de Phone Number INTERFACE SYSTEM Refer to clinic/hospital department [facility] CLIA# [id number] [address] [place] [address] * (ABNORMAL) POC GLUCOSE (01/16/2008 4:14 PM COMPUTATIONAL BIOLOGIST) [facility] GLUCOSE POC 53(L) 60 - 100 mg/dL [facility] Venous blood specimen (specimen) 01/16/2008 4:14 PM COMPUTATIONAL BIOLOGIST 01/17/2008 3:33 AM COMPUTATIONAL BIOLOGIST Salinas Cutler MD POINT OF CARE TESTING Final Resu lt Performing Organization Address [facility] Phone Number INTERFACE SYSTEM Refer to clinic/hospital department [facility] CLIA# [id number] [address] [place] [address] * CBC WITHOUT DIFFERENTIAL (01/16/2008 12:08 PM COMPUTATIONAL BIOLOGIST) [facility] HEMATOCRIT 38.3 36.0 - 46.0 % [facility] RBC 5.37 4.20 - 5.40 Mil/ul [facility] PLATELETS 293 140 - 440 K/ul [facility] HEMOGLOBIN 12.0 12.0 - 16.0 g/dL [facility] WBC 6.3 4.5 - 11.0 K/ul [facility] Blood specimen (specimen) 01/16/2008 12:08 PM COMPUTATIONAL BIOLOGIST 01/16/2008 12:17 PM COMPUTATIONAL BIOLOGIST us Salinas Cutler MD HEMATOLOGY ORDERABLES Final Resu lt Performing Organization Address [facility] Phone Number INTERFACE SYSTEM Refer to clinic/hospital department [facility] CLIA# [id number] [address] [place] [address] * (ABNORMAL) BASIC METABOLIC PANEL (01/16/2008 12:08 PM COMPUTATIONAL BIOLOGIST) [facility] SODIUM 140 136 - 145 mEq/L [facility] ANION GAP 10 9 - 20 mEq/L [facility] BUN 13 7 - 17 mg/dL [facility] CO2 29 22 - 32 mmol/l [facility] OSMOLALITY, CALCULATED 291 275 - 295 mOsm/Kg [facility] POTASSIUM 4.5 3.5 - 5.0 mEq/L [facility] Comment: Specimen slightly hemolyzed CREATININE 0.6(L) 0.7 - 1.2 mg/dL [facility] CALCIUM 9.6 8.4 - 10.5 mg/dL [facility] GLUCOSE 134(H) 70 - 110 mg/dL [facility] CHLORIDE 106 95 - 110 mEq/L [facility] Blood specimen (specimen) 01/16/2008 12:08 PM COMPUTATIONAL BIOLOGIST 01/16/2008 12:17 PM COMPUTATIONAL BIOLOGIST us Salinas Cutler MD CHEMISTRY ORDERABLES Final Resul t INTERFACE SYSTEM Refer to clinic/hospital department [facility] CLIA# [id number] [address] [place] [address] documented in this encounter Visit Diagnoses Diagnosis Other chest pain documented in this encounter Care Teams Interior Decorator Painting Relationship Specialty Start Date End Date Gorge Luciano DO [address] [place] [address] PCP - General Internal Medicine 07/17/09 documented as of this encounter
--- OUTSIDE RECORDS SUMMARY | 2025-02-10 14:12 | XMS_ITS | Encounter Summary ---
Author Organization [facility] Address [address] [place] [address] Care Team Providers Care Physical Therapy Resident Name Role Phone Gorge Luciano DO Primary Care Provider Encounter Details Date Type Department Care Team (Latest Contact Info) Description 06/19/2003 Outpatient Historical [facility] Imaging Services-Derik Clark [place] [address] [place] [address] Ling Snow MD [address] [phone] CHEST PAIN NOS (Primary Dx) Social History Tobacco Use Types Packs/Day Years Used Date Smoking Tobacco: Never Assessed Comments Unknown Sex and Gender Information Value Date Recorded Sex Assigned at Not on file Legal Sex Female 5:31 AM HOSPITAL 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
--- OUTSIDE RECORDS SUMMARY | 2025-02-10 14:12 | XMS_ITS | Encounter Summary ---
Author Organization [facility] Address [address] [place] [address] Care Team Providers Care E/M Engineer Name Role Phone Gorge Luciano DO Primary Care Provider [phone] Reason for Referral * Outpatient Services (Routine) - Closed Specialty Diagnoses / Procedures Referred By Contac t Referred To Contact Radiology Diagnoses Chronic diastolic congestive heart failure (CMS/HCC) ASHD (arteriosclerotic heart disease) Procedures ECHOCARDIOGRAM W/ CONTRAST AGENT ECHO COMPLETE Salinas Cutler MD Phone: tel: fax: [facility] [place] [address] [place] [address] Phone: tel: fax: Referral ID Status Reason Start Date Expiration Date V isits Requested Visits Authorized [id number] Closed [facility] TO SCHEDULE (S[facility]) 11/03/2016 12/21/2016 1 1 Encounter Details Date Type Department Care Team (Late st Contact Info) Description 12/01/2016 Ancillary Orders [facility] Cardiology- [place] [address] [place] [address] Salinas Cutler MD [address] [facility] [address] [place] [address] Chronic diastolic congestive heart failure (CMS/HCC); ASHD (arteriosclerotic heart disease) Social History Tobacco Use Types Packs/Day Years Used Date Smoking Tobacco: Never Smokeless Tobacco: Never Alcohol Use Standard Drinks/Week Comments No 0 (1 standard drink = 0.6 oz pur e alcohol) Comments No Sex and Gender Information Value Date Recorded Sex Assigned at Not on file Legal Sex Female 5:31 AM CURATOR [employer]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 ASHD. [...] gradient, S Max regurg 287.34 cm/s gabriella [facility] Echo Labs are accredited with the Intersocietal Accreditation Commission - Echocardiography. Prepared and Electronically Authenticated Leonel Briones MD Confirmed 12/01/2016 16:56 Procedure Note Leonel Briones MD - 12/01/2016 [facility] Echocardiography-[place] [address] [place] [address] Transthoracic Echocardiography Patient: Светлана Study ECHO COMPLETE Beryl Garrison ID: Gender: F : 1965 Age: 51 Room: Study 12/01/2016 Pt Outpatient Date: Status: Study 02:37 PM [facility] #: [id number] Time: Ordering:Salinas Cutler Interpreting:Leonel Briones MD Boat Crew Deck Hand: Amber Browning [facility] Indications and History: Congestive Heart Failure. ASHD. [...] gradient, S Max regurg 287.34 cm/s gabriella [facility] Echo Labs are accredited with the Intersocietal Accreditation Commission - Echocardiography. Prepared and Electronically Authenticated Leonel Briones MD Confirmed 12/01/2016 16:56 us Salinas Cutler MD ORDERABLES Final Result Performing Organization Address City/State/[facility] Co de Phone Number INTERFACE SYSTEM Refer to clinic/hospital department documented in this encounter Visit Diagnoses Diagnosis Chronic diastolic congestive heart failure (CMS/HCC) Chronic diastolic heart failure ASHD (arteriosclerotic heart disease) Coronary atherosclerosis of unspecified type of vessel, [place] or graft Chronic diastolic congestive heart failure (CMS/HCC) Chronic diastolic heart failure ASHD (arteriosclerotic heart disease) Coronary atherosclerosis of unspecified type of vessel, [place] or graft documented in this encounter Care Teams E/M Engineer Relationship Specialty Start Date End Date Gorge Luciano DO [address] [phone] PCP - General Internal Medicine 07/17/09 documented as of this encounter
--- OUTSIDE RECORDS SUMMARY | 2025-02-10 14:12 | XMS_ITS | Encounter Summary ---
Author Organization [facility] Address [address] [place] [address] Care Team Providers Care Rn Integrity Name Role Phone Gorge Luciano DO Primary Care Provider [phone] Encounter Details Date Type Department Care Team (Late st Contact Info) Description 08/13/2007 Outpatient Historical [facility] SUPPORT SERVICES Gorge Luciano DO [address] [address] Social History Tobacco Use Types Packs/Day Years Used Date Smoking Tobacco: Never Alcohol Use Standard Drinks/Week Comments No 0 (1 standard drink = 0.6 oz pur e alcohol) Comments No Sex and Gender Information Value Date Recorded Sex Assigned at Not on file Legal Sex Female 5:31 AM FACILITY ASSISTANT Gender Identity Not on file Sexual Orientation Not on file documented as of this encounter Plan of Treatment Not on file documented as of this encounter Visit Diagnoses Not on filedocumented in this encounter Care Teams Rn Integrity Relationship Specialty Start Date End Date Gorge Luciano DO [address] [place] [address] PCP - General Internal Medicine 07/17/09 documented as of this encounter
--- OUTSIDE RECORDS SUMMARY | 2025-02-10 14:12 | XMS_ITS | Encounter Summary ---
Author Organization [facility] Address [address] [place] [address] Care Team Providers Care Siebel Consultant Name Role Phone Gorge Luciano DO Primary Care Provider [phone] Reason for Referral * Outpatient Services (Routine) - Closed Specialty Diagnoses / Procedures Referred By Cami t Referred To Contact Radiology Diagnoses Other screening mammogram Procedures MAMMO DIGITAL SCREEN BILAT Gorge Luciano DO [address] [address] Phone: tel: fax: [facility] Derik Clark [place] [address] [place] [address] Phone: tel: fax: Referral ID Status Reason Start Date Expiration Date Visits Re quested Visits Authorized [id number] Closed 12/18/2011 12/17/2012 1 1 Encounter Details Date Type Department Care Team (Latest Contact Info) Description 12/18/2011 Ancillary Orders [facility] Pre-Registration [place] CALL TO MAKE APPOINTMENT ONLY [address] [place] [address] Gorge Luciano DO [address] [address] Other screening mammogram Social History Tobacco Use Types Packs/Day Years Used Date Smoking Tobacco: Never Smokeless Tobacco: Never Alcohol Use Standard Drinks/Week Comments No 0 (1 standard drink = 0.6 oz pur e alcohol) Comments No Sex and Gender Information Value Date Recorded Sex Assigned at Not on file Legal Sex Female 5:31 AM PATIENT DAY COORDINATOR Gender Identity Not on file Sexual [...] Breast Bilateral Mammography Narrative 01/19/2012 1:10 PM PATIENT DAY COORDINATOR Bilateral Mammogram Reason for Exam: Screening Comparison: [...] mammogram documented in this encounter Care Teams Siebel Consultant Relationship Specialty Start Date End Date Gorge Luciano DO [address] [place] [address] PCP - General Internal Medicine 07/17/09 documented as of this encounter
--- OUTSIDE RECORDS SUMMARY | 2025-02-10 14:12 | XMS_ITS | Encounter Summary ---
Author Organization [facility] Address [address] [place] [address] Care Team Providers Care Roulette Dealer Name Role Phone Gorge Luciano DO Primary Care Provider [phone] Encounter Details Date Type Department Care Team (Late st Contact Info) Description 04/22/2007 Outpatient Historical [facility] SUPPORT [facility] Gorge Luciano DO [address] [place] [address] Social History Tobacco Use Types Packs/Day Years Used Date Smoking Tobacco: Never Assessed Comments No Sex and Gender Information Value Date Recorded Sex Assigned at Not on file Legal Sex Female 5:31 AM PATENT LITIGATION ASSOCIATE Gender Identity Not on file Sexual Orientation Not on file documented as of this encounter Plan of Treatment Not on file documented as of this encounter Visit Diagnoses Not on filedocumented in this encounter Care Teams Roulette Dealer Relationship Specialty Start Date End Date Gorge Luciano DO [address] [place] [address] PCP - General Internal Medicine 07/17/09 documented as of this encounter
--- OUTSIDE RECORDS SUMMARY | 2025-02-10 14:12 | XMS_ITS | Encounter Summary ---
Author Organization [facility] Address [address] [place] [address] Care Team Providers Care Operator Vacuum Name Role Phone Gorge Luciano DO Primary Care Provider [phone] Encounter Details Date Type Department Care Team (Late st Contact Info) Description 03/31/2007 Outpatient Historical [facility] Int [facility] [address] [place] [address] Gorge Luciano DO [address] [place] [address] Social History Tobacco Use Types Packs/Day Years Used Date Smoking Tobacco: Never Assessed Comments No Sex and Gender Information Value Date Recorded Sex Assigned at Not on file Legal Sex Female 5:31 AM BACKGROUND INVESTIGATOR Gender Identity Not on file Sexual Orientation Not on file documented as of this encounter Plan of Treatment Not on file documented as of this encounter Visit Diagnoses Not on filedocumented in this encounter Care Teams Operator Vacuum Relationship Specialty Start Date End Date Gorge Luciano DO [address] [place] [address] PCP - General Internal Medicine 07/17/09 documented as of this encounter
--- OUTSIDE RECORDS SUMMARY | 2025-02-10 14:12 | XMS_ITS | Encounter Summary ---
Author Organization [facility] Address [address] [place] [address] Care Team Providers Care Milk Route Supervisor Name Role Phone Gorge Luciano DO Primary Care Provider [phone] Encounter Details Date Type Department Care Team [...] on file Legal Sex Female 5:31 AM OPENSTACK DEVELOPER Gender Identity Not on file Sexual Orientation Not on file documented as of this encounter Plan of Treatment Not on file documented as of this encounter Visit Diagnoses Not on filedocumented in this encounter Care Teams Milk Route Supervisor Relationship Specialty Start Date End Date Gorge Luciano DO [address] [place] [address] PCP - General Internal Medicine 07/17/09 documented as of this encounter
--- OUTSIDE RECORDS SUMMARY | 2025-02-10 14:12 | XMS_ITS | Encounter Summary ---
Author Organization [facility] Address [address] [place] [address] Care Team Providers Care Field Marketing Lead Name Role Phone Gorge Luciano DO Primary Care Provider [phone] Encounter Details Date Type Department Care Team (Late st Contact Info) Description 11/30/2007 Outpatient Historical [facility] Gorge Luciano DO [address] [address] Social History Tobacco Use Types Packs/Day Years Used Date Smoking Tobacco: Never Alcohol Use Standard Drinks/Week Comments No 0 (1 standard drink = 0.6 oz pur e alcohol) Comments No Sex and Gender Information Value Date Recorded Sex Assigned at Not on file Legal Sex Female 5:31 AM STONE HAND Gender Identity Not on file Sexual Orientation Not on file documented as of this encounter Plan of Treatment Not on file documented as of this encounter Visit Diagnoses Not on filedocumented in this encounter Care Teams Field Marketing Lead Relationship Specialty Start Date End Date Gorge Luciano DO [address] [place] [address] PCP - General Internal Medicine 07/17/09 documented as of this encounter
--- OUTSIDE RECORDS SUMMARY | 2025-02-10 14:12 | XMS_ITS | Encounter Summary ---
Author Organization [facility] Address [address] [place] [address] Care Team Providers Care Linux System Administrator Name Role Phone Gorge Luciano DO Primary Care Provider [phone] Encounter Details Date Type Department Care Team (Late st Contact Info) Description 04/28/2007 Outpatient Historical [facility] Other, Sgf NO ADDRESS ON FILE Social History Tobacco Use Types Packs/Day Years Used Date Smoking Tobacco: Never Assessed Comments No Sex and Gender Information Value Date Recorded Sex Assigned at Not on file Legal Sex Female 5:31 AM LOGISTICS ENGINEERING MANAGER Gender Identity Not on file Sexual Orientation Not on file documented as of this encounter Plan of Treatment Not on file documented as of this encounter Visit Diagnoses Not on filedocumented in this encounter Care Teams Linux System Administrator Relationship Specialty Start Date End Date Gorge Luciano DO [address] [place] [address] PCP - General Internal Medicine 07/17/09 documented as of this encounter
--- OUTSIDE RECORDS SUMMARY | 2025-02-10 14:12 | XMS_ITS | Encounter Summary ---
Author Organization [facility] Address [address] [place] [address] Care Team Providers Care Surgical Nurse Practitioner Name Role Phone Gorge Luciano DO Primary Care Provider [phone] Encounter Details Date Type Department Care Team (Latest Contact Info) Description 04/20/2003 Outpatient Historical [facility] [address] [place] [address] Sawyer Tang, OD [address] [place] [address] ARAUZ'S PALSY (Primary Dx); KERATITIS NOS Social History Tobacco Use Types Packs/Day Years Used Date Smoking Tobacco: Never Assessed Comments Unknown Sex and Gender Information Value Date Recorded Sex Assigned at Not on file Legal Sex Female 5:31 AM COMMERCIAL REPORTER Gender Identity Not on file Sexual Orientation Not on file documented as of this encounter Plan of Treatment Not on file documented as of this encounter Visit Diagnoses Diagnosis Arauz's palsy- Primary Unspecified keratitis documented in this encounter Care Teams Surgical Nurse Practitioner Relationship Specialty Start Date End Date Gorge Luciano DO [address] [place] [address] PCP - General Internal Medicine 07/17/09 documented as of this encounter
--- OUTSIDE RECORDS SUMMARY | 2025-02-10 14:12 | XMS_ITS | Encounter Summary ---
Author Organization [facility] Address [address] [place] [address] Care Team Providers Care Video Rental Clerk Name Role Phone Gorge Luciano Joelle CALDWELL Primary Care Provider [phone] Encounter Details Date Type Department Care Team (Late st Contact Info) Description 12/19/2014 Ancillary Orders [facility] Orthopedics - Orthopedic [facility] [address] [place] [address] Oren Mckinnon MD [address] [place] [address] Shoulder pain, left (Primary Dx) Social History Tobacco Use Types Packs/Day Years Used Date Smoking Tobacco: Never Smokeless Tobacco: Never Alcohol Use Standard Drinks/Week Comments No 0 (1 standard drink = 0.6 oz pur e alcohol) Comments No Sex and Gender Information Value Date Recorded Sex Assigned at Not on file Legal Sex Female 5:31 AM ACCOUNT COLLECTOR Gender Identity Not on file Sexual Orientation [...] region documented in this encounter Care Teams Video Rental Clerk Relationship Specialty Start Date End Date Gorge Luciano DO [address] [address] PCP - General Internal Medicine 07/17/09 documented as of this encounter
--- OUTSIDE RECORDS SUMMARY | 2025-02-10 14:12 | XMS_ITS | Encounter Summary ---
Author Organization [facility] Address [address] [place] [address] Care Team Providers Care Snaker Driving Horses Name Role Phone Gorge Luciano DO Primary Care Provider [phone] Encounter Details Date Type Department Care Team (Late st Contact Info) Description 06/21/2007 Outpatient Historical [facility] Gorge Luciano DO [address] [place] [address] Social History Tobacco Use Types Packs/Day Years Used Date Smoking Tobacco: Never Assessed Comments No Sex and Gender Information Value Date Recorded Sex Assigned at Not on file Legal Sex Female 5:31 AM GUIDANCE SERVICES COORDINATOR Gender Identity Not on file Sexual Orientation Not on file documented as of this encounter Plan of Treatment Not on file documented as of this encounter Visit Diagnoses Not on filedocumented in this encounter Care Teams Snaker Driving Horses Relationship Specialty Start Date End Date Gorge Luciano DO [address] [place] [address] PCP - General Internal Medicine 07/17/09 documented as of this encounter
--- OUTSIDE RECORDS SUMMARY | 2025-02-10 14:12 | XMS_ITS | Encounter Summary ---
Author Organization [facility] Address [address] [place] [address] Care Team Providers Care Animal Handler Name Role Phone Gorge Luciano DO Primary Care Provider [phone] Encounter Details Date Type Department Care Team [...] on file Legal Sex Female 5:31 AM SCHOOL PHOTOGRAPHER Gender Identity Not on file Sexual Orientation Not on file documented as of this encounter Plan of Treatment Not on file documented as of this encounter Visit Diagnoses Not on filedocumented in this encounter Care Teams Animal Handler Relationship Specialty Start Date End Date Gorge Luciano DO [address] [place] [address] PCP - General Internal Medicine 07/17/09 documented as of this encounter
--- OUTSIDE RECORDS SUMMARY | 2025-02-10 14:12 | XMS_ITS | Encounter Summary ---
Author Organization [facility] Address [address] [place] [address] Care Team Providers Care Data Deliverables Manager Name Role Phone Gorge Luciano DO Primary Care Provider [phone] Reason for Visit * Reason Comments Patient Communication Encounter Details Date Type Department Care Team (Late st Contact Info) Description 08/31/[address] [facility] Chad Clark [address] [place] [address] Gorge Luciano DO [address] [place] [address] Patient Communication Social History Tobacco [...] AM CDT Legal Sex Female 12:41 PM LEAD ANDROID DEVELOPER Gender Identity Female 12/21/2023 9:49 AM CDT Sexual Orientation Not on file documented as of this encounter Miscellaneous Notes * Telephone Encounter - BalaAlli nguyen Taisha - 08/31/2024 3:01 PM CDT Copied from [facility] #[id number]. Topic: CPA Information Request >> Aug 31, 2024 3:00 PM Alli Russ wrote: Caller is returning phone call from clinic. Caller Name: Beryl Sotomayor Patient/Caregiver Callback Number: [phone] Clinic Left Note In Chart Is there a note from the clinic requesting the caller be transferred when they call back? No Are the credentials of the caregiver who called the patient baseball hand sewer? No Call Notes: Communicated information that is documented in the note. Caller wants a call back from clinic. documented in this encounter Plan of Treatment Upcoming Encounters Date Type Department Care Team (Late st Contact Info) Description 02/14/2025 9:15 AM LEAD ANDROID DEVELOPER Appointment [facility] [address] [place] [address] PA [address] [place] [address] 02/15/2025 11:40 AM LEAD ANDROID DEVELOPER Office Visit [facility] [address] [place] [address] Conrado Barraza PA-C [address] [place] [address] 02/28/2025 11:20 AM LEAD ANDROID DEVELOPER Office Visit [facility] Int Med-[place] [address] [place] [address] Gorge Luciano DO [address] [place] [address] 04/09/2025 12:35 PM LEAD ANDROID DEVELOPER Appointment [facility] Cancer [facility] Laboratory Services [address] [place] [address] [phone] 04/12/2025 8:00 AM LEAD ANDROID DEVELOPER Video Visit [facility] Endocrinology [facility] [address] [place] [address] Lorna Page MD [address] [place] [address] 04/16/2025 1:20 PM LEAD ANDROID DEVELOPER Office Visit [facility] Cancer and Hematology [place] [address] [place] [phone] Levy Page MD [address] [place] [address] 06/12/2025 12:40 PM CDT Office Visit [facility] Rheumatology- [place] Samira [address] [place] [address] Enrrique Scanlon MD [address] [place] [address] 09/03/2025 11:20 AM CDT Office Visit [facility] [address] [place] [address] Gorge Luciano DO [address] [place] [address] documented as of this encounter Visit Diagnoses Not on filedocumented in this encounter Care Teams Data Deliverables Manager Relationship Specialty Start Date End Date Gorge Luciano DO [address] [phone] PCP - General Internal Medicine 07/17/09 documented as of this encounter
--- OUTSIDE RECORDS SUMMARY | 2025-02-10 14:12 | XMS_ITS | Encounter Summary ---
Author Organization [facility] Address [address] [place] [address] Care Team Providers Care Bicycle Taxi Driver Name Role Phone Gorge Luciano DO Primary Care Provider [phone] Encounter Details Date Type Department Care Team (Late st Contact Info) Description 04/11/2007 Outpatient Historical [facility] [address] [place] [address] Omayra Cooper, ROUTE DELIVERY SUPERVISOR NO ADDRESS ON FILE Social History Tobacco Use Types Packs/Day Years Used Date Smoking Tobacco: Never Assessed Comments No Sex and Gender Information Value Date Recorded Sex Assigned at Not on file Legal Sex Female 5:31 AM FIGURE CLERK Gender Identity Not on file Sexual Orientation Not on file documented as of this encounter Plan of Treatment Not on file documented as of this encounter Visit Diagnoses Not on filedocumented in this encounter Care Teams Bicycle Taxi Driver Relationship Specialty Start Date End Date Gorge Luciano DO [address] [place] [address] PCP - General Internal Medicine 07/17/09 documented as of this encounter
--- OUTSIDE RECORDS SUMMARY | 2025-02-10 14:12 | XMS_ITS | Encounter Summary ---
Author Organization [facility] Address [address] [place] [address] Care Team Providers Care Miller Apprentice Name Role Phone Gorge Luciano DO Primary Care Provider [phone] Encounter Details Date Type Department Care Team (Latest Contact Info) Description 12/07/2001 Outpatient Historical [facility] Sky Torres MD [address] [place] [address] SHOULDER REGION DIS NEC (Primary Dx); Trigger finger Social History Tobacco Use Types Packs/Day Years Used Date Smoking Tobacco: Never Assessed Comments Unknown Sex and Gender Information Value Date Recorded Sex Assigned at Not on file Legal Sex Female 5:31 AM PLUMBER ASSISTANT Gender Identity Not on file Sexual Orientation Not on file documented as of this encounter Plan of Treatment Not on file documented as of this encounter Visit Diagnoses Diagnosis Other affections of shoulder region, not elsewhere classified- Primary Trigger finger Trigger finger (acquired) documented in this encounter Care Teams Miller Apprentice Relationship Specialty Start Date End Date Gorge Luciano DO [address] [place] [address] PCP - General Internal Medicine 07/17/09 documented as of this encounter
--- OUTSIDE RECORDS SUMMARY | 2025-02-10 14:12 | XMS_ITS | Encounter Summary ---
Author Organization [facility] Address [address] [place] [address] Care Team Providers Care General Helper Name Role Phone Gorge Luciano DO Primary Care Provider [phone] Encounter Details Date Type Department Care Team (Latest Contact Info) Description 06/13/2001 Outpatient Historical [facility] [address] [place] [address] Zachery Barroso MD NO ADDRESS ON FILE Gynecologic examination (Primary Dx); SURGERY FOLLOWUP, UNSPEC Social History Tobacco Use Types Packs/Day Years Used Date Smoking Tobacco: Never Assessed Comments Unknown Sex and Gender Information Value Date Recorded Sex Assigned at Not on file Legal Sex Female 5:31 AM MEDIA SERVICES DIRECTOR Gender Identity Not on file Sexual Orientation Not on file documented as of this encounter Plan of Treatment Not on file documented as of this encounter Visit Diagnoses Diagnosis Gynecologic examination- Primary Gynecological examination Follow-up examination, following unspecified surgery documented in this encounter Care Teams General Helper Relationship Specialty Start Date End Date Gorge Luciano DO [address] [place] [address] PCP - General Internal Medicine 07/17/09 documented as of this encounter
--- OUTSIDE RECORDS SUMMARY | 2025-02-10 14:12 | XMS_ITS | Encounter Summary ---
Author Organization [facility] Address [address] [place] [address] Care Team Providers Care Gut Carrier Name Role Phone Gorge Luciano DO Primary Care Provider [phone] Encounter Details Date Type Department Care Team [...] Legal Sex Female 5:31 AM ENTRY LEVEL MARKETING REPRESENTATIVE Gender Identity Not on file Sexual Orientation Not on file documented as of this encounter Plan of Treatment Not on file documented as of this encounter Visit Diagnoses Diagnosis Tear film insufficiency, unspecified- Primary Type II or unspecified type diabetes mellitus without mention of complication, uncontrolled documented in this encounter Care Teams Gut Carrier Relationship Specialty Start Date End Date Gorge Luciano DO [address] [place] [address] PCP - General Internal Medicine 07/17/09 documented as of this encounter
--- OUTSIDE RECORDS SUMMARY | 2025-02-10 14:12 | XMS_ITS | Encounter Summary ---
Author Organization [facility] Address [address] [place] [address] Care Team Providers Care Roller Bearing Inspector Name Role Phone Gorge Luciano DO Primary Care Provider [phone] Encounter Details Date Type Department Care Team (Late st Contact Info) Description 04/12/2007 Outpatient Historical [facility] Too Brandon MD NO ADDRESS ON FILE Unspecified Pre-Operative Examination Social History Tobacco Use Types Packs/Day Years Used Date Smoking Tobacco: Never Assessed Comments No Sex and Gender Information Value Date Recorded Sex Assigned at Not on file Legal Sex Female 5:31 AM CONFERENCE CENTER COORDINATOR Gender Identity Not on file Sexual Orientation Not on file documented as of this encounter Plan of Treatment Not on file documented as of this encounter Procedures Procedure Name Priority Date/Time Associated Diagnosis Comments POC GLUCOSE Routine 04/13/2007 6:00 AM CONFERENCE CENTER COORDINATOR POC GLUCOSE Routine 04/12/2007 8:56 PM CONFERENCE CENTER COORDINATOR POC GLUCOSE Routine 04/12/2007 4:54 PM CONFERENCE CENTER COORDINATOR POC ACTIVATED CLOTTING TIME Routine 04/12/2007 2:13 PM CONFERENCE CENTER COORDINATOR POC ACTIVATED CLOTTING TIME Routine 04/12/2007 1:42 PM CONFERENCE CENTER COORDINATOR POC GLUCOSE Routine 04/12/2007 12:08 PM CONFERENCE CENTER COORDINATOR BASIC METABOLIC PANEL Routine 04/12/2007 8:48 AM CONFERENCE CENTER COORDINATOR documented in this encounter Results * (ABNORMAL) POC GLUCOSE (04/13/2007 6:00 AM CONFERENCE CENTER COORDINATOR) GLUCOSE POC 286(H) 60 - 100 mg/dL INTERFACE SYSTEM 04/13/2007 6:00 AM CONFERENCE CENTER COORDINATOR Result Abdulaziz Brandon MD POINT OF CARE TESTING Edite d Performing Organization Address [facility] Phone Number INTERFACE SYSTEM Refer to clinic/hospital department * (ABNORMAL) POC GLUCOSE (04/12/2007 8:56 PM CONFERENCE CENTER COORDINATOR) GLUCOSE POC 255(H) 60 - 100 mg/dL INTERFACE SYSTEM 04/12/2007 8:56 PM CONFERENCE CENTER COORDINATOR Result Abdulaziz Brandon MD POINT OF CARE TESTING Edite d Performing Organization Address [facility] Phone Number INTERFACE SYSTEM Refer to clinic/hospital department * (ABNORMAL) POC GLUCOSE (04/12/2007 4:54 PM CONFERENCE CENTER COORDINATOR) GLUCOSE POC 168(H) 60 - 100 mg/dL INTERFACE SYSTEM 04/12/2007 4:54 PM CONFERENCE CENTER COORDINATOR Result Abdulaziz Brandon MD POINT OF CARE TESTING Edite d Performing Organization Address [facility] Phone Number INTERFACE SYSTEM Refer to clinic/hospital department * POC ACTIVATED CLOTTING TIME (04/12/2007 2:13 PM CONFERENCE CENTER COORDINATOR) ACT POC 134 79 - 149 sec INTERFACE SYSTEM 04/12/2007 2:13 PM CONFERENCE CENTER COORDINATOR Result Abdulaziz Brandon MD POINT OF CARE TESTING Edite d Performing Organization Address [facility] Phone Number INTERFACE SYSTEM Refer to clinic/hospital department * (ABNORMAL) POC ACTIVATED CLOTTING TIME (04/12/2007 1:42 PM CONFERENCE CENTER COORDINATOR) ACT POC 151(H) 79 - 149 sec INTERFACE SYSTEM 04/12/2007 1:42 PM CONFERENCE CENTER COORDINATOR us Too Brandon MD POINT OF CARE TESTING Edite d Performing Organization Address [facility] Phone Number INTERFACE SYSTEM Refer to clinic/hospital department * POC GLUCOSE (04/12/2007 12:08 PM CONFERENCE CENTER COORDINATOR) GLUCOSE POC 73 60 - 100 mg/dL INTERFACE SYSTEM 04/12/2007 12:0 8 PM CONFERENCE CENTER COORDINATOR us Too Brandon MD POINT OF CARE TESTING Edite d Performing Organization Address [facility] Phone Number INTERFACE SYSTEM Refer to clinic/hospital department * (ABNORMAL) BASIC METABOLIC PANEL (04/12/2007 8:48 AM CONFERENCE CENTER COORDINATOR) GLUCOSE 123(H) 70 - 110 mg/dL INTERFACE [...] 295 mOsm/Kg INTERFACE SYSTEM 04/12/2007 8:48 AM CONFERENCE CENTER COORDINATOR us Too Brandon MD CHEMISTRY ORDERABLES Edited Performing Organization Address [facility] Phone Number INTERFACE SYSTEM Refer to clinic/hospital department documented in this encounter Visit Diagnoses Diagnosis Preoperative examination, unspecified documented in this encounter Care Teams Roller Bearing Inspector Relationship Specialty Start Date End Date Gorge Luciano DO [address] [phone] PCP - General Internal Medicine 07/17/09 documented as of this encounter
--- OUTSIDE RECORDS SUMMARY | 2025-02-10 14:12 | XMS_ITS | Encounter Summary ---
Author Organization [facility] Address [address] [place] [address] Care Team Providers Care Tack Welder Name Role Phone Gorge Luciano DO Primary Care Provider [phone] Encounter Details Date Type Department Care Team (Latest Contact Info) Description 02/13/2002 Outpatient Historical [facility] Dermatology- [facility] [address] [place] [address] Enrrique Coates MD NO ADDRESS ON FILE Benign nestor skin trunk (Primary Dx) Social History Tobacco Use Types Packs/Day Years Used Date Smoking Tobacco: Never Assessed Comments Unknown Sex and Gender Information Value Date Recorded Sex Assigned at Not on file Legal Sex Female 5:31 AM ASSURANCE ANALYST Gender Identity Not on file Sexual Orientation Not on file documented as of this encounter Plan of Treatment Not on file documented as of this encounter Visit Diagnoses Diagnosis Benign nestor skin trunk- Primary Benign neoplasm of skin of trunk, except scrotum documented in this encounter Care Teams Tack Welder Relationship Specialty Start Date End Date Gorge Luciano DO [address] [place] [address] PCP - General Internal Medicine 07/17/09 documented as of this encounter
--- OUTSIDE RECORDS SUMMARY | 2025-02-10 14:12 | XMS_ITS | Encounter Summary ---
Author Organization [facility] Address [address] [place] [address] Care Team Providers Care Sandblast Carver Name Role Phone Gorge Luciano DO Primary Care Provider [phone] Encounter Details Date Type Department Care Team (Latest Contact Info) Description 02/21/2002 Outpatient Historical [facility] [address] [place] [address] Sawyer Tang, OD [address] [place] [address] ABSCESS OF EYELID (Primary Dx) Social History Tobacco Use Types Packs/Day Years Used Date Smoking Tobacco: Never Assessed Comments Unknown Sex and Gender Information Value Date Recorded Sex Assigned at Not on file Legal Sex Female 5:31 AM ICT BUSINESS ANALYST Gender Identity Not on file Sexual Orientation Not on file documented as of this encounter Plan of Treatment Not on file documented as of this encounter Visit Diagnoses Diagnosis Abscess of eyelid- Primary documented in this encounter Care Teams Sandblast Carver Relationship Specialty Start Date End Date Gorge Luciano DO [address] [place] [address] PCP - General Internal Medicine 07/17/09 documented as of this encounter
--- OUTSIDE RECORDS SUMMARY | 2025-02-10 14:12 | XMS_ITS | Encounter Summary ---
Author Organization [facility] Address [address] [place] [address] Care Team Providers Care Screen Room Operator Name Role Phone Gorge Luciano DO Primary Care Provider [phone] Encounter Details Date Type Department Care Team [...] on file Legal Sex Female 5:31 AM TOOL AND DIE ENGINEER Gender Identity Not on file Sexual Orientation Not on file documented as of this encounter Plan of Treatment Not on file documented as of this encounter Visit Diagnoses Not on filedocumented in this encounter Care Teams Screen Room Operator Relationship Specialty Start Date End Date Gorge Luciano DO [address] [place] [address] PCP - General Internal Medicine 07/17/09 documented as of this encounter
--- OUTSIDE RECORDS SUMMARY | 2025-02-10 14:12 | XMS_ITS | Encounter Summary ---
Author Organization [facility] Address [address] [place] [address] Care Team Providers Care Manager Primary Name Role Phone Gorge Luciano DO Primary Care Provider [phone] Encounter Details Date Type Department Care Team (Late st Contact Info) Description 04/07/2007 Outpatient Historical [facility] [address] [place] [address] Gorge Luciano DO [address] [place] [address] Social History Tobacco Use Types Packs/Day Years Used Date Smoking Tobacco: Never Assessed Comments No Sex and Gender Information Value Date Recorded Sex Assigned at Not on file Legal Sex Female 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
--- OUTSIDE RECORDS SUMMARY | 2025-02-10 14:12 | XMS_ITS | Encounter Summary ---
Author Organization [facility] Address [address] [place] [address] Care Team Providers Care Box Office Manager Name Role Phone Gorge Luciano DO Primary Care Provider [phone] Encounter Details Date Type Department Care Team (Latest Contact Info) Description 07/30/2000 Outpatient Historical [facility] Sawyer Tang, OD [address] [place] [address] Type II or unspecified type diabetes mellitus without mention of complication, not stated as uncontrolled (Primary Dx) Social History Tobacco Use Types Packs/Day Years Used Date Smoking Tobacco: Never Assessed Comments Unknown Sex and Gender Information Value Date Recorded Sex Assigned at Not on file 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
--- OUTSIDE RECORDS SUMMARY | 2025-02-10 14:12 | XMS_ITS | Encounter Summary ---
Author Organization [facility] Address [address] [place] [address] Care Team Providers Care Dispatcher Service Name Role Phone Gorge Luciano DO Primary Care Provider [phone] Encounter Details Date Type Department Care Team (Latest Contact Info) Description 12/10/2000 Outpatient [facility] [address] [place] [address] Shahid Cassidy MD NO ADDRESS ON FILE Gynecologic examination (Primary Dx); Excessive menstruation Social History Tobacco Use Types Packs/Day Years Used Date Smoking Tobacco: Never Assessed Comments Unknown Sex and Gender Information Value Date Recorded Sex Assigned at Not on file 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
--- OUTSIDE RECORDS SUMMARY | 2025-02-10 14:12 | XMS_ITS | Encounter Summary ---
Author Organization [facility] Address [address] [facility] Attn: Epic Prelude ADT [place] [address] Care Team Providers Care Telemetry Technician Name Role Phone Gorge Luciano DO Primary Care Provider [phone] Encounter Details Date Type Department Care Team (Late st Contact Info) Description 06/13/2001 Outpatient Historical Zachery Barroso MD NO ADDRESS ON FILE Social History Tobacco Use Types Packs/Day Years Used Date Smoking Tobacco: Never Assessed Comments Unknown Sex and Gender Information Value Date Recorded Sex Assigned at Not on file 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
--- OUTSIDE RECORDS SUMMARY | 2025-02-10 14:12 | XMS_ITS | Encounter Summary ---
Author Organization [facility] Address [address] [facility] Attn: [place] [address] Care Team Providers Care Farm Implement Engine Mechanic Name Role Phone Gorge Luciano DO Primary Care Provider [phone] Encounter Details Date Type Department Care Team (Late st Contact Info) Description 12/29/2001 Outpatient Historical Sky Torres MD [address] [place] [address] Social History Tobacco Use Types Packs/Day Years Used Date Smoking Tobacco: Never Assessed Comments Unknown Sex and Gender Information Value Date Recorded Sex Assigned at Not on file 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
--- OUTSIDE RECORDS SUMMARY | 2025-02-10 14:12 | XMS_ITS | Encounter Summary ---
Author Organization Address [address] 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
--- OUTSIDE RECORDS SUMMARY | 2025-02-10 14:12 | XMS_ITS | Encounter Summary ---
Author Organization [facility] Address [address] [place] [address] Care Team Providers Care Interceptor Operator Name Role Phone Gorge Luciano DO Primary Care Provider [phone] Encounter Details Date Type Department Care Team (Latest Contact Info) Description 06/25/2003 Outpatient Historical [facility] Cardiology- [place] [address] [place] [address] Too Brandon MD NO ADDRESS ON FILE PRECORDIAL PAIN (Primary Dx); RESPIRATORY ABNORM NEC Social History Tobacco Use Types Packs/Day Years Used Date Smoking Tobacco: Never Assessed Comments Unknown Sex and Gender Information Value Date Recorded Sex Assigned at Not on file 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
--- OUTSIDE RECORDS SUMMARY | 2025-02-10 14:13 | XMS_ITS | Encounter Summary ---
Author Organization [facility] Address [address] [place] [address] Care Team Providers Care Geospatial Technician Name Role Phone Gorge Luciano DO Primary Care Provider [phone] Reason for Referral * Outpatient Services (Routine) - Closed Specialty Diagnoses / Procedures Referred By Cami t Referred To Contact Radiology Diagnoses Other screening mammogram Procedures MAMMO DIGITAL SCREEN BILAT Gorge Luciano DO [address] [address] Phone: tel: fax: [facility] Derik Clark [place] [address] [place] [address] Phone: tel: fax: Referral ID Status Reason Start Date Expiration Date Visits Re quested Visits Authorized [id number] Closed 01/19/2014 02/19/2015 1 1 ASSISTANT Encounter Details Date Type Department Care Team (Latest Contact Info) Description 01/19/2014 Ancillary Orders [facility] Pre-Registration [place] CALL TO MAKE APPOINTMENT ONLY [address] [place] [address] Gorge Luciano DO [address] [address] Other screening mammogram (Primary Dx) Social History Tobacco Use Types Packs/Day Years Used Date Smoking Tobacco: Never Smokeless Tobacco: Never Alcohol Use Standard Drinks/Week Comments No 0 (1 standard drink = 0.6 oz pur e alcohol) Comments No Sex and Gender Information Value Date Recorded Sex Assigned at Not on file Legal 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
--- OUTSIDE RECORDS SUMMARY | 2025-02-10 14:13 | XMS_ITS | Encounter Summary ---
Author Organization [facility] Address [address] [place] [address] Care Team Providers Care Administrative Resident Name Role Phone Gorge Luciano DO Primary Care Provider [phone] Reason for Referral * Outpatient Services (5-7 Days) - Closed Specialty Diagnoses / Procedures Referred By Cami t Referred To Contact Radiology Diagnoses Visit for screening mammogram Procedures MAMMO SCREEN BILAT W OR WO CAD Gorge Luciano DO [address] [address] Phone: tel: fax: [facility] [address] [facility] [address] [place] [address] Phone: tel: fax: Referral ID Status Reason Start Date Expiration Date Visits Requested Visits Authorized [id number] Closed Interventional Scheduling (SGF) 06/01/2016 07/02/2017 1 1 Encounter Details Date Type Department Care Team (Latest Contact Info) Description 06/01/2016 Ancillary Orders [facility] Pre-Registration [place] CALL TO MAKE APPOINTMENT ONLY [address] [place] [address] Gorge Luciano DO [address] [address] Visit for screening mammogram Social History Tobacco Use Types Packs/Day Years Used Date Smoking Tobacco: Never Smokeless Tobacco: Never Alcohol Use Standard Drinks/Week Comments No 0 (1 standard drink = 0.6 oz pur e alcohol) Comments No Sex and Gender Information Value Date Recorded Sex Assigned at Not on file Legal 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
--- OUTSIDE RECORDS SUMMARY | 2025-02-10 14:13 | XMS_ITS | Encounter Summary ---
Author Organization [facility] Address [address] [place] [address] Care Team Providers Care Broadcast Producer Name Role Phone MustaphaGorge Joelle CALDWELL Primary Care Provider [phone] Reason for Visit * Reason Onset Date Comments Medication Refill 01/28/2025 Encounter Details Date Type Department Care Team (Late st Contact Info) Description 01/28/[address] [facility] Endocrinology [facility] [address] [facility] [address] [place] [address] Lorna Page MD [address] [facility] [address] [place] [address] Social History Tobacco Use Types [...] AM CDT Legal Sex Female 12:[address] Gender Identity Female 12/21/2023 9:49 AM CDT Sexual Orientation Not on file documented as of this encounter Plan of Treatment Upcoming Encounters Date Type Department Care Team (Late st Contact Info) Description 02/14/2025 9:[address] MANAGER Appointment [facility] MRI [place] [address] [place] [address] PA [address] [place] [address] 02/15/2025 11:[address]NA[address] Office Visit [facility] [address] [place] [address] Conrado Barraza PA-C [address] [place] [address] 02/28/2025 11:[address]NAGER Office Visit [facility] Vianey Clark [place] [place] [address] Gorge Luciano DO [address] [place] [address] 04/09/2025 12:[address]NAGER Appointment [facility] [address] [place] [address] 04/12/2025 8:[address] MANA[address] Video Visit [facility] Endocrinology [facility] [address] [place] [address] Lorna Page MD [address] [place] [address] 04/16/2025 1:[address] MANAGER Office Visit [facility] Cancer and Hematology [employer] [address] [facility] [address] [place] [address] Levy Page MD [address] [place] [address] [place] [address] 06/12/2025 12:40 PM CDT Office Visit [facility] Rheumatology- More [place] [address] [place] [address] Enrrique Scanlon MD [address] [place] [address] 09/03/2025 11:20 AM CDT Office Visit [facility] Int Med-More Eduardo [address] [place] [address] Gorge Luciano DO [address] [place] [address] documented as of this encounter Visit Diagnoses Not on filedocumented in this encounter Care Teams Broadcast Producer Relationship Specialty Start Date End Date Gorge Luciano DO [address] [place] [address] PCP - General Internal Medicine 07/17/09 documented as of this encounter
--- OUTSIDE RECORDS SUMMARY | 2025-02-10 14:13 | XMS_ITS | Encounter Summary ---
Author Organization [facility] Address [address] [place] [address] Care Team Providers Care Wood Heel Fitter Machine Name Role Phone Gorge Luciano Primary Care Provider [phone] Encounter Details Date Type Department Care Team (Late st Contact Info) Description 07/17/2016 Ancillary Orders [facility] Orthopedics - Orthopedic [facility] [address] [place] [address] Oren Mckinnon MD [address] [place] [address] Arthritis of knee, right Social History Tobacco Use Types Packs/Day Years Used Date Smoking Tobacco: Never Smokeless Tobacco: Never Alcohol Use Standard Drinks/Week Comments No 0 (1 standard drink = 0.6 oz pur e alcohol) Comments No Sex and Gender Information Value Date Recorded Sex Assigned at Not on file 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
--- OUTSIDE RECORDS SUMMARY | 2025-02-10 14:13 | XMS_ITS | Encounter Summary ---
Author Organization [facility] Address [address] [place] [address] Care Team Providers Care Cable Assembler And Swager Name Role Phone Gorge Luciano DO Primary Care Provider [phone] Encounter Details Date Type Department Care Team (Late st Contact Info) Description 01/01/2025 Results Follow-Up [facility] Int [place]-More Eduardo [address] [place] [address] Priyanka Fong PA [address] [place] [address] MAMMO 3D ALEYDA SCREEN BILAT [...] AM CDT Legal Sex Female 12:41 PM CLEAT THROWER Gender Identity Female 12/21/2023 9:49 AM CDT Sexual Orientation Not on file documented as of this encounter Plan of Treatment Upcoming Encounters Date Type Department Care Team (Late st Contact Info) Description 02/14/2025 9:15 AM CLEAT THROWER Appointment [facility] MRI [place] [address] [place] [address] PA [address] [place] [address] 02/15/2025 11:40 AM CLEAT THROWER Office Visit [facility] Orthopedics - Orthopedic [facility] [address] [place] [address] Conrado Barraza PA-C [address] [place] [address] 02/28/2025 11:20 AM CLEAT THROWER Office Visit [facility] Int Jesus-More Eduardo [place] [place] [address] Gorge Luciano DO [address] [place] [address] 04/09/2025 12:35 PM CLEAT THROWER Appointment [facility] [address] [place] [address] 04/12/2025 8:00 AM CLEAT THROWER Video Visit [facility] Endocrinology [facility] [address] [place] [address] Lorna Page MD [address] [place] [address] 04/16/2025 1:20 PM CLEAT THROWER Office Visit [facility] Cancer and Hematology [place] [address] [facility] [address] [place] [address] Levy Page MD [address] [place] [address] [place] [address] 06/12/2025 12:40 PM CDT Office Visit [facility] Rheumatology- More [place] [address] [place] [address] Enrrique Scanlon MD [address] [place] [address] 09/03/2025 11:20 AM CDT Office Visit [facility] Int Med-More Eduardo [place] [place] [address] Gorge Luciano DO [address] [place] [address] documented as of this encounter Visit Diagnoses Not on filedocumented in this encounter Care Teams Cable Assembler And Swager Relationship Specialty Start Date End Date Gorge Luciano DO [address] [place] [address] PCP - General Internal Medicine 07/17/09 documented as of this encounter
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
[2025-02-10 14:19] VITALS: BP 136/85; PULSE 91; RESP 16; TEMP 36.6; O2SAT 99
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
[2025-02-10] MEDS: HYDROcodone-acetaminophen 5-325 mg Tablet 1 TAB PO (14:37)
[2025-02-10 15:39] VITALS: BP 136/55; PULSE 87; O2SAT 100
== END 2025-02-10 15:39 | disposition home or self-care (01) ==
PROVIDERS: Emergency Provider Emergency Medicine; PCP Family Medicine
DX: S13.4XXA Sprain of ligaments of cervical spine, initial encounter (principal); V89.2XXA Person injured in unspecified motor-vehicle accident, traffic, initial encounter; Z79.82 Long term (current) use of aspirin; Z79.4 Long term (current) use of insulin
CPT/HCPCS: 70450; 72125; 72128; 99284; J9999